=== PATIENT | male | born 1940 | race Caucasian/White ===

== ENCOUNTER 2018-12-26 12:59 | Inpatient (IN) ==
[2018-12-26 13:32] LABS: Basophils # (auto) 0.05 K/uL (0-0.2); Basophils % (auto) 0.6 %; Eosinophils # (auto) 0.22 K/uL (0-0.5); Eosinophils % (auto) 2.5 %; Hematocrit (blood only) 38.2 % (42-52); Immature Granulocytes # (auto) 0.03 K/uL (0.00-0.02); Immature Granulocytes % (auto) 0.3 %; Lymphocytes # (auto) 1.99 K/uL (1.2-3.4); Lymphocytes % (auto) 22.5 %; Mean Platelet Volume 11.3 fL (7.4-10.4); Monocytes # (auto) 1.02 K/uL (0.11-0.59); Monocytes % (auto) 11.5 %; Neutrophils # (auto) 5.55 K/uL (1.4-6.5); Neutrophils % (auto) 62.6 %; Platelet Count 170 K/uL (130-400); RDW Coefficient of Variation 13.2 % (11.5-14.5); RDW Standard Deviation 41.6 fL (36.4-46.3); Red Blood Count 4.44 M/uL (4.7-6.1); White Blood Count 8.86 K/uL (4.8-10.8)
[2018-12-26 13:41] LABS: Alanine Aminotransferase 20 U/L (12-78); Albumin Level 3.9 gm/dl (3.4-5.0); Aspartate Aminotransferase 18 U/L (15-37); BUN Creatinine Ratio 11.3 (10-20); Blood Urea Nitrogen 15 mg/dl (7-18); Calcium 9.8 mg/dl (8.5-10.1); Carbon Dioxide 26 mmol/L (21-32); Chloride 107 mmol/L (98-107); Creatinine Clr Calc Pharmacy 56.5 ml/min; Est GFR (African American) 59.2; Est GFR (Non-African American) 51.1; Glucose 157 mg/dl (70-99); Magnesium 2.1 mg/dl (1.8-2.4); Potassium 4.7 mmol/L (3.5-5.1); Sodium 140 mmol/L (136-145)
[2018-12-26 13:46] LABS: Alkaline Phosphatase 120 U/L (45-117); Bilirubin,Total 0.7 mg/dl (0.2-1); Globulin 3.8 gm/dl (2.5-4.0); NT Pro B Type Natriuretic Pept 244 pg/ml (0-1800); Total Protein 7.7 gm/dl (6.4-8.2); Troponin I < 0.015 ng/ml (0-0.045)
[2018-12-26 13:49] LABS: D Dimer 260 ug/L FEU (0-500)
--- NOTE | 2018-12-26 14:42 | XRay Report ---
XR chest 1V portable CLINICAL HISTORY: Chest pain. Chest tightness. COMPARISON STUDY: Chest radiograph May 26, 2018. FINDINGS: Note is made of median sternotomy wires. The cardiomediastinal silhouette is normal. There is no evidence for pulmonary edema or pneumonia. Several old right rib fractures are present. Bluntin g of the right costophrenic angle is likely chronic. The appearance of the chest is unchanged. IMPRESSION: No acute cardiopulmonary findings. Electronically signed by: Shan Perez M.D. 12/26/2018 2:41 PM
[2018-12-26 15:01] LABS: Estimated Average Glucose 214 mg/dl; Hemoglobin A1C 9.1 % (4.5-5.6)
--- NOTE | 2018-12-26 18:01 | Emergency Department Note ---
Entered by Wero Judd acting as a scribe for History of Present Illness General Chief complaint: Chest Pain Stated complaint: CHEST PAINS Time Seen by Provider: 12/26/18 13:26 Source: patient History of Present Illness Provider complaint: Chest pain Onset (ago): day(s) 2 Location: chest Radiation: extremity (Left upper) Severity: similar to prior episodes Pain Consistency: + intermittent Maximum Pain Intensity: 0 Relieved By: + none Exacerbated By: + movement Associated symptoms: + shortness of breath and + other (Lightheaded, No leg swelling, No changes in bowel movements); no fever/chills and no nausea/vomiting The patient is a 78 year old male who presents to the Emergency Room with complaints of intermittent chest pain that started 2 nights ago. He describes the pain as a "stress" that radiates down his left arm. When he first noticed the pain it lasted the entire night, around 7-8 hours but today when he felt the pain while on his way to the ED it only lasted for about a half hour. The patient notes he has been more short of breath lately especially with exertion. He also has noticed that he is getting lightheaded when he stands up. 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 He states that the "stress" he has been experiencing feels similar to when he had these past heart issues. He states this pain is different than the pain he feels in the bilateral upper extremity secondary to a "pinched nerve in his neck". He saw his doctor today and after talking with Dr. Mello they decided to send the patient here for further evaluation. The patient sees Dr. Mello every 6 months, with his last appointment being around 5 months ago. He has had an echo done within the past year. The patient did note he recently had a cough and rhinorrhea but denies any fevers, nausea, vomiting, leg swelling or changed in bowel movements. Patient denies any recent trauma or injury, no change in activity, no change in medications. Home Medications Home Medications Medication Instructions Recorded Confirmed Type aspirin [Enteric Coated Aspirin] 81 mg PO QAM #0 07/12/09 12/26/18 History isosorbide mononitrate 60 mg PO QAM 05/02/18 12/26/18 History metoprolol tartrate 50 mg PO BID 05/02/18 12/26/18 History amlodipine 5 mg PO QAM 05/26/18 12/26/18 History metformin 1,000 mg PO QAM 05/26/18 12/26/18 History atorvastatin 40 mg PO QAM 12/26/18 12/26/18 History insulin glargine [Lantus U-100 25 unit SUBCUT BIDM 12/26/18 12/26/18 History Insulin] ranitidine HCl 150 mg PO BID 12/26/18 12/26/18 History telmisartan 80 mg PO QAM 12/26/18 12/26/18 History Allergies Allergy/AdvReac Type Severity Reaction Status Date / Time tramadol AdvReac Severe memory loss Unverified 12/26/18 13:47 lisinopril AdvReac Intermediate Cough Unverified 12/26/18 13:47 sertraline AdvReac Mild DIDN'T Verified 12/26/18 13:47 FEEL WELL ON [id number] Past Med/Surg History Medical History HLD (hyperlipidemia) (Chronic) Sleep apnea (Chronic) HTN (hypertension) (Chronic) CAD (coronary artery disease) (Chronic) Diabetes mellitus with neuropathy (Chronic) Rib fractures Ribs, multiple fractures (Acute) Surgical History 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 and A total of 10 systems reviewed and were otherwise negative Physical Exam Vital Signs Vital Signs - 24 hr 12/26/18 13:02 12/26/18 13:20 12/26/18 14:06 Temperature 36.4 C L Temperature Source Oral Sepsis Recent Fever Within 48 Hours No Sepsis New/Unexplained Change in Mental Status No Sepsis Action Taken by Nursing No Action Required Pulse Rate 58 L Pulse Rate [Apical] 58 L 58 L Respiratory Rate 16 18 18 Respiratory Effort / Characteristics Non-Labored Respiratory Depth Normal Blood Pressure 143/73 H Blood Pressure [Left Arm] 160/96 H 149/74 H Blood Pressure Mean 96 Blood Pressure Mean [Left Arm] 117 99 Pulse Oximetry 99 98 98 Oxygen Delivery Method Room Air Room Air Room Air 12/26/18 16:00 Temperature Temperature Source Sepsis Recent Fever Within 48 Hours Sepsis New/Unexplained Change in Mental Status Sepsis Action Taken by Nursing Pulse Rate Pulse Rate [Apical] 60 Respiratory Rate 16 Respiratory Effort / Characteristics Respiratory Depth Blood Pressure Blood Pressure [Left Arm] 149/78 H Blood Pressure Mean Blood Pressure Mean [Left Arm] 101 Pulse Oximetry 98 Oxygen Delivery Method Room Air GENERAL: alert, well appearing, well nourished, no distress, non-toxic EYE EXAM: normal conjunctiva, PERRL and EOM's grossly intact OROPHARYNX: no exudate, no erythema, lips, buccal mucosa, and tongue normal and mucous membranes are moist NECK: supple, no nuchal rigidity, no adenopathy, non-tender LUNGS: Clear to auscultation. Normal chest wall mechanics, no w/r/r HEART: no murmurs, S1 normal and S2 normal CHEST: Mild discomfort to the left sternal border with palpation. ABDOMEN: abdomen soft, non-tender, normo-active bowel sounds, no masses, no rebound or guarding. BACK: Back is symmetrical on inspection and there is no deformity, no midline tenderness, no CVA tenderness. SKIN: no rashes and no bruising UPPER EXTREMITIES: upper extremities are grossly normal. FROM, nml pulses b/l. LOWER EXTREMITIES: No pitting edema. FROM, nml pulses b/l. NEURO EXAM: Normal sensorium, cranial nerves II-XII grossly intact, normal speech, no gross weakness of arms, no gross weakness of legs. Course 1359: The patient was evaluated in room A09B, and a complete history and physical examination were performed. 1600: I spoke to Dr. Sandhu - Cardiology about the patient's case and he said to talk with Dr. Mello about the patient and plan. 1610: I spoke to Dr. Mello - Media Supervisor about the patient's case and he said to admit the patient for further observation. 1615: I reevaluated the patient and updated him and his on the treatment plan. They agreed. 1623: I spoke to Dr. Bustos - [facility] Hospitalist about the patient's case and he is going to accept him for further evaluation. Consultations Consultation #1: I spoke to Dr. Sandhu - Cardiology about the patient's case and he said to talk with Dr. Mello about the patient and plan. Time: 16:00 Consultation #2: I spoke to Dr. Mello - Media Supervisor about the patient's case and he said to admit the patient for further observation. Time: 16:10 Consultation #3: I spoke to Dr. Bustos - [facility] Hospitalist about the patient's case and he is going to accept him for further evaluation. Time: 16:23 Medical Decision Making Differential Diagnosis Differential diagnoses includes but is not limited to acute coronary syndrome, myocardial infarction, pericarditis, pulmonary embolus, aortic dissection, pneumonia, pneumothorax, musculoskeletal, shingles, esophageal. Medical Records Attestation: I reviewed the patient's medical records. Home Medications Current Medication List: was personally reviewed by me Laboratory Data Attestation: I reviewed the patient's lab results. Result diagrams: 12/26/18 13:15 12/26/18 13:15 Lab Results 12/26/18 12/26/18 12/26/18 Range/Units 13:15 13:15 13:15 WBC 8.86 (4.8-10.8) K/uL RBC 4.44 L (4.7-6.1) M/uL Hgb 13.0 L (14.0-18.0) g/dL Hct 38.2 L (42-52) % MCV 86.0 (80-100) fL MCH 29.3 (25-34) pg MCHC 34.0 (32-36) g/dL RDW Std Deviation 41.6 (36.4-46.3) fL RDW Coeff of German 13.2 (11.5-14.5) % Plt Count 170 (130-400) K/uL MPV 11.3 H (7.4-10.4) fL Immature Gran % (Auto) 0.3 % Neut % (Auto) 62.6 % Lymph % (Auto) 22.5 % Weston % (Auto) 11.5 % Eos % (Auto) 2.5 % Baso % (Auto) 0.6 % Immature Gran # (Auto) 0.03 H (0.00-0.02) K/uL Neut # (Auto) 5.55 (1.4-6.5) K/uL Lymph # (Auto) 1.99 (1.2-3.4) K/uL Weston # (Auto) 1.02 H (0.11-0.59) K/uL Eos # (Auto) 0.22 (0-0.5) K/uL Baso # (Auto) 0.05 (0-0.2) K/uL D-Dimer 260 (0-500) ug/L FEU Sodium 140 (136-145) mmol/L Potassium 4.7 (3.5-5.1) mmol/L Chloride 107 (98-107) mmol/L Carbon Dioxide 26 (21-32) mmol/L Anion Gap 8.0 (3-11) BUN 15 (7-18) mg/dl Creatinine 1.34 (0.6-1.4) mg/dl Est Cr Clr Drug Dosing 56.5 ml/min Est GFR ( Amer) 59.2 Est GFR (Non-Af Amer) 51.1 BUN/Creatinine Ratio 11.3 (10-20) Glucose 157 H (70-99) mg/dl Estimat Average Glucose mg/dl Hemoglobin A1c (4.5-5.6) % Calcium 9.8 (8.5-10.1) mg/dl Magnesium 2.1 (1.8-2.4) mg/dl Total Bilirubin 0.7 (0.2-1) mg/dl AST 18 (15-37) U/L ALT 20 (12-78) U/L Alkaline Phosphatase 120 H (45-117) U/L Troponin I < 0.015 (0-0.045) ng/ml NT-Pro-B Natriuret Pep 244 (0-1800) pg/ml Total Protein 7.7 (6.4-8.2) gm/dl Albumin 3.9 (3.4-5.0) gm/dl Globulin 3.8 (2.5-4.0) gm/dl Albumin/Globulin Ratio 1.0 (0.9-2) Lipase 42 L (73-393) U/L 12/26/18 Range/Units 13:15 WBC (4.8-10.8) K/uL RBC (4.7-6.1) M/uL Hgb (14.0-18.0) g/dL Hct (42-52) % MCV (80-100) fL MCH (25-34) pg MCHC (32-36) g/dL RDW Std Deviation (36.4-46.3) fL RDW Coeff of German (11.5-14.5) % Plt Count (130-400) K/uL MPV (7.4-10.4) fL Immature Gran % (Auto) % Neut % (Auto) % Lymph % (Auto) % Weston % (Auto) % Eos % (Auto) % Baso % (Auto) % Immature Gran # (Auto) (0.00-0.02) K/uL Neut # (Auto) (1.4-6.5) K/uL Lymph # (Auto) (1.2-3.4) K/uL Weston # (Auto) (0.11-0.59) K/uL Eos # (Auto) (0-0.5) K/uL Baso # (Auto) (0-0.2) K/uL D-Dimer (0-500) ug/L FEU Sodium (136-145) mmol/L Potassium (3.5-5.1) mmol/L Chloride (98-107) mmol/L Carbon Dioxide (21-32) mmol/L Anion Gap (3-11) BUN (7-18) mg/dl Creatinine (0.6-1.4) mg/dl Est Cr Clr Drug Dosing ml/min Est GFR ( Amer) Est GFR (Non-Af Amer) BUN/Creatinine Ratio (10-20) Glucose (70-99) mg/dl Estimat Average Glucose 214 mg/dl Hemoglobin A1c 9.1 H (4.5-5.6) % Calcium (8.5-10.1) mg/dl Magnesium (1.8-2.4) mg/dl Total Bilirubin (0.2-1) mg/dl AST (15-37) U/L ALT (12-78) U/L Alkaline Phosphatase (45-117) U/L Troponin I (0-0.045) ng/ml NT-Pro-B Natriuret Pep (0-1800) pg/ml Total Protein (6.4-8.2) gm/dl Albumin (3.4-5.0) gm/dl Globulin (2.5-4.0) gm/dl Albumin/Globulin Ratio (0.9-2) Lipase (73-393) U/L Imaging Data Radiologist's Impression: Radiology results as stated below per my review and the radiologist's interpretation: XR chest 1V portable CLINICAL HISTORY: Chest pain. Chest tightness. COMPARISON STUDY: Chest radiograph May 26, 2018. FINDINGS: Note is made of median sternotomy wires. The cardiomediastinal si lhouette is normal. There is no evidence for pulmonary edema or pneumonia. Several old right rib fractures are present. Blunting of the right costophrenic angle is likely chronic. The appearance of the chest is unchanged. IMPRESSION: No acute cardiopulmonary findings. Electronically signed by: Shan Perez M.D. 12/26/2018 2:41 PM ECG Data Attestation: I personally reviewed and interpreted this ECG as follows: Indication: chest pain Rate (beats per minute): 56 Rhythm: sinus bradycardia Findings: + other (Normal intervals and axis); no PAC, no PVC and no acute ischemic change Blood Pressure Blood Pressure Findings: Elevated blood pressure Blood Pressure Disposition: further management by hospitalist MDM Narrative Patient was a worsening story for increasing anginal symptoms as well as recent chest pain. Patient referred here by his PCP after they discussed the patient's symptoms with his primary pewter finisher Dr. Mello. Case discussed with Dr. Sandhu who is on-call and then additionally with Dr. Mello to discuss plan of care. Patient's labs and imaging here are reassuring, patient hemodynamically stable throughout. Patient with no symptoms while at rest here in the emergency room. Given patient's significant past cardiac history, Dr. Mello agrees with plan for additional evaluation as an inpatient is warranted. Impression & Plan Chest pain, Dyspnea on exertion, Stable angina Discharge Plan Visit Data Chief Complaint: Chest Pain Stated Complaint: CHEST PAINS ED Provider: Merna Ordoñez Discharge Problem: Chest pain, Dyspnea on exertion, Stable angina Patient Disposition: Being Evaluated by Hospitalist Condition: Good Forms Stand Alone Forms: Call Back Authorization, [facility] Prescriptions Prescriptions: No Action aspirin [Enteric Coated Aspirin] 81 mg Tablet,Delayed Release (Dr/Ec) 81 mg PO QAM Qty: 0 RF: 0 isosorbide mononitrate 60 mg Tablet Extended Release 24 Hr 60 mg PO QAM RF: 0 metoprolol tartrate 50 mg Tablet 50 mg PO BID RF: 0 amlodipine 5 mg tablet 5 mg PO QAM RF: 0 metformin 1,000 mg tablet 1,000 mg PO QAM RF: 0 Lantus U-100 Insulin 100 unit/mL Solution 25 unit SUBCUT BIDM RF: 0 ranitidine HCl 150 mg tablet 150 mg PO BID RF: 0 telmisartan 80 mg Tablet 80 mg PO QAM RF: 0 atorvastatin 40 mg tablet 40 mg PO QAM RF: 0 Referrals Referrals: Shantell Queen, [Primary Care Provider] - The scribe's documentation has been prepared under my direction and personally reviewed by me in its entirety. I confirm that the note above accurately reflects all work, treatment, procedures, and medical decision making performed by me.
--- NOTE | 2018-12-26 18:32 | History & Physical Report ---
Date of Service December 26, 2018 Assessment & Plan (1) Chest pain: 78-year-old male was admitted on 26 December 2017 for intermittent chest pain and shortness of breath over the past two days. Periodic chest pain: Primarily two days prior to admission, more sporadic since. He has a notable history of CAD and four-vessel CABG around 2008. Difficult to tell but this may be his anginal equivalent. At present, he is chest pain-free. Sinus bradycardia here with no tachypnea and normal room SpO2. EKG was sinus bradycardia, rate 56, without ST or T wave elevations/depressions. pCXR noted no acute cardiopulmonary findings. Initial troponin at 1315 was negative. BNP normal. HEART score was moderate risk. - No medications administered in ED. - Will trend troponin and EKG overnight. - Consult cardiology for their input and thoughts on need for stress vs cath. Dyspnea on exertion: Patient notes progressive worsening SOB with exertion over the past month, now such that it occurs with any exertion. Denies any underlying pulmonary disease. Remote smoking history. Chest x-ray is clear. - Ordered spirometry for AM. Anemia: Admit Hb 13.0, MCV 86. This is similar to prior around Hb 13 as well. Ongoing medical history: - Hypertension, CAD: Continue home amlodipine, telmisartan, metoprolol, Imdur, and aspirin 81 mg. - Hyperlipidemia: Continue home atorvastatin - Diabetes type 2: Insulin-dependent. 29Apr HbA1c was 9.1. At home is on metformin and Lantus 25 units twice daily. --- Held his home metformin. Placed on insulin sliding scale here as well. - Diabetic neuropathy: Not on any home meds for this. - GERD: Continue home ranitidine. - Left rib fracture: Sustained around early April 2018. - Obstructive sleep apnea: History of noncompliance with CPAP at home. Code status: DNR (per patient stated long-term wishes). Diet: Heart healthy, diabetes type 2. NPO at midnight. DVT prophy: Lovenox. PT/OT: Deferred. Disbo: Admit for observation to [facility] telemetry. (2) Dyspnea on exertion: (3) HTN (hypertension): (4) CAD (coronary artery disease): (5) H/O four vessel coronary artery bypass graft: (6) HLD (hyperlipidemia): (7) Diabetes mellitus with neuropathy: (8) GERD (gastroesophageal reflux disease): (9) History of rib fracture: (10) Sleep apnea: History of Present Illness Primary Care Provider: Shantell Queen DO 78-year-old male presents to the emergency department with complaints of chest pain and progressively worsening shortness of breath with exertion. - Regarding his chest pain, patient says that two days ago (27Apr) he felt a constant left upper chest pain that he calls "stress" that radiated into his left arm. He says this lasted for about 7-8 hours, constant, which continued until he fell asleep that evening. He says on awakening he had no chest pain. Over yesterday and today he says he has had some recurrence of the same discomfort but it lasted for far less time (he is unable to quantify). He denies any chest pain at present. He says he was at his primary care provider's office earlier this morning (Dr. Queen) where he mentioned the above. After discussion with his merit system director, Dr. Mello, he was referred to the ED for further evaluation. -Regarding his shortness of breath, patient says over the past month or so he has noticed progressively worsening difficulty with catching his breath on any exertion. He says that it is become so severe such that he will get shortness of breath with just getting up to walk to the bathroom or even simply sitting up at times. Sometimes he gets lightheaded as well during these times. At present at rest, patient denies any shortness of breath. - In general, he denies any known recent fevers or feeling of illness, nausea or vomiting, abdominal concerns, leg swelling, or any other acute concerns. He does note an occasional cough on ROS. - Patient says that he follows with Dr. Mello of cardiology about every 6 months, last appointment being about 5 months ago. He says he had an echocardiogram done within the past year. --- Past medical history includes hypertension, hyperlipidemia, coronary artery disease status post CABG, insulin-dependent diabetes type 2, diabetic neuropathy, GERD, obstructive sleep apnea, left rib fractures. --- Past surgical history includes four-vessel CABG around 2008. --- Social history includes smoking 1 ppd for about 16-18 years but stopped at age 34. Denies EtOH use. Is and lives at home with his dog. Allergies Allergy/AdvReac Type Severity Reaction Status Date / Time tramadol AdvReac Severe memory loss Unverified 12/26/18 13:47 lisinopril AdvReac Intermediate Cough Unverified 12/26/18 13:47 sertraline AdvReac Mild DIDN'T Verified 12/26/18 13:47 FEEL WELL ON [id number] Home Medications Home Medications Medication Instructions Recorded Confirmed Type aspirin [Enteric Coated Aspirin] 81 mg PO QAM #0 07/12/09 12/26/18 History isosorbide mononitrate 60 mg PO QAM 05/02/18 12/26/18 History metoprolol tartrate 50 mg PO BID 05/02/18 12/26/18 History amlodipine 5 mg PO QAM 05/26/18 12/26/18 History metformin 1,000 mg PO QAM 05/26/18 12/26/18 History atorvastatin 40 mg PO QAM 12/26/18 12/26/18 History insulin glargine [Lantus U-100 25 unit SUBCUT BIDM 12/26/18 12/26/18 History Insulin] ranitidine HCl 150 mg PO BID 12/26/18 12/26/18 History telmisartan 80 mg PO QAM 12/26/18 12/26/18 History Past Med/Surg History Medical History HLD (hyperlipidemia) (Chronic) Sleep apnea (Chronic) HTN (hypertension) (Chronic) CAD (coronary artery disease) (Chronic) Diabetes mellitus with neuropathy (Chronic) Rib fractures Ribs, multiple fractures (Acute) Surgical History 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) Family History Other Family history non-contributory Social History Communication Ability: Effective Beliefs That Will Affect Care: None marital status: / Current Living Situation: Alone Feels Safe at Home: Yes Smoking Status: Former smoker Hx Alcohol Use: No Hx Substance Use: No Review of Systems Review of Systems: Constitutional: Denies fevers, chills, focal weakness Eyes: Denies any visual loss or diplopia ENT: Denies any ear/nose/throat pain or difficulty speaking or swallowing Respiratory: Positive dyspnea with exertion, rare cough. Denies hemoptysis. Cardiovascular: Positive chest pain. Denies feeling of edema. Gastrointestinal: Denies any abdominal pain, nausea/vomiting/diarrhea Musculoskeletal: Denies any acute extremity pains, myalgias, or focal weakness Skin: Denies any known acute rashes or lesions Neuro: Denies any headache, acute focal weakness or numbness, or difficulties with speech or swallow. Physical Exam Physical Exam: GENERAL: Awake, alert, well-appearing, in no acute distress HENT: Normocephalic, atraumatic. Oropharynx unremarkable. EYES: Normal conjunctiva. Sclera non-icteric. NECK: Inspection normal. Supple and full ROM. No nuchal rigidity. CARDIAC: +S1S2 regular bradycardia, no murmurs. RESPIRATORY: Faint end expiratory wheezing, otherwise clear to auscultation. Normal respiratory effort. GI: +BS, soft, appears distended (but patient says is his baseline). No tenderness to palpation. No rebound or guarding. EXTREMITIES: No pedal edema or calf tenderness. Moving all extremities naturally and easily. NEURO: Bilateral decreased sensation at the level of the mid-shins and worsening (but still intact) distally. Strength grossly normal (B) in both legs. Results & Data Vital Signs (Past 12 Hours) Vital Signs Temp Pulse Pulse Resp BP BP Pulse Ox 12/26/18 18:00 58 L 16 152/73 H 97 12/26/18 16:00 60 16 149/78 H 98 12/26/18 14:06 58 L 18 149/74 H 98 12/26/18 13:20 58 L 18 160/96 H 98 12/26/18 13:02 36.4 C L 58 L 16 143/73 H 99 Laboratory Results 12/26/18 12/26/18 12/26/18 Range/Units 13:15 13:15 13:15 WBC (4.8-10.8) K/uL RBC (4.7-6.1) M/uL Hgb (14.0-18.0) g/dL Hct (42-52) % MCV (80-100) fL MCH (25-34) pg MCHC (32-36) g/dL RDW Std Deviation (36.4-46.3) fL RDW Coeff of German (11.5-14.5) % Plt Count (130-400) K/uL MPV (7.4-10.4) fL Immature Gran % (Auto) % Neut % (Auto) % Lymph % (Auto) % Orange % (Auto) % Eos % (Auto) % Baso % (Auto) % Immature Gran # (Auto) (0.00-0.02) K/uL Neut # (Auto) (1.4-6.5) K/uL Lymph # (Auto) (1.2-3.4) K/uL Orange # (Auto) (0.11-0.59) K/uL Eos # (Auto) (0-0.5) K/uL Baso # (Auto) (0-0.2) K/uL D-Dimer 260 (0-500) ug/L FEU Sodium 140 (136-145) mmol/L Potassium 4.7 (3.5-5.1) mmol/L Chloride 107 (98-107) mmol/L Carbon Dioxide 26 (21-32) mmol/L Anion Gap 8.0 (3-11) BUN 15 (7-18) mg/dl Creatinine 1.34 (0.6-1.4) mg/dl Est Cr Clr Drug Dosing 56.5 ml/min Est GFR ( Amer) 59.2 Est GFR (Non-Af Amer) 51.1 BUN/Creatinine Ratio 11.3 (10-20) Glucose 157 H (70-99) mg/dl Estimat Average Glucose 214 mg/dl Hemoglobin A1c 9.1 H (4.5-5.6) % Calcium 9.8 (8.5-10.1) mg/dl Magnesium 2.1 (1.8-2.4) mg/dl Total Bilirubin 0.7 (0.2-1) mg/dl AST 18 (15-37) U/L ALT 20 (12-78) U/L Alkaline Phosphatase 120 H (45-117) U/L Troponin I < 0.015 (0-0.045) ng/ml NT-Pro-B Natriuret Pep 244 (0-1800) pg/ml Total Protein 7.7 (6.4-8.2) gm/dl Albumin 3.9 (3.4-5.0) gm/dl Globulin 3.8 (2.5-4.0) gm/dl Albumin/Globulin Ratio 1.0 (0.9-2) Lipase 42 L (73-393) U/L 12/26/18 Range/Units 13:15 WBC 8.86 (4.8-10.8) K/uL RBC 4.44 L (4.7-6.1) M/uL Hgb 13.0 L (14.0-18.0) g/dL Hct 38.2 L (42-52) % MCV 86.0 (80-100) fL MCH 29.3 (25-34) pg MCHC 34.0 (32-36) g/dL RDW Std Deviation 41.6 (36.4-46.3) fL RDW Coeff of German 13.2 (11.5-14.5) % Plt Count 170 (130-400) K/uL MPV 11.3 H (7.4-10.4) fL Immature Gran % (Auto) 0.3 % Neut % (Auto) 62.6 % Lymph % (Auto) 22.5 % Orange % (Auto) 11.5 % Eos % (Auto) 2.5 % Baso % (Auto) 0.6 % Immature Gran # (Auto) 0.03 H (0.00-0.02) K/uL Neut # (Auto) 5.55 (1.4-6.5) K/uL Lymph # (Auto) 1.99 (1.2-3.4) K/uL Orange # (Auto) 1.02 H (0.11-0.59) K/uL Eos # (Auto) 0.22 (0-0.5) K/uL Baso # (Auto) 0.05 (0-0.2) K/uL D-Dimer (0-500) ug/L FEU Sodium (136-145) mmol/L Potassium (3.5-5.1) mmol/L Chloride (98-107) mmol/L Carbon Dioxide (21-32) mmol/L Anion Gap (3-11) BUN (7-18) mg/dl Creatinine (0.6-1.4) mg/dl Est Cr Clr Drug Dosing ml/min Est GFR ( Amer) Est GFR (Non-Af Amer) BUN/Creatinine Ratio (10-20) Glucose (70-99) mg/dl Estimat Average Glucose mg/dl Hemoglobin A1c (4.5-5.6) % Calcium (8.5-10.1) mg/dl Magnesium (1.8-2.4) mg/dl Total Bilirubin (0.2-1) mg/dl AST (15-37) U/L ALT (12-78) U/L Alkaline Phosphatase (45-117) U/L Troponin I (0-0.045) ng/ml NT-Pro-B Natriuret Pep (0-1800) pg/ml Total Protein (6.4-8.2) gm/dl Albumin (3.4-5.0) gm/dl Globulin (2.5-4.0) gm/dl Albumin/Globulin Ratio (0.9-2) Lipase (73-393) U/L Code Status & VTE Plan Code Status Do not resuscitate VTE Prophylaxis Plan VTE Prophylaxis will be ordered: Yes Supervising Physician Co-Signing Physician Notes I personally examined the patient and verified all ledbetter points of history and exam, discussed case, and agree with decision making with Dr Kenney. chest pain for hours on wednesday, less yste and today but still there for short times. TAYLOR worsening lately - now dyspnea with even minimal exertion. vitals noted nad breathing unlabored no accessory muscles, skin shows no pallor or icterus. cn 2-12 grossly intact gross motor/sensory intact. CXR nonacute. EKG nonacute. labs noted, trop normal. A1c 9.1 CP - almost certainly noncardiac, given duration on wednesday, with multiple repeat episodes, and still negative troponin. TAYLOR - more concerning for true pathology. cardiology consult (considered stress, but with prior bypass would like need to be nuclear and would have high chance of old/false positive findings, and with prior disease + new TAYLOR/worsneing TAYLOR, reasonable to consider cath as well) (will keep NPO after midnight to allow cardiology flexibility to create plan as they see most appropriate). will also check spirometry. Resident Activity Tracking Resident Involvement: Resident Care Provided Care Provided: Adult Hospital Medicine (1) Chest pain Chest pain type: unspecified Qualified Code(s): R07.9 - Chest pain, unspecified
[2018-12-26] MEDS ORDERED: GLUCOSE 40% GEL 15 GM TUBE PO PRN (19:03)
[2018-12-26] MEDS ORDERED: GLUCOSE 10 TABS/TUBE PO PRN (19:03)
[2018-12-26] MEDS ORDERED: GLUCAGON FOR INJ 1 MG VIAL SQ PRN (19:03)
[2018-12-26] MEDS ORDERED: NITROGLYCERIN SL 0.4 MG/TAB TAB SL PRN (19:03)
[2018-12-26] MEDS ORDERED: CARBOHYDRATES FOR HYPOGLYCEMIA PO PRN (19:03)
[2018-12-26] MEDS ORDERED: ONDANSETRON INJ 2 MG/ML 2 ML VIAL IV PRN (19:03)
[2018-12-26] MEDS ORDERED: ACETAMINOPHEN 325 MG TAB PO PRN (19:03)
[2018-12-26] MEDS ORDERED: DEXTROSE 50% 50 ML SYRINGE IV PRN (19:03)
[2018-12-26 19:42] LABS: INR 1.1 (0.9-1.1); Prothrombin Time 10.9 Seconds (9.0-12.0)
[2018-12-26] MEDS: METOPROLOL TARTRATE 50 MG TAB PO SCH (20:02)
[2018-12-26] MEDS ORDERED: INSULIN GLARGINE SOLOSTAR 100 UNITS/ML 3 ML PEN SQ SCH ×2 (21:00)
[2018-12-26] MEDS: ENOXAPARIN INJ 40 MG/0.4 ML SYR SQ SCH (21:09)
[2018-12-26] MEDS: INSULIN ASPART 100 UNITS/ML 3 ML PEN SC SCH (21:09)
--- OUTSIDE RECORDS SUMMARY | 2018-12-26 23:19 | External Medical Summary | Continuity of Care Document ---
:1940 Author Name Fred Knox, Provider Address Unavailable Unavailable , Care Team Providers Name Role Phone Unavailable Unavailable Unavailable Ismael Bustos [email or web address] GALINDO [email or web address] Unavailable Unavailable Unavailable Unavailable Unavailable Problems Hearing loss (389.9) (H91.90) Tinnitus (388.30) (H93.19) BPH (benign prostatic hyperplasia) (600.00) (N40.0) Nocturia (788.43) (R35.1) Encounter for screening for malignant neoplasm of prostate ( V76.44) (Z12.5) Functional Status Hearing loss Allergies and Adverse Reactions No Known Drug Allergies (Allergy) Medications Atorvastatin Calcium 10 MG Oral Tablet , M.D. Refills: 0 Metoprolol Tartrate TABS , M.D. Refills: 0 metFORMIN HCl TABS , M.D. Refills: 0 Finasteride 5 MG Oral Tablet; TAKE ONE TABLET BY MOUTH DAILY Lisette Bustos Start: 07-Feb-2015 Quantity: 90 Refills: 3 Lisinopril TABS , M.D. Refills: 0 Aspirin 81 MG TABS , M.D. Refills: 0 Procedures History of Heart Surgery Status: Complet ed History of Cholecystectomy Status: Compl eted Immunizations Immunizations not documented Family History Mother Family history of Diabetes Mellitus (V18.0) Status: Active Father Family history of cardiac disorder (V17.49) (Z82.49) Status: Active Family history of hypertension (V17.49) (Z82.49) Status: Act iglesia Social History - Smoking Status Unknown if ever smoked Never smoker Plan of Treatment Planned Observations Planned Goals not documented Results No Known Results Results not documented Encounters Appointment; Alberto Ayala M.D. 10-Feb-2017 11:20 Encounter Diagnosis: Problem not documented
[2018-12-27 03:37] LABS: Basophils # (auto) 0.04 K/uL (0-0.2); Basophils % (auto) 0.5 %; Eosinophils # (auto) 0.24 K/uL (0-0.5); Hematocrit (blood only) 36.6 % (42-52); Hemoglobin 12.9 g/dL (14.0-18.0); Immature Granulocytes # (auto) 0.02 K/uL (0.00-0.02); Immature Granulocytes % (auto) 0.2 %; Lymphocytes # (auto) 2.61 K/uL (1.2-3.4); Lymphocytes % (auto) 32.6 %; Mean Corpuscular Hgb Conc 35.2 g/dL (32-36); Mean Corpuscular Volume 85.5 fL (80-100); Monocytes # (auto) 1.03 K/uL (0.11-0.59); Monocytes % (auto) 12.9 %; Neutrophils # (auto) 4.07 K/uL (1.4-6.5); Neutrophils % (auto) 50.8 %; Platelet Count 162 K/uL (130-400); RDW Coefficient of Variation 13.3 % (11.5-14.5); RDW Standard Deviation 41.6 fL (36.4-46.3); Red Blood Count 4.28 M/uL (4.7-6.1); White Blood Count 8.01 K/uL (4.8-10.8)
[2018-12-27 03:58] LABS: BUN Creatinine Ratio 13.7 (10-20); Blood Urea Nitrogen 17 mg/dl (7-18); Calcium 8.7 mg/dl (8.5-10.1); Carbon Dioxide 27 mmol/L (21-32); Chloride 110 mmol/L (98-107); Creatinine Clr Calc Pharmacy 61.2 ml/min; Est GFR (African American) 65.7; Est GFR (Non-African American) 56.7; Glucose 56 mg/dl (70-99); Potassium 3.9 mmol/L (3.5-5.1); Sodium 141 mmol/L (136-145)
[2018-12-27 04:03] LABS: Troponin I < 0.015 ng/ml (0-0.045)
[2018-12-27] MEDS: INSULIN ASPART 100 UNITS/ML 3 ML PEN SC SCH ×4 (05:18→20:31)
[2018-12-27] MEDS ORDERED: INSULIN GLARGINE SOLOSTAR 100 UNITS/ML 3 ML PEN SC ONE (08:20)
[2018-12-27] MEDS ORDERED: PERFLUTREN LIPID MICROSPHERE (DEFINITY) IV ONE (11:13)
--- NOTE | 2018-12-27 11:39 | Family Medicine Progress Note ---
Date of Service December 27, 2018 Assessment & Plan (1) Chest pain: 78-year-old male was admitted on 26 December 2018 for intermittent chest pain and shortness of breath over the past two days. Periodic chest pain: Primarily two days prior to admission, more sporadic since. Multiple cardiac risk factors to include prior stent and CABG x 4 vessels. He has remained chest pain-free during this admission. Serial troponins and EKGs were unremarkable. - Ordered echocardiogram. - Cardiology recommendations pending, though early report is that he will go for cath tomorrow. Dyspnea on exertion: Patient notes progressive worsening SOB with exertion over the past month, now such that it occurs with any exertion. Denies any underlying pulmonary disease. Remote smoking history. Chest x-ray is clear. Spirometry is suggestive of a mixed obstructive and restrictive pattern (with pulmonology interpretation pending). - We will start on both Advair and Spiriva with the thought of trying to fully control any pulmonary component to his dyspnea. If successful, this would likely need to be de-escalated as an outpatient to minimal required medication. Anemia: Admit Hb 13.0, MCV 86. This is similar to prior around Hb 13 as well. Ongoing medical history: - Hypertension, CAD: Continue home amlodipine, telmisartan, metoprolol, Imdur, and aspirin 81 mg. - Hyperlipidemia: Continue home atorvastatin - Diabetes type 2: Insulin-dependent. 29Apr HbA1c was 9.1. At home is on metformin and Lantus 25 units twice daily. --- Held his home metformin. Placed on insulin sliding scale here as well. --- Noted episode of hypoglycemia overnight (29-30Apr). Says this happens occasionally at home as well. Discussed he should work with his PCP on insulin regimen management to prevent future hypoglycemic episodes. - Diabetic neuropathy: Not on any home meds for this. - GERD: Continue home ranitidine. - Left rib fracture: Sustained around early April 2018. - Obstructive sleep apnea: History of noncompliance with CPAP at home. Code status: DNR. Diet: Heart healthy, diabetes type 2. NPO at midnight for anticipated cath tomorrow (01May). DVT prophy: Lovenox. PT/OT: Deferred. Disbo: [facility] (2) Dyspnea on exertion: (3) HTN (hypertension): (4) CAD (coronary artery disease): (5) H/O four vessel coronary artery bypass graft: (6) HLD (hyperlipidemia): (7) Diabetes mellitus with neuropathy: (8) GERD (gastroesophageal reflux disease): (9) History of rib fracture: (10) Sleep apnea: Supervising Physician Co-Signing Physician Notes I personally examined the patient and verified all ledbetter points of history and exam, discussed case, and agree with decision making with Dr Kenney. feeling ok no new sx. d/w cardiology -for cath tomorrow. vitals noted nad breathing unlabored no accessory muscles, skin shows no pallor or icterus. cn 2-12 grossly intact gross motor/sensory intact. CP - almost certainly noncardiac, given duration on wednesday, with multiple repeat episodes, and still negative troponins. concern is TAYLOR TAYLOR - -likely multifactorial - concern on anginal equivalent --> cath tomorrow -concern on valvular disease - as above/as per cardiology -PFTs appear probably mixed picture - maybe a mild degree of obstructive --- give trial of inhalers at high intensity so as to be able to look for improvement, if some, then can decrease to baseline anticholinergic and prn albuterol; if none, then likely no benefit to inhalers then; also appears restrictive - has large abdominal girth - likely some from weight related restriction. discussed lifestyle change DM2 - uncontrolled - discussed lifestyle change extensively otherwise as above Subjective Found patient resting comfortably in bed this morning. He says that he has no symptoms because "I am not doing anything". He denies any chest pain or shortness of breath at baseline or with walking to the bathroom. He has no particular acute concerns. Physical Exam Physical Exam: GENERAL: Awake, alert, well-appearing, in no acute distress CARDIAC: +S1S2 regular bradycardia, no murmurs. RESPIRATORY: Faint end expiratory wheezing, otherwise clear to auscultation. Normal respiratory effort. GI: +BS, soft, appears distended (but patient says is his baseline). No tenderness to palpation. No rebound or guarding. EXTREMITIES: No pedal edema or calf tenderness. Moving all extremities naturally and easily. NEURO: Bilateral decreased sensation at the level of the mid-shins and worsening (but still intact) distally. Strength grossly normal (B) in both legs. Results & Data Vital Signs (Past 12 Hours) Vital Signs Temp Pulse Resp BP Pulse Ox 12/27/18 10:46 36.4 C L 71 18 147/75 H 98 12/27/18 07:11 36.6 C 62 18 147/71 H 98 12/27/18 03:35 36.4 C L 59 L 16 155/89 H 97 12/26/18 23:59 36.5 C 58 L 18 147/76 H 98 Laboratory Results 12/27/18 12/27/18 12/27/18 Range/Units 11:22 10:07 07:23 WBC (4.8-10.8) K/uL RBC (4.7-6.1) M/uL Hgb (14.0-18.0) g/dL Hct (42-52) % MCV (80-100) fL MCH (25-34) pg MCHC (32-36) g/dL RDW Std Deviation (36.4-46.3) fL RDW Coeff of German (11.5-14.5) % Plt Count (130-400) K/uL MPV (7.4-10.4) fL Immature Gran % (Auto) % Neut % (Auto) % Lymph % (Auto) % [place] % (Auto) % Eos % (Auto) % Baso % (Auto) % Immature Gran # (Auto) (0.00-0.02) K/uL Neut # (Auto) (1.4-6.5) K/uL Lymph # (Auto) (1.2-3.4) K/uL [place] # (Auto) (0.11-0.59) K/uL Eos # (Auto) (0-0.5) K/uL Baso # (Auto) (0-0.2) K/uL PT (9.0-12.0) Seconds INR (0.9-1.1) D-Dimer (0-500) ug/L FEU Sodium (136-145) mmol/L Potassium (3.5-5.1) mmol/L Chloride (98-107) mmol/L Carbon Dioxide (21-32) mmol/L Anion Gap (3-11) BUN (7-18) mg/dl Creatinine (0.6-1.4) mg/dl Est Cr Clr Drug Dosing ml/min Est GFR ( Amer) Est GFR (Non-Af Amer) BUN/Creatinine Ratio (10-20) Glucose (70-99) mg/dl POC Glucose 132 H 108 H 102 H (70-99) Estimat Average Glucose mg/dl Hemoglobin A1c (4.5-5.6) % Calcium (8.5-10.1) mg/dl Magnesium (1.8-2.4) mg/dl Total Bilirubin (0.2-1) mg/dl AST (15-37) U/L ALT (12-78) U/L Alkaline Phosphatase (45-117) U/L Troponin I (0-0.045) ng/ml NT-Pro-B Natriuret Pep (0-1800) pg/ml Total Protein (6.4-8.2) gm/dl Albumin (3.4-5.0) gm/dl Globulin (2.5-4.0) gm/dl Albumin/Globulin Ratio (0.9-2) Lipase (73-393) U/L 12/27/18 12/27/18 12/27/18 Range/Units 06:52 05:37 05:07 WBC (4.8-10.8) K/uL RBC (4.7-6.1) M/uL Hgb (14.0-18.0) g/dL Hct (42-52) % MCV (80-100) fL MCH (25-34) pg MCHC (32-36) g/dL RDW Std Deviation (36.4-46.3) fL RDW Coeff of German (11.5-14.5) % Plt Count (130-400) K/uL MPV (7.4-10.4) fL Immature Gran % (Auto) % Neut % (Auto) % Lymph % (Auto) % [place] % (Auto) % Eos % (Auto) % Baso % (Auto) % Immature Gran # (Auto) (0.00-0.02) K/uL Neut # (Auto) (1.4-6.5) K/uL Lymph # (Auto) (1.2-3.4) K/uL [place] # (Auto) (0.11-0.59) K/uL Eos # (Auto) (0-0.5) K/uL Baso # (Auto) (0-0.2) K/uL PT (9.0-12.0) Seconds INR (0.9-1.1) D-Dimer (0-500) ug/L FEU Sodium (136-145) mmol/L Potassium (3.5-5.1) mmol/L Chloride (98-107) mmol/L Carbon Dioxide (21-32) mmol/L Anion Gap (3-11) BUN (7-18) mg/dl Creatinine (0.6-1.4) mg/dl Est Cr Clr Drug Dosing ml/min Est GFR ( Amer) Est GFR (Non-Af Amer) BUN/Creatinine Ratio (10-20) Glucose (70-99) mg/dl POC Glucose 119 H 86 48 L* (70-99) Estimat Average Glucose mg/dl Hemoglobin A1c (4.5-5.6) % Calcium (8.5-10.1) mg/dl Magnesium (1.8-2.4) mg/dl Total Bilirubin (0.2-1) mg/dl AST (15-37) U/L ALT (12-78) U/L Alkaline Phosphatase (45-117) U/L Troponin I (0-0.045) ng/ml NT-Pro-B Natriuret Pep (0-1800) pg/ml Total Protein (6.4-8.2) gm/dl Albumin (3.4-5.0) gm/dl Globulin (2.5-4.0) gm/dl Albumin/Globulin Ratio (0.9-2) Lipase (73-393) U/L 12/27/18 12/27/18 12/26/18 Range/Units 03:27 03:27 21:06 WBC 8.01 (4.8-10.8) K/uL RBC 4.28 L (4.7-6.1) M/uL Hgb 12.9 L (14.0-18.0) g/dL Hct 36.6 L (42-52) % MCV 85.5 (80-100) fL MCH 30.1 (25-34) pg MCHC 35.2 (32-36) g/dL RDW Std Deviation 41.6 (36.4-46.3) fL RDW Coeff of German 13.3 (11.5-14.5) % Plt Count 162 (130-400) K/uL MPV 11.0 H (7.4-10.4) fL Immature Gran % (Auto) 0.2 % Neut % (Auto) 50.8 % Lymph % (Auto) 32.6 % [place] % (Auto) 12.9 % Eos % (Auto) 3.0 % Baso % (Auto) 0.5 % Immature Gran # (Auto) 0.02 (0.00-0.02) K/uL Neut # (Auto) 4.07 (1.4-6.5) K/uL Lymph # (Auto) 2.61 (1.2-3.4) K/uL [place] # (Auto) 1.03 H (0.11-0.59) K/uL Eos # (Auto) 0.24 (0-0.5) K/uL Baso # (Auto) 0.04 (0-0.2) K/uL PT (9.0-12.0) Seconds INR (0.9-1.1) D-Dimer (0-500) ug/L FEU Sodium 141 (136-145) mmol/L Potassium 3.9 D (3.5-5.1) mmol/L Chloride 110 H (98-107) mmol/L Carbon Dioxide 27 (21-32) mmol/L Anion Gap 4.0 (3-11) BUN 17 (7-18) mg/dl Creatinine 1.23 (0.6-1.4) mg/dl Est Cr Clr Drug Dosing 61.2 ml/min Est GFR ( Amer) 65.7 Est GFR (Non-Af Amer) 56.7 BUN/Creatinine Ratio 13.7 (10-20) Glucose 56 L (70-99) mg/dl POC Glucose 214 H (70-99) Estimat Average Glucose mg/dl Hemoglobin A1c (4.5-5.6) % Calcium 8.7 (8.5-10.1) mg/dl Magnesium (1.8-2.4) mg/dl Total Bilirubin (0.2-1) mg/dl AST (15-37) U/L ALT (12-78) U/L Alkaline Phosphatase (45-117) U/L Troponin I < 0.015 (0-0.045) ng/ml NT-Pro-B Natriuret Pep (0-1800) pg/ml Total Protein (6.4-8.2) gm/dl Albumin (3.4-5.0) gm/dl Globulin (2.5-4.0) gm/dl Albumin/Globulin Ratio (0.9-2) Lipase (73-393) U/L 12/26/18 12/26/18 12/26/18 Range/Units 19:02 13:15 13:15 WBC (4.8-10.8) K/uL RBC (4.7-6.1) M/uL Hgb (14.0-18.0) g/dL Hct (42-52) % MCV (80-100) fL MCH (25-34) pg MCHC (32-36) g/dL RDW Std Deviation (36.4-46.3) fL RDW Coeff of German (11.5-14.5) % Plt Count (130-400) K/uL MPV (7.4-10.4) fL Immature Gran % (Auto) % Neut % (Auto) % Lymph % (Auto) % [place] % (Auto) % Eos % (Auto) % Baso % (Auto) % Immature Gran # (Auto) (0.00-0.02) K/uL Neut # (Auto) (1.4-6.5) K/uL Lymph # (Auto) (1.2-3.4) K/uL [place] # (Auto) (0.11-0.59) K/uL Eos # (Auto) (0-0.5) K/uL Baso # (Auto) (0-0.2) K/uL PT 10.9 (9.0-12.0) Seconds INR 1.1 (0.9-1.1) D-Dimer (0-500) ug/L FEU Sodium (136-145) mmol/L Potassium (3.5-5.1) mmol/L Chloride (98-107) mmol/L Carbon Dioxide (21-32) mmol/L Anion Gap (3-11) BUN (7-18) mg/dl Creatinine (0.6-1.4) mg/dl Est Cr Clr Drug Dosing ml/min Est GFR ( Amer) Est GFR (Non-Af Amer) BUN/Creatinine Ratio (10-20) Glucose (70-99) mg/dl POC Glucose (70-99) Estimat Average Glucose 214 mg/dl Hemoglobin A1c 9.1 H (4.5-5.6) % Calcium (8.5-10.1) mg/dl Magnesium (1.8-2.4) mg/dl Total Bilirubin (0.2-1) mg/dl AST (15-37) U/L ALT (12-78) U/L Alkaline Phosphatase (45-117) U/L Troponin I < 0.015 (0-0.045) ng/ml NT-Pro-B Natriuret Pep (0-1800) pg/ml Total Protein (6.4-8.2) gm/dl Albumin (3.4-5.0) gm/dl Globulin (2.5-4.0) gm/dl Albumin/Globulin Ratio (0.9-2) Lipase (73-393) U/L 12/26/18 12/26/18 12/26/18 Range/Units 13:15 13:15 13:15 WBC 8.86 (4.8-10.8) K/uL RBC 4.44 L (4.7-6.1) M/uL Hgb 13.0 L (14.0-18.0) g/dL Hct 38.2 L (42-52) % MCV 86.0 (80-100) fL MCH 29.3 (25-34) pg MCHC 34.0 (32-36) g/dL RDW Std Deviation 41.6 (36.4-46.3) fL RDW Coeff of German 13.2 (11.5-14.5) % Plt Count 170 (130-400) K/uL MPV 11.3 H (7.4-10.4) fL Immature Gran % (Auto) 0.3 % Neut % (Auto) 62.6 % Lymph % (Auto) 22.5 % [place] % (Auto) 11.5 % Eos % (Auto) 2.5 % Baso % (Auto) 0.6 % Immature Gran # (Auto) 0.03 H (0.00-0.02) K/uL Neut # (Auto) 5.55 (1.4-6.5) K/uL Lymph # (Auto) 1.99 (1.2-3.4) K/uL [place] # (Auto) 1.02 H (0.11-0.59) K/uL Eos # (Auto) 0.22 (0-0.5) K/uL Baso # (Auto) 0.05 (0-0.2) K/uL PT (9.0-12.0) Seconds INR (0.9-1.1) D-Dimer 260 (0-500) ug/L FEU Sodium 140 (136-145) mmol/L Potassium 4.7 (3.5-5.1) mmol/L Chloride 107 (98-107) mmol/L Carbon Dioxide 26 (21-32) mmol/L Anion Gap 8.0 (3-11) BUN 15 (7-18) mg/dl Creatinine 1.34 (0.6-1.4) mg/dl Est Cr Clr Drug Dosing 56.5 ml/min Est GFR ( Amer) 59.2 Est GFR (Non-Af Amer) 51.1 BUN/Creatinine Ratio 11.3 (10-20) Glucose 157 H (70-99) mg/dl POC Glucose (70-99) Estimat Average Glucose mg/dl Hemoglobin A1c (4.5-5.6) % Calcium 9.8 (8.5-10.1) mg/dl Magnesium 2.1 (1.8-2.4) mg/dl Total Bilirubin 0.7 (0.2-1) mg/dl AST 18 (15-37) U/L ALT 20 (12-78) U/L Alkaline Phosphatase 120 H (45-117) U/L Troponin I < 0.015 (0-0.045) ng/ml NT-Pro-B Natriuret Pep 244 (0-1800) pg/ml Total Protein 7.7 (6.4-8.2) gm/dl Albumin 3.9 (3.4-5.0) gm/dl Globulin 3.8 (2.5-4.0) gm/dl Albumin/Globulin Ratio 1.0 (0.9-2) Lipase 42 L (73-393) U/L Medications Administered Current Inpatient Medications Acetaminophen (Tylenol) 650 mg PO Q4H PRN PRN Reason: Pain or Fever Stop: 01/25/19 19:02 Amlodipine Besylate (Norvasc) [facility] [place] [place] Stop: 01/26/19 08:59 Aspirin (Ecotrin Ectab) 81 mg PO QAM [facility] Stop: 01/26/19 08:59 Atorvastatin Calcium (Lipitor) 40 mg PO QAM [facility] Stop: 01/26/19 08:59 Dextrose (Dextrose 50%) 25 - 50 ml IV UD PRN; Protocol PRN Reason: Hypoglycemia Protocol Stop: 01/25/19 19:02 Enoxaparin Sodium (Lovenox) 40 mg SQ Q24H [facility] Stop: 01/25/19 20:59 Last Admin: 12/26/18 21:09 Dose: 40 mg Documented by: Glucagon (Glucagen) 1 mg SQ UD PRN; Protocol PRN Reason: Hypoglycemia Protocol Stop: 01/25/19 19:02 Glucose (Dex4 Glucose) 4 - 8 tabs PO UD PRN; Protocol PRN Reason: Hypoglycemia Protocol Stop: 01/25/19 19:02 Last Admin: 12/27/18 05:21 Dose: 8 tabs Documented by: Glucose (Glucose 40%) 15 - 30 gm PO UD PRN; Protocol PRN Reason: Hypoglycemia Protocol Stop: 01/25/19 19:02 Sodium Chloride (Nss 1000ml) 1,000 mls @ 80 mls/hr IV .[id number] JAS Stop: 01/26/19 00:04 Last Admin: 12/27/18 00:00 Dose: 80 mls/hr Documented by: Insulin Aspart (Novolog Flexpen) 0 units SC ACHS [facility] Stop: 01/25/19 20:59 Last Admin: 12/27/18 05:18 Dose: Not Given Documented by: Insulin Glargine (Lantus Solostar Pen) 25 units SQ BID [facility] Stop: 01/25/19 20:59 Last Admin: 12/26/18 21:10 Dose: 25 units Documented by: Isosorbide Mononitrate (Imdur Extended Rel) 60 mg PO QAM [facility] Stop: 01/26/19 08:59 Metoprolol Tartrate (Lopressor) 50 mg PO BID [facility] Stop: 01/25/19 20:59 Last Admin: 12/26/18 20:02 Dose: 50 mg Documented by: Miscellaneous (Carbohydrates For Hypoglycemia) 15 - 30 gm PO UD PRN PRN Reason: Hypoglycemia Treatment Stop: 01/25/19 19:02 Nitroglycerin (Nitrostat) 0.4 mg SL UD PRN PRN Reason: Chest Pain Stop: 01/25/19 19:02 Ondansetron HCl (Zofran) 4 mg IV Q6H PRN PRN Reason: Nausea Stop: 01/25/19 19:02 Ranitidine HCl (Zantac) 150 mg PO BID [facility] Stop: 01/25/19 20:59 Last Admin: 12/26/18 20:02 Dose: 150 mg Documented by: Fluticasone/Salmeterol (Advair Diskus 100/50) 1 puffs INH BID [facility] Stop: 01/26/19 20:59 Telmisartan (Micardis) 80 mg PO QAM [facility] Stop: 01/26/19 08:59 Tiotropium Foss (Spiriva) 1 puffs INH QAM [facility] Stop: 01/27/19 08:59 Resident Activity Tracking Resident Involvement: Resident Care Provided Care Provided: Adult Hospital Medicine (1) Chest pain Chest pain type: unspecified Qualified Code(s): R07.9 - Chest pain, unspecified
--- NOTE | 2018-12-27 13:08 | Cardiology Consultation ---
Date of Consultation December 27, 2018 Assessment & Plan (1) Angina of effort: I believe the patient's symptoms could either be from his aortic stenosis or progression in his coronary artery disease. It could also be a combination of both. I think the best way to evaluate him however, is with a heart catheterization. I explained the risk, benefit and intent of the procedure to him and he is willing to proceed. Since the patient is stable, we will plan for tomorrow morning. (2) Aortic stenosis: Review of his echocardiogram indicates moderate to severe aortic stenosis. LV systolic function is preserved. (3) H/O four vessel coronary artery bypass graft: (4) Diabetes: History of Present Illness Attending Physician: Javid Gordon, History of Present Illness This is a 78-year-old male patient who usually follows with Dr. Mello through our clinic. He has the past cardiac history. Over the past several months he has developed progressive shortness of breath with activity. His daughter is in the room with him. She states if he tries to walk up a grade or mow his lawn he become short of breath and has to stop. The patient confirms the above symptoms. In addition, he has noted chest discomfort with his shortness of breath which resolves with rest. At first he thought it was his cervical radiculopathy but it is pretty consistent with activity and resolves with rest. He has a history of aortic stenosis and previous coronary artery bypass. I believe the best way to evaluate him is by performing a right and left heart catheterization to evaluate his coronary anatomy and his aortic stenosis. Past medical history: 1.Atherosclerotic coronary disease status post coronary artery bypass grafti , October 2007, receiving MATT graft to LAD, saphenous vein graft to the right coronary artery, a saphenous vein graft sequentially to OM1, OM2. With chronic class 1 2 angina pectoris 2.Obstructive sleep apnea on CPAP supplementation. 3.Hyperlipidemia. 4.Diabetes mellitus with neuropathy. 5.History of cervical disk disease with cervical radiculopathy. 6. Calcific aortic valve disease with [id number] aortic stenosis 7. Hypertension Allergies Allergy/AdvReac Type Severity Reaction Status Date / Time tramadol AdvReac Severe memory loss Unverified 12/26/18 13:47 lisinopril AdvReac Intermediate Cough Unverified 12/26/18 13:47 sertraline AdvReac Mild DIDN'T Verified 12/26/18 13:47 FEEL WELL ON [id number] Home Medications Home Medications Medication Instructions Recorded Confirmed Type aspirin [Enteric Coated Aspirin] 81 mg PO QAM #0 07/12/09 12/26/18 History isosorbide mononitrate 60 mg PO QAM 05/02/18 12/26/18 History metoprolol tartrate 50 mg PO BID 05/02/18 12/26/18 History amlodipine 5 mg PO QAM 05/26/18 12/26/18 History metformin 1,000 mg PO QAM 05/26/18 12/26/18 History atorvastatin 40 mg PO QAM 12/26/18 12/26/18 History insulin glargine [Lantus U-100 25 unit SUBCUT BIDM 12/26/18 12/26/18 History Insulin] ranitidine HCl 150 mg PO BID 12/26/18 12/26/18 History telmisartan 80 mg PO QAM 12/26/18 12/26/18 History Patient History Medical History HLD (hyperlipidemia) (Chronic) Sleep apnea (Chronic) HTN (hypertension) (Chronic) CAD (coronary artery disease) (Chronic) Diabetes mellitus with neuropathy (Chronic) Rib fractures Ribs, multiple fractures (Acute) Surgical History 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) Family History Other Family history non-contributory Social History Preferred Language: Chilean Communication Ability: Effective 3D Specialist Required: No Beliefs That Will Affect Care: None marital status: / Current Living Situation: Alone Other Information That Helps Us Care for You: No Feels Safe at Home: Yes Safety Concerns: Feels Safe At This Time Smoking Status: Never smoker Do You Dip or Chew Tobacco: No Second Hand Exposure: No Tobacco Cessation Education Requested by Patient: No Hx Alcohol Use: No Hx Substance Use: No Review of Systems Review of Systems: Review of Systems: See HPI for pertinent positives. All other 10 point review of systems are negative. Physical Exam Physical Exam: General: no acute distress and stated age Head: normocephalic, no masses, lesions, tenderness or abnormalities Eyes: conjunctiva are pink and non-injected, sclera clear Neck: supple, no adenopathy, no bruits, normal jugular venous pulse, no hepatojugular reflux Chest: normal shape and normal respiratory effort Lungs: clear to auscultation and percussion Cardiac Exam: - regular rate & rhythm, systolic murmur left sternal border- normal S1, normal S2 Pulses: 2(+) throughout Abdomen: abdomen soft, non-tender, no abnormal masses and no hepatosplenomegaly Musculoskeletal: no gait disturbance, no joint inflammation, no deforming arthritis Extremities: no edema and no cyanosis Neuro: grossly normal exam Results & Data Vital Signs (Past 12 Hours) Vital Signs Temp Pulse Resp BP Pulse Ox 12/27/18 10:46 36.4 C L 71 18 147/75 H 98 12/27/18 07:11 36.6 C 62 18 147/71 H 98 12/27/18 03:35 36.4 C L 59 L 16 155/89 H 97 Laboratory Results Laboratory Results - last 24 hr 12/26/18 12/26/18 12/26/18 13:15 13:15 13:15 WBC 8.86 RBC 4.44 L Hgb 13.0 L Hct 38.2 L MCV 86.0 MCH 29.3 MCHC 34.0 RDW Std Deviation 41.6 RDW Coeff of German 13.2 Plt Count 170 MPV 11.3 H Immature Gran % (Auto) 0.3 Neut % (Auto) 62.6 Lymph % (Auto) 22.5 [place] % (Auto) 11.5 Eos % (Auto) 2.5 Baso % (Auto) 0.6 Immature Gran # (Auto) 0.03 H Neut # (Auto) 5.55 Lymph # (Auto) 1.99 [place] # (Auto) 1.02 H Eos # (Auto) 0.22 Baso # (Auto) 0.05 PT INR D-Dimer 260 Sodium 140 Potassium 4.7 Chloride 107 Carbon Dioxide 26 Anion Gap 8.0 BUN 15 Creatinine 1.34 Est Cr Clr Drug Dosing 56.5 Est GFR ( Amer) 59.2 Est GFR (Non-Af Amer) 51.1 BUN/Creatinine Ratio 11.3 Glucose 157 H POC Glucose Estimat Average Glucose Hemoglobin A1c Calcium 9.8 Magnesium 2.1 Total Bilirubin 0.7 AST 18 ALT 20 Alkaline Phosphatase 120 H Troponin I < 0.015 NT-Pro-B Natriuret Pep 244 Total Protein 7.7 Albumin 3.9 Globulin 3.8 Albumin/Globulin Ratio 1.0 Lipase 42 L 12/26/18 12/26/18 12/26/18 13:15 13:15 19:02 WBC RBC Hgb Hct MCV MCH MCHC RDW Std Deviation RDW Coeff of German Plt Count MPV Immature Gran % (Auto) Neut % (Auto) Lymph % (Auto) [place] % (Auto) Eos % (Auto) Baso % (Auto) Immature Gran # (Auto) Neut # (Auto) Lymph # (Auto) [place] # (Auto) Eos # (Auto) Baso # (Auto) PT 10.9 INR 1.1 D-Dimer Sodium Potassium Chloride Carbon Dioxide Anion Gap BUN Creatinine Est Cr Clr Drug Dosing Est GFR ( Amer) Est GFR (Non-Af Amer) BUN/Creatinine Ratio Glucose POC Glucose Estimat Average Glucose 214 Hemoglobin A1c 9.1 H Calcium Magnesium Total Bilirubin AST ALT Alkaline Phosphatase Troponin I < 0.015 NT-Pro-B Natriuret Pep Total Protein Albumin Globulin Albumin/Globulin Ratio Lipase 12/26/18 12/27/18 12/27/18 21:06 03:27 03:27 WBC 8.01 RBC 4.28 L Hgb 12.9 L Hct 36.6 L MCV 85.5 MCH 30.1 MCHC 35.2 RDW Std Deviation 41.6 RDW Coeff of German 13.3 Plt Count 162 MPV 11.0 H Immature Gran % (Auto) 0.2 Neut % (Auto) 50.8 Lymph % (Auto) 32.6 [place] % (Auto) 12.9 Eos % (Auto) 3.0 Baso % (Auto) 0.5 Immature Gran # (Auto) 0.02 Neut # (Auto) 4.07 Lymph # (Auto) 2.61 [place] # (Auto) 1.03 H Eos # (Auto) 0.24 Baso # (Auto) 0.04 PT INR D-Dimer Sodium 141 Potassium 3.9 D Chloride 110 H Carbon Dioxide 27 Anion Gap 4.0 BUN 17 Creatinine 1.23 Est Cr Clr Drug Dosing 61.2 Est GFR ( Amer) 65.7 Est GFR (Non-Af Amer) 56.7 BUN/Creatinine Ratio 13.7 Glucose 56 L POC Glucose 214 H Estimat Average Glucose Hemoglobin A1c Calcium 8.7 Magnesium Total Bilirubin AST ALT Alkaline Phosphatase Troponin I < 0.015 NT-Pro-B Natriuret Pep Total Protein Albumin Globulin Albumin/Globulin Ratio Lipase 12/27/18 12/27/18 12/27/18 05:07 05:37 06:52 WBC RBC Hgb Hct MCV MCH MCHC RDW Std Deviation RDW Coeff of German Plt Count MPV Immature Gran % (Auto) Neut % (Auto) Lymph % (Auto) [place] % (Auto) Eos % (Auto) Baso % (Auto) Immature Gran # (Auto) Neut # (Auto) Lymph # (Auto) [place] # (Auto) Eos # (Auto) Baso # (Auto) PT INR D-Dimer Sodium Potassium Chloride Carbon Dioxide Anion Gap BUN Creatinine Est Cr Clr Drug Dosing Est GFR ( Amer) Est GFR (Non-Af Amer) BUN/Creatinine Ratio Glucose POC Glucose 48 L* 86 119 H Estimat Average Glucose Hemoglobin A1c Calcium Magnesium Total Bilirubin AST ALT Alkaline Phosphatase Troponin I NT-Pro-B Natriuret Pep Total Protein Albumin Globulin Albumin/Globulin Ratio Lipase 12/27/18 12/27/18 12/27/18 07:23 10:07 11:22 WBC RBC Hgb Hct MCV MCH MCHC RDW Std Deviation RDW Coeff of German Plt Count MPV Immature Gran % (Auto) Neut % (Auto) Lymph % (Auto) [place] % (Auto) Eos % (Auto) Baso % (Auto) Immature Gran # (Auto) Neut # (Auto) Lymph # (Auto) [place] # (Auto) Eos # (Auto) Baso # (Auto) PT INR D-Dimer Sodium Potassium Chloride Carbon Dioxide Anion Gap BUN Creatinine Est Cr Clr Drug Dosing Est GFR ( Amer) Est GFR (Non-Af Amer) BUN/Creatinine Ratio Glucose POC Glucose 102 H 108 H 132 H Estimat Average Glucose Hemoglobin A1c Calcium Magnesium Total Bilirubin AST ALT Alkaline Phosphatase Troponin I NT-Pro-B Natriuret Pep Total Protein Albumin Globulin Albumin/Globulin Ratio Lipase Medications Administered Current Inpatient Medications Acetaminophen (Tylenol) 650 mg PO Q4H PRN PRN Reason: Pain or Fever Stop: 01/25/19 19:02 Amlodipine Besylate (Norvasc) 5 mg PO QAM JAS Stop: 01/26/19 08:59 Aspirin (Ecotrin Ectab) 81 mg PO QAM JAS Stop: 01/26/19 08:59 Atorvastatin Calcium (Lipitor) 40 mg PO QAM JAS Stop: 01/26/19 08:59 Dextrose (Dextrose 50%) 25 - 50 ml IV UD PRN; Protocol PRN Reason: Hypoglycemia Protocol Stop: 01/25/19 19:02 Enoxaparin Sodium (Lovenox) 40 mg SQ Q24H JAS Stop: 01/25/19 20:59 Last Admin: 12/26/18 21:09 Dose: 40 mg Documented by: Glucagon (Glucagen) 1 mg SQ UD PRN; Protocol PRN Reason: Hypoglycemia Protocol Stop: 01/25/19 19:02 Glucose (Dex4 Glucose) 4 - 8 tabs PO UD PRN; Protocol PRN Reason: Hypoglycemia Protocol Stop: 01/25/19 19:02 Last Admin: 12/27/18 05:21 Dose: 8 tabs Documented by: Glucose (Glucose 40%) 15 - 30 gm PO UD PRN; Protocol PRN Reason: Hypoglycemia Protocol Stop: 01/25/19 19:02 Sodium Chloride (Nss 1000ml) 1,000 mls @ 80 mls/hr IV .[id number] JAS Stop: 01/26/19 00:04 Last Admin: 12/27/18 00:00 Dose: 80 mls/hr Documented by: Insulin Aspart (Novolog Flexpen) 0 units SC ACHS JAS Stop: 01/25/19 20:59 Last Admin: 12/27/18 11:41 Dose: Not Given Documented by: Insulin Glargine (Lantus Solostar Pen) 25 units SQ BID JAS Stop: 01/25/19 20:59 Last Admin: 12/26/18 21:10 Dose: 25 units Documented by: Isosorbide Mononitrate (Imdur Extended Rel) 60 mg PO QAM [facility] Stop: 01/26/19 08:59 Metoprolol Tartrate (Lopressor) 50 mg PO BID [facility] Stop: 01/25/19 20:59 Last Admin: 12/26/18 20:02 Dose: 50 mg Documented by: Miscellaneous (Carbohydrates For Hypoglycemia) 15 - 30 gm PO UD PRN PRN Reason: Hypoglycemia Treatment Stop: 01/25/19 19:02 Nitroglycerin (Nitrostat) 0.4 mg SL UD PRN PRN Reason: Chest Pain Stop: 01/25/19 19:02 Ondansetron HCl (Zofran) 4 mg IV Q6H PRN PRN Reason: Nausea Stop: 01/25/19 19:02 Ranitidine HCl (Zantac) 150 mg PO BID [facility] Stop: 01/25/19 20:59 Last Admin: 12/26/18 20:02 Dose: 150 mg Documented by: Fluticasone/Salmeterol (Advair Diskus 100/50) 1 puffs INH BID [facility] Stop: 01/26/19 20:59 Telmisartan (Micardis) 80 mg PO QAM [facility] Stop: 01/26/19 08:59 Tiotropium Crystal (Spiriva) 1 puffs INH QAM [facility] Stop: 01/27/19 08:59
[2018-12-27] MEDS: SODIUM CHLORIDE 0.9% 1000ML 1,000 ML IV SCH ×2 (13:13)
[2018-12-27] MEDS: ISOSORBIDE MONO EXTENDED REL 60 MG TABCR PO SCH (13:44)
[2018-12-27] MEDS: METOPROLOL TARTRATE 50 MG TAB PO SCH ×2 (13:44→20:25)
[2018-12-27] MEDS: ASPIRIN 81 MG ECTAB PO SCH (13:44)
[2018-12-27] MEDS: ATORVASTATIN 40 MG TAB PO SCH (13:44)
[2018-12-27] MEDS: TELMISARTAN 40 MG TAB PO SCH (13:45)
[2018-12-27] MEDS: AMLODIPINE BESYLATE 5 MG TAB PO SCH (13:45)
[2018-12-27] MEDS: FLUTICASONE/SALMETEROL 100/50 (ADVAIR) 14 PUFF/1 INHALER INH SCH (20:24)
[2018-12-27] MEDS: ENOXAPARIN INJ 40 MG/0.4 ML SYR SQ SCH (20:31)
[2018-12-28] MEDS: SODIUM CHLORIDE 0.9% 1000ML 1,000 ML IV SCH ×3 (00:20→09:35)
[2018-12-28] MEDS: INSULIN ASPART 100 UNITS/ML 3 ML PEN SC SCH ×3 (06:03→17:47)
[2018-12-28] MEDS: FLUTICASONE/SALMETEROL 100/50 (ADVAIR) 14 PUFF/1 INHALER INH SCH (09:00)
[2018-12-28] MEDS ORDERED: TIOTROPIUM BROMIDE 5 PUFF/90 MCG INH INH SCH (09:00)
[2018-12-28] MEDS ORDERED: fentaNYL citrate 100 MCG/2 ML VIAL ONE (11:21)
[2018-12-28] MEDS ORDERED: MIDAZOLAM HCL 1 MG/ML 2ML VIAL ONE (11:21)
--- NOTE | 2018-12-28 11:37 | Family Medicine Progress Note ---
Date of Service December 28, 2018 Assessment & Plan (1) Chest pain: 78-year-old male was admitted on 26 December 2018 for intermittent chest pain and shortness of breath over the past two days. Periodic chest pain: Primarily two days prior to admission, more sporadic since. Multiple cardiac risk factors to include prior stent and CABG x 4 vessels. He has remained chest pain-free during this admission. Serial troponins and EKGs were unremarkable. - ECHO 12/27/18: EF >70%, moderate concentric LVH, LA moderate dilation, mod- severe aortic valve stenosis - Cardiology: -angina and sob likely 2/2 AV stenosis vs. progression of CAD -plan for cath today Dyspnea on exertion: Patient notes progressive worsening SOB with exertion over the past month, now such that it occurs with any exertion. Denies any underlying pulmonary disease. Remote smoking history. Chest x-ray is clear. Spirometry is suggestive of a mixed obstructive and restrictive pattern (with pulmonology interpretation pending). - On Advair and Spiriva with the thought of trying to fully control any pulmonary component to his dyspnea. If successful, this would likely need to be de-escalated as an outpatient to minimal required medication. Anemia: Admit Hb 13.0, MCV 86. This is similar to prior around Hb 13 as well. Stable. Ongoing medical history: - Hypertension, CAD: Continue home amlodipine, telmisartan, metoprolol, Imdur, and aspirin 81 mg. - Hyperlipidemia: Continue home atorvastatin - Diabetes type 2: Insulin-dependent. 29Apr HbA1c was 9.1. At home is on metformin and Lantus 25 units twice daily. --- Held his home metformin. Placed on insulin sliding scale here as well. --- Noted episode of hypoglycemia overnight (29-30Apr). Says this happens occasionally at home as well. Discussed he should work with his PCP on insulin regimen management to prevent future hypoglycemic episodes. - Diabetic neuropathy: Not on any home meds for this. - GERD: Continue home ranitidine. - Left rib fracture: Sustained around early April 2018. - Obstructive sleep apnea: History of noncompliance with CPAP at home. Code status: DNR. Diet: Heart healthy, diabetes type 2 DVT prophy: Lovenox. PT/OT: Deferred. Disbo: Admit for observation to [facility] telemetry. (2) Dyspnea on exertion: (3) HTN (hypertension): (4) CAD (coronary artery disease): (5) H/O four vessel coronary artery bypass graft: (6) HLD (hyperlipidemia): (7) Diabetes mellitus with neuropathy: (8) GERD (gastroesophageal reflux disease): (9) History of rib fracture: (10) Sleep apnea: Subjective Found patient resting comfortably in bed this morning. Denies any sob or cp this AM. reports occasional few sharp pains on the L side of his chest. No other acute concerns. Review of Systems Review of Systems: As per HPI o/w negative Physical Exam Physical Exam: General: In NAD CV: RRR, no m/r/g PULM: CTAB, equal breath sounds bilaterally ABDOMEN: +BS, non-distended, non-tender to palpation in all quadrants LE: no calf TTP, no LE edema Results & Data Vital Signs (Past 12 Hours) Vital Signs Temp Pulse Pulse Resp BP Pulse Ox 12/28/18 08:00 58 L 12/28/18 07:09 36.7 C 61 16 149/69 H 97 12/28/18 03:55 36.4 C L 56 L 18 152/73 H 95 12/27/18 23:46 36.4 C L 56 L 18 146/67 H 98 Laboratory Results Abnormal lab results 12/27/18 12/27/18 12/28/18 Range/Units 16:08 20:29 06:03 POC Glucose 146 H 161 H 114 H (70-99) Medications Administered Current Inpatient Medications Acetaminophen (Tylenol) 650 mg PO Q4H PRN PRN Reason: Pain or Fever Stop: 01/25/19 19:02 Amlodipine Besylate (Norvasc) 5 mg PO [facility] Stop: 01/26/19 08:59 Last Admin: 12/27/18 13:45 Dose: 5 mg Documented by: Aspirin (Ecotrin Ectab) [facility] [place]: 01/26/19 08:59 Last Admin: 12/27/18 13:44 Dose: 81 mg Documented by: Atorvastatin Calcium (Lipitor) 40 mg PO QAM [facility] Stop: 01/26/19 08:59 Last Admin: 12/27/18 13:44 Dose: 40 mg Documented by: Dextrose (Dextrose 50%) 25 - 50 ml IV UD PRN; Protocol PRN Reason: Hypoglycemia Protocol Stop: 01/25/19 19:02 Enoxaparin Sodium (Lovenox) 40 mg SQ Q24H JAS Stop: 01/25/19 20:59 Last Admin: 12/27/18 20:31 Dose: 40 mg Documented by: Glucagon (Glucagen) 1 mg SQ UD PRN; Protocol PRN Reason: Hypoglycemia Protocol Stop: 01/25/19 19:02 Glucose (Dex4 Glucose) 4 - 8 tabs PO UD PRN; Protocol PRN Reason: Hypoglycemia Protocol Stop: 01/25/19 19:02 Last Admin: 12/27/18 05:21 Dose: 8 tabs Documented by: Glucose (Glucose 40%) 15 - 30 gm PO UD PRN; Protocol PRN Reason: Hypoglycemia Protocol Stop: 01/25/19 19:02 Sodium Chloride (Nss 1000ml) 1,000 mls @ 80 mls/hr IV .[id number] [facility] Stop: 01/26/19 00:04 Last Infusion: 12/28/18 00:20 Dose: Infused Documented by: Sodium Chloride (Nss 1000ml) 1,000 mls @ 105 mls/hr IV .[id number] [facility] Stop: 01/27/19 00:00 Last Admin: 12/28/18 00:00 Dose: 105 mls/hr Documented by: Insulin Aspart (Novolog Flexpen) 0 units SC ACHS [facility] Stop: 01/25/19 20:59 Last Admin: 12/28/18 06:03 Dose: Not Given Documented by: Insulin Glargine (Lantus Solostar Pen) 25 units SQ BID [facility] Stop: 01/25/19 20:59 Last Admin: 12/26/18 21:10 Dose: 25 units Documented by: Isosorbide Mononitrate (Imdur Extended Rel) 60 mg PO QAM [facility] Stop: 01/26/19 08:59 Last Admin: 12/27/18 13:44 Dose: 60 mg Documented by: Metoprolol Tartrate (Lopressor) 50 mg PO BID [facility] Stop: 01/25/19 20:59 Last Admin: 12/27/18 20:25 Dose: 50 mg Documented by: Miscellaneous (Carbohydrates For Hypoglycemia) 15 - 30 gm PO UD PRN PRN Reason: Hypoglycemia Treatment Stop: 01/25/19 19:02 Nitroglycerin (Nitrostat) 0.4 mg SL UD PRN PRN Reason: Chest Pain Stop: 01/25/19 19:02 Ondansetron HCl (Zofran) 4 mg IV Q6H PRN PRN Reason: Nausea Stop: 01/25/19 19:02 Ranitidine HCl (Zantac) 150 mg PO BID [facility] Stop: 01/25/19 20:59 Last Admin: 12/27/18 20:25 Dose: 150 mg Documented by: Fluticasone/Salmeterol (Advair Diskus 100/50) 1 puffs INH BID [facility] Stop: 01/26/19 20:59 Last Admin: 12/28/18 09:00 Dose: 1 puffs Documented by: Telmisartan (Micardis) 80 mg PO QAM [facility] Stop: 01/26/19 08:59 Last Admin: 12/27/18 13:45 Dose: 80 mg Documented by: Tiotropium [place] (Spiriva) 1 puffs INH QAM [facility] Stop: 01/27/19 08:59 Last Admin: 12/28/18 09:01 Dose: 1 puffs Documented by: Resident Activity Tracking Resident Involvement: Resident Care Provided Care Provided: Adult Hospital Medicine (1) Chest pain Chest pain type: unspecified Qualified Code(s): R07.9 - Chest pain, unspecified
[2018-12-28 12:33] LABS: iSTAT Arterial Blood Gas HCO3 22 meg/L (19-24); iSTAT Arterial Blood Gas pCO2 41 mmHg (35-46); iSTAT Arterial Blood Gas pH 7.34 (7.35-7.45); iSTAT Carbon Dioxide 23 mEq/l (24-31)
[2018-12-28 12:33] LABS: iSTAT Arterial Blood Gas HCO3 22 meg/L (19-24); iSTAT Arterial Blood Gas pCO2 40 mmHg (35-46); iSTAT Arterial Blood Gas pH 7.34 (7.35-7.45); iSTAT Carbon Dioxide 23 mEq/l (24-31)
--- NOTE | 2018-12-28 12:55 | Cardiac Catheterization ---
Date of Service December 28, 2018 Cardiac Cath Report Cardiac Cath Report Procedure: 1. Right heart catheterization 2. Left heart catheterization 3. Coronary angiography 4. Left ventriculography History: This is a 78-year-old male patient who is had previous coronary artery bypass surgery and by echocardiography aortic stenosis. The patient presented with chest pain and shortness of breath. Procedure summary: After informed consent was obtained the patient was taken to the cardiac catheterization lab where he was prepped and draped in the usual manner for a right transfemoral approach. Preformed 5 [place] diagnostic catheters were utilized for the coronary angiograms. [place]-Sarah Beth catheter was utilized for the right heart pressures and cardiac outputs. A pigtail catheter was utilized to cross the aortic valve and measure valvular gradients. Following the procedure the patient had the arterial site closed with a minx device and then was returned to his room in stable condition. ACC data: AUC score 9 Start time 11:57 AM End time 12:34 AM Opening aortic pressure 153/58 Closing aortic pressure 141/53 Left ventricular pressure 160/10 Sedation 1 mg intravenous Versed IV fluid 100 cc normal saline Contrast 162 cc Optiray Fluoroscopy time 9.1 minutes Radiation 2512 mGy DAP 18,652 cGy Right dominant system Hemodynamic data: Right atrial pressure mean of 10 mmHg Right ventricular pressure 37 over 8 mmHg Pulmonary artery pressure 35 over 17 mmHg Pulmonary capillary wedge pressure mean of 18 mmHg Central aortic pressure 157/35 mmHg Left ventricular pressure 161 over 18 mmHg No gradient across aortic valve Cardiac output by thermal dilution 6.34 L/min Cardiac output by Jelena equation 6.34 L/min Left ventriculogram: The left ventricle is of normal size with normal systolic function. The mitral valve is competent. The aortic root and ascending aorta have normal morphology. Coronary angiography: Selective injections of the left coronary artery revealed distal left main trunk disease with a functionally occluded ramus and left circumflex arteries. The proximal and midportion of the LAD are heavily calcified. There is evidence of competitive flow from the MATT to the LAD distally. There is a large diagonal branch from the LAD which has nonobstructive disease. Selective injections of the morongo right coronary artery revealed it to be occluded proximally. Saphenous vein graft to the first and second marginal branches sequentially is widely patent. Saphenous vein graft to the right coronary artery distally is widely patent. The ALEK graft to the LAD is widely patent. Summary: There is no significant gradient across aortic valve and no indication of aortic stenosis. LV function is normal. The patient's 3 bypass grafts are widely patent. There is severe morongo vessel disease which is diffuse. Recommendations: Continued medical management of the patient's ischemic heart disease.
[2018-12-28] MEDS: ISOSORBIDE MONO EXTENDED REL 60 MG TABCR PO SCH (13:35)
[2018-12-28] MEDS: AMLODIPINE BESYLATE 5 MG TAB PO SCH (13:36)
[2018-12-28] MEDS: ASPIRIN 81 MG ECTAB PO SCH (13:36)
[2018-12-28] MEDS: ATORVASTATIN 40 MG TAB PO SCH (13:36)
[2018-12-28] MEDS: METOPROLOL TARTRATE 50 MG TAB PO SCH (13:36)
[2018-12-28] MEDS: TELMISARTAN 40 MG TAB PO SCH (13:36)
--- NOTE | 2018-12-28 17:04 | Discharge Summary ---
Date of Service December 28, 2018 Admission HPI Per Admitting Provider 78-year-old male presents to the emergency department with complaints of chest pain and progressively worsening shortness of breath with exertion. - Regarding his chest pain, patient says that two days ago (27Apr) he felt a constant left upper chest pain that he calls "stress" that radiated into his left arm. He says this lasted for about 7-8 hours, constant, which continued until he fell asleep that evening. He says on awakening he had no chest pain. Over yesterday and today he says he has had some recurrence of the same discomfort but it lasted for far less time (he is unable to quantify). He denies any chest pain at present. He says he was at his primary care provider's office earlier this morning (Dr. Queen) where he mentioned the above. After discussion with his puppy sitter, Dr. Mello, he was referred to the ED for further evaluation. -Regarding his shortness of breath, patient says over the past month or so he has noticed progressively worsening difficulty with catching his breath on any exertion. He says that it is become so severe such that he will get shortness of breath with just getting up to walk to the bathroom or even simply sitting up at times. Sometimes he gets lightheaded as well during these times. At present at rest, patient denies any shortness of breath. - In general, he denies any known recent fevers or feeling of illness, nausea or vomiting, abdominal concerns, leg swelling, or any other acute concerns. He does note an occasional cough on ROS. - Patient says that he follows with Dr. Mello of cardiology about every 6 months, last appointment being about 5 months ago. He says he had an echocardiogram done within the past year. --- Past medical history includes hypertension, hyperlipidemia, coronary artery disease status post CABG, insulin-dependent diabetes type 2, diabetic neuropathy, GERD, obstructive sleep apnea, left rib fractures. --- Past surgical history includes four-vessel CABG around 2008. --- Social history includes smoking 1 ppd for about 16-18 years but stopped at age 34. Denies EtOH use. Is and lives at home with his dog. Admission Exam Per Admitting Provider GENERAL: Awake, alert, well-appearing, in no acute distress HENT: Normocephalic, atraumatic. Oropharynx unremarkable. EYES: Normal conjunctiva. Sclera non-icteric. NECK: Inspection normal. Supple and full ROM. No nuchal rigidity. CARDIAC: +S1S2 regular bradycardia, no murmurs. RESPIRATORY: Faint end expiratory wheezing, otherwise clear to auscultation. Normal respiratory effort. GI: +BS, soft, appears distended (but patient says is his baseline). No tenderness to palpation. No rebound or guarding. EXTREMITIES: No pedal edema or calf tenderness. Moving all extremities naturally and easily. NEURO: Bilateral decreased sensation at the level of the mid-shins and worsening (but still intact) distally. Strength grossly normal (B) in both legs. Principal Diagnosis Angina Mixed obstructive and restrictive lung disease Discharge Exam General: In NAD CV: RRR, no m/r/g PULM: CTAB, equal breath sounds bilaterally ABDOMEN: +BS, non-distended, non-tender to palpation in all quadrants LE: no calf TTP, no LE edema Discharge Data Allergies Allergy/AdvReac Type Severity Reaction Status Date / Time tramadol AdvReac Severe memory loss Unverified 12/26/18 13:47 lisinopril AdvReac Intermediate Cough Unverified 12/26/18 13:47 sertraline AdvReac Mild DIDN'T Verified 12/26/18 13:47 FEEL WELL ON [id number]-PUY-[id number] Consultations 12/26/18 16:40 ED Decision to Admit Stat 12/26/18 19:03 Consult Cardiology Routine Procedures Performed Operation Date: 12/28/18 11:00 Actual Procedures s Cineradiography w/Routine Exam - Ian Sandhu DO p Cath, Right and Left with Grafts - Ian Sandhu DO Ordered Studies 12/28/18 06:45 CL Cath Imgs for PACS use only Routine Hospital Course (1) Chest pain: 78-year-old male admitted on 26 December 2018 for intermittent chest pain and shortness of breath over the past two days. Periodic chest pain: Likely secondary to progressive coronary artery disease. Serial troponins and EKGs unremarkable. Patient remained chest pain-free throughout admission - ECHO 12/27/18: EF >70%, moderate concentric LVH, LA moderate dilation, mod- severe aortic valve stenosis -Cardiac cath no indication of aortic stenosis normal gradient across aortic valve. Severe platinum valve disease diffusely. Medical management only -Continue home metoprolol telmisartan Imdur amlodipine aspirin and atorvastatin dose increased from 40 mg to 80 mg daily -Follow-up with cardiology Dr. Mello on 01-04 3:45 PM Dyspnea on exertion: Patient notes progressive worsening SOB with exertion. Remote smoking history. Spirometry is suggestive of a mixed obstructive and restrictive pattern (with pulmonology interpretation pending). -Started on albuterol, Advair and Spiriva with the thought of trying to fully control any pulmonary component to his dyspnea. If successful, this would likely need to be de-escalated as an outpatient to minimal required medication. -Discussed changing lifestyle to better control metabolic syndrome which hopefully will also help reduce weight distribution to abdomen as PFTs suggest a bit of a restrictive component which most likely would be weight related -Follow-up with Dr. Queen on January 06 at 8:30 AM Anemia: Admit Hb 13.0, MCV 86. Stable. -Recommend outpatient evaluation and management Ongoing medical history: - Hypertension, CAD: Continue home amlodipine, telmisartan, metoprolol, Imdur, and aspirin 81 mg. - Hyperlipidemia: Continue home atorvastatin, dose increased to 80 mg/day - Diabetes type 2: Insulin-dependent. 29Apr HbA1c was 9.1. metformin and Lantus 25 units twice daily. Improved diabetic management per PCP consider short acting insulin - GERD: Continue home ranitidine. - Obstructive sleep apnea: History of noncompliance with CPAP at home. Code status: DNR. DVT prophy: Lovenox. (2) Dyspnea on exertion: (3) HTN (hypertension): (4) CAD (coronary artery disease): (5) H/O four vessel coronary artery bypass graft: (6) HLD (hyperlipidemia): (7) Diabetes mellitus with neuropathy: (8) GERD (gastroesophageal reflux disease): (9) History of rib fracture: (10) Sleep apnea: Total Time Total Time Spent Total Time Spent (In Minutes): >30 Discharge Plan Discharge Items Patient Disposition: Home - Self-Care Reason For Visit: CHEST PAIN,EXERTIONAL SOB Discharge Diagnosis: Angina Mixed obstructive/restrictive lung disease Condition: Good Discharge Goals: Decrease discomfort, Diagnostic testing and Therapeutic intervention Activity: Resume your previous activity Non-emergency contact: Primary Care Provider Call non-emergency contact if: you have any medication questions and your symptoms worsen Follow-up/Referrals: GrShantell murray DO [Primary Care Provider] - 01/06/19 8:30 am (Please, follow up with Dr. Shantell Queen's associate, Dr. Nathan Kenney, on WednesdayJanuary 06 at 8:30 am. *HIS OFFICE IS LOCATED IN [address] OF THE [facility] The [employer] website [facility]. THIS IS THE BIG BUILD[facility] NEXT TO THIS HOSP[facility]. If you need to change this appointment, call the office at [phone].) Adolfo Mello MD [Family Provider] - 01/04/19 3:45 pm (Please, follow up at [facility] Office with Dr. Adolfo Mello on WednesdayJanuary 04 at 3:45 pm. *If you need to change this appointment, call the office at [phone].) Diet: Carb Consistent or DM2 Addtl Provider Instructions: Mr. Carroll, you were admitted for concern of chest pain and shortness of breath You had a cardiac cath done: your previous artery grafts were still open but you had other heart blockages which could explain your chest pain especially with activity The cardiologists (heart doctors) recommended treating you with medications only at this time and you did not need surgery or stents We have prescribed you nitroglycerin as needed for any episodes of chest pain, if your chest pain does not improve please call 911/go to the nearest emergency room Your atorvastatin dose was increased from 40mg daily to 80mg daily to help stabilize those heart blockages Based on lung function test completed during your hospitalization for shortness of breath, you were started on three inhalers which you should continue using and discuss further with your primary care doctor: Spriva and advair to be used daily and albuterol as needed please follow up with your primary care provider Dr. Queen as scheduled on 01/06 at 8:30am and Dr. Mello on 01/04 at 3:45pm Prescriptions: New Spiriva with HandiHaler 18 mcg Capsule, W/Inhalation Device 1 puff inhalation QAM 30 Days Qty: 30 RF: 0 atorvastatin 80 mg tablet 80 mg PO DAILY Qty: 30 RF: 0 nitroglycerin [Nitrostat] 0.4 mg Tablet, Sublingual 0.4 mg sublingual UD PRN (Reason: chest pain) 30 Days Qty: 30 RF: 0 fluticasone propion-salmeterol [Advair Diskus] 100-50 mcg/dose Blister With Device 1 puff inhalation BID Qty: 1 RF: 0 albuterol sulfate 90 mcg/actuation HFA aerosol inhaler 2 inha INH Q6H PRN (Reason: shortness of breath or wheezing) Qty: 6.7 RF: 0 Continued aspirin [Enteric Coated Aspirin] 81 mg Tablet,Delayed Release (Dr/Ec) 81 mg PO QAM Qty: 0 RF: 0 isosorbide mononitrate 60 mg Tablet Extended Release 24 Hr 60 mg PO QAM RF: 0 metoprolol tartrate 50 mg Tablet 50 mg PO BID RF: 0 amlodipine 5 mg tablet 5 mg PO QAM RF: 0 metformin 1,000 mg tablet 1,000 mg PO QAM RF: 0 Lantus U-100 Insulin 100 unit/mL Solution 25 unit SUBCUT BIDM RF: 0 ranitidine HCl 150 mg tablet 150 mg PO BID RF: 0 telmisartan 80 mg Tablet 80 mg PO QAM RF: 0 Discontinued atorvastatin 40 mg tablet 40 mg PO QAM RF: 0 Stand-Alone Forms: Call Back Authorization, [facility]/Other Patient Handouts: Nitroglycerin Sublingual tablet, ED Cardiac Cath Post Bleed Hematom Discharge Orders: Discharge Order (Routine); Ordered 12/28/18 Ordered By: Deonte Singletary Admission Data Admit Date/Time: 12/27/18 18:41 Attending Provider: Javid Gordon Admit Provider: Nathan Kenney Primary Care Provider: Shantell Queen Other Providers: Trever Bustos ; Kody Abreu Service: Telemetry Other Interventions: Discharge Summary Assessment (RN) Last Done: 12/28/18 16:51 DC Date/Time DO NOT enter until pt leaves facility: 12/28/18 18:37 Supervising Physician Co-Signing Physician Notes I personally examined the patient and verified all ledbetter points of history and exam, discussed case, and agree with decision making with Dr Singletary. Feeling okay. Wants to go home. Cardiology input appreciated. Vitals noted, in general he is awake and alert pleasant no distress. HEENT normocephalic atraumatic mucous members are moist. Breathing is unlabored no accessory muscle use good effort. Skin shows no rashes no pallor or icterus. Dyspnea on exertion -appears to be multifactorial between cardiac (coronary disease and valvular disease) and pulmonary (PFT showing a mixed picture see below) -Med management for coronary disease -Med management for valvular heart disease, ongoing follow-up -Full treatment for COPD component, not because he will likely need this for the duration, but to look for how much symptom improvement he gets from this given that the coronary disease and valvular disease components of his dyspnea will likely change slowly, and given that the restrictive lung disease component of his dyspnea will change more or less linearly with weight loss. Therefore we will utilize a multimodal inhaler regimen mostly to look for how much improvement he gets with inhalers, once it is clear, then inhalers could be de- escalated to something as simple as an anticholinergic and as needed albuterol if appropriate. -For his restrictive component, he does have a fairly protuberant belly, more than likely this is causing a degree of restriction on inhalation. We had extensive discussions on lifestyle changes it relates to his diabetes, given the metabolic syndrome tends to show more fat deposition centrally, hopefully diet and exercise changes as it relates to his metabolic syndrome will also help redistribute fat away from his belly, allowing him to breathe easier. Uncontrolled type 2 diabetes -Discussed that "high sugars clogged arteries" and discussed critical need for lifestyle change -If he were to remain on insulin management, would give strong consideration to adding back a bolus insulin on top of his basal, but he seems motivated for lifestyle change -Had extensive and repeated discussions with patient on the critical role of lifestyle change in type 2 diabetes, the emphasis heavily being on reducing simple/starchy/sugary carbs. He seems to have a little bit of a hard time with diet recall as well as understanding quality of foods, but seem to have a very good understanding of cause and effect: He will go home checking sugars 1 to 2 hours postprandial, with a goal range of [id number]. He will use this to learn from his eating choices and start to avoid foods that cause more hyperglycemia. Ultimately he will hopefully also start to work towards 20 to 30 minutes of light cardiovascular exercise daily, which will help his metabolic syndrome, as well as act as a degree of cardiac/pulmonary rehab for his dyspnea on exertion etiologies. Greater than 30 minutes, PCP contacted with plan as well. Resident Activity Tracking Resident Involvement: Resident Care Provided Care Provided: Adult [facility]
--- NOTE | 2019-01-02 06:45 | Pulmonary Function Test ---
Spirometry is compatible with a mild obstructive pattern. Repeat study done following bronchodilators showed mild but not significant improvement in function.
== END 2018-12-28 18:37 | disposition home or self-care (01) | DRG 287 ==
LOC: ED 12:59 → 2S 12:59

== ENCOUNTER 2023-08-20 18:05 | Observation (INO) ==
--- NOTE | 2023-08-20 18:22 | ED Triage Note ---
Date of Service August 20, 2023 Provider in Triage Author: Sherrill Urrutia History of Present Illness This patient was briefly evaluated while in triage. An abbreviated physical exam was performed. This patient is a 82-year-old Male who presents to the ED for evaluation of short of breath and viral symptoms. The patient reports cough, slight sore throat. He denies chest pain at this time. Physical Exam CONSTITUTIONAL: in no acute pain or distress, resting comfortably SKIN: pink, warm, dry CARDIAC: regular rate and rhythm RESPIRATORY: in no respiratory distress, lungs clear to auscultation ABDOMEN: no TTP MSK: 5/5 strength throughout NEURO: no neuro deficits, alert and oriented x 3 Initial orders for labs and / or imaging were placed and patient was placed in the waiting area until a bed is available. Please see further documentation for the full ED course.
--- NOTE | 2023-08-20 18:48 | XRay Report ---
XR chest 1V portable CLINICAL HISTORY: Dyspnea TECHNIQUE: Single frontal radiograph of the chest was obtained. Comparison: Comparison is made to chest radiograph 12/26/2018 FINDINGS: Median sternotomy wires are unchanged. Cardiomegaly is noted. The aortic arch is calcified. Right low er lung airspace opacity is seen. No evidence of pleural effusion or pneumothorax. IMPRESSION: Right lower lung airspace opacity likely reflects atelectasis, although aspiration/pneumonia cannot b e entirely excluded. ACT 112: Negative or not required by law. Electronically signed by: Lc Gilmore M.D. 08/20/2023 6:46 PM
[2023-08-20 19:29] LABS: Basophils # (auto) 0.01 K/uL (0.00-0.20); Basophils % (auto) 0.2 %; Eosinophils # (auto) 0.01 K/uL (0.00-0.50); Eosinophils % (auto) 0.2 %; Hematocrit (blood only) 40.1 % (42.0-52.0); Hemoglobin 13.1 g/dl (14.0-18.0); Immature Granulocytes # (auto) 0.02 K/uL (0.01-0.20); Immature Granulocytes % (auto) 0.4 %; Lymphocytes # (auto) 0.55 K/uL (1.20-3.40); Lymphocytes % (auto) 10.2 %; Mean Corpuscular Hemoglobin 29.2 pg (25.0-34.0); Mean Corpuscular Hgb Conc 32.7 g/dL (32.0-36.0); Mean Corpuscular Volume 89.5 fL (80.0-100.0); Mean Platelet Volume 11.7 fL (9.4-12.4); Monocytes # (auto) 1.01 K/uL (0.11-0.59); Monocytes % (auto) 18.7 %; Neutrophils # (auto) 3.81 K/uL (1.40-6.50); Neutrophils % (auto) 70.3 %; Platelet Count 147 K/uL (130-400); RDW Coefficient of Variation 14.1 % (11.5-14.5); RDW Standard Deviation 46.5 fL (36.4-46.3); Red Blood Count 4.48 M/uL (4.70-6.10); White Blood Count 5.41 K/ul (4.8-10.8)
[2023-08-20 19:47] LABS: Albumin Globulin Ratio 1.4 (0.9-2); Albumin Level 4.2 gm/dl (3.4-5.0); BUN Creatinine Ratio 13.8 (10-20); Bilirubin,Total 0.9 mg/dl (0.2-1.0); Calcium 8.6 mg/dl (8.6-10.3); Creatinine Clr Calc Pharmacy 44.2 ml/min; Est GFR (African American) 52.3 ml/min; Est GFR (Non-African American) 45.2 ml/min; Globulin 2.9 gm/dl (2.5-4.0); Total Protein 7.1 gm/dl (6.0-8.3)
--- NOTE | 2023-08-20 20:10 | Emergency Department Note ---
Impression & Plan Elevated troponin, History of coronary artery bypass graft, COVID-19 ED Provider Note NAME: KIRA LITTLEJOHN AGE: 82 SEX: M : 1940 ARRIVES VIA: Walk-In INFORMANT: Patient, ED PROVIDER(S): Charly Mcelroy MD CHIEF COMPLAINT: Shortness of breath, cough MEDICAL DECISION MAKING: Patient presents due to concern for shortness of breath cough. IV was established blood was obtained along with a chest x-ray. Chest x-ray with possible patchy airspace to the right lower lobe. Patient does have clear breath sounds over that area. Blood work shows a normal white count hemoglobin of 13.1 which is chronic and stable anemia with normal platelet count. Kidney function with a creatinine 1.45 which is slightly higher than previous. Patient's sugar 295. Initial troponin of 53.9. BNP of 503 with the patient's weight is down does not have significant edema on exam and no significant crackles. COVID-positive. Patient is not hypoxic. Given the patient's positive troponin and history of CABG in the setting of COVID to believe the patient would benefit from inpatient treatment at this time. Patient is comfortable and agreeable to plan of care. I did speak with the on-call hospitalist service Dr. Garcia and the patient was admitted to the medicine service Discussion w/ other healthcare providers: Dr. Garcia inpatient medicine Prior /Outside records reviewed: I reviewed a cardiology visit from Dr. Renee from December 08, 2022. 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 Patient does also follow-up with Dr. Mello. Patient's weight is down 4 kg from November. Differential diagnosis: Viral syndrome, otitis, pharyngitis, pneumonia, influenza, meningitis, urinary tract infection, sepsis, bacteremia, as well as other pathologies. Diagnostics, as interpreted by me: ECG: Normal sinus rhythm, rate of 79, normal intervals, left axis deviation, T wave version in the high lateral leads. No significant change from comparison December 27, 2018. Cardiac monitoring: An order was placed for continuous cardiac monitoring. The monitor shows a rate of 75 with sinus rhythm. Patient was placed on pulse oximetry Medical decision rules: None Imaging studies: I informally interpreted the patient's chest x-ray which does show possible right-sided basilar opacity with formal report to follow. HPI: Patient presents due to concern for reported hoarse voice and cough. The patient denies productive cough. No known sick contacts or recent travel. Patient does have prior history of CABG. Denies chest pain no significant leg swelling no falls or trauma. Patient denies any smoking history and states that he is compliant with his medications. Patient states overall he feels fairly well. The patient has had some occasional shortness of breath. Patient's initial symptoms began about 3 days ago. Patient states that his symptoms do not feel similar to when he required his CABG. PAST MEDICAL HISTORY: See Below PAST SURGICAL HISTORY: See Below SOCIAL HISTORY: See Below HOME MEDICATIONS: See Below ALLERGIES: See Below VITALS: See Below PHYSICAL EXAMINATION: GENERAL: NAD, non-toxic. EYE EXAM: Normal conjunctiva. PERRL, no anisocoria and EOM's grossly intact w/o pain. OROPHARYNX: Moist mucus membranes, grossly normal dentition. NECK: Supple, no nuchal rigidity, no adenopathy, non-tender. No signs of meningismus. FROM of the neck with good chin to chest and neck extension. No stridor. LUNGS: Clear to auscultation. Normal chest wall mechanics. HEART: NSR, no MRG. ABDOMEN: Abdomen soft, non-tender, no masses, no rebound or guarding. BACK: No CVA TTP. SKIN: No rashes and no bruising. UPPER EXTREMITIES: Upper extremities are grossly normal. LOWER EXTREMITIES: Grossly normal, trace pretibial edema without any calf pain or erythema NEURO EXAM: A&O x3, cranial nerves II-XII grossly intact, normal speech, moves all 4 extremities. Past Med/Surg History Medical History (Updated 08/21/23 @ 00:48 by Charly Mcelroy MD) HLD (hyperlipidemia) Sleep apnea HTN (hypertension) CAD (coronary artery disease) Diabetes mellitus with neuropathy Rib fractures Ribs, multiple fractures Surgical History (Updated 08/21/23 @ 00:48 by Charly Mcelroy MD) H/O four vessel coronary artery bypass graft Family History Other Family history non-contributory Social History Smoking Status: Never smoker Second Hand Exposure: No; Do You Dip or Chew Tobacco: No; Hx Alcohol Use: No Hx Substance Use: No Preferred Language: Italian Communication Ability: Effective Visual Impairment: Limited Hearing Ability: Hard of Hearing [employer]ing [employer] Required: No Beliefs That Will Affect Care: None marital status: / Current Living Situation: Alone Feels Safe at Home: Yes Diet: diabetic caffeine: Yes Assistive Devices: Glasses Allergies Allergies Allergy/AdvReac Type Severity Reaction Status Date / Time tramadol AdvReac Severe memory loss Unverified 02/19/23 13:00 lisinopril AdvReac Intermediate Cough Unverified 02/19/23 13:00 sertraline AdvReac Mild DIDN'T Verified 02/19/23 13:00 FEEL WELL ON [id number] Home Meds Home Medications Medication Instructions Recorded Confirmed aspirin 81 mg tablet,delayed 81 mg PO QAM ##0 07/12/09 08/20/23 release (Enteric Coated Aspirin) isosorbide mononitrate 60 mg 60 mg PO QAM 05/02/18 08/20/23 tablet,extended release 24 hr metformin 1,000 mg tablet 500 mg PO BIDM 05/26/18 08/20/23 insulin glargine 100 unit/mL 25 unit subcut BIDM 12/26/18 08/20/23 subcutaneous solution (Lantus U-100 Insulin) telmisartan 80 mg tablet 80 mg PO QAM 12/26/18 08/20/23 empagliflozin 10 mg tablet 10 mg PO DAILY 10/30/22 08/20/23 (Jardiance) famotidine 20 mg tablet 20 mg PO BID 10/30/22 08/20/23 furosemide 20 mg tablet 20 mg PO 2XWK 08/20/23 08/20/23 metoprolol tartrate 25 mg tablet 25 mg PO BID 08/20/23 08/20/23 Previous Rx's Medication Instructions Recorded atorvastatin 80 mg tablet 80 mg PO DAILY #30 tabs 12/28/18 Results & Data (ED) Vital Signs Vital Signs - 24 hr 08/20/23 18:19 08/20/23 20:08 08/20/23 20:21 Temperature 36.6 C Temperature Source Temporal Artery Scan Pulse Rate 81 75 Pulse Rate [Apical] 74 Respiratory Rate 20 18 Respiratory Effort / Characteristics Non-Labored Respiratory Depth Normal Normal Blood Pressure 168/66 H Blood Pressure [Left Arm] 177/85 H Blood Pressure Mean 100 Blood Pressure Mean [Left Arm] 115 Blood Pressure Position [Left Arm] Semi-fowlers Pulse Oximetry 95 98 Oxygen Delivery Method Room Air Room Air Sepsis Recent Fever Within 48 Hours No Sepsis New/Unexplained Change in Mental Status No Sepsis Action Taken by Nursing No Action Required 08/20/23 21:10 08/20/23 22:00 08/21/23 00:00 Temperature Temperature Source Pulse Rate Pulse Rate [Apical] 74 78 Respiratory Rate 19 16 Respiratory Effort / Characteristics Respiratory Depth Normal Normal Blood Pressure Blood Pressure [Left Arm] 167/69 H 140/55 L Blood Pressure Mean Blood Pressure Mean [Left Arm] 101 83 Blood Pressure Position [Left Arm] Semi-fowlers Semi-fowlers Pulse Oximetry 98 99 96 Oxygen Delivery Method Room Air Room Air Room Air Sepsis Recent Fever Within 48 Hours Sepsis New/Unexplained Change in Mental Status Sepsis Action Taken by [facility] Medications Current Medication List: was personally reviewed by me Laboratory Data Attestation: I reviewed the patient's lab results. 08/20/23 19:10 08/20/23 19:10 Lab Results 08/20/23 08/20/23 08/20/23 Range/Units 18:24 19:10 21:04 WBC 5.41 (4.8-10.8) K/ul RBC 4.48 L (4.70-6.10) M/uL Hgb 13.1 L (14.0-18.0) g/dl Hct 40.1 L (42.0-52.0) % MCV 89.5 (80.0-100.0) fL MCH 29.2 (25.0-34.0) pg MCHC 32.7 (32.0-36.0) g/dL RDW Std Deviation 46.5 H (36.4-46.3) fL RDW Coeff of German 14.1 (11.5-14.5) % Plt Count 147 (130-400) K/uL MPV 11.7 (9.4-12.4) fL Immature Gran % (Auto) 0.4 % Neut % (Auto) 70.3 % Lymph % (Auto) 10.2 % Wilkes % (Auto) 18.7 % Eos % (Auto) 0.2 % Baso % (Auto) 0.2 % Neut # (Auto) 3.81 (1.40-6.50) K/uL Lymph # (Auto) 0.55 L (1.20-3.40) K/uL Wilkes # (Auto) 1.01 H (0.11-0.59) K/uL Eos # (Auto) 0.01 (0.00-0.50) K/uL Baso # (Auto) 0.01 (0.00-0.20) K/uL Immature Gran # (Auto) 0.02 (0.01-0.20) K/uL Sodium 137 (136-145) mmol/L Potassium 4.0 (3.5-5.1) mmol/L Chloride 102 (98-107) mmol/L Carbon Dioxide 26 (21-32) mmol/L Anion Gap 9 (3-11) BUN 20 (6-23) mg/dl Creatinine 1.45 H (0.6-1.4) mg/dl Est Cr Clr Drug Dosing 44.2 ml/min Est GFR ( Amer) 52.3 ml/min Est GFR (Non-Af Amer) 45.2 ml/min BUN/Creatinine Ratio 13.8 (10-20) Glucose 295 H (70-99(Fasting)) mg/dl POC Glucose (70-99) mg/dl Calcium 8.6 (8.6-10.3) mg/dl Magnesium 1.7 (1.7-2.4) mg/dl Total Bilirubin 0.9 (0.2-1.0) mg/dl AST 28 (13-39) U/L ALT 19 (7-52) U/L Alkaline Phosphatase 109 H (34-104) U/L Troponin I High Sens 53.9 H* 52.3 H* (0-20) pg/ml C-Reactive Protein 1.30 H (0-0.5) mg/dl B-Natriuretic Peptide 503 H (0-100) pg/ml Total Protein 7.1 (6.0-8.3) gm/dl Albumin 4.2 (3.4-5.0) gm/dl Globulin 2.9 (2.5-4.0) gm/dl Albumin/Globulin Ratio 1.4 (0.9-2) Urine Color Urine Appearance (Clear) Urine pH (4.5-7.5) Ur Specific [place] (1.000-1.030) Urine Protein (Negative) Urine Glucose (UA) (Negative) Urine Ketones (Negative) Urine Blood (Negative) Urine Nitrite (Negative) Urine Bilirubin (Negative) Urine Urobilinogen (Negative) Ur Leukocyte Esterase (Negative) SARS-CoV-2 (PCR) POSITIVE A* (Negative) 08/20/23 08/20/23 Range/Units 21:10 22:48 WBC (4.8-10.8) K/ul RBC (4.70-6.10) M/uL Hgb (14.0-18.0) g/dl Hct (42.0-52.0) % MCV (80.0-100.0) fL MCH (25.0-34.0) pg MCHC (32.0-36.0) g/dL RDW Std Deviation (36.4-46.3) fL RDW Coeff of German (11.5-14.5) % Plt Count (130-400) K/uL MPV (9.4-12.4) fL Immature Gran % (Auto) % Neut % (Auto) % Lymph % (Auto) % Wilkes % (Auto) % Eos % (Auto) % Baso % (Auto) % Neut # (Auto) (1.40-6.50) K/uL Lymph # (Auto) (1.20-3.40) K/uL Wilkes # (Auto) (0.11-0.59) K/uL Eos # (Auto) (0.00-0.50) K/uL Baso # (Auto) (0.00-0.20) K/uL Immature Gran # (Auto) (0.01-0.20) K/uL Sodium (136-145) mmol/L Potassium (3.5-5.1) mmol/L Chloride (98-107) mmol/L Carbon Dioxide (21-32) mmol/L Anion Gap (3-11) BUN (6-23) mg/dl Creatinine (0.6-1.4) mg/dl Est Cr Clr Drug Dosing ml/min Est GFR ( Amer) ml/min Est GFR (Non-Af Amer) ml/min BUN/Creatinine Ratio (10-20) Glucose (70-99(Fasting)) mg/dl POC Glucose 232 H (70-99) mg/dl Calcium (8.6-10.3) mg/dl Magnesium (1.7-2.4) mg/dl Total Bilirubin (0.2-1.0) mg/dl AST (13-39) U/L ALT (7-52) U/L Alkaline Phosphatase (34-104) U/L Troponin I High Sens (0-20) pg/ml C-Reactive Protein (0-0.5) mg/dl B-Natriuretic Peptide (0-100) pg/ml Total Protein (6.0-8.3) gm/dl Albumin (3.4-5.0) gm/dl Globulin (2.5-4.0) gm/dl Albumin/Globulin Ratio (0.9-2) Urine Color Yellow Urine Appearance Clear (Clear) Urine pH 5.0 (4.5-7.5) Ur Specific [place] 1.025 (1.000-1.030) Urine Protein Negative (Negative) Urine Glucose (UA) 3+ H (Negative) Urine Ketones Negative (Negative) Urine Blood Negative (Negative) Urine Nitrite Negative (Negative) Urine Bilirubin Negative (Negative) Urine Urobilinogen Negative (Negative) Ur Leukocyte Esterase Negative (Negative) SARS-CoV-2 (PCR) (Negative) Administered Medications Guaifenesin (Guaifenesin 600 Mg Tabcr) 600 mg PO Q12 JAS Stop: 09/19/23 22:24 Last Admin: 08/20/23 22:48 Dose: 600 mg Documented By: ZACK Discontinued Medications Insulin Glargine (Lantus Per Unit Charge) 15 units SQ NOW STA Stop: 08/20/23 22:40 Last Admin: 08/20/23 22:48 Dose: 15 units Documented By: ZACK Co-signed By: KAYLA Imaging Data Radiologist's Impression: Chest X-Ray 08/20/23 18:23 XR chest 1V portable CLINICAL HISTORY: Dyspnea TECHNIQUE: Single frontal radiograph of the chest was obtained. Comparison: Comparison is made to chest radiograph 12/26/2018 FINDINGS: Median sternotomy wires are unchanged. Cardiomegaly is noted. The aortic arch is calcified. Right lower lung airspace opacity is seen. No evidence of pleural effusion or pneumothorax. IMPRESSION: Right lower lung airspace opacity likely reflects atelectasis, although aspiration/pneumonia cannot be entirely excluded. ACT 112: Negative or not required by law. Electronically signed by: Lc Gilmore M.D. 08/20/2023 6:[address] 08/20/23 21:18 Exam(s): CT CHEST Without Contrast EXAM: CT Chest Without Intravenous Contrast CLINICAL HISTORY: Reason for exam: covid, ?airspace opacity RLL on CXR. TECHNIQUE: Axial computed tomography images of the chest without intravenous contrast. CTDI is 19.95 mGy and DLP is 644.45 mGy-cm. Automated exposure control was utilized for the study. A dose lowering technique was utilized adhering to the principles of ALARA. COMPARISON: No relevant prior studies available. FINDINGS: Lungs: Unremarkable. No mass. No consolidation. Pleural space: Unremarkable. No pneumothorax. No significant effusion. Heart: Unremarkable. No cardiomegaly. No significant pericardial effusion. No significant coronary artery calcifications. Bones/joints: Sternotomy wires. Degenerative changes of the spine. No acute fracture. No dislocation. Soft tissues: Unremarkable. Vasculature: Atherosclerotic changes of the aorta. No thoracic aortic aneurysm. Lymph nodes: Unremarkable. No enlarged lymph nodes. Gallbladder and bile ducts: Cholecystectomy. IMPRESSION: No acute findings in the chest. Electronically signed by: Eric Issa MD 08/21/23 00:10 AM Discharge Plan Visit Data Chief Complaint: Illness Stated Complaint: RUNNY NOSE, RASPY VOICE, TROUBLE BALANCING ED Provider: Charly Mcelroy Discharge Problem: Elevated troponin, History of coronary artery bypass graft, COVID-19 Patient Disposition: Admitted As Inpatient Discharge Instructions Interventions: ED Discharge Assessment Last Done: 08/21/23 00:37 Forms Stand Alone Forms: [facility] [place] Prescriptions Prescriptions: No Action Jardiance 10 mg tablet 10 mg PO DAILY famotidine 20 mg tablet 20 mg PO BID aspirin [Enteric Coated Aspirin] 81 mg Tablet,Delayed Release (Dr/Ec) 81 mg PO QAM Qty: 0 isosorbide mononitrate 60 mg Tablet Extended Release 24 Hr 60 mg PO QAM metformin 1,000 mg tablet 500 mg PO BIDM insulin glargine [Lantus U-100 Insulin] 100 unit/mL Solution 25 unit SUBCUT BIDM telmisartan 80 mg Tablet 80 mg PO QAM atorvastatin 80 mg tablet 80 mg PO DAILY Qty: 30 0RF metoprolol tartrate 25 mg tablet 25 mg PO BID furosemide 20 mg tablet 20 mg PO 2XWK Referrals Referrals: Shantell Queen DO [Primary Care Provider] -
[2023-08-20 20:13] LABS: Troponin I High Sensitivity 53.9 pg/ml (0-20)
[2023-08-20 21:27] LABS: Appearance Urine Clear (Clear); Bilirubin Urine Negative (Negative); Blood Urine Negative (Negative); Color Urine Yellow; Glucose Urine UA 3+ (Negative); Ketones Urine Negative (Negative); Leukocyte Esterase Urine Negative (Negative); Nitrite Urine Negative (Negative); Protein Urine Negative (Negative); Specific Gravity Urine 1.025 (1.000-1.030); Urobilinogen Urine Negative (Negative)
[2023-08-20 21:43] LABS: Troponin I High Sensitivity 52.3 pg/ml (0-20)
--- NOTE | 2023-08-20 21:44 | History & Physical Report ---
Date of Service August 20, 2023 Assessment & Plan (1) COVID: Plan: Worsening cough, TAYLOR, sore throat x 3 +COVID on arrival Isolation precautions in place Guaifenesin 600 mg p.o. q12h for cough Continuous telemetry monitoring Supplemental oxygen therapy as needed to maintain SpO2>94% Acetaminophen as needed for pain/fever A.m. CBC, BMP (2) Elevated troponin: Plan: Troponin 53.9--> 52.3 on arrival Patient denies chest pain at present, however he does endorse an instance of sharp stabbing chest pain 3 days ago Echocardiogram ordered, pending; BNP elevated at 503 Continuous telemetry monitoring Repeat AM troponin (3) Diabetes: Plan: Glucose 232 on arrival Last A1c 9.1% on 12/26/2018 Hold Jardiance, metformin Patient reports that he has been taking Lantus 30u AM and 15u PM; not of the 25u BID as listed We will lower the dose and switch to Lantus 15u BID while inpatient; reevaluate if patient needs steroids SSI: With target BSG range 110-140mg/dL, CF 45, carb ratio 15 BSG ACHS T2DM diet Adjust regimen as needed AM A1c (4) GERD (gastroesophageal reflux disease): Plan: Continue famotidine (5) HTN (hypertension): Plan: Continue metoprolol, isosorbide mononitrate (6) HLD (hyperlipidemia): Plan: Continue telmisartan (7) Diabetic ulcer of left heel: Plan Disposition: Obs - Admit to [facility] telemetry Full code T2DM diet VTE PPx: SCDs, Lovenox 40u SQ q24h History of Present Illness Chief Complaint: Illness Primary Care Provider: Shantell Queen DO Carlton is an 82-year-old male with PMH of T2DM, CAD, HTN, HLD, sleep apnea, GERD, and . He presented for difficulty walking, SOB, cough, and sore throat x 3 days. COVID-positive on arrival. He denies at home oxygen use. He reports that his productive cough (clear sputum production) has been going on for 2 days. He denies SOB at rest, but notes some TAYLOR. Of note, he also endorses a sharp stabbing chest pain 3 days ago around his heart that lasted for 5 minutes. He is unsure frequency, but says this happens around 4 times per year. Patient reports that he has had COVID shots x 2, no boosters. No flu shots. He reports that he took his normal morning medications. He reports that he has been taking Lantus 30u in the mornings, and 15u in the evenings; not insulin 25u BID as listed. Patient manages his own medications. He has not been taking DayQuil, Tylenol, or ibuprofen. Patient lives alone with his dog. No sick contacts. He denies smoking, alcohol, tobacco use, vaping, recreational drug use. He does not use any ambulatory assist devices, although he reports he does have a cane. Patient is mildly hypertensive at 167/69 at time of admission; 99% on room air vitals otherwise stable. 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 Allergies Allergy/AdvReac Type Severity Reaction Status Date / Time tramadol AdvReac Severe memory loss Unverified 02/19/23 13:00 lisinopril AdvReac Intermediate Cough Unverified 02/19/23 13:00 sertraline AdvReac Mild DIDN'T Verified 02/19/23 13:00 FEEL WELL ON [id number] Home Medications Medication Instructions Recorded Confirmed Type aspirin 81 mg tablet,delayed 81 mg PO QA ##0 07/12/09 08/20/23 History release (Enteric Coated Aspirin) isosorbide mononitrate 60 mg 60 mg PO QAM 05/02/18 08/20/23 History tablet,extended release 24 hr metformin 1,000 mg tablet 500 mg PO BIDM 05/26/18 08/20/23 History telmisartan 80 mg tablet 80 mg PO QAM 12/26/18 08/20/23 History atorvastatin 80 mg tablet 80 mg PO DAILY #30 tabs 12/28/18 08/20/23 Rx empagliflozin 10 mg tablet 10 mg PO DAILY 10/30/22 08/20/23 History (Jardiance) famotidine 20 mg tablet 20 mg PO BID 10/30/22 08/20/23 History furosemide 20 mg tablet 20 mg PO 2XWK 08/20/23 08/20/23 History metoprolol tartrate 25 mg tablet 25 mg PO BID 08/20/23 08/20/23 History insulin glargine 100 unit/mL 35 unit (0.35 mL) subcut QAM #10 mL 08/21/23 08/20/23 Rx subcutaneous solution (Lantus U-100 Insulin) nirmatrelvir 300 mg (150 mg See Rx Instructions PO .COMPLEX 08/21/23 Rx x2)-ritonavir 100 mg tablet,dose #30 ea pack (Paxlovid) Past Med/Surg History Medical History (Updated 08/21/23 @ 00:48 by Charly Mcelroy MD) HLD (hyperlipidemia) Sleep apnea HTN (hypertension) CAD (coronary artery disease) Diabetes mellitus with neuropathy Rib fractures Ribs, multiple fractures Surgical History (Updated 08/21/23 @ 00:48 by Charly Mcelroy MD) H/O four vessel coronary artery bypass graft Family History Other Family history non-contributory Social History Smoking Status: Never smoker Second Hand Exposure: No; Do You Dip or Chew Tobacco: No; Hx Alcohol Use: No Hx Substance Use: No Preferred Language: Polish Communication Ability: Unable Visual Impairment: Limited Hearing Ability: Hard of Hearing Criminal Records Technician Required: No Beliefs That Will Affect Care: None marital status: / Current Living Situation: Alone Feels Safe at Home: Yes Diet: diabetic caffeine: Yes Assistive Devices: None Review of Systems Review of Systems: See HPI above Physical Exam Physical Exam: General: no acute distress; non-toxic appearing; well-nourished; cooperative HEENT: normocephalic, atraumatic; no scleral icterus; PERRLA w/ EOMs intact; moist mucus membrane; vision and hearing grossly intact Neck: supple; no JVD; no lymphadenopathy; trachea midline Skin: warm, dry without signs of tenting; no cyanosis; no rashes, bruising, lesions, or erythema noted CV: chest wall NTP; RRR; 4/6 systolic ejection murmur auscultated at the second [facility]; no murmurs/rubs/gallops; pulses intact and symmetric at radial, DP, and PT Lungs: no acute respiratory distress; symmetrical chest wall expansion; decreased breath sounds across all lung layne; no wheezing; no adventitious lung sounds ABD: Soft, NTP; BS present; no rebound/guarding; no ascites; no distention; negative CVA tenderness MSK: no tics or fasciculations; no edema noted in the LEs b/l, firm texture Neuro: A&Ox3; normal mood and affect; fluent speech; CN2-12 intact; no focal deficits; patient reports no sensation in the LEs B/L Results & Data Results & Data Vital Signs (Past 12 Hours) Vital Signs Temp Pulse Pulse Resp BP BP Pulse Ox 08/20/23 21:10 98 08/20/23 20:21 75 08/20/23 20:08 74 18 177/85 H 98 08/20/23 18:19 36.6 C 81 20 168/66 H 95 O2 Del Method 08/20/23 21:10 Room Air 08/20/23 20:21 08/20/23 20:08 Room Air 08/20/23 18:19 Room Air Laboratory Results Abnormal lab results 08/20/23 08/20/23 08/20/23 Range/Units 18:24 19:10 21:04 RBC 4.48 L (4.70-6.10) M/uL Hgb 13.1 L (14.0-18.0) g/dl Hct 40.1 L (42.0-52.0) % RDW Std Deviation 46.5 H (36.4-46.3) fL Lymph # (Auto) 0.55 L (1.20-3.40) K/uL [place] # (Auto) 1.01 H (0.11-0.59) K/uL Creatinine 1.45 H (0.6-1.4) mg/dl Glucose 295 H (70-99(Fasting)) mg/dl Alkaline Phosphatase 109 H (34-104) U/L Troponin I High Sens 53.9 H* 52.3 H* (0-20) pg/ml B-Natriuretic Peptide 503 H (0-100) pg/ml Urine Glucose (UA) (Negative) SARS-CoV-2 (PCR) POSITIVE A* (Negative) 08/20/23 Range/Units 21:10 RBC (4.70-6.10) M/uL Hgb (14.0-18.0) g/dl Hct (42.0-52.0) % RDW Std Deviation (36.4-46.3) fL Lymph # (Auto) (1.20-3.40) K/uL [place] # (Auto) (0.11-0.59) K/uL Creatinine (0.6-1.4) mg/dl Glucose (70-99(Fasting)) mg/dl Alkaline Phosphatase (34-104) U/L Troponin I High Sens (0-20) pg/ml B-Natriuretic Peptide (0-100) pg/ml Urine Glucose (UA) 3+ H (Negative) SARS-CoV-2 (PCR) (Negative) Diagnostic Findings Chest X-Ray 08/20/23 18:23 XR chest 1V portable CLINICAL HISTORY: Dyspnea TECHNIQUE: Single frontal radiograph of the chest was obtained. Comparison: Comparison is made to chest radiograph 12/26/2018 FINDINGS: Median sternotomy wires are unchanged. Cardiomegaly is noted. The aortic arch is calcified. Right lower lung airspace opacity is seen. No evidence of pleural effusion or pneumothorax. IMPRESSION: Right lower lung airspace opacity likely reflects atelectasis, although aspiration/pneumonia cannot be entirely excluded. ACT 112: Negative or not required by law. Electronically signed by: Lc Gilmore M.D. 08/20/2023 6:46 PM Code Status & VTE Plan Code Status Full code VTE Prophylaxis Plan VTE Prophylaxis will be ordered: Yes Supervising Physician Co-Signing Physician Notes Attending addendum: I have physically seen this patient, have supervised the REX's activities, and agree with the H&P unless as otherwise noted. Assessment and Plan: COVID-19 infection- Admit to monitored bed Dexamethasone 6 mg IV daily Guaifenesin extended release 600 mg p.o. every 12 hours Rx for Paxlovid to be filled by patient family at the outpatient pharmacy, and bring in for administration while in the hospital, with plans to complete full 5-day course Nasal cannula oxygen, titrate to keep pulse ox 92-94% Acetaminophen 650 mg by mouth every 6 hours as needed for mild pain or fever Follow serial laboratories CBC with differential and renal function panel Elevated troponin/CAD/PAD/status post CABG x 4 in 2007- Troponin initially 53.9, with follow-up 52.3 The patient will be admitted to telemetry for serial cardiac enzymes, serial EKG's, cardiac rhythm monitoring and a 2-D echocardiogram with Dopplers. Continue aspirin, isosorbide mononitrate, metoprolol tartrate Diabetes mellitus- Glucose 232 on admission Glargine adjustment as noted Placed on Accu-Cheks with NovoLog SSI Expect bump in glucose while on steroids Remaining orders and notations as noted PG Care Time/CCT Total # of Minutes Spent Total Time Spent with Patient: Total time spent is greater than 50% in coordination of care (as documented) at patient's floor/unit and/or counseling patient: Coding [place] [address] INT INP/OBS CARE 3/75MIN Patient Type Established Medical Decision Making Moderate Complexity Diagnoses COVID U07.1 Elevated troponin R79.89 Diabetes E11.9 GERD (gastroesophageal reflux disease) K21.9 HTN (hypertension) I10 HLD (hyperlipidemia) E78.5 Diabetic ulcer of left heel E11.621; L97.429
--- OUTSIDE RECORDS SUMMARY | 2023-08-20 22:29 | External Medical Summary | Continuity of Care Document ---
Author Name Unknown Organization [address] Address [address] [place] [address] [phone] Care Team Providers Care Bariatric Program Coordinator Name Role Phone Shantell Queen Primary Care Physician [phone] [id number] Date(s): 05/06/23 - 05/06/[address] [place] [address], [address] [phone] Encounter Diagnosis Diabetes mellitus, type II(Discharge Diagnosis) - 05/06/23 DIABETES MELLITUS(Discharge Diagnosis) - 05/06/23 HYPERTENSION(Discharge Diagnosis) - 05/06/23 PAD (peripheral artery disease)(Discharge Diagnosis) - 05/06/23 Body mass index [BMI] 32.0-32.9, adult(Discharge Diagnosis) - 05/06/23 Diabetic foot ulcer(Discharge Diagnosis) - 05/06/23 Type 2 diabetes mellitus without complications(Final) - Discharge Disposition: Home or Self Care Attending Physician: DO Queen Kristen M Referring Physician: DO Queen Kristen M Allergies, Adverse Reactions, Alerts Substance Reaction Severity Status lisinopril Cough aggravates symptom Act iglesia GERMAINE Inhibitors cough Active traMADol delerium Active Assessment and Plan Extracted from: Title:Office Visit Note Author:DO Queen Kriste n M Date:05/06/23 1.DIABETES MELLITUS Chronic condition, stable Goal:Resolution Data:unique tests ordered: _ Plan: _cont to follow 3 month lab orders include cmp lipid A1c and microalbumin 2.HYPERTENSION Chronic condition, stable Goal:Resolution Data:unique tests ordered: _ Plan: _well controlled 3.PAD (peripheral artery disease) Chronic condition, stable Goal:Resolution Data:unique tests ordered: _ Plan: _follow with cardio just explanations discussed today 4.Diabetic foot ulcer Chronic condition, stable Goal:Resolution Data:unique tests ordered: _ Plan: _pt discharged from wound care Immunizations Given and Recorded Vaccine Date Status Refusal Reason influenza virus vaccine, inactivated 07/29/22 Give n SARS-CoV-2 (COVID-19) mRNA BNT-162b2 vax 1 08/19/21 Recorded SARS-CoV-2 (COVID-19) mRNA BNT-162b2 vax 2 12/12/20 Recorded SARS-CoV-2 (COVID-19) mRNA BNT-162b2 vax 3 11/21/20 Recorded zoster vaccine, inactivated 4 06/30/21 Recorded pneumococcal 13-valent vaccine 5 05/22/14 Given pneumococcal 23-valent vaccine 07/21/10 Recorded pneumococcal 23-valent vaccine 6 04/18/08 Recorded tetanus toxoids-diphtheria, Td (Adult) 7 04/18/08 Recorded 1Result Comment: 2021-09-30: Historical information-source unspecified 2Result Comment: 2021-06-23: Historical information-source unspecified 3Result Comment: 2021-06-23: Historical information-source unspecified 4Result Comment: 2021-09-30: Historical information-source unspecified 5Early/Late Reason: Other : got busy with other patients. 6Result Comment: 2019-01-06: Historical information-source unspecified 7Result Comment: 2019-01-06: Historical information-source unspecified Medications amLODIPine 5 mg oral tablet Start: 06/23/21 13:32:00 EDT, 1 tab, PO, Daily, Disp# 90 tab, Refills: 3, Pharmacy: [facility] Start Date: 06/23/21 Status: Ordered aspirin 81 mg oral capsule Start: 07/29/22 10:14:00 EST, 1 cap, PO, Daily Start Date: 07/29/22 Status: Ordered atorvastatin 80 mg oral tablet Start: 04/24/23 14:15:00 EDT, See Instructions, Disp# 90 tab, Refills: 3, TAKE 1 TABLET BY MOUTH DAILY, Pharmacy: [facility] ([facility]) Start Date: 04/24/23 Status: Ordered Famotidine 20 MG Oral Tablet Start: 03/29/23 16:10:00 EDT, Famotidine 20 MG Oral Tablet, See Instructions, Disp# 180 tab, Refills: 3, TAKE 1 TABLET BY MOUTH TWICE DAILY, Pharmacy [facility] ([facility]) Start Date: 03/29/23 Status: Ordered famotidine 20 mg oral tablet Start: 04/27/22 8:57:00 EDT, See Instructions, Disp# 180 tab, Refills: 3, TAKE 1 TABLET BY MOUTH TWICE DAILY, Pharmacy: [facility] ([facility]) Start Date: 04/27/22 Status: Ordered isosorbide mononitrate 60 mg oral tablet, extended release Start: 01/11/23 11:25:00 EDT, See Instructions, Disp# 90 tab, Refills: 3, TAKE 1 TABLET BY MOUTH INTHE MORNING, Pharmacy: [facility] ([facility]) Start Date: 01/11/23 Status: Ordered Jardiance 10 mg oral tablet Start: 01/05/22 13:09:00 EDT, 1 tab, PO, Daily, Disp# 30 tab Start Date: 01/05/22 Status: Ordered Lantus Solostar Pen 100 units/mL subcutaneous solution Start: 10/26/22 14:14:00 EST, See Instructions, Disp# 45 mL, Refills: 3, INJECT SUBCUTANEOUSLY 25 UNITS TWICE DAILY, Pharmacy: [facility] ([facility]) Start Date: 10/26/22 Status: Ordered metFORMIN 1000 mg oral tablet Start: 01/11/23 11:25:00 EDT, See Instructions, Disp# 90 tab, Refills: 3, TAKE 1 TABLET BY MOUTH DAILY, Pharmacy: [facility] ([facility]) Start Date: 01/11/23 Status: Ordered Metoprolol Tartrate 25 mg oral tablet Start: 03/29/23 16:10:00 EDT, See Instructions, Disp# 180 tab, Refills: 3, TAKE 1 TABLET BY MOUTH TWICE DAILY, Pharmacy: [facility] ([facility]) Start Date: 03/29/23 Status: Ordered One Touch Ultra Blue Test Strips Start: 02/11/23 16:31:00 EDT, See Instructions, Disp# 100 each, Refills: 3, for bid testing, Pharmacy: [facility]/pharmacy #[id number] Start Date: 02/11/23 Status: Ordered One Touch Ultrasoft (28G) Lancets Start: 11/19/17 15:17:00, See Instructions, Disp# 100 unit, Refills: 3, Pt to use one lancet to test twice a day E11.0, Pharmacy: [facility]/pharmacy #[id number] Start Date: 11/19/17 Status: Ordered telmisartan 80 mg oral tablet Start: 03/29/23 16:10:00 EDT, See Instructions, Disp# 90 tab, Refills: 3, TAKE 1 TABLET BY MOUTH DAILY, Pharmacy: [facility] ([facility]) Start Date: 03/29/23 Status: Ordered unlisted medication Start: 04/02/15 10:43:57, unlisted medication, eRx Product Type: Supply, See Instructions, Disp# 100 each, Refills: 11, ulticare syr 0.5 ml 31GX5 dipense 100 each, use as directed twice daily, Note to Pharmacy: dx. 250.00; uses insulin BID, Pharmacy... Start Date: 04/02/15 Status: Ordered Mental Status 05/06/23 Barriers to Learning one year None evide nt Mandatory Health Literacy Documentation Yes Health Literacy Communication Barriers N ever Primary Language Bulgarian Problem List Condition Confirmation Course Effective Dates Status Health St atus Informant CAD (coronary artery disease) Confirmed Active Diabetic foot ulcer Confirmed Active Diabetic neuropathy Confirmed Active HYPERTENSION Confirmed Active PAD (peripheral artery disease) Confirmed Active Wound of skin Confirmed Active Diagnosis Diagnosis Type Effective Dates Health Status Clinical Service Informant Diabetes mellitus, type II Discharge Diagnosis 05/06/23 Non-Specified Diabetic foot ulcer Discharge Diagnosis 05/06/23 DIABETES MELLITUS Discharge Diagnosis 05/06/23 HYPERTENSION Discharge Diagnosis 05/06/23 PAD (peripheral artery disease) Discharge Diagnosis 05/06/23 Body mass index [BMI] 32.0-32.9, adult Discharge Diagnosis 05/06/23 Non-Specified Procedures Procedure Date Related Diagnosis Body Site Status CT scan brain - normal 1 06/08/18 Completed CABG - Coronary artery bypass graft Completed Cholecystectomy Completed 1no acute intracranial abnormality. No change from the prior study Results Laboratory List Name Date Microalbumin, Urine, Random (MICROALBUMI N, RD UR) 05/06/23 Most recent to oldest [Reference Range]: 1 Micro Alb (u) [<2.00 mg/dL] <1.20 mg/dL (05/06/23 4:12 PM) Micro Alb Ratio [<20 ug/mg cret] NOT CHERRY CULATED ug/mg cret (05/06/23 4:12 PM) Creat (u) 47.10 mg/dL 1 (05/06/23 4:12 PM) 1Result Comment: Reference Range for Random Urine Not Established. Vital Signs Most recent to oldest [Reference Range]: 1 Height 175 cm (05/06/23 12:48 PM) Patient Weight 98.8 kg (05/06/23 12:48 PM) Body Mass Index 32.26 kg/m2 (05/06/23 12:48 PM) Temperature [36.5-37.9 DegC] 36.7 DegC (05/06/23 12:48 PM) Blood Pressure 126/72mmHg (05/06/23 12:48 PM) Cuff Pulse Pressure 54 mmHg (05/06/23 12:48 PM) Social History Social History Type Response Tobacco Former smoker 1 Smoking Status Never smoked cigaret tessie Sex Male 1Quit at age 34 years FCM Outpt Note * DO Queen Kristen M: PERFORM Event Display: FCM Outpt Note Authored Date: [id number] Chief Complaint Pt here for dm check. Stopped cymbalta on 02/19/23 causing nausea/dizzi History of Present Illness Pt presents for diabetic check. He stopped cymbalta due to ADRs as above. Review of Systems ROS: Denies ECHEVARRIA, visual changes, SOB, CP, N/V, no edema, fever, chills, dysuria, bowel changes Physical Exam Vitals & Measurements T:36.7C BP:126/72 SpO2:98% HT:175cm WT:98.800kg(Dosing) WT:98.8kg BMI:32.26 Diagnostic Results A1c 8.2 Assessment/Plan 1.DIABETES MELLITUS Chronic condition, stable Goal:Resolution Data:unique tests ordered: _ Plan: _cont to follow 3 month lab orders include cmp lipid A1c and microalbumin 2.HYPERTENSION Chronic condition, stable Goal:Resolution Data:unique tests ordered: _ Plan: _well controlled 3.PAD (peripheral artery disease) Chronic condition, stable Goal:Resolution Data:unique tests ordered: _ Plan: _follow with cardio just explanations discussed today 4.Diabetic foot ulcer Chronic condition, stable Goal:Resolution Data:unique tests ordered: _ Plan: _pt discharged from wound care Attestation I spent4 mintime in previsit planning including prepping note and chart review . I spent33 time in face to face interaction with patient concerning the issues that brought them in today. I spent4 min time in post visit planning including finishing note and depart process Total time spent today on patient visit41 min Problem List/Past Medical History Ongoing CAD (coronary artery disease) DIABETES MELLITUS Diabetic neuropathy HYPERTENSION PAD (peripheral artery disease) Wound of skin Historical Bronchitis CARPAL TUNNEL SYNDROME Depression TAYLOR (dyspnea on exertion) Fall Fatigue Fracture of rib Gastropathy H/O: osteoarthritis Lightheadedness Medicare annual wellness visit, subsequent Proteinuria Rash Retinopathy Right shoulder pain Routine adult health maintenance Urinary problem Weight disorder Procedure/Surgical History CT scan brain - normal (06/08/2018)CholecystectomyCABG - Coronary artery bypass graft Medications amLODIPine(amLODIPine 5 mg oral tablet), 5 mg= 1 tab, PO, Daily, 3 refills aspirin(aspirin 81 mg oral capsule), 81 mg= 1 cap, PO, Daily atorvastatin(atorvastatin 80 mg oral tablet), See Instructions diabetes supplies(One Touch Ultra Blue Test Strips), See Instructions, 3 refills diabetic supplies(One Touch Ultrasoft (28G) Lancets), See Instructions, 3 refills DULoxetine(Cymbalta 30 mg oral delayed release capsule), 30 mg= 1 cap, PO, Daily, 3 refills empagliflozin(Jardiance 10 mg oral tablet), 10 mg= 1 tab, PO, Daily famotidine(famotidine 20 mg oral tablet), See Instructions insulin glargine(Lantus Solostar Pen 100 units/mL subcutaneous solution), See Instructions isosorbide mononitrate(isosorbide mononitrate 60 mg oral tablet, extended release), See Instructions metFORMIN(metFORMIN 1000 mg oral tablet), See Instructions metoprolol(Metoprolol Tartrate 25 mg oral tablet), See Instructions telmisartan(telmisartan 80 mg oral tablet), See Instructions unlisted medication, See Instructions, 11 refills unlisted medication(Famotidine 20 MG Oral Tablet), See Instructions Allergies GERMAINE Inhibitorscough lisinoprilCough aggravates symptom traMADoldelerium Social History Smoking Status Former Smoker, quit > 1 yr Tobacco - Denies Tobacco Use Use:Former smoker - Comments: Quit at age 34 years Family History Diabetes: Mother. Heart attack: Father. High Blood Pressure: Mother and Father. Health Status Family Member(s) Immunizations Vaccine Date Status influenza virus vaccine, inactivated 07/29/2022 Given SARS-CoV-2 (COVID-19) mRNA BNT-162b2 vax 08/19/2021 Recorded Comments : 2021-09-30: Historical information-source unspecified zoster vaccine, inactivated 06/30/2021 Recorded Comments : 2021-09-30: Historical information-source unspecified SARS-CoV-2 (COVID-19) mRNA BNT-162b2 vax 12/12/2020 Recorded Comments : 2021-06-23: Historical information-source unspecified SARS-CoV-2 (COVID-19) mRNA BNT-162b2 vax 11/21/2020 Recorded Comments : 2021-06-23: Historical information-source unspecified pneumococcal 13-valent vaccine 05/22/2014 Given Comments : Other : got busy with other patients. pneumococcal 23-valent vaccine 07/21/2010 Recorded tetanus toxoids-diphtheria, Td (Adult) 04/18/2008 Recorded Comments : 2019-01-06: Historical information-source unspecified pneumococcal 23-valent vaccine 04/18/2008 Recorded Comments : 2019-01-06: Historical information-source unspecified Recommendations Health Maintenance Pending(in the next year) OverDue Diabetes Management A1c due12/30/22and every 1year Adult Influenza Vaccine due02/27/23and every 1year Due Adult COVID-19 Vaccination due05/06/23Unknown Frequency Adult Tdap/Td Vaccine due05/06/23Unknown Frequency Medicare Annual Wellness Visit due05/06/23and every 1year Shingles Vaccine due05/06/23One-time only Due In Future Diabetic Eye Exam not due until12/03/23and every 1year Body Mass Index not due until01/28/24and every 1year Satisfied(in the past 1 year) Satisfied Adult Influenza Vaccine on07/29/22.Satisfied by NYA Adair Cassidy Body Mass Index on01/28/23.Satisfied by NYA Barry Donna Diabetes Nephropathy Management on07/29/22.Satisfied by Contributor_system, [email or web address] Diabetic Eye Exam on12/03/22.Satisfied by NYA Barry Donna Electronic Signature on File Electronically Reviewed/Signed by: Shantell Queen DO Author Signature Dt/Tm:05/06/2023 01:37 PM Department of Family Medicine [facility] Patient Care team information Care Team Personnel Name: DO Queen Kristen M Position: Physician - Family Med Member Role: Primary Care Provider Address: Address: [address] [place] [address], [place] [address] [place] Care Team Related Persons Name: JANYNICOLE JIN Address: home No Address Provided Name: JANYDEANNA JIN Address: home [address] [place] [address] [address] [place] [phone]
--- OUTSIDE RECORDS SUMMARY | 2023-08-20 22:29 | External Medical Summary | Continuity of Care Document ---
Author Name Unknown Organization [address] Address [address] [place] [phone] Care Team Providers Care Customer Success Representative Name Role Phone Shantell Queen Primary Care Physician [phone] Encounter [facility] [id number] Date(s): 08/12/23 - 08/12/[address], [facility] [address] [phone] Encounter Diagnosis Body mass index [BMI] 33.0-33.9, adult(Discharge Diagnosis) - 08/12/23 DIABETES MELLITUS(Discharge Diagnosis) - 08/12/23 CAD (coronary artery disease)(Discharge Diagnosis) - 08/12/23 HYPERTENSION(Discharge Diagnosis) - 08/12/23 Discharge Disposition: Home or Self Care Attending Physician: DO Queen Kristen M Referring Physician: DO Queen Kristen M Allergies, Adverse Reactions, Alerts Substance Reaction Severity Status lisinopril Cough aggravates symptom Act iglesia GERMAINE Inhibitors cough Active traMADol delerium Active Assessment and Plan Extracted from: Title:Office Visit Note Author:DO Queen Kriste n M Date:08/12/23 1.DIABETES MELLITUS Chronic condition, stable Goal:Resolution Data:unique tests ordered: _ Plan: _pt questions about rybellsus 2.CAD (coronary artery disease) Chronic condition, stable Goal:Resolution Data:unique tests ordered: _ Plan: _stable 3.HYPERTENSION Chronic condition, stable Goal:Resolution Data:unique tests ordered: _ Plan: _borderline control Immunizations Given and Recorded Vaccine Date Status [...] each, Refills: 3, for bid testing, Pharmacy: [facility]/pharmacy #[id number] Start Date: 02/11/23 Status: Ordered One Touch Ultrasoft (28G) Lancets Start: 11/19/17 15:17:00, See Instructions, Disp# 100 unit, Refills: 3, Pt to use one lancet to test twice a day E11.0, Pharmacy: [facility]/pharmacy #[id number] Start Date: 11/19/17 Status: Ordered telmisartan 80 mg oral tablet Start: 03/29/23 16:10:00 EDT, See Instructions, Disp# 90 tab, Refills: 3, TAKE 1 TABLET BY MOUTH DAILY, Pharmacy: [facility] Start Date: 03/29/23 Status: Ordered unlisted medication Start: 04/02/15 10:43:57, unlisted medication, eRx Product Type: Supply, See Instructions, Disp# 100 each, Refills: 11, ulticare syr 0.5 ml 31GX5 dipense 100 each, use as directed twice daily, Note to Pharmacy: dx. 250.00; uses insulin BID, Pharmacy... Start Date: 04/02/15 Status: Ordered Mental Status 08/12/23 Barriers to Learning one year None evide nt Mandatory Health Literacy Documentation Yes Health Literacy Communication Barriers N ever Primary Language Yoruba Problem List Condition Confirmation Course Effective Dates Status Health St atus Informant CAD (coronary artery disease) Confirmed Active Diabetic foot ulcer Confirmed Active Diabetic neuropathy Confirmed Active HYPERTENSION Confirmed Active PAD (peripheral artery disease) Confirmed Active Wound of skin Confirmed Active Diagnosis Diagnosis Type Effective Dates Health Status Clinical Service Informant Body mass index [BMI] 33.0-33.9, adult Discharge Diagnosis 08/12/23 Non-Specified CAD (coronary artery disease) Discharge Diagnosis 08/12/23 HYPERTENSION Discharge Diagnosis 08/12/23 DIABETES MELLITUS Discharge Diagnosis 08/12/23 Procedures Procedure Date Related Diagnosis Body Site Status CT scan brain - normal 1 06/08/18 Completed CABG - Coronary artery bypass graft Completed Cholecystectomy Completed 1no acute intracranial abnormality. No change from the prior study Results Most recent to oldest [Reference Range]: 1 HgbA1C Outside Ref Range 4.0-5.6 (04/30/23 10:29 AM) HGb A1C Outside 8.2 % (04/30/23 10:29 AM) Vital Signs Most recent to oldest [Reference Range]: 1 Height 174.5 cm (08/12/23 12:44 PM) Patient Weight 101.7 kg (08/12/23 12:44 PM) Body Mass Index 33.4 kg/m2 (08/12/23 12:44 PM) Temperature [36.5-37.9 DegC] 36.0 DegC *LOW* (08/12/23 12:44 PM) Heart Rate 66 bpm (08/12/23 12:44 PM) Blood Pressure 140/72mmHg (08/12/23 12:44 PM) Cuff Pulse Pressure 68 mmHg (08/12/23 12:44 PM) Social History Social History Type Response Tobacco Former smoker 1 Smoking Status Never smoked cigaret tessie Sex Male 1Quit at age 34 years FCM Outpt Note * DO Queen Kristen M: PERFORM Event Display: FCM Outpt Note Authored Date: [id number] Chief Complaint 3 month f/u History of Present Illness Pt presents with his daughter. Physical Exam Vitals & Measurements T:36.0C HR:66(Monitored) BP:140/72 SpO2:98% HT:174.5cm WT:101.700kg(Dosing) WT:101.7kg BMI:33.4 PHQ2 Data(Data Documented on:08/12/2023 12:41) Emotional health assessment NEGATIVE G: AAAOx3, NAD H: RR normal S1/S2 no M/R/G L: CTA b/l no r/r/w HEENT: external ear canal and TM wnl, oral mucosa moist, no lymphadenopathy A: soft +bs nt nd E: no c/C/E b/l, pos distal pulses P: normal affect and insight, no homicidal/suicidal ideation Assessment/Plan 1.DIABETES MELLITUS Chronic condition, stable Goal:Resolution Data:unique tests ordered: _ Plan: _pt questions about rybellsus 2.CAD (coronary artery disease) Chronic condition, stable Goal:Resolution Data:unique tests ordered: _ Plan: _stable 3.HYPERTENSION Chronic condition, stable Goal:Resolution Data:unique tests ordered: _ Plan: _borderline control Attestation I spent4 mintime in previsit planning including prepping note and chart review . I spent23 time in face to face interaction with patient concerning the issues that brought them in today. I spent4 min time in post visit planning including finishing note and depart process Total time spent today on patient visit31 min Problem List/Past Medical History Ongoing CAD (coronary artery disease) DIABETES MELLITUS Diabetic foot ulcer Diabetic neuropathy HYPERTENSION PAD (peripheral artery disease) [...] Ultrasoft (28G) Lancets), See Instructions, 3 refills empagliflozin(Jardiance 10 mg oral tablet), [...] aggravates symptom traMADoldelerium Social History Smoking Status Never smoked cigarettes Tobacco - Denies Tobacco Use Use:Former smoker [...] Health Maintenance Pending(in the next year) OverDue Adult Influenza Vaccine due02/27/23and every 1year Due Adult COVID-19 Vaccination due08/12/23Unknown Frequency Adult Tdap/Td Vaccine due08/12/23Unknown Frequency Falls Plan of Care due08/12/23Unknown Frequency Medicare Annual Wellness Visit due08/12/23and every 1year Shingles Vaccine due08/12/23One-time only Due In Future Diabetes Management A1c not due until04/30/24and every 366day Satisfied(in the past 1 year) Satisfied Body Mass Index on08/12/23.Satisfied by DARNELL Carpenter Angela Diabetes Management A1c on04/30/23.Satisfied by NYA Romero Lynnae Diabetes Nephropathy Management on05/06/23.Satisfied by [employer], [employer] Diabetic Eye Exam on03/04/23.Satisfied by NYA Barry Donna Electronic Signature on File Electronically Reviewed/Signed by: Shantell Queen DO Author Signature Dt/Tm:08/12/2023 01:29 PM Department of Family Medicine [facility] [place] Care team information Care Team Personnel Name: DO Queen Kristen M Position: Physician - Family Med Member Role: Primary Care Provider Address: Address: [address] [place] [address], [place] [address] Care Team Related Persons Name: NICOLE LITTLEJOHN Address: home No Address Provided Name: DEANNA LITTLEJOHN Address: home [address] [place] [address] [address] [place] [phone]
--- OUTSIDE RECORDS SUMMARY | 2023-08-20 22:29 | External Medical Summary | Summary of Care ---
Author Name Unknown Organization [facility] Address [address] [facility] [address] Phone [phone] Care Team Providers Care Laborer Electroplating Name Role Phone Shantell Queen DO Primary Care Provider Reason for Visit * Reason Comments Outpatient Testing Encounter Details Date Type Department Care Team (Late st Contact Info) Description 08/12/2023 12:10 PM EST Laboratory Laboratory, [facility] [phone] [facility] [address] [place] [address] DM type 2, not at goal (HCC) Allergies Active Allergy Reactions Criticality Noted Date Comments Lisinopril Medium 12/26/2018 Other reaction(s): Cough Sertraline Low 12/26/2018 Other reaction(s): DIDN'T FEEL WELL ON [id number] Tramadol High 12/26/2018 Other reaction(s): memory loss documented as of this encounter (statuses as of 08/12/2023) Medications Medication Sig Dispensed Refills Start Date End Date Status ASPIRIN EC LOW STRENGTH 81 MG PO TBECIndications:Other nonspecific abnormal cardiovascular system function study take one tablet daily 100 3 06/14/2006 Active ONETOUCH ULTRA TEST STRPIndications:DM type 2, not at goal (HCC) Use up to four times a day as directed 100 11 04/18/2008 Active isosorbide mononitrate SA (IMDUR) 60 MG [id number]:Chroni c ischemic heart disease,Old myocardial infarct,Aortocoronary bypass status,S/P angioplasty TAKE 1 TABLET BY MOUTH ONCE A DAY 30 Tab 5 02/07/2018 Active MetFORMIN (GLUCOPHAGE) 1000 MG Tablet Take 0.5 Tablets by mouth 2 times a day with morning and evening meals. 0 Active telmisartan (MICARDIS) 80 MG Tablet Take 1 Tablet by mouth in the morning. 0 Active insulin glargine (LANTUS) 100 UNIT/ML SOPNIndications:25U in AM & 25U in PM Inject under the skin. 0 Active amLODIPine (NORVASC) 5 MG Tablet Take 1 Tab by mouth daily. 34 Tab 11 09/30/2018 Active atorvaSTATin (LIPITOR) 80 MG Tablet 1 Tablet. 0 12/28/2018 Active nitroglycerin (NITROSTAT) 0.4 MG SUBL 1 Tablet. 0 12/28/2018 Active Furosemide 20 MG Oral Tablet (Lasix)Indications:HTN , goal below 140/90 TAKE 1 TABLET BY MOUTH 2 DAYS WEEKLY AND DIRECTED 30 Tablet 3 12/14/2022 Active Metoprolol Tartrate 25 MG Oral Tablet (Lopressor) Take 1 Tablet by mouth in the morning and 1 Tablet before bedtime. 0 02/01/2023 Active Famotidine 20 MG Oral Tablet (Pepcid) Take 1 Tablet by mouth in the morning and 1 Tablet in the evening. 0 02/01/2023 Active Jardiance 10 MG Oral Tablet (Empagliflozin)Indicat ions:Type 2 diabetes mellitus with hemoglobin A1c goal of less than 7.0% (HCC) TAKE 1 TABLET BY MOUTH DAILY 90 Tablet 3 04/23/2023 Active documented as of this encounter (statuses as of 08/12/2023) Active Problems Problem Noted Date Diagnosed Date PDR (proliferative diabetic retinopathy) 016 HTN, goal below 140/90 05/02/2015 Retinal edema 02/12/2010 DYSLIPIDEMIA, GOAL LDL BELOW 70 08/15/2009 Overview: Per Lipid Taxonomy. Acute cholecystitis 07/29/2009 Type 2 diabetes mellitus wit h hemoglobin A1c goal of less than 7.0% 06/27/2009 Overview: Per Diabetes Taxonomy. ICD-10 update of inactive term DM TYPE 2 CAUSING RENAL DZ 06/27/2009 Overview: Per Diabetes Taxonomy. OLD MYOCARDIAL INFARCT 03/21/2009 Overview: Modified by [facility] [place] Protocol #5. Diabetes mellitus with background retinopathy Fracture of rib, closed 09/03/2008 Anemia 02/22/2008 Degeneration of cervical intervertebral disc Reflux esophagitis 02/14/2008 Restless leg syndrome 02/14/2008 Obstructive sleep apnea syndrome 02/14/2008 Diabetic polyneuropathy 02/14/2008 Overview: ICD-10 update of inactive term Chronic ischemic heart disease 02/14/2008 Family history of colon cancer 02/14/2008 Aortocoronary bypass status 12/14/2007 S/P angioplasty 06/14/2006 documented as of this encounter (statuses as of 08/12/2023) Resolved Problems Problem Noted Date Diagnosed Date Resolved Date HTN, goal below 140/80 04/18/201205/02 Overview: Per HTN Protocol #27. HTN, GOAL BELOW 130/80 09/26/200904/21 Overview: Per HTN Taxonomy. HTN, goal below 140/90 01/17/200909/26 Overview: Per HTN Taxonomy. Mixed dyslipidemia 02/14/2008 9 Overview: Per Lipid Taxonomy. DM type 2 causing renal disease 02/14/2008 06/27/2009 Overview: Per Diabetes Taxonomy. DM type 2 causing renal disease 02/14/2008 04/18/2008 Chronic ischemic heart disease 02/14/2008 04/18/2008 F/u of acute myocardial infa rction of other specified sites 06/14/2006 03/21/2009 Overview: Modified by [facility] [place] Protocol #5. Type 2 diabetes mellitus wit h hemoglobin A1c goal of less than 7.0% 06/14/2006 06/27/2009 Overview: Per Diabetes Taxonomy. ICD-10 update of inactive term documented as of this encounter (statuses as of 08/12/2023) Immunizations Name Administration Dates Next Due COVID-19 mRNA, LNP-s, No Pre serve, 2-Dose Series (Pfizer) 08/19/2021 Pneumococcal Polysaccharide PPV23 (Pneumovax) Seasonal Influenza, Split, IIV3, With Preserve, Inj 07/19/2008 TD, Preservative Free 04/18/2008 Zoster Vaccine Recombinant (Shingrix) 11/19/2021 ,06/30/2021 documented as of this encounter Social History Tobacco Use Types Packs/Day Years Used Date Smoking Tobacco: Former Cigarettes 25 Smokeless Tobacco: Never Alcohol Use Standard Drinks/Week Comments Not Currently 0 (1 standard drink = 0.6 oz pur e alcohol) Sex and Gender Information Value Date Recorded Sex Assigned at Not on file Gender Identity Not on file Sexual Orientation Not on file Job Start Date Occupation Industry Not on file Not on file Not on file documented as of this encounter Plan of Treatment Upcoming Encounters Date Type Department Care Team (Late st Contact Info) Description 10/08/2023 2:30 PM EST Office Visit Cardiology, [facility] [address] [address] Adolfo Melol MD [address] [place] [address] 10/11/2023 2:00 PM EST Office Visit Ophthalmology, [facility] [address] [address] Alberto Brooks DO [address] [place] [address] Pending Results Name Type Priority Associated Diagnoses Date /Time COMPREHENSIVE METABOLIC PANEL Lab Routine DM type 2, not at goal (HCC) 08/12/2023 11:52 AM EST HEMOGLOBIN A1C Lab Routine DM type 2, not at goal (HCC) 08/12/2023 11:52 AM EST LIPID PANEL WITH DIRECT LDL IF TG IS HIGH Lab Routine DM type 2, not at goal (HCC) 08/12/2023 11:52 AM EST Health Maintenance Due Date Last Done Comments Depression Screening 1952 Hepatitis B (1 of 3 - Risk 3-dose series) 2002 DTaP,Tdap,and Td Vaccines (1 - Tdap) 04/19/2008 04/18/2008 Diabetic Foot Exam 01/17/2010 01/17/2009, 0 10/18/2008 (Done elsewhere), 02/14/2008, Additional history exists Albumin/Creatinine Ratio 02/07/2019 018, 02/14/2008, 02/27/2004, Additional history exists COVID-19 Vaccine ( season) 2023 08/19/2021, 12/12/2020, 11/21/2020 Influenza Vaccine (FLU shot) (#1) 2023 07/19/2008 GFR 07/28/2023 07/28/2022, 09/01, 11/27/2020, Additional history exists HbA1c 10/29/2023 04/30/2023, 0501/2023, 10/23/2022, Additional history exists Diabetic Eye Exam 12/04/2023 12/03/2022, , 11/19/2021, Additional history exists Pneumococcal Vaccine: 65+ Years Completed 05/22/2014, 07/21/2010, 04/18/2008 Zoster Vaccines Completed 11/19/2021, 06/30/2021 GARDASIL-HPV IMMUNIZATION SERIES Aged Out No longer eligible based on patient's age to complete this topic MENINGOCOCCAL (MENACTRA/MENVEO) Aged Out No longer eligible based on patient's age to complete this topic documented as of this encounter Medical Devices Not on filedocumented as of this encounter Visit Diagnoses Diagnosis DM type 2, not at goal (HCC) Type II or unspecified type diabetes mellitus without mention of complication, not stated as uncontrolled documented in this encounter Advance Directives Latest Code Status on File Code Status Date Activated Date Inactivated Comments Full Code 11/15/2007 5:08 PM 2007 4:46 PM Care Teams Laborer Electroplating Relationship Specialty Start Date End Date Shantell Queen DO [address] [place] [address], [place] [address] PCP - General Family Medicine 08/13/14 documented as of this encounter
--- OUTSIDE RECORDS SUMMARY | 2023-08-20 22:29 | External Medical Summary | Summary of Care ---
Author Name Unknown Organization [facility] Address [address] [facility] [place] [address] Phone [phone] Care Team Providers Care Constitutional Law Professor Name Role Phone Shantell Queen Primary Care Provider Reason for Visit * Reason Comments Follow Up 3 month Dilation wit h OCT. Pt states "I think my vision has weaken a little. I have put drops in my eyes today and yesterday for drops" Encounter Details Date Type Department Care Team (Late st Contact Info) Description 07/08/2023 2:30 PM EST Office Visit Ophthalmology, [facility] [address] [place] [address] Alberto Brooks DO [address] [place] [address] 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 associated with type 2 diabetes mellitus (HCC)* Allergies Active Allergy Reactions Criticality Noted Date Comments Lisinopril Medium 12/26/2018 Other reaction(s): Cough Sertraline Low 12/26/2018 Other reaction(s): DIDN'T FEEL WELL ON [id number] Tramadol High 12/26/2018 Other reaction(s): memory loss documented as of this encounter (statuses as of 07/08/2023) Medications Medication Sig Dispensed Refills Start Date End Date Status ASPIRIN EC LOW STRENGTH 81 MG PO TBECIndications:Other nonspecific abnormal cardiovascular system function study take one tablet daily 100 3 06/14/2006 Active ONETOUCH ULTRA TEST STRPIndications:DM type 2, not at goal (HCC) Use up to four times a day as directed 100 11 04/18/2008 Active isosorbide mononitrate SA (IMDUR) 60 MG [id number]:Chroni c ischemic heart disease,Old myocardial infarct,Aortocoronary bypass [...] as of this encounter (statuses as of 07/08/2023) Active Problems Problem Noted Date Diagnosed Date [...] MYOCARDIAL INFARCT 03/21/2009 Overview: Modified by [facility] [place] Protocol #5. Diabetes mellitus with background retinopathy [...] as of this encounter (statuses as of 07/08/2023) Resolved Problems Problem Noted Date Diagnosed Date [...] sites 06/14/2006 03/21/2009 Overview: Modified by [facility] [place] Protocol #5. Type 2 diabetes mellitus wit h hemoglobin A1c goal of less than 7.0% 06/14/2006 06/27/2009 Overview: Per Diabetes Taxonomy. ICD-10 update of inactive term documented as of this encounter (statuses as of 07/08/2023) Immunizations Name Administration Dates Next Due COVID-19 [...] on file documented as of this encounter Progress Notes * Alberto Brooks DO - 07/08/2023 2:30 PM EST [facility] [place] Nursing notes reviewed. "Carlton" HPI: Carlton Lang is a 82 year old male who presents for PDR No other eye complaints. Denies significant pain. Base Eye Exam Visual Acuity (Snellen - Linear) Right Left Dist cc 20/100 -1 20/30 -1 Dist ph cc 20/60 Correction: Glasses Tonometry (Tonopen, 2:23 PM) Right Left Pressure 15 15 Pupils Light Shape React APD Right 2 Round Brisk None Left 2 Round Brisk None Visual George (Counting fingers) Right Left Full Restrictions Partial outer superior temporal, inferior temporal, superior nasal, inferior nasal deficiencies Extraocular Movement Right Left Full Full Neuro/Psych Oriented x3: Yes Mood/Affect: Normal Dilation Both eyes: 0.5% Proparacaine, 1.0% Mydriacyl, 2.5% Phenylephrine @ 2:23 PM EXTERNAL: The ocular adnexae are unremarkable. SLE: Lids/Lashes: wnl OU Conjunctiva/Sclera: quiet OU Cornea: clear OU Anterior Chamber: deep and quiet OU Iris: normal OU; no NVI OU Lens: PCIOL OU Dilated fundus exam OD: vitreous: clear optic nerve: 0.1, no edema/pallor/NVD macula: +food mixer repairer, ERM vessels: wnl midperiphery: +PRP periphery: no RT/RD, +PRP Dilated fundus exam OS: vitreous: clear optic nerve: 0.1, regressed NVD, no edema/pallor macula: +food mixer repairer vessels: wnl midperiphery: +PRP; +mild traction superiorly just above ON--stable periphery: no RT/RD, +PRP OCT Interpretation: OD: +ERM, resolved chronic central DME - STABLE, prior STABLE, prior STABLE, prior STABLE, prior STABLE, prior STABLE, prior STABLE, prior mild worse, prior stable OS: no CIDME -STABLE, prior STABLE, prior STABLE, prior STABLE, prior improved 33um prior improved 52-80um, prior worse 70um, prior STABLE, prior mild worse, prior stable A/P: 1. Quiescent Proliferative Diabetic Retinopathy OU -STABLE OU OD: -s/p fill-in PRP OD 11/29/08 -S/P 23G PPV/MP/EL/IVK for PDR/NCVH/TRD/ERM OD. -surgery date: 04/15/2009 -s/p FML 12/02/10--DME IMPROVED -s/p Avastin (03/14/12)-DME improved 36um, STABLE -s/p Lucentis (09/14/12-mildly improved at 7 weeks) - >8 years since last injection -h/o chronic central DME OS: -small VH OS 12/13/08 -s/p fill-in PRP 12/13/08 -s/p FML 11/13/10--DME IMPROVED and STABLE -S/P 23G PPV for NCVH secondary to PDR OS. -surgery date: 08/08/2012 -s/p focal laser 03-10-17 -recommend HgbA1C <7, BP and lipid control. 2. Dermatochalasis OU - s/p bleph w/ Dr. De La Cruz 3. Pseudophakia OU -stable -by Dr. Bird does not drive F/u 3 months - dilate and OCT OU Alberto Brooks DO [id number] CC: Wilner Bird MD PCP: Shantell Queen DO documented in this encounter Nursing Notes * Дмитрий Sky COA - 07/08/2023 2:14 PM EST Carlton Lang is a 82 year old year old male who presents for 3 month Dilation with OCT. Last Office Visit: 03/04/2023 (in office), Visit date not found (telemedicine) Patient currently states "I think my vision has weaken alittle. I have put drops in my eyes today and yesterday for drops" Are you diabetic? Yes. Do you check your blood sugars daily? YES. Fasting BS this morninish mg/dl. Last Hemoglobin A1C: Lab Results Component Value Date/Time HGBA1C 8.2 (H) 04/30/2023 12:25 PM HGBA1C 7.9 (H) 01/22/2023 11:06 AM HGBA1C 8.0 (H) 10/23/2022 09:19 AM HGBA1C 8.7 (H) 08/28/2020 12:29 PM HGBA1C 8.4 (H) 06/04/2020 01:08 PM HGBA1C 7.6 (H) 03/04/2020 08:[address]? no OCT image(s) of both eyes acquired and filed/scanned into chart. documented in this encounter Plan of Treatment Upcoming Encounters Date Type Department Care Team (Late st Contact Info) Description 10/08/2023 2:30 PM EST Office Visit Cardiology, [facility] [address] [place] [address] Adolfo Mello MD [address] [place] [address] Scheduled Orders Name Type Priority Associated Diagnoses Orde r Schedule RETINA SCAN DIAGNOSTIC IMAGE, POSTERIOR Procedures Routine 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 associated with type 2 diabetes mellitus (HCC) Ordered: 07/08/2023 Health Maintenance Due Date Last Done Comments Depression Screening 1952 Hepatitis B (1 of 3 - Risk 3-dose series) 2002 DTaP,Tdap,and Td Vaccines (1 - Tdap) 04/19/2008 04/18/2008 Pneumococcal Vaccine: 65+ Years (2 - PCV) 04/18/2009 04/18/2008 Diabetic Foot Exam 01/17/2010 01/17/2009, 0 10/18/2008 (Done elsewhere), 02/14/2008, Additional history exists Albumin/Creatinine Ratio 02/07/2019 018, 02/14/2008, 02/27/2004, Additional history exists COVID-19 Vaccine ( - season) 2023 08/19/2021, 12/12/2020, 11/21/2020 Influenza Vaccine (FLU shot) (#1) 2023 07/19/2008 GFR 07/28/2023 07/28/2022, 09/01, 11/27/2020, Additional history exists HbA1c 10/29/2023 04/30/2023, 05/2 01/2023, 10/23/2022, Additional history exists Diabetic Eye Exam 12/04/2023 12/03/2022, , 11/19/2021, Additional history exists Zoster Vaccines Completed 11/19/2021, 06/30/2021 GARDASIL-HPV IMMUNIZATION SERIES Aged Out No longer eligible based on patient's age to complete this topic MENINGOCOCCAL (MENACTRA/MENVEO) Aged Out No longer eligible based on patient's age to complete this topic documented as of this encounter Medical Devices Not on filedocumented as of this encounter Visit Diagnoses Diagnosis 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 associated with type 2 diabetes mellitus (HCC)- Primary documented in this encounter Advance Directives Latest Code Status on File Code Status Date Activated Date Inactivated Comments Full Code 11/15/2007 5:08 PM 2007 4:46 PM Care Teams Constitutional Law Professor Relationship Specialty Start Date End Date Shantell Queen DO [address] [facility] [address] Ru[address] [place] [address], [place] [address] PCP - General Family Medicine 08/13/14 documented as of this encounter
--- OUTSIDE RECORDS SUMMARY | 2023-08-20 22:29 | External Medical Summary ---
Author Name Unknown Address Unknown Organization [id number]:LAB[facility]ATORY [facility] [place] [address] [place] [address] Laboratory Report Ordering Provider Test Date Status DAHLIA MEDLEY 08/12/2023 11:52:03 Final Observation Date Value Abnormality Reference (Units ) Status BUN 08/12/2023 11:52:03 16 6-20 (mg/dL) Final Creatinine 08/12/2023 11:52:03 1.2 0.6-1.2 (mg/dL) Final Glomerular filtration rate/1.73 sq M.predicted [Volume Rate/Area] in Serum, Plasma or Blood by Creatinine-based formula (CKD-EPI) 08/12/2023 11:52:03 62 >=60 (mL/min) Final eGFR is calculated based on the CKD-EPI 2020 equation SODIUM 08/12/2023 11:52:03 140 135-146 (m mol/L) Final Potassium 08/12/2023 11:52:03 4.5 3.5-5.1 (m mol/L) Final Cl 08/12/2023 11:52:03 105 98-107 (mm ol/L) Final CO2 08/12/2023 11:52:03 26 22-32 (mmo l/L) Final Anion gap 08/12/2023 11:52:03 9 7-15 (mmol /L) Final Glucose 08/12/2023 11:52:03 230 Above high normal 70 -120 (mg/dL) Final Albumin 08/12/2023 11:52:03 4.2 3.8-5.0 (g /dL) Final AST (Aspartate aminotransferase) 08/12/2023 11:52:03 20 10-50 (U/L) Fin al Alk Phos 08/12/2023 11:52:03 112 35-130 (U/ L) Final Bilirubin, Total 08/12/2023 11:52:03 0.8 <=1 .2 (mg/dL) Final Calcium 08/12/2023 11:52:03 9.0 8.4-10.2 ( mg/dL) Final Protein 08/12/2023 11:52:03 6.2 6.0-8.3 (g /dL) Final ALT (Alanine aminotransferase) 08/12/2023 11:52:03 20 10-50 (U/L) Solo chavez Performing Location [facility] [address] [place] [address]
--- OUTSIDE RECORDS SUMMARY | 2023-08-20 22:29 | External Medical Summary | Summary of Care ---
Author Name Unknown Organization [facility] Address [address] [place] [address] Phone [phone] Care Team Providers Care Nurse Practitioner Name Role Phone Shantell Queen DO Primary Care Provider Encounter Details Date Type Department Care Team (Late st Contact Info) Description 08/12/2023 Orders Only Laboratory, [facility] [address] [facility] [place] [phone] Shantell Queen DO [address] [facility] [address] [address] DM type 2, not at goal (HCC)* Allergies Active Allergy Reactions Criticality Noted Date Comments Lisinopril Medium 12/26/2018 Other reaction(s): Cough Sertraline Low 12/26/2018 Other reaction(s): DIDN'T FEEL WELL ON [id number] Tramadol High 12/26/2018 Other reaction(s): memory loss [...] Active isosorbide mononitrate SA (IMDUR) 60 MG [id number]:Chroni c ischemic heart disease,Old myocardial infarct,Aortocoronary bypass [...] MYOCARDIAL INFARCT 03/21/2009 Overview: Modified by Acute [place] Protocol #5. Diabetes mellitus with background retinopathy [...] sites 06/14/2006 03/21/2009 Overview: Modified by [facility] [place] Protocol #5. Type 2 diabetes mellitus wit [...] Description 08/12/2023 12:10 PM EST Laboratory Laboratory, [facility] [address] [phone] Keenan Kirkland [facility] [address] [address] DM type 2, not at goal ([facility]) 10/08/2023 2:30 PM EST Office Visit Cardiology, [facility] [address] [address] Adolfo Mello MD [address] [place] [address] 10/11/2023 2:00 PM EST Office Visit Ophthalmology, [facility] [address] [address] Alberto Brooks DO [address] [place] [address] Pending Results Name Type Priority Associated Diagnoses Date /Time COMPREHENSIVE METABOLIC PANEL Lab Routine DM type 2, not at goal (HCC) 08/12/2023 11:52 AM EST HEMOGLOBIN A1C Lab Routine DM type 2, not at goal (HCC) 08/12/2023 11:52 AM EST LIPID PANEL WITH DIRECT LDL IF TG IS HIGH Lab Routine DM type 2, not at goal (HCC) 08/12/2023 11:52 AM EST Scheduled Orders Name Type Priority Associated Diagnoses Orde r Schedule COMPREHENSIVE METABOLIC PANEL Lab Routine DM type 2, not at goal (HCC) Expected: 08/12/2023, Expires: 08/12/2024 HEMOGLOBIN A1C Lab Routine DM type 2, not at goal (HCC) Expected: 08/12/2023, Expires: 08/12/2024 LIPID PANEL WITH DIRECT LDL IF TG IS HIGH Lab Routine DM type 2, not at goal (HCC) Expected: 08/12/2023, Expires: 08/12/2024 ALBUMIN / CREATININE RATIO, URINE Lab Routine DM type 2, not at goal (HCC) Expected: 08/12/2023, Expires: 08/12/2024 Health Maintenance Due Date Last Done Comments [...] mention of complication, not stated as uncontrolled DM type 2, not at goal (HCC)- Primary Type II or unspecified type diabetes mellitus without mention of complication, not stated as uncontrolled documented in this encounter Advance Directives Latest Code Status on File Code Status Date Activated Date Inactivated Comments Full Code 11/15/2007 5:08 PM 2007 4:46 PM Care Teams Nurse Practitioner Relationship Specialty Start Date End Date Shantell Queen DO [facility] [address] Ruiz [address] [place] [address], [place] [address] PCP - General Family Medicine 08/13/14 documented as of this encounter
--- OUTSIDE RECORDS SUMMARY | 2023-08-20 22:29 | External Medical Summary ---
Author Name Unknown Address Unknown Organization [id number]:[facility] [place] [address] [facility] [address] Laboratory Report Ordering Provider Test Date Status PEBBLES MEDLEYRAF 08/12/2023 11:52:03 Final Observation Date Value Abnormality Reference (Units ) Status HbA1C 08/12/2023 11:52:03 8.6 Above high normal 4. 0-5.6 (%) Final The use of HbA1c to monitor glycemic status is based on normal hemoglobin and HbA composition. This test should not be used in patients with abnormal hemoglobin that affects the half life of the red blood cell or the in vivo glycation rates. Glucose, estimated average 08/12/2023 11:52:03 200 Above high normal <126 (mg/dL) Solo chavez Performing Location [facility] [place] [address] [facility] [address]
--- OUTSIDE RECORDS SUMMARY | 2023-08-20 22:30 | External Medical Summary | Summary of Care ---
Author Name Unknown Organization [facility] Address [address] [place] [address] Phone [phone] Care Team Providers Care Casting Wheel Operator Helper Name Role Phone Shantell Queenna Primary Care Provider Reason for Visit * Reason Comments Outpatient Testing Encounter Details Date Type Department Care Team Description 04/30/2023 Laboratory Laboratory, [place] [address] [place] [address] [place], [facility] [address] [place] [address] Type 2 diabetes mellitus without complications ([facility])*; Injury of blood vessel; Diabetes mellitus, stable (HCC); Essential (primary) hypertension; Atherosclerotic heart disease of [place] coronary artery without angina pectoris Allergies Active Allergy Reactions Severity Noted Date Comments Lisinopril Medium 12/26/2018 Other reaction(s): Cough Sertraline Low 12/26/2018 Other reaction(s): DIDN'T FEEL WELL ON [id number] Tramadol High 12/26/2018 Other reaction(s): memory loss documented as of this encounter (statuses as of 04/30/2023) Medications Medication Sig Dispensed Refills Start Date End Date Status ASPIRIN EC LOW STRENGTH 81 MG PO TBECIndications:Other nonspecific abnormal cardiovascular system function study take one tablet daily 100 3 06/14/2006 Active BrandfittersTOUCH ULTRA TEST STRPIndications:DM type 2, not at goal (HCC) Use up to four times a day as directed 100 11 04/18/2008 Active isosorbide mononitrate SA (IMDUR) 60 MG [id number]:Chroni c ischemic heart disease,Old myocardial infarct,Aortocoronary bypass [...] as of this encounter (statuses as of 04/30/2023) Active Problems Problem Noted Date PDR (proliferative diabetic retinopathy) 09/18/2015 HTN, goal below 140/90 05/02/2015 Retinal edema 02/12/2010 DYSLIPIDEMIA, GOAL LDL BELOW 70 08/15/20 09 Overview: Per Lipid Taxonomy. Acute cholecystitis 07/29/2009 Type 2 diabetes mellitus with hemoglobin A1c goal of less than 7.0% 06/27/2009 Overview: Per Diabetes Taxonomy. ICD-10 update of inactive term DM TYPE 2 CAUSING RENAL DZ 06/27/2009 Overview: Per Diabetes Taxonomy. OLD MYOCARDIAL INFARCT 03/21/2009 Overview: Modified by Acute [place] Protocol #5. 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 HTN, GOAL BELOW 130/80 09/26/2009 2 Overview: Per HTN Taxonomy. HTN, goal below 140/90 01/17/2009 0 Overview: Per HTN Taxonomy. Mixed dyslipidemia 02/14/2008 08/15/2009 Overview: Per Lipid Taxonomy. DM type 2 causing renal disease 02/14/2008 06/27/2009 Overview: Per Diabetes Taxonomy. DM type 2 causing renal disease 02/14/2008 04/18/2008 Chronic ischemic heart disease 02/14/2008 0 04/18/2008 F/u of acute myocardial infarction of other spec ified sites 06/14/2006 03/21/2009 Overview: Modified by Acute [place] Protocol #5. Type 2 diabetes mellitus wit h hemoglobin A1c goal of less than 7.0% 06/14/2006 06/27/2009 Overview: Per Diabetes Taxonomy. ICD-10 update of inactive term documented as of this encounter (statuses as of 04/30/2023) Immunizations Name Administration Dates Next Due COVID-19 [...] = 0.6 oz pur e alcohol) Sex Assigned at Date Recorded Not on file Job Start Date Occupation Industry Not on file Not on file Not on file documented as of this encounter Plan of Treatment Upcoming Encounters Date Type Specialty Care Team Description 06/07/2023 Office Visit Ophthalmology Alberto Brooks DO [address] [place] [address] 10/08/2023 Office Visit Cardiology Adolfo Mello MD [address] [place] [address] Pending Results Name Type Priority Associated Diagnoses Date /Time HEMOGLOBIN A1C Lab Routine Injury of blood vessel Diabetes mellitus, stable (HCC) Type 2 diabetes mellitus without complications (HCC) Essential (primary) hypertension Atherosclerotic heart disease of [place] coronary artery without angina pectoris 04/30/2023 12:25 PM EDT Scheduled Orders Name Type Priority Associated Diagnoses Orde r Schedule HEMOGLOBIN A1C Lab Routine Injury of blood vessel Diabetes mellitus, stable (HCC) Type 2 diabetes mellitus without complications (HCC) Essential (primary) hypertension Atherosclerotic heart disease of [place] coronary artery without angina pectoris Expected: 04/30/2023, Expires: 04/30/2024 Health Maintenance Due Date Last Done Comments Depression Screening, Annual for Pts 12 and Over 1952 DTaP,Tdap,and Td Vaccines (1 - Tdap) 04/19/2008 04/18/2008 Pneumococcal Vaccine: 65+ Years (2 - PCV) 04/18/2009 04/18/2008 DIABETES-FOOT EXAM 01/17/2010 01/17/2009, 0 10/18/2008 (Done elsewhere), 02/14/2008, Additional history exists Albumin/Creatinine Ratio 02/07/2019 018, 02/14/2008, 02/27/2004, Additional history exists COVID-19 Vaccine (4 - Pfizer risk series) 10/14/2021 08/19/2021, 12/12/2020, 11/21/2020 Influenza Vaccine (FLU shot) (#1) 2023 07/19/2008 HbA1c 07/25/2023 01/22/2023, 10/01, 07/28/2022, Additional history exists GFR 07/28/2023 07/28/2022, 09/01, 11/27/2020, Additional history exists DIABETES-EYE EXAM 12/04/2023 12/03/2022, , 10/08/2021, Additional history exists Zoster Vaccines Completed 11/19/2021, 06/30/2021 GARDASIL-HPV IMMUNIZATION SERIES Aged Out No longer eligible based on patient's age to complete this topic Hepatitis B Aged Out No longer eligi ble based on patient's age to complete this topic MENINGOCOCCAL (MENACTRA/MENVEO) Aged Out No longer eligible based on patient's age to complete this topic documented as of this encounter Medical Devices Not on filedocumented as of this encounter Visit Diagnoses Diagnosis Type 2 diabetes mellitus without complications (HCC)- Primary Type II or unspecified type diabetes mellitus without mention of complication, not stated as uncontrolled Injury of blood vessel Injury to blood vessels, unspecified site Diabetes mellitus, stable (HCC) Type II or unspecified type diabetes mellitus without mention of complication, not stated as uncontrolled Essential (primary) hypertension Unspecified essential hypertension Atherosclerotic heart disease of [place] coronary artery without angina pectoris Coronary atherosclerosis of [place] coronary artery documented in this encounter Advance Directives Latest Code Status on File Code Status Date Activated Date Inactivated Comments Full Code 11/15/2007 5:08 PM 2007 4:46 PM Care Teams Casting Wheel Operator Helper Relationship Specialty Start Date End Date Shantell Queen, 6 [facility] [address], [place] [address] PCP - General Family Medicine 08/13/14 documented as of this encounter
--- OUTSIDE RECORDS SUMMARY | 2023-08-20 22:30 | External Medical Summary | Summary of Care ---
Author Name Unknown Organization [facility] Address [address] [place] [address] Phone [phone] Care Team Providers Care Landing Scaler Name Role Phone Bret Shantell Vianey Primary Care Provider Encounter Details Date Type Department Care Team Description 03/10/2023 Orders Only Outcomes Research Department [address] [place] [address] Vannesa White CHRA [facility] Other*[id number] Allergies Active Allergy Reactions Severity Noted Date Comments Lisinopril Medium 12/26/2018 Other reaction(s): Cough Sertraline Low 12/26/2018 Other reaction(s): DIDN'T FEEL WELL ON [id number] Tramadol High 12/26/2018 Other reaction(s): memory loss documented as of this encounter (statuses as of 03/10/2023) Medications Medication Sig Dispensed Refills Start Date End Date Status ASPIRIN EC LOW STRENGTH 81 MG PO TBECIndications:Other nonspecific abnormal cardiovascular system function study take one tablet daily 100 3 06/14/2006 Active TEEspyUCH ULTRA TEST STRPIndications:DM type 2, not at goal (HCC) Use up to four times a day as directed 100 11 04/18/2008 Active isosorbide mononitrate SA (IMDUR) 60 MG [id number]:Chroni c ischemic heart disease,Old myocardial infarct,Aortocoronary bypass [...] MG SUBL 1 Tablet. 0 12/28/2018 Active Jardiance 10 MG Oral Tablet (Empagliflozin) TAKE 1 TABLET BY MOUTH DAILY 90 Tablet 3 05/25/2022 Active Furosemide 20 MG Oral Tablet (Lasix)Indications:HTN [...] Tablet in the evening. 0 02/01/2023 Active documented as of this encounter (statuses as of 03/10/2023) Active Problems Problem Noted Date PDR (proliferative [...] [place] Protocol #5. Diabetes mellitus with background retino [...] as of this encounter (statuses as of 03/10/2023) Resolved Problems Problem Noted Date Resolved Date [...] as of this encounter (statuses as of 03/10/2023) Immunizations Name Administration Dates Next Due COVID-19 mRNA, LNP-s, No Pre serve, 2-Dose Series ([employer] Protective) 08/19/2021 Pneumococcal Polysaccharide PPV23 (Pneumovax) Seasonal Influenza, [...] Brooks DO [address] [place] [address] 10/08/2023 Office Visit Cardiology Adolfo Mello MD [address] [place] [address] Scheduled Orders Name Type Priority Associated Diagnoses Orde r Schedule MYCODE SUBSEQUENT ADULT Lab Routine [facility] Research Other*[id number] Every 6 Months for 2 Occurrences starting 03/10/2023 until 03/29/2024 Health Maintenance Due Date Last Done Comments Depression Screening, Annual for Pts 12 and Over 1952 DTaP,Tdap,and Td Vaccines (1 - Tdap) 04/19/2008 04/18/2008 Pneumococcal Vaccine: 65+ Years (2 - PCV) 04/18/2009 04/18/2008 DIABETES-FOOT EXAM 01/17/2010 01/17/2009, 0 10/18/2008 (Done elsewhere), 02/14/2008, Additional history exists Albumin/Creatinine Ratio 02/07/2019 018, 02/14/2008, 02/27/2004, Additional history exists COVID-19 Vaccine (4 - Booster for Pfizer series) 10/14/2021 08/19/2021, 12/12/2020, 11/21/2020 Influenza Vaccine [...] as of this encounter Visit Diagnoses Diagnosis [facility] Other*[id number] documented in this encounter Advance Directives Latest Code Status on File Code Status Date Activated Date Inactivated Comments Full Code 11/15/2007 5:08 PM 2007 4:46 PM Care Teams Landing Scaler Relationship Specialty Start Date End Date Shantell Queen DO [address] [place] [address] [place] [address], [place] [address] PCP - General Family Medicine 08/13/14 documented as of this encounter
--- OUTSIDE RECORDS SUMMARY | 2023-08-20 22:30 | External Medical Summary ---
Author Name UNSPECIFIED Address Unknown Organization [facility] History of Encounters Reason for Assessment: Discharge from [facility] Inpatient Facility where the patient been admitted: No inpatient facility admission Discharge Disposition: Patient remained in the community (without formal assistive services) Functional Assessment Bowel Incontinence Frequency: Very rarel y or never has bowel incontinence Cognitive and Behavioral and Psychiatric Symptoms: None Current: Management Of Oral Medications: Able to independently take the correct oral medication(s) and proper dosage(s) at the correct time
--- OUTSIDE RECORDS SUMMARY | 2023-08-20 22:30 | External Medical Summary | Summary of Care ---
Author Name Unknown Organization [facility] Address [address] [place] [address] Phone [phone] Care Team Providers Care Portable Sawmill Operator Name Role Phone Shantell Queenna Primary Care Provider Reason for Visit * Reason Comments Outpatient Testing Encounter Details Date Type Department Care Team Description 04/30/2023 Laboratory Laboratory, [place] [address] [place] [address] [place], [facility] [address] [place] [address] Type 2 diabetes mellitus without complications ([facility])*; Injury of blood vessel; Diabetes mellitus, stable (HCC); Essential (primary) hypertension; Atherosclerotic heart disease of [place] coronary artery without angina pectoris Allergies Active Allergy Reactions Severity Noted Date Comments Lisinopril Medium 12/26/2018 Other reaction(s): Cough Sertraline Low 12/26/2018 Other reaction(s): DIDN'T FEEL WELL ON [id number] Tramadol High 12/26/2018 Other reaction(s): memory loss documented as of this encounter (statuses as of 04/30/2023) Medications Medication Sig Dispensed Refills Start Date End Date Status ASPIRIN EC LOW STRENGTH 81 MG PO TBECIndications:Other nonspecific abnormal cardiovascular system function study take one tablet daily 100 3 06/14/2006 Active enVistaTOUCH ULTRA TEST STRPIndications:DM type 2, not at goal (HCC) Use up to four times a day as directed 100 11 04/18/2008 Active isosorbide mononitrate SA (IMDUR) 60 MG [id number]:Chroni c ischemic heart disease,Old myocardial infarct,Aortocoronary bypass [...] MYOCARDIAL INFARCT 03/21/2009 Overview: Modified by Acute [place] Protocol #5. Diabetes mellitus with background retino [...] sites 06/14/2006 03/21/2009 Overview: Modified by Acute MD Protocol #5. Type 2 diabetes mellitus wit [...] Brooks DO [address] [place] [address] 10/08/2023 Office Visit Cardiology Adolfo Mello MD [address] [place] [address] Pending Results Name Type Priority Associated Diagnoses Date /Time HEMOGLOBIN A1C Lab Routine Injury of blood vessel Diabetes mellitus, stable (HCC) Type 2 diabetes mellitus without complications (HCC) Essential (primary) hypertension Atherosclerotic heart disease of [place] coronary artery without angina pectoris 04/30/2023 12:25 PM EDT Scheduled Orders Name Type Priority Associated Diagnoses Orde r Schedule HEMOGLOBIN A1C Lab Routine Injury of blood vessel Diabetes mellitus, stable (HCC) Type 2 diabetes mellitus without complications (HCC) Essential (primary) hypertension Atherosclerotic heart disease of [place] coronary artery without angina pectoris Expected: 04/30/2023, [...] Unspecified essential hypertension Atherosclerotic heart disease of [place] coronary artery without angina pectoris Coronary atherosclerosis of [place] coronary artery documented in this encounter Advance Directives Latest Code Status on File Code Status Date Activated Date Inactivated Comments Full Code 11/15/2007 5:08 PM 2007 4:46 PM Care Teams Portable Sawmill Operator Relationship Specialty Start Date End Date Shantell Queen, 6 [facility] [address], [place] [address] PCP - General Family Medicine 08/13/14 documented as of this encounter
--- OUTSIDE RECORDS SUMMARY | 2023-08-20 22:30 | External Medical Summary ---
Author Name Unknown Address Unknown Organization K01:[facility] [address] [facility] [address] Laboratory Report Ordering Provider Test Date Status DAHLIA MEDLEY 04/30/2023 12:25:38 Final Observation Date Value Abnormality Reference (Units ) Status HbA1C 04/30/2023 12:25:38 8.2 Above high normal 4. 0-5.6 (%) Final The use of HbA1c to monitor glycemic status is based on normal hemoglobin and HbA composition. This test should not be used in patients with abnormal hemoglobin that affects the half life of the red blood cell or the in vivo glycation rates. Glucose, estimated average 04/30/2023 12:25:38 189 Above high normal <126 (mg/dL) Solo chavez Performing Location [facility] [address] [facility] [address]
--- OUTSIDE RECORDS SUMMARY | 2023-08-20 22:30 | External Medical Summary | Summary of Care ---
Author Name Unknown Organization [facility] Address [address] [facility] [place] [address] Phone [phone] Care Team Providers Care Machine Slat Basket Maker Name Role Phone Shantell Queenna Primary Care Provider Reason for Visit * Reason Comments eRx-Medication Refill Encounter Details Date Type Department Care Team Description 04/22/2023 Refill Cardiology, [facility] [address] [place] [address] Nga Mello MD [address] [place] [address] Type 2 diabetes mellitus with hemoglobin A1c goal of less than 7.0% ([facility])* Allergies Active Allergy Reactions Severity Noted Date Comments Lisinopril Medium 12/26/2018 Other reaction(s): Cough Sertraline Low 12/26/2018 Other reaction(s): DIDN'T FEEL WELL ON [id number] Tramadol High 12/26/2018 Other reaction(s): memory loss documented as of this encounter (statuses as of 04/23/2023) Medications Medication Sig Dispensed Refills Start Date End Date Status ASPIRIN EC LOW STRENGTH 81 MG PO TBECIndications:Othe r nonspecific abnormal cardiovascular system function study take one tablet daily 100 3 06/14/2006 Active ONETOUCH ULTRA TEST STRPIndications:DM type 2, not at goal ([facility]) Use up to four times a day as directed 100 11 04/18/2008 Active isosorbide mononitrate SA (IMDUR) 60 MG [id number]:Scientific Specialist david ischemic heart disease,Old myocardial infarct,Aortocoronar y bypass status,S/P angioplasty TAKE 1 TABLET BY [...] 12/28/2018 Active Furosemide 20 MG Oral Tablet (Lasix)Indications:H TN, goal below 140/90 TAKE 1 TABLET BY [...] 02/01/2023 Active Jardiance 10 MG Oral Tablet (Empagliflozin)Indic ations:Type 2 diabetes mellitus with hemoglobin A1c goal of less than 7.0% (HCC) TAKE 1 TABLET BY MOUTH DAILY 90 Tablet 3 04/23/2023 Active Jardiance 10 MG Oral Tablet (Empagliflozin) TAKE 1 TABLET BY MOUTH DAILY 90 Tablet 3 05/25/2022 3 Discontinued documented as of this encounter (statuses as of 04/23/2023) Active Problems Problem Noted Date PDR (proliferative diabetic retinopathy) 09/18/2015 HTN, goal below 140/90 05/02/2015 Retinal edema 02/12/2010 DYSLIPIDEMIA, GOAL LDL BELOW 70 08/15/20 Overview: Per Lipid Taxonomy. Acute cholecystitis 07/29/2009 Type 2 diabetes mellitus with hemoglobin A1c goal of less than 7.0% 06/27/2009 Overview: Per Diabetes Taxonomy. ICD-10 update of inactive term DM TYPE 2 CAUSING RENAL DZ 06/27/2009 Overview: Per Diabetes Taxonomy. OLD MYOCARDIAL INFARCT 03/21/2009 Overview: Modified by Acute [place] Protocol #5. Diabetes mellitus with background retino [...] as of this encounter (statuses as of 04/23/2023) Resolved Problems Problem Noted Date Resolved Date [...] as of this encounter (statuses as of 04/23/2023) Immunizations Name Administration Dates Next Due COVID-19 mRNA, LNP-s, No Pre serve, 2-Dose Series ([employer] 08/19/2021 Pneumococcal Polysaccharide PPV23 (Pneumovax) Seasonal Influenza, [...] on file documented as of this encounter Miscellaneous Notes * Telephone Encounter - Nga Mello MD - 04/23/2023 12:16 PM EDTSigned Prescriptions: Disp Refills Jardiance 10 MG Oral Tablet (Empagliflozin)90 Tab*3 Sig: TAKE 1 TABLET BY MOUTH DAILY Authorizing Provider: NGA MELLO * Telephone Encounter - YOSEF Chaudhari - 04/23/2023 10:50 AM EDTPending Prescriptions: Disp Refills Jardiance 10 MG Oral Tablet (Empagliflozin)90 Tab*3 Sig: TAKE 1 TABLET BY MOUTH DAILY * Telephone Encounter - YOSEF Chaudhari - 04/23/2023 10:48 AM EDT Did you pend patient's preferred pharmacy and medication before forwarding?yes Pharmacy: [facility] Pending Prescriptions: Disp Refills Jardiance 10 MG Oral Tablet (Empagliflozi*90 Tab*3 Sig: TAKE 1 TABLET BY MOUTH DAILY Last Visit: 12/14/2022 (in office), Visit date not found (telemedicine) Next Visit: 10/08/2023 If no future appointments scheduled, and last appointment is greater than a year ago, please schedule patient for a follow-up appointment Last date the medication was ordered: 05-25-2022 Is this request for a controlled substance?No Urine Drug Screen:No results found for this or any previous visit. Patient Phone Numbers Labs: Lab Results Component Value Date/Time CREAT 1.2 07/28/2022 04:17 PM CREAT 1.3 (H) 03/04/2020 08:28 AM POTASSIUM 4.3 07/28/2022 04:17 PM POTASSIUM 4.8 03/04/2020 08:28 AM TSH 0.74 11/27/2020 08:40 AM TSH 0.61 08/11/2017 08:42 AM LDLCALC 34 07/28/2022 04:17 PM LDLCALC 26 03/04/2020 08:28 AM LDLDIRECT NOT APPLICABLE 11/02/2018 10:34 AM LDLDIRECT 64 07/10/2009 11:11 AM ALT 22 07/28/2022 04:17 PM ALT 17 03/04/2020 08:28 AM HGBA1C 7.9 (H) 01/22/2023 11:06 AM HGBA1C 8.7 (H) 08/28/2020 12:29 PM documented in this encounter Plan of Treatment Upcoming Encounters Date Type Specialty Care Team Description 06/07/2023 Office Visit Ophthalmology Alberto Brooks DO [address] [place] [address] 10/08/2023 Office Visit Cardiology Nga Mello MD [address] [place] [address] Health Maintenance Due Date Last Done Comments [...] Visit Diagnoses Diagnosis Type 2 diabetes mellitus with hemoglobin A1c goal of less than 7.0% (HCC)- Primary documented in this encounter Advance Directives Latest Code Status on File Code Status Date Activated Date Inactivated Comments Full Code 11/15/2007 5:08 PM 2007 4:46 PM Care Teams Machine Slat Basket Maker Relationship Specialty Start Date End Date Shantell Queen DO [address] [place] [address] [place] [address] PCP - General Family Medicine 08/13/14 documented as of this encounter
--- OUTSIDE RECORDS SUMMARY | 2023-08-20 22:30 | External Medical Summary | Summary of Care ---
Author Name Unknown Organization [facility] Address [address] [place] [address] Phone [phone] Care Team Providers Care Reconciliation Accountant Name Role Phone Shantell Queenna Primary Care Provider Reason for Visit * Reason Comments Outpatient Testing Encounter Details Date Type Department Care Team Description 04/30/2023 Laboratory Laboratory, [place] [address] [place] [address] [place], [facility] [address] [place] [address] Type 2 diabetes mellitus without complications ([facility])*; Injury of blood vessel; Diabetes mellitus, stable (HCC); Essential (primary) hypertension; Atherosclerotic heart disease of [place] coronary artery without angina pectoris Allergies Active Allergy Reactions Severity Noted Date Comments Lisinopril Medium 12/26/2018 Other reaction(s): Cough Sertraline Low 12/26/2018 Other reaction(s): DIDN'T FEEL WELL ON [id number] Tramadol High 12/26/2018 Other reaction(s): memory loss documented as of this encounter (statuses as of 04/30/2023) Medications Medication Sig Dispensed Refills Start Date End Date Status ASPIRIN EC LOW STRENGTH 81 MG PO TBECIndications:Other nonspecific abnormal cardiovascular system function study take one tablet daily 100 3 06/14/2006 Active TeachTownTOUCH ULTRA TEST STRPIndications:DM type 2, not at goal (HCC) Use up to four times a day as directed 100 11 04/18/2008 Active isosorbide mononitrate SA (IMDUR) 60 MG [id number]:Chroni c ischemic heart disease,Old myocardial infarct,Aortocoronary bypass [...] Brooks DO [address] [place] [address] 10/08/2023 Office Visit Cardiology Adolfo Mello MD [address] [place] [address] Pending Results Name Type Priority Associated Diagnoses Date /Time HEMOGLOBIN A1C Lab Routine Injury of blood vessel Diabetes mellitus, stable (HCC) Type 2 diabetes mellitus without complications (HCC) Essential (primary) hypertension Atherosclerotic heart disease of [place] coronary artery without angina pectoris 04/30/2023 12:25 PM EDT Scheduled Orders Name Type Priority Associated Diagnoses Orde r Schedule HEMOGLOBIN A1C Lab Routine Injury of blood vessel Diabetes mellitus, stable (HCC) Type 2 diabetes mellitus without complications (HCC) Essential (primary) hypertension Atherosclerotic heart disease of [place] coronary artery without angina pectoris Expected: 04/30/2023, [...] Unspecified essential hypertension Atherosclerotic heart disease of [place] coronary artery without angina pectoris Coronary atherosclerosis of [place] coronary artery documented in this encounter Advance Directives Latest Code Status on File Code Status Date Activated Date Inactivated Comments Full Code 11/15/2007 5:08 PM 2007 4:46 PM Care Teams Reconciliation Accountant Relationship Specialty Start Date End Date Shantell Queen, 6 [facility] [address], [place] [address] PCP - General Family Medicine 08/13/14 documented as of this encounter
--- OUTSIDE RECORDS SUMMARY | 2023-08-20 22:30 | External Medical Summary | Summary of Care ---
Author Name Unknown Organization [facility] Address [address] [address] Phone [phone] Care Team Providers Care Sand Blaster Name Role Phone Shantell Queenna Primary Care Provider Reason for Visit * Reason Comments Follow Up 3 month f/u; pt repo rts irritated/itchy feeling OU, as well and feels vision not doing as well since RAMÍREZ, states OU seem more blurry then normal Encounter Details Date Type Department Care Team Description 03/04/2023 Office Visit Ophthalmology, [facility] [address] [place] [address] Alberto Brooks DO [address] [place] [address] 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 associated with type 2 diabetes mellitus (HCC)* Allergies Active Allergy Reactions Severity Noted Date Comments Lisinopril Medium 12/26/2018 Other reaction(s): Cough Sertraline Low 12/26/2018 Other reaction(s): DIDN'T FEEL WELL ON [id number] Tramadol High 12/26/2018 Other reaction(s): memory loss documented as of this encounter (statuses as of 03/04/2023) Medications Medication Sig Dispensed Refills Start Date End Date Status ASPIRIN EC LOW STRENGTH 81 MG PO TBECIndications:Othe r nonspecific abnormal cardiovascular system function study take one tablet daily 100 3 06/14/2006 Active ONETOUCH ULTRA TEST STRPIndications:DM type 2, not at goal (HCC) Use up to four times a day as directed 100 11 04/18/2008 Active isosorbide mononitrate SA (IMDUR) 60 MG [id number]:Element Setter david ischemic heart disease,Old myocardial infarct,Aortocoronar y [...] 05/25/2022 Active Furosemide 20 MG Oral Tablet (Lasix)Indications:H [...] Tablet in the evening. 0 02/01/2023 Active Metoprolol Tartrate 50 MG Oral Tablet (Lopressor) Take 0.5 Tabs by mouth 2 times a day. 90 Tab 3 11/21/2020 3 Discontinue d(Medicatio n List Clean Up) documented as of this encounter (statuses as of 03/04/2023) Active Problems Problem Noted Date PDR (proliferative [...] as of this encounter (statuses as of 03/04/2023) Resolved Problems Problem Noted Date Resolved Date [...] as of this encounter (statuses as of 03/04/2023) Immunizations Name Administration Dates Next Due COVID-19 [...] Progress Notes * Alberto Brooks DO - 03/04/2023 1:30 PM EDT [facility] [place] Nursing notes reviewed. "Carlton" HPI: Carlton Lang is a 82 year old male who presents for PDR No other eye complaints. Denies significant pain. Base Eye Exam Visual Acuity (Snellen - Linear) Right Left Dist cc 20/80 -1 20/25 -1 Dist ph cc NI Tonometry (Tonopen, 1:41 PM) Right Left Pressure 14 15 Pupils Pupils Right PERRL Left PERRL Visual George (Counting fingers) Right Left Restrictions Partial outer inferior nasal deficiency Extraocular Movement Right Left Full, Ortho Full, Ortho Neuro/Psych Oriented x3: Yes Mood/Affect: Normal Dilation Both eyes: 0.5% Proparacaine @ 1:37 PM Dilation #2 Both eyes: 1.0% Mydriacyl, 2.5% Phenylephrine @ 1:41 PM Dilation Comments Patient cautioned that effects of dilation may last 2-7 hours dependant upon individual reaction. It was discussed that driving while dilated is not recommended. EXTERNAL: The ocular adnexae are unremarkable. SLE: Lids/Lashes: wnl OU Conjunctiva/Sclera: quiet OU Cornea: clear OU Anterior Chamber: deep and quiet OU Iris: normal OU; no NVI OU Lens: PCIOL OU Dilated fundus exam OD: vitreous: clear optic nerve: 0.1, no edema/pallor/NVD macula: +manufacturing mechanic, ERM vessels: wnl midperiphery: +PRP periphery: no RT/RD, +PRP Dilated fundus exam OS: vitreous: clear optic nerve: 0.1, regressed NVD, no edema/pallor macula: +manufacturing mechanic vessels: wnl midperiphery: +PRP; +mild traction superiorly just above ON--stable periphery: no RT/RD, +PRP OCT Interpretation: OD: +ERM, resolved chronic central DME - STABLE, prior STABLE, prior STABLE, prior STABLE, prior STABLE, prior STABLE, prior mild worse, prior stable OS: no CIDME -STABLE, prior STABLE, prior STABLE, prior improved 33um prior improved 52-80um, priorworse 70um, prior STABLE, prior mild worse, prior [...] dilate and OCT OU Alberto Brooks DO 0123 CC: Wilner Bird MD PCP: Shantell Queen DO documented in this encounter Nursing Notes * Lo Aldridge, MED ASSIST - 03/04/2023 1:30 PM EDT Carlton Lang is a 82 year old year old male who presents for quiscent PDR OU. Last Office Visit: 12/03/2022 (in office), Visit date not found (telemedicine) Patient currently states 3 month f/u; pt reports irritated/itchy feeling OU, as well and feels vision not doing as well since RAMÍREZ, states OU seem more blurry then normal Are you diabetic? Yes. Do you check your blood sugars daily? YES. Fasting BS this morning: was under 100 this AM thinks close to 85 mg/dl. Last Hemoglobin A1C: Lab Results Component Value Date/Time HGBA1C 7.9 (H) 01/22/2023 11:06 AM HGBA1C 8.0 (H) 10/23/2022 09:19 AM HGBA1C 8.8 (H) 07/28/2022 04:17 PM HGBA1C 8.7 (H) 08/28/2020 12:29 PM HGBA1C 8.4 (H) 06/04/2020 01:08 PM HGBA1C 7.6 (H) 03/04/2020 08:[address]? no OCT image(s) of both eyes acquired and filed/scanned into chart. documented in this encounter Plan of Treatment Upcoming Encounters Date Type Specialty Care Team Description 06/07/2023 Office Visit Ophthalmology Alberto Brooks DO [address] [place] [address] 10/08/2023 Office Visit Cardiology Adolfo Mello MD [address] [place] [address] Health Maintenance Due Date Last Done Comments [...] 5:08 PM 2007 4:46 PM Care Teams Sand Blaster Relationship Specialty Start Date End Date Shantell Queen DO [address] [place] [address] [place] [address], [place] [address] PCP - General Family Medicine 08/13/14 documented as of this encounter
--- OUTSIDE RECORDS SUMMARY | 2023-08-20 22:30 | External Medical Summary | Summary of Care ---
Author Name Unknown Organization [facility] Address [address] [place] [address] Phone [phone] Care Team Providers Care Anime Designer Name Role Phone Shantell Queenna Primary Care Provider Reason for Visit * Reason Comments Outpatient Testing Encounter Details Date Type Department Care Team Description 04/30/2023 Laboratory Laboratory, [place] [address] [place] [address] [place] [address] [place] [address] Type 2 diabetes mellitus without complications ([facility])*; Injury of blood vessel; Diabetes mellitus, stable (HCC); Essential (primary) hypertension; Atherosclerotic heart disease of [place] coronary artery without angina pectoris Allergies Active Allergy Reactions Severity Noted Date Comments Lisinopril Medium 12/26/2018 Other reaction(s): Cough Sertraline Low 12/26/2018 Other reaction(s): DIDN'T FEEL WELL ON [id number] Tramadol High 12/26/2018 Other reaction(s): memory loss documented as of this encounter (statuses as of 04/30/2023) Medications Medication Sig Dispensed Refills Start Date End Date Status ASPIRIN EC LOW STRENGTH 81 MG PO TBECIndications:Other nonspecific abnormal cardiovascular system function study take one tablet daily 100 3 06/14/2006 Active Sara CampbellTOUCH ULTRA TEST STRPIndications:DM type 2, not at goal (HCC) Use up to four times a day as directed 100 11 04/18/2008 Active isosorbide mononitrate SA (IMDUR) 60 MG [id number]:Chroni c ischemic heart disease,Old myocardial infarct,Aortocoronary bypass [...] MYOCARDIAL INFARCT 03/21/2009 Overview: Modified by [facility] [place] Protocol #5. Diabetes mellitus with background retino [...] sites 06/14/2006 03/21/2009 Overview: Modified by [facility] [place] Protocol #5. Type 2 diabetes mellitus wit [...] Brooks DO [address] [place] [address] 10/08/2023 Office Visit Cardiology Adolfo Mello MD [address] [place] [address] Pending Results Name Type Priority Associated Diagnoses Date /Time HEMOGLOBIN A1C Lab Routine Injury of blood vessel Diabetes mellitus, stable (HCC) Type 2 diabetes mellitus without complications (HCC) Essential (primary) hypertension Atherosclerotic heart disease of [place] coronary artery without angina pectoris 04/30/2023 12:25 PM EDT Scheduled Orders Name Type Priority Associated Diagnoses Orde r Schedule HEMOGLOBIN A1C Lab Routine Injury of blood vessel Diabetes mellitus, stable (HCC) Type 2 diabetes mellitus without complications (HCC) Essential (primary) hypertension Atherosclerotic heart disease of [place] coronary artery without angina pectoris Expected: 04/30/2023, [...] Unspecified essential hypertension Atherosclerotic heart disease of [place] coronary artery without angina pectoris Coronary atherosclerosis of [place] coronary artery documented in this encounter Advance Directives Latest Code Status on File Code Status Date Activated Date Inactivated Comments Full Code 11/15/2007 5:08 PM 2007 4:46 PM Care Teams Anime Designer Relationship Specialty Start Date End Date Shantell Queen, 6 [facility] [address], [place] [address] PCP - General Family Medicine 08/13/14 documented as of this encounter
[2023-08-20] MEDS ORDERED: LANTUS PER UNIT CHARGE SQ STA (22:39)
[2023-08-20] MEDS: guaiFENesin 600 MG TABCR PO SCH (22:48)
[2023-08-20 23:03] LABS: C Reactive Protein 1.3 mg/dl (0-0.5); Magnesium 1.7 mg/dl (1.7-2.4)
--- NOTE | 2023-08-21 00:11 | CT Scan Report ---
Exam(s): CT CHEST Without Contrast EXAM: CT Chest Without Intravenous Contrast CLINICAL HISTORY: Reason for exam: covid, ?airspace opacity RLL on CXR. TECHNIQUE: Axial computed tomography images of the chest without intravenous contrast. CTDI is 19.95 mGy and DLP is 644.45 mGy-cm. Automated exposure control was utilized for the study. A dose lowering technique was utilized adhering to the principles of ALARA. COMPARISON: No relevant prior studies available. FINDINGS: Lungs: Unremarkable. No mass. No consolidation. Pleural space: Unremarkable. No pneumothorax. No significant effusion. Heart: Unremarkable. No cardiomegaly. No significant pericardial effusion. No significant coronary artery calcifications. Bones/joints: Sternotomy wires. Degenerative changes of the spine. No acute fracture. No dislocation. Soft tissues: Unremarkable. Vasculature: Atherosclerotic changes of the aorta. No thoracic aortic aneurysm. Lymph nodes: Unremarkable. No enlarged lymph nodes. Gallbladder and bile ducts: Cholecystectomy. IMPRESSION: No acute findings in the chest. Electronically signed by: Eric Issa MD 08/21/23 00:10 AM
[2023-08-21] MEDS ORDERED: ACETAMINOPHEN 325 MG TAB PO PRN (01:44)
[2023-08-21] MEDS ORDERED: DEXTROSE 50% 50 ML SYRINGE IV PRN (01:44)
[2023-08-21] MEDS ORDERED: GLUCAGON FOR INJ 1 MG VIAL SQ PRN (01:44)
[2023-08-21] MEDS ORDERED: CARBOHYDRATES FOR HYPOGLYCEMIA PO PRN (01:44)
[2023-08-21] MEDS ORDERED: GLUCOSE 40% GEL 15 GM TUBE PO PRN (01:44)
[2023-08-21] MEDS ORDERED: GLUCOSE 10 TAB/TUBE PO PRN (01:44)
[2023-08-21] MEDS: METOPROLOL TARTRATE 25 MG TAB PO SCH ×2 (01:59→09:55)
[2023-08-21 06:25] LABS: Basophils # (auto) 0.01 K/uL (0.00-0.20); Basophils % (auto) 0.2 %; Hemoglobin 12.8 g/dl (14.0-18.0); Immature Granulocytes # (auto) 0.01 K/uL (0.01-0.20); Immature Granulocytes % (auto) 0.2 %; Lymphocytes # (auto) 0.86 K/uL (1.20-3.40); Lymphocytes % (auto) 15.3 %; Mean Corpuscular Hemoglobin 29.3 pg (25.0-34.0); Mean Corpuscular Hgb Conc 33.7 g/dL (32.0-36.0); Mean Platelet Volume 11.4 fL (9.4-12.4); Monocytes # (auto) 1.24 K/uL (0.11-0.59); Neutrophils # (auto) 3.51 K/uL (1.40-6.50); Neutrophils % (auto) 62.3 %; Platelet Count 136 K/uL (130-400); RDW Standard Deviation 44.8 fL (36.4-46.3); Red Blood Count 4.37 M/uL (4.70-6.10); White Blood Count 5.63 K/ul (4.8-10.8)
[2023-08-21 07:05] LABS: BUN Creatinine Ratio 17.4 (10-20); Calcium 8.7 mg/dl (8.6-10.3); Creatinine Clr Calc Pharmacy 56.2 ml/min; Est GFR (African American) 65.1 ml/min; Est GFR (Non-African American) 56.2 ml/min; Potassium 3.8 mmol/L (3.5-5.1)
[2023-08-21 07:10] LABS: Estimated Average Glucose 200 mg/dl; Hemoglobin A1C 8.6 % (4.5-5.6)
[2023-08-21 07:16] LABS: Troponin I High Sensitivity 56.6 pg/ml (0-20)
[2023-08-21] MEDS ORDERED: ASPIRIN 81 MG ECTAB PO SCH (09:00)
[2023-08-21] MEDS ORDERED: ATORVASTATIN 40 MG TAB PO SCH (09:00)
[2023-08-21] MEDS ORDERED: ISOSORBIDE MONO EXTENDED REL 60 MG TABCR PO SCH (09:00)
[2023-08-21] MEDS ORDERED: LOSARTAN POTASSIUM 50 MG TAB PO SCH (09:00)
[2023-08-21] MEDS ORDERED: ENOXAPARIN INJ 40 MG/0.4 ML SYR SQ SCH (09:00)
[2023-08-21] MEDS ORDERED: FAMOTIDINE 20 MG TAB PO SCH (09:00)
[2023-08-21] MEDS ORDERED: LANTUS PER UNIT CHARGE SQ SCH (09:00)
[2023-08-21] MEDS: INSULIN ASPART PER UNIT CHARGE SC SCH ×2 (09:46→12:47)
[2023-08-21] MEDS: guaiFENesin 600 MG TABCR PO SCH (09:56)
[2023-08-21] MEDS ORDERED: REMDESIVIR 200 MG in SODIUM CHLORIDE 0.9% 210 ML IV STA (11:46)
--- NOTE | 2023-08-21 12:34 | Discharge Summary ---
Discharge Summary Date of Service August 21, 2023 Notes For Next Care Provider Medication Changes From Visit Paxlovid 1 dose bid x 5 days Cut atorvastatin in half to 40mg daily while on Paxlovid Admission HPI Per Admitting Provider Carlton is an 82-year-old male with PMH of T2DM, CAD, HTN, HLD, sleep apnea, GERD, and . He presented for difficulty walking, SOB, cough, and sore throat x 3 days. COVID-positive on arrival. He denies at home oxygen use. He reports that his productive cough (clear sputum production) has been going on for 2 days. He denies SOB at rest, but notes some TAYLOR. Of note, he also endorses a sharp stabbing chest pain 3 days ago around his heart that lasted for 5 minutes. He is unsure frequency, but says this happens around 4 times per year. Patient reports that he has had COVID shots x 2, no boosters. No flu shots. He reports that he took his normal morning medications. He reports that he has been taking Lantus 30u in the mornings, and 15u in the evenings; not insulin 25u BID as listed. Patient manages his own medications. He has not been taking DayQuil, Tylenol, or ibuprofen. Patient lives alone with his dog. No sick contacts. He denies smoking, alcohol, tobacco use, vaping, recreational drug use. He does not use any ambulatory assist devices, although he reports he does have a cane. Patient is mildly hypertensive at 167/69 at time of admission; 99% on room air vitals otherwise stable. 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 Principal Dx & Hospital Course #1 = Principal Diagnosis (1) COVID: Worsening cough, TAYLOR, sore throat x 3 +COVID on arrival. Not hypoxic, no PNA on CT Chest, feeling well at this point received one dose Remdesevir and can take Paxlovid at home after discharge starting 08/22-cut atorvastatin in half while on Paxlovid supportive care at home (2) Elevated troponin: Troponin 53.9--> 52.3 and 56 on serial trend Had 5 min of atypical sharp CP 3 days prior to admission suspect this is just myocardial demand ischemia in setting of COVID-19 infection ECG no ischemic changes acutely ECHO showed preserved EF, no WMAs, and progressing mod-severe --> recommend outpt f/u with Cardiology (3) Diabetes: A1C uncontrolled at 8.6% f/u with PCP continue home Jardiance, metformin, Lantus Patient reports that he has been taking Lantus 30u AM and 15u PM; not the 25u BID as listed (4) GERD (gastroesophageal reflux disease): Continue famotidine (5) HTN (hypertension): BPs not well controlled but could be from acute illness Continue metoprolol, isosorbide mononitrate, temisartan, furosemide, januvia f/u PCP (6) HLD (hyperlipidemia): Continue atorvastatin at half dose while on Paxlovid due to interaction Plan Disposition: dc to home, improved, ACS ruled out. Discussed his care with his daughter on phone VTE PPx: SCDs, Lovenox 40u SQ q24h Discharge Exam Constitutional WD/WN, vitals as above Respiratory normal respiratory effort, lungs clear to auscultation Cardiovascular Rate/Rhythm: regular rate and regular rhythm Heart Sounds: + murmur (3/6 DUANE) Gastrointestinal (Abdomen) normal bowel sounds, soft, nontender, no hepatosplenomegaly Psychiatric A+Ox3, euthymic affect Updated Medication List Medication Instructions Recorded Confirmed Type aspirin 81 mg tablet,delayed 81 mg PO QAM ##0 07/12/09 08/20/23 History release (Enteric Coated Aspirin) isosorbide mononitrate 60 mg 60 mg PO QAM 05/02/18 08/20/23 History tablet,extended release 24 hr metformin 1,000 mg tablet 500 mg PO BIDM 05/26/18 08/20/23 History insulin glargine 100 unit/mL 25 unit subcut BIDM 12/26/18 08/20/23 History subcutaneous solution (Lantus U-100 Insulin) telmisartan 80 mg tablet 80 mg PO QAM 12/26/18 08/20/23 History atorvastatin 80 mg tablet 80 mg PO DAILY #30 tabs 12/28/18 08/20/23 Rx empagliflozin 10 mg tablet 10 mg PO DAILY 10/30/22 08/20/23 History (Jardiance) famotidine 20 mg tablet 20 mg PO BID 10/30/22 08/20/23 History furosemide 20 mg tablet 20 mg PO 2XWK 08/20/23 08/20/23 History metoprolol tartrate 25 mg tablet 25 mg PO BID 08/20/23 08/20/23 History nirmatrelvir 300 mg (150 mg See Rx Instructions PO .COMPLEX 08/21/23 Rx x2)-ritonavir 100 mg tablet,dose #30 ea pack (Paxlovid) Hospital Stay Data Consultations 08/20/23 21:18 ED Decision to Admit Stat Diagnostic Imagining Performed 08/20/23 21:18 CT chest diagnostic wo con Stat ECHO Pending Results Patient Have Any Pending Studies at Discharge: No Discharge Instructions Given to Patient (Per Discharging Provider) You were admitted with COVID-19 but do not have pneumonia or low oxygen levels. You had some slight strain on your heart from COVID but did NOT have a heart attack. You will be prescribed Paxlovid which is a medication to help shorten the course of illness and hopefully help prevent you from getting severe disease. While on this medicine, you should cut your atorvastatin dose in HALF to 40mg due to an interaction. Please follow up with your [facility] after discharge for your aortic valve stenosis. Total Time Total Time Spent Total Time Spent (In Minutes): 35 min Coding Level of Care Code 24132 INP/OBS DISCH >30 MIN Diagnoses COVID U07.1 Elevated troponin R79.89 Diabetes E11.9 GERD (gastroesophageal reflux disease) K21.9 HTN (hypertension) I10 HLD (hyperlipidemia) E78.5
--- NOTE | 2023-08-22 09:27 | Electrocardiogram Report ---
Test Reason : Blood Pressure : / mmHG Vent. Rate : 079 BPM Atrial Rate : 079 BPM P-R Int : 148 ms QRS Dur : 082 ms QT Int : 384 ms P-R-T Axes : 000 -41 097 degrees QTc Int : 440 ms Normal sinus rhythm Left axis deviation Left ventricular hypertrophy with repolarization abnormality ( R in aVL ) Abnormal ECG When compared with ECG of 27-DEC-2018 02:59, No significant change was found Confirmed by Maciej Colorado ([id number]) on 08/22/2023 9:26:36 AM Referred By: REFERRED SELF Confirmed By:Maciej Colorado
[2023-08-22] MEDS ORDERED: REMDESIVIR 100 MG in SODIUM CHLORIDE 0.9% 230 ML IV SCH (12:00)
== END 2023-08-21 15:42 | disposition home or self-care (01) ==
LOC: EDINP 18:05 → ED 18:05 → SUATTDRO 22:36 → 2S 08-21 00:37

== ENCOUNTER 2024-09-04 22:53 | Observation (INO) ==
--- NOTE | 2024-09-04 23:11 | Emergency Department Note ---
Impression & Plan Non-ST elevation TN (NSTEMI) Admission ED Provider Note HPI: History obtained from patient. The patient is a 83-year-old gentleman with history of coronary artery disease, status post CABG, who presents to the emergency department via private vehicle with his son and his grandson at the bedside. Patient was just at [facility] and was to be admitted for an NSTEMI however he did not want to be transferred to [place] and signed out AGAINST MEDICAL ADVICE and came to this emergency room for further assessment. On arrival here to the ED the patient states that he has dyspnea, he states he has had dyspnea for about the past 3 days. Patient denies any chest pain. Patient has been hypertensive. On my initial assessment here in the ED the patient's blood pressure is 204/101, he is saturating well on room air with minimal increased work of breathing. ROS: - Per HPI Differential Diagnosis: Acute coronary syndrome, ST elevation myocardial infarction, NSTEMI, acute heart failure exacerbation with dyspnea, pneumonia, viral upper respiratory infection, pulmonary edema, pleural effusion, amongst other potential pathologies. *Outpatient medications and allergy history reviewed. PE: General: Alert HEENT: Normocephalic, trachea midline Eyes: Extraocular eye movement is intact, no scleral erythema Pulmonary: Clear to auscultation bilaterally, no wheezing Cardio: Regular rate and rhythm GI: Abdomen is soft to palpation : No suprapubic tenderness MSK: No evidence of trauma or malformation of the extremities, no edema Skin: No evidence of rash Neuro: Alert, no focal deficits Psychiatric: Cooperative INDEPENDENT INTERPRETATIONS: monitor tech: (As interpreted by myself): - An order was placed for continuous cardiac monitoring - Patient was noted to be in sinus rhythm with a rate of 70 EKG: (As interpreted by myself): Rate: 70 Rhythm: Normal sinus rhythm Intervals: Within normal limits ST changes: No ST elevation Time: 2303 Chest x-ray: (As interpreted by myself): Moderate pulmonary vascular congestion with no focal infiltrate Interventions provided in ED: -IV Lasix, aspirin Medical Decision Making: Shortly after the patient arrived IV was established and lab work obtained, patient was placed on desk monitor. EKG reviewed by myself does not show any evidence of ST elevation TN. Lab work shows no leukocytosis, hemoglobin is stable, platelet count is normal, CMP does not show any evidence of any critical findings. Troponin is elevated at 180, BNP is elevated at 612. Chest x-ray per my interpretation shows some pulmonary vascular congestion and therefore the patient was ordered IV Lasix and he was ordered aspirin given his elevated troponin. He denies any chest pain. At this time I suspect his dyspnea secondary to CHF exacerbation, I did discuss the patient's presentation with the on-call hospitalist, Dr. Mann, and the patient was placed for admission in stable condition. Consultants/Discussions held with other healthcare providers: -Hospitalist, Dr. Mann Disposition discussion held by myself with: -Patient and patient's son at the bedside Diagnosis: 1. Elevated high-sensitivity troponin level, acute 2. Dyspnea, acute 3. Elevated BNP, acute Disposition: Admission Anthony Azar DO Emergency Medicine Past Med/Surg History Problem List (Updated 09/05/24 @ 00:47 by Anthony Azar DO) Non-ST elevation TN (NSTEMI) (Acute) COVID-19 (Acute) History of coronary artery bypass graft (Acute) Abnormal ankle brachial index (GEOFF) (Acute) Aortic stenosis Angina of effort History of rib fracture GERD (gastroesophageal reflux disease) Chest pain (Acute) Dyspnea on exertion (Acute) Stable angina (Acute) HLD (hyperlipidemia) (Chronic) Sleep apnea (Chronic) DVT prophylaxis HTN (hypertension) (Chronic) CAD (coronary artery disease) (Chronic) 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) Diabetes mellitus with neuropathy (Chronic) Acute confusion (Acute) Acute hyperglycemia (Acute) Falls frequently (Acute) Rib fractures Diabetes H/O heart surgery Fall (Acute) Hemothorax on right (Acute) Multiple fractures of ribs of right side (Acute) Ribs, multiple fractures (Acute) Medical History (Updated 09/05/24 @ 00:47 by Anthony Azar DO) Diabetic ulcer of left heel Family History Other Family history non-contributory Social History Smoking Status: Former smoker Second Hand Exposure: No; Do You Dip or Chew Tobacco: No; Hx Alcohol Use: No Hx Substance Use: No Preferred Language: Uzbek Communication Ability: Unable Visual Impairment: Limited Hearing Ability: Hard of Hearing Dining Car Conductor Required: No Beliefs That Will Affect Care: None marital status: / Current Living Situation: Alone Feels Safe at Home: Yes Diet: diabetic caffeine: Yes Assistive Devices: None Allergies Allergies Allergy/AdvReac Type Severity Reaction Status Date / Time tramadol AdvReac Severe memory loss Unverified 02/19/23 13:00 lisinopril AdvReac Intermediate Cough Unverified 02/19/23 13:00 sertraline AdvReac Mild DIDN'T Verified 02/19/23 13:00 FEEL WELL ON [id number] Home Meds Home Medications Medication Instructions Recorded Confirmed aspirin 81 mg tablet,delayed 81 mg PO QAM ##0 07/12/09 08/20/23 release (Enteric Coated Aspirin) isosorbide mononitrate 60 mg 60 mg PO QAM 05/02/18 08/20/23 tablet,extended release 24 hr metformin 1,000 mg tablet 500 mg PO BIDM 05/26/18 08/20/23 telmisartan 80 mg tablet 80 mg PO QAM 12/26/18 08/20/23 empagliflozin 10 mg tablet 10 mg PO DAILY 10/30/22 08/20/23 (Jardiance) famotidine 20 mg tablet 20 mg PO BID 10/30/22 08/20/23 furosemide 20 mg tablet 20 mg PO 2XWK 08/20/23 08/20/23 metoprolol tartrate 25 mg tablet 25 mg PO BID 08/20/23 08/20/23 Previous Rx's Medication Instructions Recorded atorvastatin 80 mg tablet 80 mg PO DAILY #30 tabs 12/28/18 insulin glargine 100 unit/mL 35 unit (0.35 mL) subcut QAM #10 mL 08/21/23 subcutaneous solution (Lantus U-100 Insulin) nirmatrelvir 300 mg (150 mg See Rx Instructions PO .COMPLEX 08/21/23 x2)-ritonavir 100 mg tablet,dose #30 ea pack (Paxlovid) Results & Data (ED) Vital Signs Vital Signs - 24 hr 09/04/24 23:02 09/04/24 23:04 09/04/24 23:35 Temperature 36.6 C Temperature Source Oral Pulse Rate 70 75 Pulse Rate [Apical] Pulse Rhythm Pulse Rhythm [Apical] Pulse Strength [Apical] Respiratory Rate 26 H Respiratory Effort / Characteristics Labored Respiratory Depth Respiratory Pattern Blood Pressure 204/101 H Blood Pressure [Right Arm] Blood Pressure Mean 135 Blood Pressure Mean [Right Arm] Blood Pressure Position [Right Arm] Pulse Oximetry 99 96 Oxygen Delivery Method Room Air Room Air Sepsis Recent Fever Within 48 Hours No Sepsis New/Unexplained Change in Mental Status No Sepsis Action Taken by Nursing No Action Required 09/04/24 23:35 09/04/24 23:35 09/04/24 23:45 Temperature Temperature Source Pulse Rate 64 67 Pulse Rate [Apical] 64 Pulse Rhythm Regular Pulse Rhythm [Apical] Regular Pulse Strength [Apical] Normal Respiratory Rate 18 18 Respiratory Effort / Characteristics Non-Labored Spontaneous Respiratory Depth Normal Respiratory Pattern Regular Blood Pressure 178/112 H Blood Pressure [Right Arm] 196/77 H Blood Pressure Mean Blood Pressure Mean [Right Arm] 116 Blood Pressure Position [Right Arm] Semi-fowlers Pulse Oximetry 96 96 Oxygen Delivery Method Room Air Room Air Sepsis Recent Fever Within 48 Hours Sepsis New/Unexplained Change in Mental Status Sepsis Action Taken by Nursing 09/05/24 00:12 Temperature Temperature Source Pulse Rate 67 Pulse Rate [Apical] Pulse Rhythm Pulse Rhythm [Apical] Pulse Strength [Apical] Respiratory Rate Respiratory Effort / Characteristics Respiratory Depth Respiratory Pattern Blood Pressure 163/128 H Blood Pressure [Right Arm] Blood Pressure Mean Blood Pressure Mean [Right Arm] Blood Pressure Position [Right Arm] Pulse Oximetry Oxygen Delivery Method Sepsis Recent Fever Within 48 Hours Sepsis New/Unexplained Change in Mental Status Sepsis Action Taken by Nursing Laboratory Data 09/04/24 23:05 09/04/24 23:05 Lab Results 09/04/24 Range/Units 23:05 WBC 10.78 (4.8-10.8) K/ul RBC 4.64 L (4.70-6.10) M/uL Hgb 13.7 L (14.0-18.0) g/dl Hct 40.7 L (42.0-52.0) % MCV 87.7 (80.0-100.0) fL MCH 29.5 (25.0-34.0) pg MCHC 33.7 (32.0-36.0) g/dL RDW Std Deviation 46.2 (36.4-46.3) fL RDW Coeff of German 14.4 (11.5-14.5) % Plt Count 187 (130-400) K/uL MPV 11.6 (9.4-12.4) fL Immature Gran % (Auto) 0.5 % Neut % (Auto) 72.7 % Lymph % (Auto) 12.0 % [place] % (Auto) 13.5 % Eos % (Auto) 0.8 % Baso % (Auto) 0.5 % Neut # (Auto) 7.84 H (1.40-6.50) K/uL Lymph # (Auto) 1.29 (1.20-3.40) K/uL [place] # (Auto) 1.46 H (0.11-0.59) K/uL Eos # (Auto) 0.09 (0.00-0.50) K/uL Baso # (Auto) 0.05 (0.00-0.20) K/uL Immature Gran # (Auto) 0.05 (0.01-0.20) K/uL Sodium 140 (136-145) mmol/L Potassium 3.7 (3.5-5.1) mmol/L Chloride 104 (98-107) mmol/L Carbon Dioxide 28 (21-32) mmol/L Anion Gap 8 (3-11) BUN 18 (6-23) mg/dl Creatinine 1.05 (0.6-1.4) mg/dl Est Cr Clr Drug Dosing 64.4 ml/min eGFR 71.31 BUN/Creatinine Ratio 17.1 (10-20) Glucose 195 H (70-99(Fasting)) mg/dl Calcium 9.3 (8.6-10.3) mg/dl Total Bilirubin 1.9 H (0.2-1.0) mg/dl AST 17 (13-39) U/L ALT 13 (7-52) U/L Alkaline Phosphatase 110 H (34-104) U/L Troponin I High Sens 180.4 H* (0-20) pg/ml B-Natriuretic Peptide 612 H (0-100) pg/ml Total Protein 7.5 (6.0-8.3) gm/dl Albumin 4.4 (3.4-5.0) gm/dl Globulin 3.1 (2.5-4.0) gm/dl Albumin/Globulin Ratio 1.4 (0.9-2) Lipase 5 L (11-82) U/L Administered Medications Discontinued Medications Aspirin (Aspirin Chew 324 Mg) 324 mg PO NOW STA Stop: 09/05/24 00:03 Last Admin: 09/05/24 00:18 Dose: 324 mg Documented By: KERID Furosemide (Furosemide Inj 20 Mg/2 Ml Vial) 20 mg IV ONE ONE Stop: 09/05/24 00:03 Last Admin: 09/05/24 00:18 Dose: 20 mg Documented By: KERID Heparin Sodium/Dextrose (Heparin Iv Adult Wt-Based Low-Dose W/ Initial Bolus Protocol) 1 each IV NOW STA; Protocol Stop: 09/04/24 23:47 Last Admin: 09/05/24 00:19 Dose: Not Given Documented By: IDD Labetalol HCl (Labetalol Hcl Iv 5 Mg/Ml 20ml) 10 mg IV NOW STA Stop: 09/04/24 23:10 Last Admin: 09/04/24 23:45 Dose: 10 mg Documented By: EDMAR Discharge Plan Visit Data Chief Complaint: Cardiac Assessment Stated Complaint: CARDIAC ASSESSMENT ED Provider: Anthony Azar Discharge Problem: Non-ST elevation TN (NSTEMI) Forms Stand Alone Forms: [facility] Prescriptions Prescriptions: No Action Jardiance 10 mg tablet 10 mg PO DAILY famotidine 20 mg tablet 20 mg PO BID aspirin [Enteric Coated Aspirin] 81 mg Tablet,Delayed Release (Dr/Ec) 81 mg PO QAM Qty: 0 isosorbide mononitrate 60 mg Tablet Extended Release 24 Hr 60 mg PO QAM metformin 1,000 mg tablet 500 mg PO BIDM telmisartan 80 mg Tablet 80 mg PO QAM atorvastatin 80 mg tablet 80 mg PO DAILY Qty: 30 0RF metoprolol tartrate 25 mg tablet 25 mg PO BID furosemide 20 mg tablet 20 mg PO 2XWK Paxlovid 300 mg (150 mg x 2)-100 mg tablets,dose pack See Rx Instructions .ROUTE .COMPLEX Qty: 30 0RF Rx Instructions: take TWO 150 mg tablets of nirmatrelvir with ONE 100 mg tablet of ritonavir twice daily for 5 days insulin glargine [Lantus U-100 Insulin] 100 unit/mL Solution 35 unit SUBCUT QAM Qty: 10 0RF Rx Instructions: and 15 units qPM Referrals Referrals: Shantell Queen DO [Primary Care Provider] -
[2024-09-04 23:15] LABS: Basophils # (auto) 0.05 K/uL (0.00-0.20); Basophils % (auto) 0.5 %; Eosinophils # (auto) 0.09 K/uL (0.00-0.50); Eosinophils % (auto) 0.8 %; Hematocrit (blood only) 40.7 % (42.0-52.0); Hemoglobin 13.7 g/dl (14.0-18.0); Immature Granulocytes # (auto) 0.05 K/uL (0.01-0.20); Immature Granulocytes % (auto) 0.5 %; Lymphocytes # (auto) 1.29 K/uL (1.20-3.40); Mean Corpuscular Hemoglobin 29.5 pg (25.0-34.0); Mean Corpuscular Hgb Conc 33.7 g/dL (32.0-36.0); Mean Corpuscular Volume 87.7 fL (80.0-100.0); Mean Platelet Volume 11.6 fL (9.4-12.4); Monocytes # (auto) 1.46 K/uL (0.11-0.59); Monocytes % (auto) 13.5 %; Neutrophils # (auto) 7.84 K/uL (1.40-6.50); Neutrophils % (auto) 72.7 %; Platelet Count 187 K/uL (130-400); RDW Coefficient of Variation 14.4 % (11.5-14.5); RDW Standard Deviation 46.2 fL (36.4-46.3); Red Blood Count 4.64 M/uL (4.70-6.10); White Blood Count 10.78 K/ul (4.8-10.8)
[2024-09-04 23:33] LABS: Albumin Globulin Ratio 1.4 (0.9-2); Albumin Level 4.4 gm/dl (3.4-5.0); BUN Creatinine Ratio 17.1 (10-20); Bilirubin,Total 1.9 mg/dl (0.2-1.0); Calcium 9.3 mg/dl (8.6-10.3); Creatinine Clr Calc Pharmacy 64.4 ml/min; Globulin 3.1 gm/dl (2.5-4.0); Potassium 3.7 mmol/L (3.5-5.1); Total Protein 7.5 gm/dl (6.0-8.3)
[2024-09-04] MEDS: LABETALOL HCL IV 5 MG/ML 20ML IV STA (23:45)
[2024-09-04 23:51] LABS: Troponin I High Sensitivity 180.4 pg/ml (0-20)
[2024-09-05] MEDS ORDERED: HEPARIN SOD (PORCINE) 1000 UNIT/ML IV ONE (00:01)
[2024-09-05] MEDS ORDERED: HEPARIN SODIUM/DEXTROSE 25,000 UNITS/500 ML BAG IV SCH (00:15)
[2024-09-05] MEDS: FUROSEMIDE INJ 20 MG/2 ML VIAL IV ONE (00:18)
[2024-09-05] MEDS: ASPIRIN CHEW 324 MG PO STA (00:18)
[2024-09-05] MEDS: Heparin IV Adult Wt-Based Low-Dose w/ INITIAL Bolus Protocol IV STA (00:19)
--- NOTE | 2024-09-05 00:35 | History & Physical Report ---
Date of Service September 05, 2024 History of Present Illness Primary Care Provider: Shantell Queen DO Allergies Allergy/AdvReac Type Severity Reaction Status Date / Time tramadol AdvReac Severe memory loss Unverified 02/19/23 13:00 lisinopril AdvReac Intermediate Cough Unverified 02/19/23 13:00 sertraline AdvReac Mild DIDN'T Verified 02/19/23 13:00 FEEL WELL ON [id number] Home Medications Medication Instructions Recorded Confirmed Type aspirin 81 mg tablet,delayed 81 mg PO QAM ##0 07/12/09 08/20/23 History release (Enteric Coated Aspirin) isosorbide mononitrate 60 mg 60 mg PO QAM 05/02/18 08/20/23 History tablet,extended release 24 hr metformin 1,000 mg tablet 500 mg PO BIDM 05/26/18 08/20/23 History telmisartan 80 mg tablet 80 mg PO QAM 12/26/18 08/20/23 History atorvastatin 80 mg tablet 80 mg PO DAILY #30 tabs 12/28/18 08/20/23 Rx empagliflozin 10 mg tablet 10 mg PO DAILY 10/30/22 08/20/23 History (Jardiance) famotidine 20 mg tablet 20 mg PO BID 10/30/22 08/20/23 History furosemide 20 mg tablet 20 mg PO 2XWK 08/20/23 08/20/23 History metoprolol tartrate 25 mg tablet 25 mg PO BID 08/20/23 08/20/23 History insulin glargine 100 unit/mL 35 unit (0.35 mL) subcut QAM #10 mL 08/21/23 08/20/23 Rx subcutaneous solution (Lantus U-100 Insulin) nirmatrelvir 300 mg (150 mg See Rx Instructions PO .COMPLEX 08/21/23 Rx x2)-ritonavir 100 mg tablet,dose #30 ea pack (Paxlovid) Past Med/Surg History Problem List (Updated 09/21/23 @ 00:09 by Stanford Flowers) COVID-19 (Acute) History of coronary artery bypass graft (Acute) Abnormal ankle brachial index (GEOFF) (Acute) Aortic stenosis Angina of effort History of rib fracture GERD (gastroesophageal reflux disease) Chest pain (Acute) Dyspnea on exertion (Acute) Stable angina (Acute) HLD (hyperlipidemia) (Chronic) Sleep apnea (Chronic) DVT prophylaxis HTN (hypertension) (Chronic) CAD (coronary artery disease) (Chronic) 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) Diabetes mellitus with neuropathy (Chronic) Acute confusion (Acute) Acute hyperglycemia (Acute) Falls frequently (Acute) Rib fractures Diabetes H/O heart surgery Fall (Acute) Hemothorax on right (Acute) Multiple fractures of ribs of right side (Acute) Ribs, multiple fractures (Acute) Medical History (Updated 09/21/23 @ 00:09 by Stanford Flowers) Diabetic ulcer of left heel Family History Other Family history non-contributory Social History Smoking Status: Former smoker Second Hand Exposure: No; Do You Dip or Chew Tobacco: No; Hx Alcohol Use: No Hx Substance Use: No Preferred Language: Georgian Communication Ability: Unable Visual Impairment: Limited Hearing Ability: Hard of Hearing Household Assistant Required: No Beliefs That Will Affect Care: None marital status: / Current Living Situation: Alone Feels Safe at Home: Yes Diet: diabetic caffeine: Yes Assistive Devices: None Results & Data Results & Data Vital Signs (Past 12 Hours) Vital Signs Temp Pulse Pulse Resp BP BP Pulse Ox 09/05/24 00:12 67 163/128 H 09/04/24 23:45 67 178/112 H 09/04/24 23:35 64 18 96 09/04/24 23:35 64 18 196/77 H 96 09/04/24 23:35 96 09/04/24 23:04 75 09/04/24 23:02 36.6 C 70 26 H 204/101 H 99 O2 Del Method 09/05/24 00:12 09/04/24 23:45 09/04/24 23:35 Room Air 09/04/24 23:35 Room Air 09/04/24 23:35 Room Air 09/04/24 23:04 09/04/24 23:02 Room Air PG Care Time/CCT Total # of Minutes Spent Total Time Spent with Patient: Total time spent is greater than 50% in coordination of care (as documented) at patient's floor/unit and/or counseling patient: Coding
--- OUTSIDE RECORDS SUMMARY | 2024-09-05 00:36 | External Medical Summary | Summary of Care ---
Author Name Unknown Organization [facility] Address [address] [address] Phone [phone] Care Team Providers Care Head Usher Name Role Phone Shantell Queen DO Primary Care Provider Reason for Visit * Reason Onset Date Comments Test Results 07/18/2024 Encounter Details Date Type Department Care Team (Late st Contact Info) Description 07/18/2024 Telephone Cardiology, [facility] [address] [place] [address] Anthony Wong PA-C [address] [place] [phone] Test Results Allergies Active Allergy Reactions Criticality Noted Date Comments Lisinopril Medium 12/26/2018 Other reaction(s): Cough Sertraline Low 12/26/2018 Other reaction(s): DIDN'T FEEL WELL ON [id number] Tramadol High 12/26/2018 Other reaction(s): memory loss documented as of this encounter (statuses as of 07/18/2024) Medications ASPIRIN EC LOW STRENGTH 81 MG PO TBECIndications:Oth er nonspecific abnormal cardiovascular system function study take one tablet daily 100 3 10/200 6 Active ONETOUCH ULTRA TEST STRPIndications:DM type 2, not at goal (HCC) Use up to four times a day as directed 100 11 8 Active isosorbide mononitrate SA (IMDUR) 60 MG [id number]:Chr onic ischemic heart disease,Old myocardial infarct,Aortocorona ry bypass status,S/P angioplasty TAKE 1 TABLET BY MOUTH ONCE A DAY 30 Tab 5 8 Active MetFORMIN (GLUCOPHAGE) 1000 MG Tablet Take 1 Tablet by mouth daily with breakfast. Active telmisartan (MICARDIS) 80 MG Tablet Take 1 Tablet by mouth in the morning. Active insulin glargine (LANTUS) 100 UNIT/ML SOPNIndications:25U in AM & 25U in PM Inject under the skin. Active atorvaSTATin (LIPITOR) 80 MG Tablet Take 1 Tablet by mouth in the morning. 9 Active nitroglycerin (NITROSTAT) 0.[address] 1 Tablet under the tongue every 5 minutes as needed for Pain, Chest. 9 Active Metoprolol Tartrate 25 MG Oral Tablet (Lopressor) Take 1 Tablet by mouth in the morning and 1 Tablet before bedtime. 3 Active Famotidine 20 MG Oral Tablet (Pepcid) Take 1 Tablet by mouth in the morning and 1 Tablet in the evening. 3 Active Vitamin D (Ergocalciferol) 1.25 MG (93324 UT) Oral Capsule (Drisdol) Take 1 Capsule by mouth once a week. 4 Active Farxiga 10 MG Oral Tablet Take 1 Tablet by mouth every evening. 4 Active Furosemide 20 MG Oral Tablet (Lasix)Indications: HTN, goal below 140/90 TAKE 1 TABLET BY MOUTH 3 DAYS WEEKLY AND DIRECTED 36 Tablet 5 4 Active Spironolactone 25 MG Oral Tablet (Aldactone) Take 0.5 Tablets by mouth in the morning. 45 Tablet 3 4 Active documented as of this encounter (statuses as of 07/18/2024) Active Problems Problem Noted Date Diagnosed Date PDR (proliferative diabetic retinopathy) 016 HTN, goal below 140/90 05/02/2015 Retinal edema 02/12/2010 DYSLIPIDEMIA, GOAL LDL BELOW 70 08/15/2009 Overview (08/15/2009): Per Lipid Taxonomy. Acute cholecystitis 07/29/2009 Type 2 diabetes mellitus wit h hemoglobin A1c goal of less than 7.0% 06/27/2009 Overview (12/24/2015): Per Diabetes Taxonomy. ICD-10 update of inactive term DM TYPE 2 CAUSING RENAL DZ 06/27/2009 Overview (06/27/2009): Per Diabetes Taxonomy. OLD MYOCARDIAL INFARCT 03/21/2009 Overview (03/21/2009): Modified by Acute IA Protocol #5. Diabetes mellitus with background retinopathy Fracture of rib, closed 09/03/2008 Anemia 02/22/2008 Degeneration of cervical intervertebral disc Reflux esophagitis 02/14/2008 Restless leg syndrome 02/14/2008 Obstructive sleep apnea syndrome 02/14/2008 Diabetic polyneuropathy 02/14/2008 Overview (11/15/2015): ICD-10 update of inactive term Chronic ischemic heart disease 02/14/2008 Family history of colon cancer 02/14/2008 Aortocoronary bypass status 12/14/2007 S/P angioplasty 06/14/2006 documented as of this encounter (statuses as of 07/18/2024) Resolved Problems Problem Noted Date Diagnosed Date Resolved Date HTN, goal below 140/80 04/18/201205/02 Overview: Per HTN Protocol #27. HTN, GOAL BELOW 130/80 09/26/200904/21 Overview (09/26/2009): Per HTN Taxonomy. HTN, goal below 140/90 01/17/200909/26 Overview (09/26/2009): Per HTN Taxonomy. Mixed dyslipidemia 02/14/2008 Overview (08/15/2009): Per Lipid Taxonomy. DM type 2 causing renal disease 02/14/2008 06/27/2009 Overview (06/27/2009): Per Diabetes Taxonomy. DM type 2 causing renal disease 02/14/2008 04/18/2008 Chronic ischemic heart disease 02/14/2008 04/18/2008 F/u of acute myocardial infa rction of other specified sites 06/14/2006 03/21/2009 Overview (03/21/2009): Modified by Acute IA Protocol #5. Type 2 diabetes mellitus wit h hemoglobin A1c goal of less than 7.0% 06/14/2006 06/27/2009 Overview (12/24/2015): Per Diabetes Taxonomy. ICD-10 update of inactive term documented as of this encounter (statuses as of 07/18/2024) Immunizations Name Administration Dates Next Due COVID-19 mRNA, LNP-s, No Pre serve, 2-Dose Series ([employer] (MXD3D)) 08/19/2021 Pneumococcal Polysaccharide PPV23 (Pneumovax) Seasonal Influenza Vac., MDV, IM, 0.5 mL (Fluzon e) 07/19/2008 TD, Preservative Free 04/18/2008 Zoster Vaccine Recombinant (Shingrix) 11/19/2021 ,06/30/2021 documented as of this encounter Social History Tobacco Use Types Packs/Day Years Used Date Smoking Tobacco: Former Cigarettes Smokeless Tobacco: Never Alcohol Use Standard Drinks/Week Comments Not Currently 0 (1 standard drink = 0.6 oz pur e alcohol) Sex and Gender Information Value Date Recorded Sex Assigned at Not on file Legal Sex Male 7:21 AM EST Gender Identity Not on file Sexual Orientation Not on file Occupation Industry Job Start Date Job End Date at [employer] Not on file Not on file Not on file documented as of this encounter Miscellaneous Notes * Telephone Encounter - Fernanda Olvera CMA - 07/18/2024 3:40 PM EST MyG sent. Set to follow up in 48 hours if not read by patient. * Telephone Encounter - Fernanda Olvera CMA - 07/18/2024 3:37 PM EST ----- Message from Anthony Wong sent at 07/18/2024 3:36 PM EST ----- Potassium level looks good (normal at 4.4 mmol/L). Kidney function is OK. Continue furosemide and spironolactone as prescribed. Random glucose 263 -> follow-up with PCP. documented in this encounter Plan of Treatment Upcoming Encounters Date Type Department Care Team (Late st Contact Info) Description 11/15/2024 11:30 AM EDT Office Visit Ophthalmology, [facility] [address] [place] [address] Alberto Brooks DO [address] [place] [phone] 12/01/2024 11:00 AM EDT Office Visit Cardiology, [facility] [address] [place] [address] Adolfo Mello MD [address] [place] [phone] Health Maintenance Due Date Last Done Comments Depression Screening 1952 DTap/Tdap Vaccines (1 - Tdap) 04/19/2008 04/18/2008 Diabetic Foot Exam 01/17/2010 01/17/2009, 0 10/18/2008 (Done elsewhere), 02/14/2008, Additional history exists Diabetic Eye Exam 12/04/2023 12/03/2022, , 11/19/2021, Additional history exists COVID-19 Vaccine ( season) 2024 08/19/2021, 12/12/2020, 11/21/2020 Influenza Vaccine (FLU shot) (#1) 2024 07/19/2008 Albumin/Creatinine Ratio 11/08/2024 024, 02/07/2018, 02/14/2008, Additional history exists HbA1c 12/27/2024 06/29/2024, 10/28, 08/12/2023, Additional history exists GFR 07/18/2025 07/18/2024, 06/01, 11/09/2023, Additional history exists Pneumococcal Vaccine: 65+ Years Completed 05/22/2014, 07/21/2010, 04/18/2008 Zoster Vaccines Completed 11/19/2021, 06/30/2021 HPV (Gardasil) Vaccine Aged Out No lo nger eligible based on patient's age to complete this topic Hepatitis B Vaccine Aged Out No longe r eligible based on patient's age to complete this topic MENINGOCOCCAL (MENACTRA/MENVEO) Aged Out No longer eligible based on patient's age to complete this topic documented as of this encounter Medical Devices Not on filedocumented as of this encounter Advance Directives * Full Code (Latest Code Status on File) Date Activated Date Inactivated Comments 11/15/2007 5:08 PM 2007 4:46 PM Care Teams Head Usher Relationship Specialty Start Date End Date Shantell Queen DO [facility] [address] [place] [address], [place] [address] PCP - General Family Medicine 08/13/14 documented as of this encounter
--- OUTSIDE RECORDS SUMMARY | 2024-09-05 00:36 | External Medical Summary | Summary of Care ---
Author Name Unknown Organization [facility] Address [address] [place] [facility] [address] Phone [phone] Care Team Providers Care Rackman Name Role Phone Shantell Queen DO Primary Care Provider Reason for Visit * Reason Comments Outpatient Testing Encounter Details Date Type Department Care Team (Late st Contact Info) Description 07/18/2024 11:00 AM EST [facility] [address] [facility] [phone] [facility] [address] [place] [address] DYSLIPIDEMIA, GOAL LDL BELOW 70; HTN, goal below 140/90; Chronic ischemic heart disease Allergies Active Allergy Reactions Criticality Noted Date Comments Lisinopril Medium 12/26/2018 Other reaction(s): Cough Sertraline Low 12/26/2018 Other reaction(s): DIDN'T FEEL WELL ON [id number] Tramadol High 12/26/2018 Other reaction(s): memory loss documented as of this encounter (statuses as of 07/18/2024) Medications ASPIRIN EC LOW STRENGTH 81 MG PO TBECIndications:Oth er nonspecific abnormal cardiovascular system function study take one tablet daily 100 3 06/14/200 6 Active ONETOUCH ULTRA TEST STRPIndications:DM type 2, not at goal (HCC) Use up to four times a day as directed 100 11 8 Active isosorbide mononitrate SA (IMDUR) 60 MG [id number]:Chr onic ischemic heart disease,Old myocardial infarct,Aortocorona ry [...] 3 Active Vitamin D (Ergocalciferol) 1.25 MG (43521 UT) Oral Capsule (Drisdol) Take 1 Capsule [...] (Pfizer) 08/19/2021 Pneumococcal Polysaccharide PPV23 (Pneumovax) Seasonal Influenza [...] Job Start Date Job End Date at [employer] Not on file Not on file Not on file documented as of this encounter Plan of Treatment Upcoming Encounters Date Type Department Care Team (Late st Contact Info) Description 07/18/2024 1:15 PM EST Office Visit Ophthalmology, [facility] [address] [place] [address] Alberto Brooks, DO [address] [place] [phone] Arrived 12/01/2024 11:00 AM EDT Office Visit Cardiology, [facility] [address] [place] [address] Adolfo Mello MD [address] [place] [address] Pending Results Name Type Priority Associated Diagnoses Date /Time BASIC METABOLIC PANEL Lab Routine DYSLIPIDEMIA, GOAL LDL BELOW 70 HTN, goal below 140/90 Chronic ischemic heart disease 07/18/2024 10:59 AM EST Health Maintenance Due Date Last [...] 06/29/2024, 10/28, 08/12/2023, Additional history exists GFR 06/29/2025 06/29/2024, 10/28, 08/12/2023, Additional history exists Pneumococcal Vaccine: 65+ Years [...] as of this encounter Visit Diagnoses Diagnosis DYSLIPIDEMIA, GOAL LDL BELOW 70 Other and unspecified hyperlipidemia HTN, goal below 140/90 Unspecified essential hypertension 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
--- OUTSIDE RECORDS SUMMARY | 2024-09-05 00:36 | External Medical Summary | Summary of Care ---
Author Name Unknown Organization [facility] Address [address] [facility] [place] [address] Phone [phone] Care Team Providers Care Histology Technician Name Role Phone Shantell Queen Primary Care Provider Reason for Visit * Reason Comments Follow Up Encounter Details Date Type Department Care Team (Late st Contact Info) Description 07/18/2024 1:15 PM EST Office Visit Ophthalmology, 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 Diabetes [...] 06/14/2006 03/21/2009 Overview (03/21/2009): Modified by Acute [facility] Protocol #5. Type [...] Job Start Date Job End Date at [employer] Not on file Not on file Not on file documented as of this encounter Progress Notes * Alberto Brooks DO - 07/18/2024 1:15 PM EST [facility] [place] Nursing Notes: Vannesa Schneider TECH 07/18/24 1140 Signed Carlton Lang is a 83 year old year old male who presents for Quiescent PDR OU. Last Office Visit: 04/17/2024 (in office), Visit date not found (telemedicine) Patient currently states feels vision is worse since last appt OD>>OS Are you diabetic? Yes. Do you check your blood sugars daily? YES. Fasting BS this morning: forgets what it was this morning mg/dl. Last Hemoglobin A1C: Lab Results Component Value Date/Time HGBA1C 8.7 (H) 06/29/2024 09:13 AM HGBA1C 9.0 (H) 11/09/2023 03:05 PM HGBA1C 8.6 (H) 08/12/2023 11:52 AM HGBA1C 8.7 (H) 08/28/2020 12:29 PM HGBA1C 8.4 (H) 06/04/2020 01:08 PM HGBA1C 7.6 (H) 03/04/2020 08:[address]? no OCT image(s) of both eyes acquired and filed/scanned into chart. Base Eye Exam Visual Acuity (Snellen - Linear) Right Left Dist cc 20/100 -2 20/25 -1 Dist ph cc NI Correction: Glasses Tonometry (Tonopen, 11:37 AM) Right Left Pressure 16 17 Pupils Pupils Shape React APD Right PERRL Round Minimal None Left PERRL Round Minimal None Visual George (Counting fingers) Right Left Restrictions Total superior temporal, superior nasal, inferior nasal deficiencies; Partial outer inferior temporal deficiency Partial outer superior temporal, inferior temporal, superior nasal, inferior nasal deficiencies Extraocular Movement Right Left Full, Ortho Full, Ortho Neuro/Psych Oriented x3: Yes Mood/Affect: Normal Dilation Both eyes: 0.5% Proparacaine @ 11:35 AM Dilation #2 Both eyes: 1.0% Mydriacyl, 2.5% Phenylephrine @ 11:37 AM Dilation #3 Both eyes: 1.0% Mydriacyl, 2.5% Phenylephrine @ 11:40 AM Dilation Comments Patient cautioned that effects of [...] clear optic nerve: 0.1, no edema/pallor/NVD macula: +chocolate coater, ERM vessels: wnl midperiphery: +PRP periphery: no RT/RD, +PRP Dilated fundus exam OS: vitreous: clear optic nerve: 0.1, regressed NVD, no edema/pallor macula: +chocolate coater vessels: wnl midperiphery: +PRP; +mild traction superiorly just above ON--stable periphery: no RT/RD, +PRP OCT Interpretation: OD: +ERM, resolved chronic central DME - STABLE, prior worse 30um prior , prior STABLE, prior STABLE, prior STABLE, prior STABLE, prior STABLE, prior STABLE, prior STABLE, prior mild worse, prior stable OS: no CIDME - STABLE, prior STABLE, prior STABLE, prior [...] -by Dr. Bird does not drive F/u 3-4 months - dilate and OCT OU Alberto Brooks DO CC: Wilner Bird MD PCP: Shantell Queen DO documented in this encounter Nursing Notes * Vannesa Schneider TECH - 07/18/2024 11:30 AM EST Carlton Lang is a 83 year old year old male who presents for Quiescent PDR OU. Last Office Visit: 04/17/2024 (in office), Visit date not found (telemedicine) Patient currently states feels vision is worse since last appt OD>>OS Are you diabetic? Yes. Do you check your blood sugars daily? YES. Fasting BS this morning: forgets what it was this morning mg/dl. Last Hemoglobin A1C: Lab Results Component Value Date/Time HGBA1C 8.7 (H) 06/29/2024 09:13 AM HGBA1C 9.0 (H) 11/09/2023 03:05 PM HGBA1C 8.6 (H) 08/12/2023 11:52 AM HGBA1C 8.7 (H) 08/28/2020 12:29 PM HGBA1C 8.4 (H) 06/04/2020 01:08 PM HGBA1C 7.6 (H) 03/04/2020 08:[address]? no OCT image(s) of both eyes acquired and filed/scanned into chart. documented in this encounter Plan of Treatment Upcoming Encounters Date Type Department Care Team (Late st Contact Info) Description 11/15/2024 11:30 AM EDT Office Visit Ophthalmology, [facility] [address] [place] [address] Alberto Brooks DO [address] [place] [address] 12/01/2024 11:00 AM EDT Office Visit Cardiology, 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
--- OUTSIDE RECORDS SUMMARY | 2024-09-05 00:36 | External Medical Summary ---
Author Name Unknown Address Unknown Organization [id number][place] [place] [address] [place] [address] Laboratory Report Ordering Provider Test Date Status TREY AUSTIN 07/26/2024 08:58:38 Final Observation Date Value Abnormality Reference (Units ) Status MYCODE SPECIMEN-SST 07/26/2024 08:58:38 Freezing of extracted DNA, whole blood and/or serum. Final Performing Location [facility] [place] [address] [place] [address]
--- OUTSIDE RECORDS SUMMARY | 2024-09-05 00:36 | External Medical Summary ---
Author Name Unknown Address Unknown Organization [id number][place] [place] [address] [address] [facility] [address] [facility] [address] Laboratory Report Ordering Provider Test Date Status DAHLIA MEDLEY 07/18/2024 10:59:54 Final Observation Date Value Abnormality Reference (Units ) Status HbA1C 07/18/2024 10:59:54 8.5 Above high normal 4. 0-5.6 (%) Final The use of HbA1c to monitor glycemic status is based on normal hemoglobin and HbA composition. This test should not be used in patients with abnormal hemoglobin that affects the half life of the red blood cell or the in vivo glycation rates. Glucose, estimated average 07/18/2024 10:59:54 197 Above high normal <126 (mg/dL) Solo chavez Performing Location [facility] [place] [address] [facility] [address] [facility] [address]
--- OUTSIDE RECORDS SUMMARY | 2024-09-05 00:36 | External Medical Summary | Continuity of Care Document ---
Author Name Unknown Organization [address] Address [address] [place] [id number] Care Team Providers Care Drapery Installer Name Role Phone Shantell Queen Primary Care Physician [phone] [id number] Date(s): 07/06/24 - 07/06/[address] [place] [address], [address] [phone] Discharge Disposition: Home or Self Care Attending Physician: DO Queen Kristen M Referring Physician: DO Queen Kristen M Allergies, Adverse Reactions, Alerts Substance Criticality Severity Reaction Reaction Severity Status lisinopril Cough aggravates symptom Active GERMAINE Inhibitors cough Activ e traMADol delerium Active Immunizations Given and Recorded Vaccine Date Status [...] amLODIPine 5 mg oral tablet Start: 06/23/21 1:32:00 PM EDT, 1 tab, PO, Daily, Disp# 90 tab, Refills: 3, Pharmacy: [facility] Start Date: 06/23/21 Status: Ordered aspirin 81 mg oral capsule Start: 07/29/22 10:14:00 AM EST, 1 cap, PO, Daily Start Date: 07/29/22 Status: Ordered atorvastatin 80 mg oral tablet Start: 03/27/24 2:30:00 PM EDT, 1 tab, PO, Daily, Disp# 90 tab, Refills: 3, Pharmacy: [facility] Start Date: 03/27/24 Status: Ordered famotidine 20 mg oral tablet Start: 05/24/24 9:53:00 AM EDT, 1 tab, PO, bid, Disp# 180 tab, Refills: 3, Pharmacy: [facility] Start Date: 05/24/24 Status: Ordered Farxiga 10 mg oral tablet Start: 07/03/24 11:05:00 AM EST, 1 tab, PO, Daily, Disp# 30 tab Start Date: 07/03/24 Status: Ordered furosemide 20 mg oral tablet Start: 07/03/24 11:07:00 AM EST, 1 tab, Mon, wed, wed Start Date: 07/03/24 Status: Ordered isosorbide mononitrate 60 mg oral tablet, extended release Start: 12/06/23 5:06:00 PM EDT, 1 tab, PO, qAM, Disp# 90 tab, Refills: 3, Pharmacy: [facility] Start Date: 12/06/23 Status: Ordered Lantus Solostar Pen 100 units/mL subcutaneous solution Start: 09/22/23 3:35:00 PM EST, 25 unit =, subQ, bid, Disp# 45 mL, Refills: 3, Pharmacy: [facility] Start Date: 09/22/23 Status: Ordered metFORMIN 1000 mg oral tablet Start: 12/06/23 5:06:00 PM EDT, 1 tab, PO, Daily, Disp# 90 tab, Refills: 3, Pharmacy: [facility] Start Date: 12/06/23 Status: Ordered Metoprolol Tartrate 25 mg oral tablet Start: 02/28/24 4:59:00 PM EDT, 1 tab, PO, bid, Disp# 180 tab, Refills: 3, Pharmacy: [facility] Start Date: 02/28/24 Status: Ordered One Touch Ultra Blue Test Strips Start: 02/17/24 9:16:00 AM EDT, See Instructions, Disp# 100 each, Refills: 3, Pt to test blood glucose sugars once daily. E11.9, Pharmacy: [facility]/pharmacy #[id number] Start Date: 02/17/24 Status: Ordered One Touch Ultra Blue Test Strips Start: 02/11/23 4:31:00 PM EDT, See Instructions, Disp# 100 each, Refills: 3, for bid testing, Pharmacy: [facility]/pharmacy #[id number] Start Date: 02/11/23 Status: Ordered One Touch Ultrasoft (28G) Lancets Start: 11/19/17 3:17:00 PM EDT, See Instructions, Disp# 100 unit, Refills: 3, Pt to use one lancet to test twice a day E11.0, Pharmacy: [facility]/pharmacy #[id number] Start Date: 11/19/17 Status: Ordered telmisartan 40 mg oral tablet Start: 07/06/24 11:42:00 AM EST, 1 tab, PO, Daily, Disp# 90 tab, Refills: 3, Pharmacy: [facility] Start Date: 07/06/24 Stop Date: 07/01/25 Status: Ordered Problem List Condition Confirmation Course Effective Dates Status Health St atus Informant CAD (coronary artery disease) Confirmed Active Diabetic foot ulcer Confirmed Active Diabetic neuropathy Confirmed Active HYPERTENSION Confirmed Active Poor memory Confirmed Active PAD (peripheral artery disease) Confirmed Active Abdominal distension Confirmed Active Vitamin D deficiency Confirmed Active Wound of skin Confirmed Active Procedures Procedure Date Related Diagnosis Body Site Status CT scan brain - normal 1 06/08/18 Completed CABG - Coronary artery bypass graft Completed Cholecystectomy Completed 1no acute intracranial abnormality. No change from the prior study Vital Signs Most recent to oldest [Reference Range]: 1 Heart Rate 78 bpm (07/06/24 10:57 AM) Blood Pressure 125/75mmHg (07/06/24 10:57 AM) Social History Social History Type Response Tobacco Former smoker 1 Smoking Status Never smoked cigaret tessie Sex Male Sex Representation Male (finding) 1Quit at age 34 years Patient Care team information Care Team Personnel Name: DO Queen Kristen M Position: Physician - Family Med Member Role: Primary Care Provider Address: [address] [place] [address] Care Team Related Persons Name: NICOLE LITTLEJOHN Name: DEANNA LITTLEJOHN
--- OUTSIDE RECORDS SUMMARY | 2024-09-05 00:36 | External Medical Summary ---
Author Name Unknown Address Unknown Organization K01:[facility] - [address] [place] [address] Laboratory Report Ordering Provider Test Date Status PEBBLES MEDLEYRAF 07/26/2024 08:58:38 Final Observation Date Value Abnormality Reference (Units ) Status Magnesium 07/26/2024 08:58:38 2.0 1.5-2.6 (m g/dL) Final Performing Location [facility]ATORY [facility] - [address] [place] [address]
--- OUTSIDE RECORDS SUMMARY | 2024-09-05 00:36 | External Medical Summary | Continuity of Care Document ---
Author Name Unknown Organization [address] Address [address] [place] [address] [phone] Care Team Providers Care Radiology Technician Name Role Phone Shantell Queen Primary Care Physician [phone] [id number] Date(s): 07/03/24 - 07/03/[address] [place] [address], [facility] [address] [phone] Encounter Diagnosis Hypokalemia(Discharge Diagnosis) - 07/03/24 HYPERTENSION(Discharge Diagnosis) - 07/03/24 Lightheadedness(Discharge Diagnosis) - 07/03/24 Diabetes mellitus with neuropathy(Discharge Diagnosis) - 07/03/24 Discharge Disposition: Home or Self Care Attending Physician: DO Queen Kristen M Referring Physician: DO Queen Kristen M Allergies, Adverse Reactions, Alerts Substance Criticality Severity Reaction Reaction Severity Status lisinopril Cough aggravates symptom Active GERMAINE Inhibitors cough Activ e traMADol delerium Active Assessment and Plan Extracted from: Title:Office Visit Note Author:DO Queen Kriste n M Date:07/03/24 1.Diabetes mellitus with n europathy Chronic condition, stable Goal:Resolution Data:unique tests ordered: _ Plan: _8.7 cont current regimen 2.HYPERTENSION Chronic condition, stable Goal:Resolution Data:unique tests ordered: _ Plan: _borderline control 3.Lightheadedness Chronic condition exacerbated/progressive/side effects of treatment Goal:Resolution Data:unique tests ordered: _ Plan: _Pt convinced it is from Dr. Mello medication. He declines PT for help with ambulatory dysfunction. Dr. Mello note says to cut telmisartan in half. We will do that and recheck BP on Thursday--if symptoms better and BP ok we will cont with 40mg if BP elevated will need to go back up to 80. Red flag signs discussed ECHEVARRIA etc 4.Hypokalemia Acute w/ systemic symptoms or complicated injury Goal:Resolution Data:unique tests ordered: _ Plan: _cont follow--will need rechecked in a few weeks. Immunizations Given and Recorded Vaccine Date Status [...] qAM, Disp# 90 tab, Refills: 3, Pharmacy: [facility] Start Date: 12/06/23 Status: Ordered Lantus Solostar Pen 100 units/mL subcutaneous solution Start: 09/22/23 3:35:00 PM EST, 25 unit =, subQ, bid, Disp# 45 mL, Refills: 3, Pharmacy: [facility] Start Date: 09/22/23 Status: Ordered metFORMIN 1000 mg oral tablet Start: 12/06/23 5:06:00 PM EDT, 1 tab, PO, Daily, Disp# 90 tab, Refills: 3, Pharmacy: [facility] Start Date: 12/06/23 Status: Ordered Metoprolol Tartrate 25 mg oral tablet Start: 02/28/24 4:59:00 PM EDT, 1 tab, PO, bid, Disp# 180 tab, Refills: 3, Pharmacy: [facility] Start Date: 02/28/24 Status: Ordered One Touch Ultra Blue Test Strips Start: 02/17/24 9:16:00 AM EDT, See Instructions, Disp# 100 each, Refills: 3, Pt to test blood glucose sugars once daily. E11.9, Pharmacy: [facility]/pharmacy #[id number] Start Date: 02/17/24 Status: Ordered One Touch Ultra Blue Test Strips Start: 02/11/23 4:31:00 PM EDT, See Instructions, Disp# 100 each, Refills: 3, for bid testing, Pharmacy: [facility]/pharmacy #[id number] Start Date: 02/11/23 Status: Ordered One Touch Ultrasoft (28G) Lancets Start: 11/19/17 3:17:00 PM EDT, See Instructions, Disp# 100 unit, Refills: 3, Pt to use one lancet to test twice a day E11.0, Pharmacy: [facility]/pharmacy #[id number] Start Date: 11/19/17 Status: Ordered telmisartan 80 mg oral tablet Start: 02/28/24 4:59:00 PM EDT, 1 tab, PO, Daily, Disp# 90 tab, Refills: 3, Pharmacy: [facility] Start Date: 02/28/24 Status: Ordered Mental Status 07/03/24 Barriers to Learning one year None evide nt Mandatory Health Literacy Documentation Yes Health Literacy Communication Barriers N ever Primary Language Namibian Problem List Condition Confirmation Course Effective Dates [...] Effective Dates Health Status Clinical Service Informant HYPERTENSION Discharge Diagnosis 07/03/24 Non-Specified Hypokalemia Discharge Diagnosis 07/03/24 Non-Specified Lightheadedness Discharge Diagnosis 07/03/24 Non-Specified Diabetes mellitus with neuropathy Discharge Diagnosis 07/03/24 Non-Specified Procedures Procedure Date Related Diagnosis Body Site Status CT scan brain - normal 1 06/08/18 Completed CABG - Coronary artery bypass graft Completed Cholecystectomy Completed 1no acute intracranial abnormality. No change from the prior study Vital Signs Most recent to oldest [Reference Range]: 1 Patient Weight 99.4 kg (07/03/24 11:11 AM) Temperature [36.5-37.9 DegC] 36.2 DegC *LOW* (07/03/24 11:11 AM) Blood Pressure 154/80mmHg (07/03/24 11:12 AM) Social History Social History Type Response Tobacco Former smoker 1 Smoking Status Never smoked cigaret tessie Sex Male Sex Representation Male (finding) 1Quit at age 34 years FCM Outpt Note * DO Queen Kristen M: PERFORM Event Display: FCM Outpt Note Authored Date: [id number] Chief Complaint pt here for 4 month f/u for DM check. states feeling periods of lighteheaded for a few months History of Present Illness Pt presents for dm visit. He states he has felt lightheaded for a few months. Dr. Mello addressed it. 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 Daughter says he sleeps a lot more. Review of Systems ROS: Denies ECHEVARRIA, visual changes, SOB, CP, N/V, no edema, fever, chills, dysuria, bowel changes Physical Exam Vitals & Measurements T:36.2C BP:154/80 SpO2:98% WT:99.4kg WT:99.400kg(Dosing) PHQ2 Data(Data Documented on:07/03/2024 11:08) Emotional health assessment NEGATIVE G: AAAOx3, NAD H: RR normal S1/S2 no M/R/G L: CTA b/l no r/r/w HEENT: external ear canal and TM wnl, oral mucosa moist, no lymphadenopathy A: soft +bs nt nd E: no c/C/E b/l, pos distal pulses P: normal affect and insight, no homicidal/suicidal ideation Assessment/Plan 1.Diabetes mellitus with neuropathy Chronic condition, stable Goal:Resolution Data:unique tests ordered: _ Plan: _8.7 cont current regimen 2.HYPERTENSION Chronic condition, stable Goal:Resolution Data:unique tests ordered: _ Plan: _borderline control 3.Lightheadedness Chronic condition exacerbated/progressive/side effects of treatment Goal:Resolution Data:unique tests ordered: _ Plan: _Pt convinced it is from Dr. Mello medication. He declines PT for help with ambulatory dysfunction. Dr. Mello note says to cut telmisartan in half. We will do that and recheck BP on --if symptoms better and BP ok we will cont with 40mg if BP elevated will need to go back up to80. Red flag signs discussed ECHEVARRIA etc 4.Hypokalemia Acute w/ systemic symptoms or complicated injury Goal:Resolution Data:unique tests ordered: _ Plan: _cont follow--will need rechecked in a few weeks. Attestation I spent4 mintime in previsit planning including prepping note and chart review . I spent32 time in face to face interaction with patient concerning the issues that brought them in today. I spent4 min time in post visit planning including finishing note and depart process Total time spent today on patient visit40 min Problem List/Past Medical History Ongoing Abdominal distension CAD (coronary artery disease) DIABETES MELLITUS Diabetic foot ulcer Diabetic neuropathy HYPERTENSION PAD (peripheral artery disease) Poor memory Vitamin D deficiency Wound of skin Resolved Bronchitis CARPAL TUNNEL SYNDROME Depression TAYLOR (dyspnea on exertion) Fall Fatigue Fracture of rib Gastropathy H/O: osteoarthritis Lightheadedness Medicare annual wellness visit, subsequent Proteinuria Rash Retinopathy Right shoulder pain Routine adult health maintenance Urinary problem Weight disorder Procedure/Surgical History CT scan brain - normal| Service Date: 06/08/2018CholecystectomyCABG - Coronary artery bypass graft Medications amLODIPine(amLODIPine 5 mg oral tablet), 5 mg= 1 tab, PO, Daily, 3 refills aspirin(aspirin 81 mg oral capsule), 81 mg= 1 cap, PO, Daily atorvastatin(atorvastatin 80 mg oral tablet), 1 tab, PO, Daily cephalexin(Keflex 500 mg oral capsule), 500 mg= 1 cap, PO, tid dapagliflozin(Farxiga 10 mg oral tablet), 10 mg= 1 tab, PO, Daily diabetes supplies(One Touch Ultra Blue Test Strips), See Instructions, 3 refills diabetes supplies(One Touch Ultra Blue Test Strips), See Instructions, 3 refills diabetic supplies(One Touch Ultrasoft (28G) Lancets), See Instructions, 3 refills ergocalciferol(ergocalciferol 1.25 mg (50,000 intl units) oral capsule), 1 cap, PO, q7days famotidine(famotidine 20 mg oral tablet), 1 tab, PO, bid furosemide(furosemide 20 mg oral tablet), 20 mg= 1 tab insulin glargine(Lantus Solostar Pen 100 units/mL subcutaneous solution), 25 unit, subQ, bid isosorbide mononitrate(isosorbide mononitrate 60 mg oral tablet, extended release), 1 tab, PO, qAM metFORMIN(metFORMIN 1000 mg oral tablet), 1 tab, PO, Daily metoprolol(Metoprolol Tartrate 25 mg oral tablet), 1 tab, PO, bid telmisartan(telmisartan 80 mg oral tablet), 1 tab, PO, Daily Allergies GERMAINE Inhibitorscough lisinoprilCough aggravates symptom traMADoldelerium [...] the next year) OverDue Adult Influenza Vaccine due02/27/24and every 1year Due Adult COVID-19 Vaccination due07/03/24Unknown Frequency Adult Social Determinants of Health Screening due07/03/24Unknown Frequency Adult Tdap/Td Vaccine due07/03/24Unknown Frequency Falls Plan of Care due07/03/24Unknown Frequency Medicare Annual Wellness Visit due07/03/24and every 1year Shingles Vaccine due07/03/24One-time only Due In Future Diabetes Management A1c not due until03/01/25and every 366day Diabetic Eye Exam not due until03/04/25and every 731day Satisfied(in the past 1 year) Satisfied Body Mass Index on11/15/23.Satisfied by [facility] Barry Donna Diabetes Management A1c on02/29/24.Satisfied by Contributor_system, [employer] Electronic Signature on File Electronically Reviewed/Signed by: Shantell Queen DO Author Signature Dt/Tm:07/03/2024 12:02 PM Department of Family Medicine [facility] [place] Care team information Care Team Personnel Name: DO Queen Kristen M Position: Physician - Family Med Member Role: Primary Care Provider Address: [address] [place] [address] Care Team Related Persons Name: NICOLE LITTLEJOHN Name: DEANNA LITTLEJOHN"
--- OUTSIDE RECORDS SUMMARY | 2024-09-05 00:36 | External Medical Summary ---
Author Name Unknown Address Unknown Organization K01:[facility] [place] [facility] [address] [place] [address] Laboratory Report Ordering Provider Test Date Status DAHLIA MEDLEY 07/26/2024 08:58:38 Final Observation Date Value Abnormality Reference (Units ) Status BUN 07/26/2024 08:58:38 16 6-20 (mg/dL) Final Creatinine 07/26/2024 08:58:38 1.1 0.6-1.2 (mg/dL) Final Glomerular filtration rate/1.73 sq M.predicted [Volume Rate/Area] in Serum, Plasma or Blood by Creatinine-based formula (CKD-EPI) 07/26/2024 08:58:38 67 >=60 (mL/min) Final eGFR is calculated based on the CKD-EPI 2020 equation. Sodium 07/26/2024 08:58:38 141 135-146 (m mol/L) Final Potassium 07/26/2024 08:58:38 3.9 3.5-5.1 (m mol/L) Final Cl 07/26/2024 08:58:38 104 98-107 (mm ol/L) Final CO2 07/26/2024 08:58:38 27 22-32 (mmo l/L) Final Anion gap 07/26/2024 08:58:38 10 7-15 (mmol /L) Final Glucose 07/26/2024 08:58:38 180 Above high normal 70 -120 (mg/dL) Final Calcium 07/26/2024 08:58:38 9.0 8.4-10.2 ( mg/dL) Final Performing Location [facility] [place] [address] [place] [address]
--- OUTSIDE RECORDS SUMMARY | 2024-09-05 00:36 | External Medical Summary ---
Author Name Unknown Address Unknown Organization K01:[facility] [place] - [address] [place] [address] Laboratory Report Ordering Provider Test Date Status TREY AUSTIN 07/26/2024 08:58:38 Final Observation Date Value Abnormality Reference (Units ) Status MYCODE SPECIMEN-SST 07/26/2024 08:58:38 Freezing of extracted DNA, whole blood and/or serum. Final Performing Location LABORATORY [facility] [place] - [address] [place] [address]
--- OUTSIDE RECORDS SUMMARY | 2024-09-05 00:36 | External Medical Summary ---
Author Name Unknown Address Unknown Organization K0G:LAB[facility]ATORY [place] [address] [place] [address] Laboratory Report Ordering Provider Test Date Status LAUREN DEL CASTILLO 07/18/2024 10:59:54 Final Observation Date Value Abnormality Reference (Units ) Status BUN 07/18/2024 10:59:54 12 6-20 (mg/dL) Final Creatinine 07/18/2024 10:59:54 1.1 0.6-1.2 (mg/dL) Final Glomerular filtration rate/1.73 sq M.predicted [Volume Rate/Area] in Serum, Plasma or Blood by Creatinine-based formula (CKD-EPI) 07/18/2024 10:59:54 67 >=60 (mL/min) Final eGFR is calculated based on the CKD-EPI 2020 equation. Sodium 07/18/2024 10:59:54 141 135-146 (m mol/L) Final Potassium 07/18/2024 10:59:54 4.4 3.5-5.1 (m mol/L) Final Cl 07/18/2024 10:59:54 103 98-107 (mm ol/L) Final CO2 07/18/2024 10:59:54 27 22-32 (mmo l/L) Final Anion gap 07/18/2024 10:59:54 11 7-15 (mmol /L) Final Glucose 07/18/2024 10:59:54 263 Above high normal 70 -120 (mg/dL) Final Calcium 07/18/2024 10:59:54 9.1 8.4-10.2 ( mg/dL) Final Performing Location [facility] [place] [address] [place] [address]
--- OUTSIDE RECORDS SUMMARY | 2024-09-05 00:36 | External Medical Summary | Summary of Care ---
Author Name Unknown Organization [facility] Address [address] [place] [address] Phone [phone] Care Team Providers Care Sewing Department Supervisor Name Role Phone Shantell Queen DO Primary Care Provider Reason for Visit * Reason Comments Outpatient Testing Encounter Details Date Type Department Care Team (Late st Contact Info) Description 07/26/2024 8:50 AM EST Laboratory Laboratory, [facility] [address] [place] [phone] [facility] [address] [place] [address] [employer] Other*[id number]; Diabetic neuropathy (HCC); HTN, goal below 140/90; Vertigo; Hypopotassemia Allergies Active Allergy Reactions Criticality Noted Date Comments Lisinopril Medium 12/26/2018 Other reaction(s): Cough Sertraline Low 12/26/2018 Other reaction(s): DIDN'T FEEL WELL ON [id number] Tramadol High 12/26/2018 Other reaction(s): memory loss documented as of this encounter (statuses as of 07/26/2024) Medications ASPIRIN EC LOW STRENGTH 81 MG PO TBECIndications:Oth er nonspecific abnormal cardiovascular system function study take one tablet daily 100 3 6 Active ONETOUCH ULTRA TEST STRPIndications:DM type 2, not at goal (HCC) Use up to four times a day as directed 100 11 8 Active isosorbide mononitrate SA (IMDUR) 60 MG [id number]:Chr onic ischemic heart disease,Old myocardial infarct,Aortocorona ry [...] 3 Active Vitamin D (Ergocalciferol) 1.25 MG (19829 UT) Oral Capsule (Drisdol) Take 1 Capsule [...] as of this encounter (statuses as of 07/26/2024) Active Problems Problem Noted Date Diagnosed Date [...] INFARCT 03/21/2009 Overview (03/21/2009): Modified by [facility] [place] Protocol #5. Diabetes mellitus with background retinopathy [...] as of this encounter (statuses as of 07/26/2024) Resolved Problems Problem Noted Date Diagnosed Date Resolved Date HTN, goal below 140/80 04/18/201205/02 Overview: Per HTN Protocol #27. HTN, GOAL BELOW 130/80 09/26/200904/21 Overview (09/26/2009): Per HTN Taxonomy. HTN, goal below 140/90 01/17/200909/26 Overview (09/26/2009): Per HTN Taxonomy. Mixed dyslipidemia 02/14/2008 9 Overview (08/15/2009): Per Lipid Taxonomy. DM type 2 causing renal disease 02/14/2008 06/27/2009 Overview (06/27/2009): Per Diabetes Taxonomy. DM type 2 causing renal disease 02/14/2008 04/18/2008 Chronic ischemic heart disease 02/14/2008 04/18/2008 F/u of acute myocardial infa rction of other specified sites 06/14/2006 03/21/2009 Overview (03/21/2009): Modified by [facility] [place] Protocol #5. Type 2 diabetes mellitus wit h hemoglobin A1c goal of less than 7.0% 06/14/2006 06/27/2009 Overview (12/24/2015): Per Diabetes Taxonomy. ICD-10 update of inactive term documented as of this encounter (statuses as of 07/26/2024) Immunizations Name Administration Dates Next Due COVID-19 [...] Job Start Date Job End Date at [employer] Not on file Not on file Not on file documented as of this encounter Plan of Treatment Upcoming Encounters Date Type Department Care Team (Late st Contact Info) Description 11/15/2024 11:30 AM EDT Office Visit Ophthalmology, [facility] [address] [place] [address] Alberto Brooks, DO [address] [place] [address] 12/01/2024 11:00 AM EDT Office Visit Cardiology, [facility] [address] [place] [address] Adolfo Mello MD [address] [place] [address] Pending Results Name Type Priority Associated Diagnoses Date /Time MYCODE SUBSEQUENT ADULT Lab Routine [employer] Other*[id number] 07/26/2024 8:58 AM EST BASIC METABOLIC PANEL Lab Routine Diabetic neuropathy (HCC) HTN, goal below 140/90 Vertigo Hypopotassemia 07/26/2024 8:58 AM EST MAGNESIUM Lab Routine Diabetic neuropathy (HCC) HTN, goal below 140/90 Vertigo Hypopotassemia 07/26/2024 8:58 AM EST MYCODE SST1 Lab Routine [employer] Other*[id number] 07/26/2024 8:58 AM EST MYCODE SST2 Lab Routine [employer] Other*[id number] 07/26/2024 8:58 AM EST Health Maintenance Due Date Last [...] 024, 02/07/2018, 02/14/2008, Additional history exists HbA1c 01/15/2025 07/18/2024, 06/01, 11/09/2023, Additional history exists GFR 07/18/2025 07/18/2024, 06/01, [...] this encounter Visit Diagnoses Diagnosis [employer] Other*[id number] Diabetic neuropathy (HCC) Type II or unspecified type diabetes mellitus with neurological manifestations, not stated as uncontrolled HTN, goal below 140/90 Unspecified essential hypertension Vertigo Dizziness and giddiness Hypopotassemia documented in this encounter Advance Directives * Full Code (Latest Code Status on File) Date Activated Date Inactivated Comments 11/15/2007 5:08 PM 2007 4:46 PM Care Teams Sewing Department Supervisor Relationship Specialty Start Date End Date Shantell Queen DO [address] [place] [address], [place] [address] PCP - General Family Medicine 08/13/14 documented as of this encounter
--- OUTSIDE RECORDS SUMMARY | 2024-09-05 00:37 | External Medical Summary | Summary of Care ---
Author Name Unknown Organization [facility] Address [address] [facility] [place] [address] Phone [phone] Care Team Providers Care Lining Cementer Name Role Phone MichaelShantell murray Primary Care Provider Encounter Details Date Type Department Care Team (Late st Contact Info) Description 07/01/2024 Orders Only PATIENT PORTAL DO NOT DELETE THIS DEPT USED BY [place] [id number] Allergies Active Allergy Reactions Criticality Noted Date Comments Lisinopril Medium 12/26/2018 Other reaction(s): Cough Sertraline Low 12/26/2018 Other reaction(s): DIDN'T FEEL WELL ON [id number] Tramadol High 12/26/2018 Other reaction(s): memory loss documented as of this encounter (statuses as of 07/01/2024) Medications Medication Sig Dispensed Refills Start Date End Date Status ASPIRIN EC LOW STRENGTH 81 MG PO TBECIndications:Other nonspecific abnormal cardiovascular system function study take one tablet daily 100 3 06/14/2006 Active EventToolTOUCH ULTRA TEST STRPIndications:DM type 2, not at goal (HCC) Use up to four times a day as directed 100 11 04/18/2008 Active isosorbide mononitrate SA (IMDUR) 60 MG [id number]:Chroni c ischemic heart disease,Old myocardial infarct,Aortocoronary bypass [...] 1 Tablet by mouth in the morning. 12/28/2018 Active nitroglycerin (NITROSTAT) 0.[address] 1 Tablet under the tongue every 5 minutes as needed for Pain, Chest. 12/28/2018 Active Metoprolol Tartrate 25 MG Oral Tablet (Lopressor) Take 1 Tablet by mouth in the morning and 1 Tablet before bedtime. 02/01/2023 Active Famotidine 20 MG Oral Tablet (Pepcid) Take 1 Tablet by mouth in the morning and 1 Tablet in the evening. 02/01/2023 Active Vitamin D (Ergocalciferol) 1.25 MG (40982 UT) Oral Capsule (Drisdol) Take 1 Capsule by mouth once a week. 11/15/2023 Active Farxiga 10 MG Oral Tablet Take 1 Tablet by mouth every evening. 03/23/2024 Active Furosemide 20 MG Oral Tablet (Lasix)Indications:HTN , goal below 140/90 TAKE 1 TABLET BY MOUTH 3 DAYS WEEKLY AND DIRECTED 36 Tablet 5 05/26/2024 Active Spironolactone 25 MG Oral Tablet (Aldactone) Take 0.5 Tablets by mouth in the morning. 45 Tablet 3 05/26/2024 Active documented as of this encounter (statuses as of 07/01/2024) Active Problems Problem Noted Date Diagnosed Date [...] MYOCARDIAL INFARCT 03/21/2009 Overview: Modified by [facility] [place] Protocol #5. Diabetes mellitus with background retinopathy [...] as of this encounter (statuses as of 07/01/2024) Resolved Problems Problem Noted Date Diagnosed Date [...] sites 06/14/2006 03/21/2009 Overview: Modified by [facility] [place] Protocol #5. Type 2 diabetes mellitus wit h hemoglobin A1c goal of less than 7.0% 06/14/2006 06/27/2009 Overview: Per Diabetes Taxonomy. ICD-10 update of inactive term documented as of this encounter (statuses as of 07/01/2024) Immunizations Name Administration Dates Next Due COVID-19 [...] PM EST Office Visit Ophthalmology, [facility] [address] [place] [address] Alberto Brooks, [address] [place] [address] 12/01/2024 11:00 AM EDT Office Visit Cardiology, [facility] [address] [place] [address] Adolfo Mello MD [address] [place] [address] Health Maintenance Due Date Last Done Comments [...] 5:08 PM 2007 4:46 PM Care Teams Lining Cementer Relationship Specialty Start Date End Date Shantell Queen DO [address] [place] [address] Dr Ruiz [address] [place] [address], [place] [address] PCP - General Family Medicine 08/13/14 documented as of this encounter
--- OUTSIDE RECORDS SUMMARY | 2024-09-05 00:37 | External Medical Summary | Summary of Care ---
Author Name Unknown Organization [facility] Address [address] [place] [address] Phone [phone] Care Team Providers Care Gate Guard Name Role Phone Shantell Queen DO Primary Care Provider Reason for Visit * Reason Comments Outpatient Testing Encounter Details Date Type Department Care Team (Late st Contact Info) Description 06/29/2024 8:50 AM EDT Laboratory Laboratory, [place] [address] [place] [phone] [place], [facility] [address], [place] [id number] DM type 2, not at goal (HCC); Diabetic polyneuropathy associated with type 2 diabetes mellitus (HCC); Amnesia; Vitamin D deficiency; Diabetic foot ulcer (HCC); Abdominal distension; HTN, goal below 140/90; Aortocoronary bypass status; Diabetes mellitus without complication (HCC); Diabetic neuropathy, type II diabetes mellitus (HCC); Peripheral vascular disease (HCC); Sebaceous cyst Allergies Active Allergy Reactions Criticality Noted Date Comments Lisinopril Medium 12/26/2018 Other reaction(s): Cough Sertraline Low 12/26/2018 Other reaction(s): DIDN'T FEEL WELL ON [id number] Tramadol High 12/26/2018 Other reaction(s): memory loss documented as of this encounter (statuses as of 06/29/2024) Medications Medication Sig Dispensed Refills Start Date End Date Status ASPIRIN EC LOW STRENGTH 81 MG PO TBECIndications:Other nonspecific abnormal cardiovascular system function study take one tablet daily 100 3 06/14/2006 Active ONETOUCH ULTRA TEST STRPIndications:DM type 2, not at goal (HCC) Use up to four times a day as directed 100 11 04/18/2008 Active isosorbide mononitrate SA (IMDUR) 60 MG [id number]:Chroni c ischemic heart disease,Old myocardial infarct,Aortocoronary bypass [...] 02/01/2023 Active Vitamin D (Ergocalciferol) 1.25 MG (54405 UT) Oral Capsule (Drisdol) Take 1 Capsule [...] as of this encounter (statuses as of 06/29/2024) Active Problems Problem Noted Date Diagnosed Date [...] MYOCARDIAL INFARCT 03/21/2009 Overview: Modified by Acute [place] Protocol #5. Diabetes mellitus with background retinopathy [...] as of this encounter (statuses as of 06/29/2024) Resolved Problems Problem Noted Date Diagnosed Date [...] sites 06/14/2006 03/21/2009 Overview: Modified by Acute [place] Protocol #5. Type 2 diabetes mellitus wit h hemoglobin A1c goal of less than 7.0% 06/14/2006 06/27/2009 Overview: Per Diabetes Taxonomy. ICD-10 update of inactive term documented as of this encounter (statuses as of 06/29/2024) Immunizations Name Administration Dates Next Due COVID-19 [...] 1:15 PM EST Office Visit Ophthalmology, [facility] [address] [address] Alberto Brooks DO [address] [place] [address] 12/01/2024 11:00 AM EDT Office Visit Cardiology, [facility] [address] [address] Adolfo Mello MD [address] [place] [address] Pending Results Name Type Priority Associated Diagnoses Date /Time HEMOGLOBIN A1C Lab Routine Diabetes mellitus without complication (HCC) Diabetic foot ulcer (HCC) Diabetic neuropathy, type II diabetes mellitus (HCC) Peripheral vascular disease (HCC) Sebaceous cyst Vitamin D deficiency 06/29/2024 9:13 AM EDT COMPREHENSIVE METABOLIC PANEL Lab Routine Diabetes mellitus without complication (HCC) Diabetic foot ulcer (HCC) Diabetic neuropathy, type II diabetes mellitus (HCC) Peripheral vascular disease (HCC) Sebaceous cyst Vitamin D deficiency 06/29/2024 9:13 AM EDT LIPID PANEL WITHOUT DIRECT LDL Lab Routine Diabetes mellitus without complication (HCC) Diabetic foot ulcer (HCC) Diabetic neuropathy, type II diabetes mellitus (HCC) Peripheral vascular disease (HCC) Sebaceous cyst Vitamin D deficiency 06/29/2024 9:13 AM EDT Health Maintenance Due Date Last Done Comments Depression Screening 1952 DTap/Tdap Vaccines (1 - Tdap) 04/19/2008 04/18/2008 Diabetic Foot Exam 01/17/2010 01/17/2009, 0 10/18/2008 (Done elsewhere), 02/14/2008, Additional history exists Diabetic Eye Exam 12/04/2023 12/03/2022, , 11/19/2021, Additional history exists COVID-19 Vaccine ( season) 2024 08/19/2021, 12/12/2020, 11/21/2020 Influenza Vaccine (FLU shot) (#1) 2024 07/19/2008 HbA1c 05/11/2024 11/09/2023, 07/30, 04/30/2023, Additional history exists Albumin/Creatinine Ratio 11/08/2024 024, 02/07/2018, 02/14/2008, Additional history exists GFR 11/08/2024 11/09/2023, 07/30, 07/28/2022, Additional history exists Pneumococcal Vaccine: 65+ Years [...] mention of complication, not stated as uncontrolled Diabetic polyneuropathy associated with type 2 diabetes mellitus (HCC) Amnesia Memory loss Vitamin D deficiency Unspecified vitamin D deficiency Diabetic foot ulcer (HCC) Type II or unspecified type diabetes mellitus with other specified manifestations, not stated as uncontrolled Abdominal distension Flatulence, eructation, and gas pain HTN, goal below 140/90 Unspecified essential hypertension 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 Diabetes mellitus without complication (HCC) Type II or unspecified type diabetes mellitus without mention of complication, not stated as uncontrolled Diabetic neuropathy, type II diabetes mellitus (HCC) Type II or unspecified type diabetes mellitus with neurological manifestations, not stated as uncontrolled Peripheral vascular disease (HCC) Peripheral vascular disease, unspecified Sebaceous cyst documented in this encounter Advance Directives * Full Code (Latest Code Status on File) Date Activated Date Inactivated Comments 11/15/2007 5:08 PM 2007 4:46 PM Care Teams Gate Guard Relationship Specialty Start Date End Date Shantell Queen DO [address] Ru[address] [place] [address] PCP - General Family Medicine 08/13/14 documented as of this encounter
--- OUTSIDE RECORDS SUMMARY | 2024-09-05 00:37 | External Medical Summary | Summary of Care ---
Author Name Unknown Organization [facility] Address [address] [facility] [place] [address] Phone [phone] Care Team Providers Care Poacher Wringer Operator Name Role Phone Shantell Queen DO Primary Care Provider Reason for Visit * Reason Onset Date Comments Test Results 07/04/2024 Encounter Details Date Type Department Care Team (Late st Contact Info) Description 07/04/2024 Telephone Cardiology, [facility] [address] [place] [address] Abundio Aguilar PA-C [address] [place] [id number] Test Results Allergies Active Allergy Reactions Criticality Noted Date Comments Lisinopril Medium 12/26/2018 Other reaction(s): Cough Sertraline Low 12/26/2018 Other reaction(s): DIDN'T FEEL WELL ON [id number] Tramadol High 12/26/2018 Other reaction(s): memory loss documented as of this encounter (statuses as of 07/04/2024) Medications Medication Sig Dispensed Refills Start Date End Date Status ASPIRIN EC LOW STRENGTH 81 MG PO TBECIndications:Other nonspecific abnormal cardiovascular system function study take one tablet daily 100 3 06/14/2006 Active ONETOUCH ULTRA TEST STRPIndications:DM type 2, not at goal (HCC) Use up to four times a day as directed 100 11 04/18/2008 Active isosorbide mononitrate SA (IMDUR) 60 MG [id number]:Chron ic ischemic heart disease,Old myocardial infarct,Aortocoronary bypass status,S/P [...] 02/01/2023 Active Vitamin D (Ergocalciferol) 1.25 MG (62819 UT) Oral Capsule (Drisdol) Take 1 Capsule by mouth once a week. 11/15/2023 Active Farxiga 10 MG Oral Tablet Take 1 Tablet by mouth every evening. 03/23/2024 Active Furosemide 20 MG Oral Tablet (Lasix)Indications:HT N, goal below 140/90 TAKE 1 TABLET BY MOUTH 3 DAYS WEEKLY AND DIRECTED 36 Tablet 5 05/26/2024 Active Spironolactone 25 MG Oral Tablet (Aldactone) Take 0.5 Tablets by mouth in the morning. 45 Tablet 3 05/26/2024 Active Potassium Chloride ER 10 MEQ Oral Tablet Extended ReleaseIndications:Dy slipidemia, goal LDL below 70,HTN, goal below 140/90,Chronic ischemic heart disease Take 3 Tablets by mouth 1 time for 1 dose. 3 Tablet 07/04/2024 07/05/2024 Active documented as of this encounter (statuses as of 07/04/2024) Active Problems Problem Noted Date Diagnosed Date PDR (proliferative diabetic retinopathy) 01/20/2 016 HTN, goal below 140/90 05/02/2015 Retinal [...] MYOCARDIAL INFARCT 03/21/2009 Overview: Modified by Acute [place] Protocol #5. Diabetes mellitus with background retinopathy [...] as of this encounter (statuses as of 07/04/2024) Resolved Problems Problem Noted Date Diagnosed Date [...] sites 06/14/2006 03/21/2009 Overview: Modified by Acute [place] Protocol #5. Type 2 diabetes mellitus wit h hemoglobin A1c goal of less than 7.0% 06/14/2006 06/27/2009 Overview: Per Diabetes Taxonomy. ICD-10 update of inactive term documented as of this encounter (statuses as of 07/04/2024) Immunizations Name Administration Dates Next Due COVID-19 [...] as of this encounter Miscellaneous Notes * Addendum Note - Abundio Aguilar PA-C - 07/04/2024 10:35 AM ESTAddended by: ABUNDIO AGUILAR on: 07/04/2024 10:35 AM Modules accepted: Orders * Addendum Note - Adrian Can LPN - 07/04/2024 10:34 AM ESTAddended by: ADRIAN CAN on: 07/04/2024 10:34 AM Modules accepted: Orders * Telephone Encounter - Adrian Can LPN - 07/04/2024 10:26 AM EST Pt daughter called asking for clarification. Clarified instructions, agreeable. Daughter will pick pulling machine operator potassium mike once signed and give to pt. Daughter also wanted cardiology to know, Pt saw Dr. Queen 07/03/24 she decreased telmisartan 80mg to40mg for 3 days d/t lightheadedness, per Dr. Mello note that was sent to Dr. Queen. However per daughter his BP was 154 systolic yesterday. Will request office visit note from Dr. Queen. * Telephone Encounter - Gloria Adams CMA - 07/04/2024 9:30 AM EST My g sent. Labs placed * Telephone Encounter - Gloria Adams CMA - 07/04/2024 9:28 AM EST ----- Message from Abundio Aguilar sent at 07/03/2024 5:59 PM EST ----- Potassium level is low. Recommend a one time dose of potassium chloride, 30 mEq, now Decrease furosemide back to 2 days per week (currently taking 3 days per week). Continue spironolactone at 1/2 tablet daily in the morning. Check a basic metabolic panel in 10 to 14 days. documented in this encounter Plan of Treatment Upcoming Encounters Date Type Department Care Team (Late st Contact Info) Description 07/18/2024 1:15 PM EST Office Visit Ophthalmology, [facility] [address] [place] [address] Alberto Brooks, [address] [address] 12/01/2024 11:00 AM EDT Office Visit Cardiology, [facility] [address] [place] [address] Adolfo Mello MD [address] [place] [address] Scheduled Orders Name Type Priority Associated Diagnoses Orde r Schedule BASIC METABOLIC PANEL Lab Routine DYSLIPIDEMIA, GOAL LDL BELOW 70 HTN, goal below 140/90 Chronic ischemic heart disease Expected: 07/11/2024 (Approximate), Expires: 07/04/2025 Health Maintenance Due Date Last Done Comments [...] Visit Diagnoses Diagnosis DYSLIPIDEMIA, GOAL LDL BELOW 70- Primary Other and unspecified hyperlipidemia HTN, goal below 140/90 Unspecified essential hypertension Chronic ischemic heart disease Chronic ischemic heart disease, unspecified documented in this encounter Advance Directives * Full Code (Latest Code Status on File) Date Activated Date Inactivated Comments 11/15/2007 5:08 PM 2007 4:46 PM Care Teams Poacher Wringer Operator Relationship Specialty Start Date End Date Shantell Queen DO 6 [facility] [address] [place] [address] PCP - General Family Medicine 08/13/14 documented as of this encounter
--- OUTSIDE RECORDS SUMMARY | 2024-09-05 00:37 | External Medical Summary | Summary of Care ---
Author Name Unknown Organization [facility] Address [address] [facility] [place] [address] Phone [phone] Care Team Providers Care Putty Remover Name Role Phone Shantell Queen DO Primary Care Provider Reason for Visit * Reason Onset Date Comments Test Results 07/04/2024 Encounter Details Date Type Department Care Team (Late st Contact Info) Description 07/04/2024 Telephone Cardiology, [facility] [address] [place] [address] Abundio Aguilar PA-C [address] [place] [phone] Test Results Allergies Active Allergy Reactions Criticality Noted Date Comments Lisinopril Medium 12/26/2018 Other reaction(s): Cough Sertraline Low 12/26/2018 Other reaction(s): DIDN'T FEEL WELL ON [id number] Tramadol High 12/26/2018 Other reaction(s): memory loss [...] Active isosorbide mononitrate SA (IMDUR) 60 MG [id number]:Chron ic ischemic heart disease,Old myocardial infarct,Aortocoronary bypass [...] 02/01/2023 Active Vitamin D (Ergocalciferol) 1.25 MG (94129 UT) Oral Capsule (Drisdol) Take 1 Capsule [...] 45 Tablet 3 05/26/2024 Active Potassium Chloride Sherin ER 10 MEQ Oral Tablet Extended ReleaseIndications:Dy slipidemia, goal LDL below 70,HTN, goal below 140/90,Chronic ischemic heart disease Take 3 Tablets by mouth 1 time for 1 dose. 3 Tablet 07/04/2024 07/04/2024 Active documented as of this encounter (statuses [...] Overview: Per HTN Taxonomy. Mixed dyslipidemia 02/14/2008 Overview: Per Lipid Taxonomy. DM type 2 [...] PA-C - 07/04/2024 10:35 AM ESTAddended by: ABNUDIO AGUILAR on: 07/04/2024 10:35 AM Modules accepted: Orders * Addendum Note - Adrian Can LPN - 07/04/2024 10:34 AM ESTAddended by: ADRIAN CAN on: 07/04/2024 10:34 AM Modules accepted: Orders * Telephone Encounter - Adrian Can LPN - 07/04/2024 10:26 AM EST Pt daughter called asking for clarification. Clarified instructions, agreeable. Daughter will continuous pickling line pickler potassium mike once signed and give to [...] 07/18/2024 1:15 PM EST Office Visit Ophthalmology, [facility] [address] [place] [address] Alberto Brooks, [address] [address] 12/01/2024 11:00 AM EDT Office Visit Cardiology, [facility] [address] [place] [address] Adolfo Mello MD [address] [place] [address] Scheduled Orders Name Type Priority Associated Diagnoses [...] 5:08 PM 2007 4:46 PM Care Teams Putty Remover Relationship Specialty Start Date End Date Shantell Queen DO 6 [facility] [address] [place] [address], [place] [address] PCP - General Family Medicine 08/13/14 documented as of this encounter
--- OUTSIDE RECORDS SUMMARY | 2024-09-05 00:37 | External Medical Summary | Summary of Care ---
Author Name Unknown Organization [facility] Address [address] [facility] [place] [address] Phone [phone] Care Team Providers Care Blankbook Forwarder Name Role Phone Shantell Queen DO Primary Care Provider Reason for Visit * Reason Onset Date Comments Test Results 07/04/2024 Encounter Details Date Type Department Care Team (Late st Contact Info) Description 07/04/2024 Telephone Cardiology, [facility] [address] [place] [address] Anthony Wong PA-C [address] [place] [phone] Test Results Allergies Active Allergy Reactions Criticality Noted Date Comments Lisinopril Medium 12/26/2018 Other reaction(s): Cough Sertraline Low 12/26/2018 Other reaction(s): DIDN'T FEEL WELL ON [id number] Tramadol High 12/26/2018 Other reaction(s): memory loss [...] Active isosorbide mononitrate SA (IMDUR) 60 MG [id number]:Chroni c ischemic heart disease,Old myocardial infarct,Aortocoronary bypass [...] 02/01/2023 Active Vitamin D (Ergocalciferol) 1.25 MG (28463 UT) Oral Capsule (Drisdol) Take 1 Capsule [...] MYOCARDIAL INFARCT 03/21/2009 Overview: Modified by Acute [place] Protocol #5. Diabetes mellitus with background retinopathy [...] sites 06/14/2006 03/21/2009 Overview: Modified by Acute [place] Protocol #5. Type 2 diabetes mellitus wit [...] encounter Miscellaneous Notes * Addendum Note - Adrian Can LPN - 07/04/2024 10:34 AM ESTAddended by: ADRIAN CAN on: 07/04/2024 10:34 AM Modules accepted: Orders * Telephone Encounter - Adrian Can LPN - 07/04/2024 10:26 AM EST Pt daughter called asking for clarification. Clarified instructions, agreeable. Daughter will pharmacy picking technician potassium mike once signed and give to pt. Daughter also wanted cardiology to know, Pt saw Dr. Queen 07/03/24 she decreased telmisartan 80mg to40mg for 3 days d/t lightheadedness, per Dr. Mello note that was sent to Dr. Queen. However per daughter his BP was 154 systolic yesterday. Will request office visit note from Dr. Grine. * Telephone Encounter - Gloria Adams CMA - 07/04/2024 9:30 AM EST My g sent. Labs placed * Telephone Encounter - Gloria Adams CMA - 07/04/2024 9:28 AM EST ----- Message from Anthony Wong sent at 07/03/2024 5:59 PM EST ----- [...] 07/18/2024 1:15 PM EST Office Visit Ophthalmology, [facility] [address] [address] Alberto Brooks DO [address] [address] 12/01/2024 11:00 AM EDT Office Visit Cardiology, [facility] [address] [address] Adolfo Mello MD [address] [place] [address] Scheduled Orders Name Type Priority Associated Diagnoses [...] 5:08 PM 2007 4:46 PM Care Teams Blankbook Forwarder Relationship Specialty Start Date End Date Shantell Queen DO [address] [place] [address] Dr Ruiz [address] [place] [address], [place] [address] PCP - General Family Medicine 08/13/14 documented as of this encounter
--- OUTSIDE RECORDS SUMMARY | 2024-09-05 00:37 | External Medical Summary | Summary of Care ---
Author Name Unknown Organization [facility] Address [address] [place] [address] Phone [phone] Care Team Providers Care Hub Cutter Name Role Phone Shantell Queen DO Primary Care Provider Reason for Visit * Reason Comments Outpatient Testing Encounter Details Date Type Department Care Team (Late st Contact Info) Description 06/29/2024 8:50 AM EDT Laboratory Laboratory, [place] [address] [place] [phone] [place], Laboratory [address] [place], [place] [phone] DM type 2, not at goal (HCC); [...] 12/26/2018 Other reaction(s): DIDN'T FEEL WELL ON [id number] Tramadol High 12/26/2018 Other reaction(s): memory loss [...] Active isosorbide mononitrate SA (IMDUR) 60 MG [id number]:Chroni c ischemic heart disease,Old myocardial infarct,Aortocoronary bypass [...] 02/01/2023 Active Vitamin D (Ergocalciferol) 1.25 MG (52592 UT) Oral Capsule (Drisdol) Take 1 Capsule [...] MYOCARDIAL INFARCT 03/21/2009 Overview: Modified by Acute [place] Protocol #5. Diabetes mellitus with background retinopathy [...] sites 06/14/2006 03/21/2009 Overview: Modified by Acute [place] Protocol #5. Type 2 diabetes mellitus wit [...] 07/18/2024 1:15 PM EST Office Visit Ophthalmology, [facility] [address] [address] Alberto Brooks DO [address] [address] 12/01/2024 11:00 AM EDT Office Visit Cardiology, [facility] [address] [address] Adolfo Mello MD [address] [place] [address] Pending Results Name Type Priority Associated Diagnoses [...] 5:08 PM 2007 4:46 PM Care Teams Hub Cutter Relationship Specialty Start Date End Date Shantell Queen DO [address] [place] [address] PCP - General Family Medicine 08/13/14 documented as of this encounter
--- OUTSIDE RECORDS SUMMARY | 2024-09-05 00:37 | External Medical Summary | Summary of Care ---
Author Name Unknown Organization [facility] Address [address] [facility] [place] [address] Phone [phone] Care Team Providers Care Roll Over Press Operator Name Role Phone Shantell Queen DO Primary Care Provider Reason for Visit * Reason Onset Date Comments Test Results 07/04/2024 Encounter Details Date Type Department Care Team (Late st Contact Info) Description 07/04/2024 Telephone Cardiology, [facility] [address] [place] [address] Abundio Aguilar PA-C [address] [place] [phone] Test Results Allergies Active Allergy Reactions Criticality Noted Date Comments Lisinopril Medium 12/26/2018 Other reaction(s): Cough Sertraline Low 12/26/2018 Other reaction(s): DIDN'T FEEL WELL ON [id number] Tramadol High 12/26/2018 Other reaction(s): memory loss [...] Active isosorbide mononitrate SA (IMDUR) 60 MG [id number]:Chron ic ischemic heart disease,Old myocardial infarct,Aortocoronary bypass [...] 02/01/2023 Active Vitamin D (Ergocalciferol) 1.25 MG (55880 UT) Oral Capsule (Drisdol) Take 1 Capsule [...] MYOCARDIAL INFARCT 03/21/2009 Overview: Modified by Acute [place] Protocol #5. Diabetes mellitus with background retinopathy [...] sites 06/14/2006 03/21/2009 Overview: Modified by Acute [place] Protocol #5. Type 2 diabetes mellitus wit [...] encounter Miscellaneous Notes * Telephone Encounter - Adrian Can LPN - 07/04/2024 3:[address] Queen 07/03/24 office visit note scanned to chart * Addendum Note - Aubndio Aguilar PA-C - 07/04/2024 10:35 AM ESTAddended by: ABUNDIO AGUILAR on: 07/04/2024 10:35 AM Modules accepted: Orders * Addendum Note - Adrian Can LPN - 07/04/2024 10:34 AM ESTAddended by: ADRIAN CAN on: 07/04/2024 10:34 AM Modules accepted: Orders * Telephone Encounter - Adrian Can LPN - 07/04/2024 10:26 AM EST Pt daughter called asking for clarification. Clarified instructions, agreeable. Daughter will potato picker potassium mike once signed and give to [...] 07/18/2024 1:15 PM EST Office Visit Ophthalmology, [facility] [address] [place] [address] Alberto Brooks DO [address] [place] [address] 12/01/2024 11:00 AM EDT Office Visit Cardiology, [facility] [address] [place] [address] Adolfo Mello MD [address] [place] [address] Scheduled Orders Name Type Priority Associated Diagnoses [...] 5:08 PM 2007 4:46 PM Care Teams Roll Over Press Operator Relationship Specialty Start Date End Date Shantell Queen DO 6 [facility] [address] [place] [address], [place] [address] PCP - General Family Medicine 08/13/14 documented as of this encounter
--- OUTSIDE RECORDS SUMMARY | 2024-09-05 00:37 | External Medical Summary | Summary of Care ---
Author Name Unknown Organization [facility] Address [address] [facility] [place] [address] Phone [phone] Care Team Providers Care Plate Former Name Role Phone Shantell Queen DO Primary Care Provider Reason for Visit * Reason Onset Date Comments Test Results 07/04/2024 Encounter Details Date Type Department Care Team (Late st Contact Info) Description 07/04/2024 Telephone Cardiology, [facility] [address] [place] [address] Anthony Wong PA-C [address] [place] [phone] Test Results Allergies Active Allergy Reactions Criticality Noted Date Comments Lisinopril Medium 12/26/2018 Other reaction(s): Cough Sertraline Low 12/26/2018 Other reaction(s): DIDN'T FEEL WELL ON [id number] Tramadol High 12/26/2018 Other reaction(s): memory loss [...] Active isosorbide mononitrate SA (IMDUR) 60 MG [id number]:Chroni c ischemic heart disease,Old myocardial infarct,Aortocoronary bypass [...] 02/01/2023 Active Vitamin D (Ergocalciferol) 1.25 MG (96789 UT) Oral Capsule (Drisdol) Take 1 Capsule [...] MYOCARDIAL INFARCT 03/21/2009 Overview: Modified by Acute [place] Protocol #5. Diabetes mellitus with background retinopathy [...] sites 06/14/2006 03/21/2009 Overview: Modified by Acute [place] Protocol #5. Type 2 diabetes mellitus wit [...] encounter Miscellaneous Notes * Telephone Encounter - Gloria Adams CMA [...] 07/18/2024 1:15 PM EST Office Visit Ophthalmology, [facility] [address] [place] [address] Alberto Brooks DO [address] [address] 12/01/2024 11:00 AM EDT Office Visit Cardiology, [facility] [address] [place] [address] Adolfo Mello MD [address] [place] [address] Scheduled Orders Name Type Priority Associated Diagnoses [...] 5:08 PM 2007 4:46 PM Care Teams Plate Former Relationship Specialty Start Date End Date Shantell Queen DO [address] [facility] [address] [place] [address], [place] [address] PCP - General Family Medicine 08/13/14 documented as of this encounter
--- OUTSIDE RECORDS SUMMARY | 2024-09-05 00:38 | External Medical Summary ---
Author Name Unknown Address Unknown Organization K01:[facility] [place] [address] [place] [address] Laboratory Report Ordering Provider Test Date Status DAHLIA MEDLEY 06/29/2024 09:13:00 Final Observation Date Value Abnormality Reference (Units ) Status Triglyceride 06/29/2024 09:13:00 67 <=174 ( mg/dL) Final Triglyceride Reference Range s (mg/dL):
<150 Acceptable
150-174 Borderline high
175-499 High
>=500 Very high Cholesterol 06/29/2024 09:13:00 86 <200 (mg /dL) Final Total Cholesterol Reference Ranges (mg/dL):
<200 Desirable
200-239 Borderline high
>=240 High HDL 06/29/2024 09:13:00 43 >39 (mg/dL ) Final HDL Cholesterol Reference Ra nges (mg/dL):
>=60 High (Desirable)
<50 Low (Undesirable) For Females
<40 Low (Undesirable) For Males NON-HDL CHOLESTEROL 06/29/2024 09:13:00 43 <=159 (mg/dL) Final Non-HDL Cholesterol Referenc e Range (mg/dL):
<100 Target level for high risk ASCVD patient
<130 Optimal for general population
130-159 Near optimal for general population
160-189 Borderline High
190-219 High
>=220 Very High LDL, (calculated) 06/29/2024 09:13:00 30 <= 129 (mg/dL) Final LDL Cholesterol Reference Ra nges (mg/dL):
<70 Target level for high risk ASCVD patient
<100 Optimal for general population
100-129 Near optimal for general population
130-159 Borderline high
160-189 High
>=190 Very high Performing Location [facility] [place] [address] [facility] [address]
--- OUTSIDE RECORDS SUMMARY | 2024-09-05 00:38 | External Medical Summary | Summary of Care ---
Author Name Unknown Organization [facility] Address [address] [place] [address] Phone [phone] Care Team Providers Care Loin Puller Name Role Phone Shantell Queen DO Primary Care Provider Encounter Details Date Type Department Care Team (Late st Contact Info) Description 04/03/2024 Orders Only Outcomes Research Department [address] [place] [address] Vannesa White [employer]RA [employer] Research Other*[id number] Allergies Active Allergy Reactions Criticality Noted Date Comments Lisinopril Medium 12/26/2018 Other reaction(s): Cough Sertraline Low 12/26/2018 Other reaction(s): DIDN'T FEEL WELL ON [id number] Tramadol High 12/26/2018 Other reaction(s): memory loss documented as of this encounter (statuses as of 04/03/2024) Medications Medication Sig Dispensed Refills Start Date End Date Status ASPIRIN EC LOW STRENGTH 81 MG PO TBECIndications:Other nonspecific abnormal cardiovascular system function study take one tablet daily 100 3 06/14/2006 Active OnCore Golf TechnologyTOUCH ULTRA TEST STRPIndications:DM type 2, not at goal (HCC) Use up to four times a day as directed 100 11 04/18/2008 Active isosorbide mononitrate SA (IMDUR) 60 MG [id number]:Chroni c ischemic heart disease,Old myocardial infarct,Aortocoronary bypass [...] 1 Tablet in the evening. 02/01/2023 Active Jardiance 10 MG Oral Tablet (Empagliflozin)Indicat ions:Type 2 diabetes mellitus with hemoglobin A1c goal of less than 7.0% (HCC) TAKE 1 TABLET BY MOUTH DAILY 90 Tablet 3 04/23/2023 Active Furosemide 20 MG Oral Tablet (Lasix)Indications:HTN , goal below 140/90 TAKE 1 TABLET BY MOUTH 2 DAYS WEEKLY AND DIRECTED 30 Tablet 5 10/29/2023 Active Vitamin D (Ergocalciferol) 1.25 MG (22061 UT) Oral Capsule (Drisdol) Take 1 Capsule by mouth once a week. 11/15/2023 Active documented as of this encounter (statuses as of 04/03/2024) Active Problems Problem Noted Date Diagnosed Date [...] as of this encounter (statuses as of 04/03/2024) Resolved Problems Problem Noted Date Diagnosed Date [...] as of this encounter (statuses as of 04/03/2024) Immunizations Name Administration Dates Next Due COVID-19 [...] Care Team (Late st Contact Info) Description 04/17/2024 2:15 PM EDT Office Visit Ophthalmology, [facility] [address] [place] [address] Alberto Brooks DO [address] [place] [address] 05/11/2024 2:30 PM EDT Cardiac Studies Cardiac Studies, [facility] [address] [place] [address] 05/26/2024 2:30 PM EDT Office Visit Cardiology, [facility] [address] [place] [address] Adolfo Mello MD [address] [place] [address] Scheduled Orders Name Type Priority Associated Diagnoses Orde r Schedule MYCODE SUBSEQUENT ADULT Lab Routine [employer] Research Other*[id number] Every 6 Months for 2 Occurrences starting 04/03/2024 until 04/23/2025 Health Maintenance Due Date Last Done Comments Depression Screening 1952 DTaP,Tdap,and Td Vaccines (1 - Tdap) 04/19/2008 04/18/2008 Diabetic Foot Exam 01/17/2010 01/17/2009, 0 10/18/2008 (Done elsewhere), 02/14/2008, Additional history exists COVID-19 Vaccine ( - season) 2023 08/19/2021, 12/12/2020, 11/21/2020 Diabetic Eye Exam 12/04/2023 12/03/2022, , 11/19/2021, Additional history exists Influenza Vaccine (FLU shot) (#1) 2024 07/19/2008 [...] this encounter Visit Diagnoses Diagnosis [employer] Research Other*[id number] documented in this encounter Advance Directives * Full Code (Latest Code Status on File) Date Activated Date Inactivated Comments 11/15/2007 5:08 PM 2007 4:46 PM Care Teams Loin Puller Relationship Specialty Start Date End Date Shantell Queen DO [address] [facility] [address] [place] [address], [place] [address] PCP - General Family Medicine 08/13/14 documented as of this encounter
--- OUTSIDE RECORDS SUMMARY | 2024-09-05 00:38 | External Medical Summary | Summary of Care ---
Author Name Unknown Organization [facility] Address [address] [place] [address] Phone [phone] Care Team Providers Care Fusion Juncture Grinder Name Role Phone Shantell Queen DO Primary Care Provider Encounter Details Date Type Department Care Team (Late st Contact Info) Description 06/29/2024 Orders Only Laboratory, [address] [address] Shantell Queen DO [address] [facility] [address] [address] Diabetes mellitus without complication (HCC)*; Diabetic foot ulcer (HCC); Diabetic neuropathy, type II diabetes mellitus (HCC); Peripheral vascular disease (HCC); Sebaceous cyst; Vitamin D deficiency Allergies Active Allergy Reactions Criticality Noted Date Comments Lisinopril Medium 12/26/2018 Other reaction(s): Cough Sertraline Low 12/26/2018 Other reaction(s): DIDN'T FEEL WELL ON [id number] Tramadol High 12/26/2018 Other reaction(s): memory loss documented as of this encounter (statuses as of 06/29/2024) Medications Medication Sig Dispensed Refills Start Date End Date Status ASPIRIN EC LOW STRENGTH 81 MG PO TBECIndications:Other nonspecific abnormal cardiovascular system function study take one tablet daily 100 3 06/14/2006 Active WatchGuardTOUCH ULTRA TEST STRPIndications:DM type 2, not at goal (HCC) Use up to four times a day as directed 100 11 04/18/2008 Active isosorbide mononitrate SA (IMDUR) 60 MG [id number]:Chroni c ischemic heart disease,Old myocardial infarct,Aortocoronary bypass [...] 02/01/2023 Active Vitamin D (Ergocalciferol) 1.25 MG (52677 UT) Oral Capsule (Drisdol) Take 1 Capsule [...] MYOCARDIAL INFARCT 03/21/2009 Overview: Modified by [facility] [place] Protocol #5. Diabetes mellitus with background retinopathy [...] sites 06/14/2006 03/21/2009 Overview: Modified by [facility] [place] Protocol #5. Type 2 diabetes mellitus wit [...] 07/18/2024 1:15 PM EST Office Visit Ophthalmology, [facility] [address] [place] [address] Alberto Brooks DO [address] [place] [address] 12/01/2024 11:00 AM EDT Office Visit Cardiology, [facility] [address] [place] [address] Adolfo Mello MD [address] [place] [address] Pending Results Name Type Priority Associated Diagnoses [...] Vitamin D deficiency 06/29/2024 9:13 AM EDT Scheduled Orders Name Type Priority Associated Diagnoses Orde r Schedule HEMOGLOBIN A1C Lab Routine Diabetes mellitus without complication (HCC) Diabetic foot ulcer (HCC) Diabetic neuropathy, type II diabetes mellitus (HCC) Peripheral vascular disease (HCC) Sebaceous cyst Vitamin D deficiency Expected: 06/29/2024, Expires: 06/29/2025 COMPREHENSIVE METABOLIC PANEL Lab Routine Diabetes mellitus without complication (HCC) Diabetic foot ulcer (HCC) Diabetic neuropathy, type II diabetes mellitus (HCC) Peripheral vascular disease (HCC) Sebaceous cyst Vitamin D deficiency Expected: 06/29/2024, Expires: 06/29/2025 ALBUMIN / CREATININE RATIO, URINE Lab Routine Diabetes mellitus without complication (HCC) Diabetic foot ulcer (HCC) Diabetic neuropathy, type II diabetes mellitus (HCC) Peripheral vascular disease (HCC) Sebaceous cyst Vitamin D deficiency Expected: 06/29/2024, Expires: 06/29/2025 LIPID PANEL WITHOUT DIRECT LDL Lab Routine Diabetes mellitus without complication (HCC) Diabetic foot ulcer (HCC) Diabetic neuropathy, type II diabetes mellitus (HCC) Peripheral vascular disease (HCC) Sebaceous cyst Vitamin D deficiency Expected: 06/29/2024, Expires: 06/29/2025 Health Maintenance Due Date Last Done Comments [...] as of this encounter Visit Diagnoses Diagnosis Diabetes mellitus without complication (HCC)- Primary Type II or unspecified type diabetes mellitus without mention of complication, not stated as uncontrolled Diabetic foot ulcer (HCC) Type II or unspecified type diabetes mellitus with other specified manifestations, not stated as uncontrolled Diabetic neuropathy, type II diabetes mellitus (HCC) Type II or unspecified type diabetes mellitus with neurological manifestations, not stated as uncontrolled Peripheral vascular disease (HCC) Peripheral vascular disease, unspecified Sebaceous cyst Vitamin D deficiency Unspecified vitamin D deficiency documented in this encounter Advance Directives * Full Code (Latest Code Status on File) Date Activated Date Inactivated Comments 11/15/2007 5:08 PM 2007 4:46 PM Care Teams Fusion Juncture Grinder Relationship Specialty Start Date End Date Shantell Queen DO [address] [facility] [address] [place] [address], [place] [address] PCP - General Family Medicine 08/13/14 documented as of this encounter
--- OUTSIDE RECORDS SUMMARY | 2024-09-05 00:38 | External Medical Summary | Summary of Care ---
Author Name Unknown Organization [facility] Address [address] [place] [address] Phone [phone] Care Team Providers Care Line Patroller Name Role Phone Shantell Queen DO Primary Care Provider Reason for Visit * Reason Comments Outpatient Testing Encounter Details Date Type Department Care Team (Late st Contact Info) Description 06/29/2024 8:50 AM EDT Laboratory Laboratory, [facility] [address] [place] [id number] [facility] [address], [place] [id number] DM type 2, not at goal (HCC); [...] 12/26/2018 Other reaction(s): DIDN'T FEEL WELL ON [id number] Tramadol High 12/26/2018 Other reaction(s): memory loss [...] Active isosorbide mononitrate SA (IMDUR) 60 MG [id number]:Chroni c ischemic heart disease,Old myocardial infarct,Aortocoronary bypass [...] 02/01/2023 Active Vitamin D (Ergocalciferol) 1.25 MG (99025 UT) Oral Capsule (Drisdol) Take 1 Capsule [...] MYOCARDIAL INFARCT 03/21/2009 Overview: Modified by [facility] [place] Protocol #5. Diabetes mellitus with background retinopathy [...] sites 06/14/2006 03/21/2009 Overview: Modified by [facility] [place] Protocol #5. Type 2 diabetes mellitus wit [...] 07/18/2024 1:15 PM EST Office Visit Ophthalmology, [facility] [address] [place] [address] Alberto Brooks DO [address] [place] [address] 12/01/2024 11:00 AM EDT Office Visit Cardiology, [facility] [address] [place] [place] [address] Adolfo Mello MD [address] [place] [address] Pending Results Name Type Priority Associated Diagnoses [...] 5:08 PM 2007 4:46 PM Care Teams Line Patroller Relationship Specialty Start Date End Date Shantell Queen DO [address] [place] [address] PCP - General Family Medicine 08/13/14 documented as of this encounter
--- OUTSIDE RECORDS SUMMARY | 2024-09-05 00:38 | External Medical Summary ---
Author Name Unknown Address Unknown Organization K01:[facility] [place] [address] [facility] [place] [address] Laboratory Report Ordering Provider Test Date Status DAHLIA MEDLEY 06/29/2024 09:13:00 Final Observation Date Value Abnormality Reference (Units ) Status BUN 06/29/2024 09:13:00 12 6-20 (mg/dL) Final Creatinine 06/29/2024 09:13:00 1.1 0.6-1.2 (mg/dL) Final Glomerular filtration rate/1.73 sq M.predicted [Volume Rate/Area] in Serum, Plasma or Blood by Creatinine-based formula (CKD-EPI) 06/29/2024 09:13:00 67 >=60 (mL/min) Final eGFR is calculated based on the CKD-EPI 2020 equation. Sodium 06/29/2024 09:13:00 144 135-146 (m mol/L) Final Potassium 06/29/2024 09:13:00 3.4 Below low normal 3.5 -5.1 (mmol/L) Final Cl 06/29/2024 09:13:00 106 98-107 (mm ol/L) Final CO2 06/29/2024 09:13:00 27 22-32 (mmo l/L) Final Anion gap 06/29/2024 09:13:00 11 7-15 (mmol /L) Final Glucose 06/29/2024 09:13:00 145 Above high normal 70 -120 (mg/dL) Final Albumin 06/29/2024 09:13:00 4.2 3.8-5.0 (g /dL) Final AST (Aspartate aminotransferase) 06/29/2024 09:13:00 23 10-50 (U/L) Fin al Alk Phos 06/29/2024 09:13:00 111 35-130 (U/ L) Final Bilirubin, Total 06/29/2024 09:13:00 0.8 <=1 .2 (mg/dL) Final Calcium 06/29/2024 09:13:00 9.1 8.4-10.2 ( mg/dL) Final Protein 06/29/2024 09:13:00 6.4 6.0-8.3 (g /dL) Final ALT (Alanine aminotransferase) 06/29/2024 09:13:00 21 10-50 (U/L) Solo chavez Performing Location [facility] [place] - [address] [facility] [address]
--- OUTSIDE RECORDS SUMMARY | 2024-09-05 00:38 | External Medical Summary | Summary of Care ---
Author Name Unknown Organization [facility] Address [address] [facility] [place] [address] Phone [phone] Care Team Providers Care Cuff Knitter Name Role Phone Galindo Villagomez DO Primary Care Provider Reason for Visit * Reason Comments Follow Up 6 month follow up Encounter Details Date Type Department Care Team (Late st Contact Info) Description 05/26/2024 2:30 PM EDT Office Visit Cardiology, [facility] [address] [place] [address] Adolfo Mello MD [address] [place] [id number] HTN, goal below 140/90*; Aortocoronary bypass status Allergies Active Allergy Reactions Criticality Noted Date Comments Lisinopril Medium 12/26/2018 Other reaction(s): Cough Sertraline Low 12/26/2018 Other reaction(s): DIDN'T FEEL WELL ON [id number] Tramadol High 12/26/2018 Other reaction(s): memory loss documented as of this encounter (statuses as of 05/26/2024) Medications Medication Sig Dispensed Refills Start Date End Date Status ASPIRIN EC LOW STRENGTH 81 MG PO TBECIndications:Oth er nonspecific abnormal cardiovascular system function study take one tablet daily 100 3 10/200 6 Active ONETOUCH ULTRA TEST STRPIndications:DM type 2, not at goal (HCC) Use up to four times a day as directed 100 11 8 Active isosorbide mononitrate SA (IMDUR) 60 MG [id number]:Chr onic ischemic heart disease,Old myocardial infarct,Aortocorona ry [...] 3 Active Vitamin D (Ergocalciferol) 1.25 MG (14933 UT) Oral Capsule (Drisdol) Take 1 Capsule [...] the morning. 45 Tablet 3 4 Active Jardiance 10 MG Oral Tablet (Empagliflozin)Katie cations:Type 2 diabetes mellitus with hemoglobin A1c goal of less than 7.0% (HCC) TAKE 1 TABLET BY MOUTH DAILY 90 Tablet 3 3 05/26/20 24 Discontinued(Med ication List Clean Up) Furosemide 20 MG Oral Tablet (Lasix)Indications: HTN, goal below 140/90 TAKE 1 TABLET BY MOUTH 2 DAYS WEEKLY AND DIRECTED 30 Tablet 5 4 05/26/20 24 Discontinued documented as of this encounter (statuses as of 05/26/2024) Active Problems Problem Noted Date Diagnosed Date [...] MYOCARDIAL INFARCT 03/21/2009 Overview: Modified by [facility] Protocol #5. Diabetes mellitus with background retinopathy [...] as of this encounter (statuses as of 05/26/2024) Resolved Problems Problem Noted Date Diagnosed Date [...] sites 06/14/2006 03/21/2009 Overview: Modified by [facility] Protocol #5. Type 2 diabetes mellitus wit h hemoglobin A1c goal of less than 7.0% 06/14/2006 06/27/2009 Overview: Per Diabetes Taxonomy. ICD-10 update of inactive term documented as of this encounter (statuses as of 05/26/2024) Immunizations Name Administration Dates Next Due COVID-19 mRNA, LNP-s, No Pre serve, 2-Dose Series ([facility]) 08/19/2021 Pneumococcal Polysaccharide PPV23 (Pneumovax) Seasonal Influenza, Trivalen t, (IIV3), with Preserv, (Fluzone) 07/19/2008 TD, Preservative Free 04/18/2008 Zoster Vaccine [...] on file documented as of this encounter Last Filed Vital Signs Vital Sign Reading Time Taken Comments Blood Pressure 128/64 05/26/2024 2:27 PM EDT Pulse 60 05/26/2024 2:27 PM EDT Temperature - - Respiratory Rate 16 05/26/2024 2:27 PM EDT Oxygen Saturation - - Inhaled Oxygen Concentration - - Weight 99.4 kg (219 lb 3.2 oz) 05/26/2024 2:27 P M EDT Height - - Body Mass Index - - documented in this encounter Progress Notes * Adolfo Mello MD - 05/26/2024 2:53 PM EDT December 14, 2022 Cardiology Follow Up Referring Provider: PCP: GALINDO VILLAGOMEZ [facility] Dr Ruiz [address] [place] [address] [phone] Chief Complaint: Chronic ischemic heart disease SUBJECTIVE: Carlton Lang is a 82 year old year old male with ongoing cardiac issues 1. 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 With chronic class 2 angina pectoris 2. Obstructive sleep apnea on CPAP supplementation. 3. Hyperlipidemia. 4. Diabetes mellitus with neuropathy. 5. History of cervical disk disease with cervical radiculopathy. 6. Calcific aortic valve disease with iors-ek-qpoocgzu aortic stenosis 7. Hypertension 8. Hospitalization [facility] December 27, 2018 with exertional dyspnea rest left-sided chest pain 9. Diagnostic cardiac catheterization December 28, 2018, diffuse chilkoot vessel coronary disease with patent grafts no high-grade aortic valve disease but elevated left heart pressures Patient presents in routine follow-up. He denies any cardiac complaints. Specifically denies angina, chest pains, shortness of breath, dizziness or lightheadedness. He notes diuretics for reduced slightly in a has had increasing lower extremity edema as well as abdominal girth. No acute orthopnea. Concerned regarding chronic hearing loss. No fevers chills unexplained infections. No falls or injuries. Not wearing CPAP A Complete Review of Systems is as stated above or negative. Patient Active Problem List Diagnosis S/P angioplasty Aortocoronary bypass status Degeneration of cervical intervertebral disc Reflux esophagitis Restless leg syndrome Obstructive sleep apnea syndrome Diabetic polyneuropathy (HCC) Chronic ischemic heart disease Family history of colon cancer Anemia Fracture of rib, closed Diabetes mellitus with background retinopathy ([facility]) OLD MYOCARDIAL INFARCT Type 2 diabetes mellitus with hemoglobin A1c goal of less than 7.0% ([facility]) DM TYPE 2 CAUSING RENAL DZ Acute cholecystitis DYSLIPIDEMIA, GOAL LDL BELOW 70 Retinal edema HTN, goal below 140/90 PDR (proliferative diabetic retinopathy) ([facility]) Review of patient's allergies indicates: Allergen Reactions Tramadol Other reaction(s): memory loss Lisinopril Other reaction(s): Cough Sertraline Other reaction(s): DIDN'T FEEL WELL ON [id number] Current Outpatient Medications Medication Sig Dispense Refill ASPIRIN EC LOW STRENGTH 81 MG PO TBEC take one tablet daily 100 3 isosorbide mononitrate SA (IMDUR) 60 MG TB24 TAKE 1 TABLET BY MOUTH ONCE A DAY 30 Tab 5 MetFORMIN (GLUCOPHAGE) 1000 MG Tablet Take 1 Tablet by mouth daily with breakfast. telmisartan (MICARDIS) 80 MG Tablet Take 1 Tablet by mouth in the morning. insulin glargine (LANTUS) 100 UNIT/ML SOPN Inject under the skin. atorvaSTATin (LIPITOR) 80 MG Tablet Take 1 Tablet by mouth in the morning. Metoprolol Tartrate 25 MG Oral Tablet (Lopressor) Take 1 Tablet by mouth in the morning and 1 Tablet before bedtime. Famotidine 20 MG Oral Tablet (Pepcid) Take 1 Tablet by mouth in the morning and 1 Tablet in the evening. Furosemide 20 MG Oral Tablet (Lasix) TAKE 1 TABLET BY MOUTH 2 DAYS WEEKLY AND DIRECTED 30 Tablet5 Farxiga 10 MG Oral Tablet Take 1 Tablet by mouth every evening. ONETOUCH ULTRA TEST STRP Use up to four times a day as directed 100 11 nitroglycerin (NITROSTAT) 0.[address] 1 Tablet under the tongue every 5 minutes as needed forPain, Chest. (Patient not taking: Reported on 05/26/2024) Vitamin D (Ergocalciferol) 1.25 MG (77001 UT) Oral Capsule (Drisdol) Take 1 Capsule by mouth once aweek. (Patient not taking: Reported on 05/26/2024) No current facility-administered medications for this visit. OBJECTIVE/PHYSICAL EXAMINATION: BP 128/64 | Pulse 60 | Resp 16 | Wt 99.4 kg (219 lb 3.2 oz) General: Age-appropriate male in no acute distress Head: normocephalic, no masses, lesions, tenderness or abnormalities Ears: aural canals without obstruction with direct visualization Eyes: conjunctiva are pink and non-injected, sclera clear Throat: clear Nares: without discharge Neck: supple, no adenopathy, no bruits, normal jugular venous pulse, no hepatojugular reflux, no carotid bruits Chest: normal shape and normal respiratory effort Lungs: clear to auscultation and percussion Cardiac Exam: - regular rate & rhythm, grade 2/6 systolic murmur no diastolic murmur no S3 gallop - normal S-1, normal S-2 Abdomen: abdomen soft, non-tender, no abnormal masses, no hepatosplenomegaly, no abdominal bruit, mild right femoral bruit Musculoskeletal: no gait disturbance, no joint inflammation, no deforming arthritis Extremities: 1 -2 + edema, no cyanosis, pulses intact 1/4 Neuro: grossly normal exam Data: EKG December 06, 2023 personally reviewed Normal sinus rhythm at 67 beats per minute with voltage criteria for left ventricular hypertrophy Echocardiogram May 11, 2024 The qualitative LV ejection fraction is 60-64% (normal). The LV wall thickness is mildly increased (concentric). The right ventricular systolic function is normal as assessed by tricuspid annular plane systolic excursion (TAPSE) (normal >1.7 cm). The left ventricular diastolic function is mildly abnormal (grade I). The aortic valve is moderately calcified. Moderate aortic valve stenosis is present. Peak aortic valve velocity of 3.2 m/sec There is no significant aortic regurgitation. The aortic root and proximal ascending aorta are normal sized. Carotid duplex January 05, 2018: Bilateral carotid plaque but no obstruction Lipid Panel Results: Results for orders placed or performed in visit on 03/04/20 LIPID PANEL Result Value Ref Range HOURS FASTING NOT FASTING hours Triglycerides 54 0 - 174 mg/dL Cholesterol 78 <200 mg/dL HDL Cholesterol 41 >39 mg/dL NON-HDL CHOLESTEROL 37 0 - 159 mg/dL LDL Cholesterol 26 0 - 129 mg/dL Results for orders placed or performed in visit on 08/12/23 LIPID PANEL WITH DIRECT LDL IF TG IS HIGH Result Value Ref Range Triglycerides 84 <=174 mg/dL Cholesterol 85 <200 mg/dL HDL Cholesterol 36 (L) >39 mg/dL Non-HDL Cholesterol 49 <=159 mg/dL LDL Cholesterol 32 <=129 mg/dL ASSESSMENT: 83 year old year old male with ongoing cardiac concerns 1. Chronic stable ischemic heart disease status post remote coronary bypass grafting with class 1 2functional capacity and no recent anginal symptoms. 2. Moderate nonrheumatic calcific aortic stenosis 3. Hypertension with mild orthostasis secondary to diabetic neuropathy 4. Hyperlipidemia on therapy 5. Chronic diastolic heart failure with edema and abdominal girth increase PLAN: Continue all current medical therapies as prescribed Prescription for furosemide 20 mg 3 days per week reordered with patient to take 3 days per week Spironolactone 12.5 mg added daily BMP 1 month If orthostasis worsened would reduce telmisartan DISPOSITION: Follow-up 6 months time MD Maxim Murcia [facility], [address] [place] [address] documented in this encounter Nursing Notes * Fernanda Olvera CMA - 05/26/2024 2:26 PM EDT Examination Room: 14 Name: Carlton Lang Date of : (1940). Reason for Visit: 6 month return Interim Hospitalization(s): denies Problems/Concerns: Pitting BLE edema today Chest Pain/SOB: denies [facility] Discussed: Yes [facility] is a way you can talk to your provider online through e-mail. Would you like to sign up? I can activate it for you? ALREADY ACTIVE Patient was instructed to not get up on the exam table until directed and assisted by their provider; patient is to remain seated in the chair/ wheelchair/ exam table for fall prevention and safety reasons. Patient is aware to have assistance to step down off exam table with personnel. Patient voiced full comprehension of instructions. documented in this encounter Plan of Treatment Upcoming Encounters Date Type Department Care Team (Late st Contact Info) Description 07/18/2024 1:15 PM EST Office Visit Ophthalmology, [facility] [address] [place] [address] Alberto Brooks DO [address] [facility] [place] [address] 12/01/2024 11:00 AM EDT Office Visit Cardiology, [address] [place] [address] Adolfo Mello MD [address] [place] [address] Scheduled Orders Name Type Priority Associated Diagnoses Orde r Schedule BASIC METABOLIC PANEL Lab Routine HTN, goal below 140/90 Aortocoronary bypass status Expected: 06/25/2024, Expires: 05/26/2025 Health Maintenance Due Date Last Done Comments [...] as of this encounter Visit Diagnoses Diagnosis HTN, goal below 140/90- Primary Unspecified essential hypertension 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 documented in this encounter Advance Directives * Full Code (Latest Code Status on File) Date Activated Date Inactivated Comments 11/15/2007 5:08 PM 2007 4:46 PM Care Teams Cuff Knitter Relationship Specialty Start Date End Date Galindo Villagomez DO [address] [place] [address] Dr Ruiz [address] [place] [address] PCP - General Family Medicine 08/13/14 documented as of this encounter"
--- OUTSIDE RECORDS SUMMARY | 2024-09-05 00:38 | External Medical Summary ---
Author Name Unknown Address Unknown Organization [id number]:[facility] [place] [address] [place] [address] Laboratory Report Ordering Provider Test Date Status DAHLIA MEDLEY 06/29/2024 09:13:00 Final Observation Date Value Abnormality Reference (Units ) Status HbA1C 06/29/2024 09:13:00 8.7 Above high normal 4. 0-5.6 (%) Final The use of HbA1c to monitor glycemic status is based on normal hemoglobin and HbA composition. This test should not be used in patients with abnormal hemoglobin that affects the half life of the red blood cell or the in vivo glycation rates. Glucose, estimated average 06/29/2024 09:13:00 203 Above high normal <126 (mg/dL) Solo chavez Performing Location [facility] [place] [address] [place] [address]
--- OUTSIDE RECORDS SUMMARY | 2024-09-05 00:38 | External Medical Summary | Summary of Care ---
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 associated with type 2 diabetes mellitus (HCC)* Allergies Active Allergy Reactions Criticality Noted Date Comments Lisinopril Medium 12/26/2018 Other reaction(s): Cough Sertraline Low 12/26/2018 Other reaction(s): DIDN'T FEEL WELL ON [id number] Tramadol High 12/26/2018 Other reaction(s): memory loss documented as of this encounter (statuses as of 04/17/2024) Medications Medication Sig Dispensed Refills Start Date End Date Status ASPIRIN EC LOW STRENGTH 81 MG PO TBECIndications:Other nonspecific abnormal cardiovascular system function study take one tablet daily 100 3 06/14/2006 Active [employer] ULTRA TEST STRPIndications:DM type 2, not at goal (HCC) Use up to four times a day as directed 100 11 04/18/2008 Active isosorbide mononitrate SA (IMDUR) 60 MG [id number]:Chroni c ischemic heart disease,Old myocardial infarct,Aortocoronary bypass [...] 10/29/2023 Active Vitamin D (Ergocalciferol) 1.25 MG (94959 UT) Oral Capsule (Drisdol) Take 1 Capsule by mouth once a week. 11/15/2023 Active documented as of this encounter (statuses as of 04/17/2024) Active Problems Problem Noted Date Diagnosed Date [...] MYOCARDIAL INFARCT 03/21/2009 Overview: Modified by [facility] Protocol #5. Diabetes mellitus with background retinopathy [...] as of this encounter (statuses as of 04/17/2024) Resolved Problems Problem Noted Date Diagnosed Date [...] sites 06/14/2006 03/21/2009 Overview: Modified by [facility] Protocol #5. Type 2 diabetes mellitus wit h hemoglobin A1c goal of less than 7.0% 06/14/2006 06/27/2009 Overview: Per Diabetes Taxonomy. ICD-10 update of inactive term documented as of this encounter (statuses as of 04/17/2024) Immunizations Name Administration Dates Next Due COVID-19 [...] Progress Notes * Alberto Brooks DO - 04/17/2024 2:15 PM EDT [facility] [place] Nursing Notes: Vannesa Schneider TECH 04/17/24 1423 Addendum Carlton Lang is a 83 year old year old male who presents for Quiescent PDR OU. Last Office Visit: 01/10/2024 (in office), Visit date not found (telemedicine) Patient currently states feels like there is something in both eyes, feels like I have dirt in my eyes. Does not use any form eye drops Are you diabetic? Yes. Do you check your blood sugars daily? YES. Fasting BS this mornin mg/dl. Last Hemoglobin A1C: Lab Results Component Value Date/Time HGBA1C 9.0 (H) 11/09/2023 03:05 PM HGBA1C 8.6 (H) 08/12/2023 11:52 AM HGBA1C 8.2 (H) 04/30/2023 12:25 PM HGBA1C 8.7 (H) 08/28/2020 12:29 PM HGBA1C 8.4 (H) 06/04/2020 01:08 PM HGBA1C 7.6 (H) 03/04/2020 08:28 AM OCT image(s) of both eyes acquired and filed/scanned into chart. Base Eye Exam Visual Acuity (Snellen - Linear) Right Left Dist cc 20/100 -2 20/30 -2 Dist ph cc NI Correction: Glasses Tonometry (Tonopen, 2:15 PM) Right Left Pressure 18 18 Pupils Dark Light Shape React APD Right 2 2 Round none None Left 2 2 Round Minimal None Visual George Right Left Restrictions Total superior temporal, superior nasal, inferior nasal deficiencies; Partial outer inferior temporal deficiency Partial outer superior temporal, inferior temporal, superior nasal, inferior nasal deficiencies Extraocular Movement Right Left Full, Ortho Full, Ortho Neuro/Psych Oriented x3: Yes Mood/Affect: Normal Dilation Both eyes: 0.5% Proparacaine @ 2:13 PM Dilation #2 Both eyes: 1.0% Mydriacyl, 2.5% Phenylephrine @ 2:15 PM Dilation #3 Both eyes: 1.0% Mydriacyl, 2.5% Phenylephrine @ 2:18 PM EXTERNAL: The ocular adnexae are unremarkable. SLE: Lids/Lashes: wnl OU Conjunctiva/Sclera: quiet OU Cornea: clear OU Anterior Chamber: deep and quiet OU Iris: normal OU; no NVI OU Lens: PCIOL OU Dilated fundus exam OD: vitreous: clear optic nerve: 0.1, no edema/pallor/NVD macula: +employment specialist, ERM vessels: wnl midperiphery: +PRP periphery: no RT/RD, +PRP Dilated fundus exam OS: vitreous: clear optic nerve: 0.1, regressed NVD, no edema/pallor macula: +employment specialist vessels: wnl midperiphery: +PRP; +mild traction superiorly [...] Nursing Notes * Vannesa Schneider TECH - 04/17/2024 2:06 PM EDT Carlton Lang is a 83 year old year old male who presents for Quiescent PDR OU. Last Office Visit: 01/10/2024 (in office), Visit date not found (telemedicine) Patient currently states feels like there is something in both eyes, feels like I have dirt in my eyes. Does not use any form eye drops Are you diabetic? Yes. Do you check your blood sugars daily? YES. Fasting BS this mornin mg/dl. Last Hemoglobin A1C: Lab Results Component Value Date/Time HGBA1C 9.0 (H) 11/09/2023 03:05 PM HGBA1C 8.6 (H) 08/12/2023 11:52 AM HGBA1C 8.2 (H) 04/30/2023 12:25 PM HGBA1C 8.7 (H) 08/28/2020 12:29 PM HGBA1C 8.4 (H) 06/04/2020 01:08 PM HGBA1C 7.6 (H) 03/04/2020 08:28 AM OCT image(s) of both eyes acquired and filed/scanned into chart. documented in this encounter Plan of Treatment Upcoming Encounters Date Type Department Care Team (Late st Contact Info) Description 05/11/2024 2:30 PM EDT Cardiac Studies Cardiac Studies, [address] [place] [address] 05/26/2024 2:30 PM EDT Office Visit Cardiology, [address] [place] [address] Adolfo Mello MD [address] [place] [address] 07/18/2024 1:15 PM EST Office Visit Ophthalmology, [facility] [address] [place] [address] Alberto Brooks DO [address] [place] [address] Health Maintenance Due Date Last Done Comments Depression Screening 1952 DTaP,Tdap,and Td Vaccines (1 - Tdap) 04/19/2008 04/18/2008 Diabetic Foot Exam 01/17/2010 01/17/2009, 0 10/18/2008 (Done elsewhere), 02/14/2008, Additional history exists COVID-19 Vaccine ( season) 2023 08/19/2021, 12/12/2020, 11/21/2020 Diabetic Eye [...] 5:08 PM 2007 4:46 PM Care Teams Hide And Skin Fleshing Machine Operator Relationship Specialty Start Date End Date Shantell Queen DO [facility] [address] [place] [address] PCP - General Family Medicine 08/13/14 documented as of this encounter
[2024-09-05 01:07] LABS: INR 1.1 (0.9-1.1); Prothrombin Time 11.8 Seconds (9.0-12.0)
--- NOTE | 2024-09-05 01:29 | History & Physical Report ---
Date of Service September 05, 2024 Assessment & Plan (1) CHF exacerbation: (2) GERD (gastroesophageal reflux disease): (3) Dyspnea on exertion: (4) Aortic stenosis: (5) HLD (hyperlipidemia): (6) Sleep apnea: (7) HTN (hypertension): (8) CAD (coronary artery disease): (9) H/O four vessel coronary artery bypass graft: (10) Diabetes mellitus with neuropathy: Plan 83 yo male PMHx CAD s/p quadruple CABG, T2DM on insulin, HTN, HLD, FERNANDO, GERD admitted with SOB x 3 days. #CHF exacerbation Continue diuresis with Lasix 20mg IV daily Echo ordered - last in 08/21 with normal EF and moderate Trop peaked at 180 Continue home cardiac medications #Transaminitis Unclear etiology No history of EtOH or other drug use Will check liver US Follow transaminases #T2DM Hold home meds glargine 25U BID (home dose per [facility] record) ISS #HTN continue losartan #GERD continue famotidine FENGI: heart healthy, T2DM Code status: full DVT prophylaxis: Lovenox Isolation: none Disposition: PCU History of Present Illness Primary Care Provider: Shantell Queen, DO 83 yo male PMHx CAD s/p quadruple CABG, T2DM on insulin, HTN, HLD, FERNANDO, GERD admitted with SOB x 3 days. Was seen at [facility] earlier today and told he was having a NSTEMI but did not want to be transferred to [facility] so he left AMA. He states that until recently he was in his usual state of health. He does not report any recent illness. He states that he does retain fluid in his abdomen and legs but attributes this to his "sugar" and denies a true history of CHF. His medication list would suggest otherwise. Currently he is complaining of conversational dyspnea. Denies chest pain, orthopnea, N/V/D. Does endorse that his abdomen is and legs are more swollen than usual. ED Course: EKG without signs of STEMI BP elevated since admission Received ASA 325, 20mg IV Lasix, 10mg Lopressor Trop mildly elevated - peaked at 180.4, now downtrending BMP elevated Allergies Allergy/AdvReac Type Severity Reaction Status Date / Time tramadol AdvReac Severe memory loss Unverified 02/19/23 13:00 lisinopril AdvReac Intermediate Cough Unverified 02/19/23 13:00 sertraline AdvReac Mild DIDN'T Verified 02/19/23 13:00 FEEL WELL ON [id number] Home Medications Medication Instructions Recorded Confirmed Type aspirin 81 mg tablet,delayed 81 mg PO QAM ##0 07/12/09 08/20/23 History release (Enteric Coated Aspirin) isosorbide mononitrate 60 mg 60 mg PO QAM 05/02/18 08/20/23 History tablet,extended release 24 hr metformin 1,000 mg tablet 500 mg PO BIDM 05/26/18 08/20/23 History telmisartan 80 mg tablet 80 mg PO QAM 12/26/18 08/20/23 History atorvastatin 80 mg tablet 80 mg PO DAILY #30 tabs 12/28/18 08/20/23 Rx empagliflozin 10 mg tablet 10 mg PO DAILY 10/30/22 08/20/23 History (Jardiance) famotidine 20 mg tablet 20 mg PO BID 10/30/22 08/20/23 History furosemide 20 mg tablet 20 mg PO 2XWK 08/20/23 08/20/23 History metoprolol tartrate 25 mg tablet 25 mg PO BID 08/20/23 08/20/23 History insulin glargine 100 unit/mL 35 unit (0.35 mL) subcut QAM #10 mL 08/21/23 08/20/23 Rx subcutaneous solution (Lantus U-100 Insulin) nirmatrelvir 300 mg (150 mg See Rx Instructions PO .COMPLEX 08/21/23 Rx x2)-ritonavir 100 mg tablet,dose #30 ea pack (Paxlovid) Past Med/Surg History Problem List CHF exacerbation Non-ST elevation WI (NSTEMI) (Acute) COVID-19 (Acute) History of coronary artery bypass graft (Acute) Abnormal ankle brachial index (GEOFF) (Acute) Aortic stenosis Angina of effort History of rib fracture GERD (gastroesophageal reflux disease) Chest pain (Acute) Dyspnea on exertion (Acute) Stable angina (Acute) HLD (hyperlipidemia) (Chronic) Sleep apnea (Chronic) DVT prophylaxis HTN (hypertension) (Chronic) CAD (coronary artery disease) (Chronic) 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) Diabetes mellitus with neuropathy (Chronic) Acute confusion (Acute) Acute hyperglycemia (Acute) Falls frequently (Acute) Rib fractures Diabetes H/O heart surgery Fall (Acute) Hemothorax on right (Acute) Multiple fractures of ribs of right side (Acute) Ribs, multiple fractures (Acute) Medical History Diabetic ulcer of left heel Family History Other Family history non-contributory Social History Smoking Status: Former smoker Second Hand Exposure: No; Do You Dip or Chew Tobacco: No; Hx Alcohol Use: No Hx Substance Use: No Preferred Language: Dominican Communication Ability: Unable Visual Impairment: Limited Hearing Ability: Hard of Hearing Electrical Lineworker Required: No Beliefs That Will Affect Care: None marital status: / Current Living Situation: Alone Feels Safe at Home: Yes Diet: diabetic caffeine: Yes Assistive Devices: None Review of Systems Review of Systems: reviewed, per HPI Physical Exam Physical Exam: Constitutional: well-appearing, no acute distress HEENT: NCAT, no conjunctival injection CV: regular rhythm, no murmur appreciated, extremities well-perfused, + b/l 2+ pitting edema Resp: +diminished breath sounds b/l, + mild inspiratory/expiratory wheeze b/l GI: soft, +nondistended, nontender, BS normoactive MSK: no gross deformities appreciated Skin: warm, dry, no rash appreciated Neuro: alert, oriented, no focal neurologic deficit appreciated Results & Data Results & Data Vital Signs (Past 12 Hours) Vital Signs Temp Pulse Pulse Resp BP BP Pulse Ox 09/05/24 01:00 67 18 187/88 H 98 09/05/24 00:12 67 163/128 H 09/04/24 23:45 67 178/112 H 09/04/24 23:35 64 18 96 09/04/24 23:35 64 18 196/77 H 96 09/04/24 23:35 96 09/04/24 23:04 75 09/04/24 23:02 36.6 C 70 26 H 204/101 H 99 O2 Del Method 09/05/24 01:00 Room Air 09/05/24 00:12 09/04/24 23:45 09/04/24 23:35 Room Air 09/04/24 23:35 Room Air 09/04/24 23:35 Room Air 09/04/24 23:04 09/04/24 23:02 Room Air Laboratory Results Laboratory Results WBC 10.78 K/ul (4.8-10.8) 09/04/24 23:05 RBC 4.64 M/uL (4.70-6.10) L 09/04/24 23:05 Hgb 13.7 g/dl (14.0-18.0) L 09/04/24 23:05 Hct 40.7 % (42.0-52.0) L 09/04/24 23:05 MCV 87.7 fL (80.0-100.0) 09/04/24 23:05 MCH 29.5 pg (25.0-34.0) 09/04/24 23:05 MCHC 33.7 g/dL (32.0-36.0) 09/04/24 23:05 RDW Std Deviation 46.2 fL (36.4-46.3) 09/04/24 23:05 RDW Coeff of German 14.4 % (11.5-14.5) 09/04/24 23:05 Plt Count 187 K/uL (130-400) 09/04/24 23:05 MPV 11.6 fL (9.4-12.4) 09/04/24 23:05 Immature Gran % (Auto) 0.5 % 09/04/24 23:05 Neut % (Auto) 72.7 % 09/04/24 23:05 Lymph % (Auto) 12.0 % 09/04/24 23:05 Lamar % (Auto) 13.5 % 09/04/24 23:05 Eos % (Auto) 0.8 % 09/04/24 23:05 Baso % (Auto) 0.5 % 09/04/24 23:05 Neut # (Auto) 7.84 K/uL (1.40-6.50) H 09/04/24 23:05 Lymph # (Auto) 1.29 K/uL (1.20-3.40) 09/04/24 23:05 Lamar # (Auto) 1.46 K/uL (0.11-0.59) H 09/04/24 23:05 Eos # (Auto) 0.09 K/uL (0.00-0.50) 09/04/24 23:05 Baso # (Auto) 0.05 K/uL (0.00-0.20) 09/04/24 23:05 Immature Gran # (Auto) 0.05 K/uL (0.01-0.20) 09/04/24 23:05 PT 11.8 Seconds (9.0-12.0) 09/04/24 23:05 INR 1.1 (0.9-1.1) 09/04/24 23:05 Sodium 140 mmol/L (136-145) 09/04/24 23:05 Potassium 3.7 mmol/L (3.5-5.1) 09/04/24 23:05 Chloride 104 mmol/L (98-107) 09/04/24 23:05 Carbon Dioxide 28 mmol/L (21-32) 09/04/24 23:05 Anion Gap 8 (3-11) 09/04/24 23:05 BUN 18 mg/dl (6-23) 09/04/24 23:05 Creatinine 1.05 mg/dl (0.6-1.4) 09/04/24 23:05 Est Cr Clr Drug Dosing 64.4 ml/min 09/04/24 23:05 eGFR 71.31 09/04/24 23:05 BUN/Creatinine Ratio 17.1 (10-20) 09/04/24 23:05 Glucose 195 mg/dl (70-99(Fasting)) H 09/04/24 23:05 Calcium 9.3 mg/dl (8.6-10.3) 09/04/24 23:05 Total Bilirubin 1.9 mg/dl (0.2-1.0) H 09/04/24 23:05 AST 17 U/L (13-39) 09/04/24 23:05 ALT 13 U/L (7-52) 09/04/24 23:05 Alkaline Phosphatase 110 U/L (34-104) H 09/04/24 23:05 Troponin I High Sens 156.8 pg/ml (0-20) H* 09/05/24 00:42 B-Natriuretic Peptide 612 pg/ml (0-100) H 09/04/24 23:05 Total Protein 7.5 gm/dl (6.0-8.3) 09/04/24 23:05 Albumin 4.4 gm/dl (3.4-5.0) 09/04/24 23:05 Globulin 3.1 gm/dl (2.5-4.0) 09/04/24 23:05 Albumin/Globulin Ratio 1.4 (0.9-2) 09/04/24 23:05 Lipase 5 U/L (11-82) L 09/04/24 23:05 Impressions Chest X-Ray 09/04/24 23:02 Exam(s): XR CXR 1 VIEW EXAM: XR Chest, 1 View CLINICAL HISTORY: Reason for exam: Chest pain, nonspecific. TECHNIQUE: Frontal view of the chest. COMPARISON: No relevant prior studies available. FINDINGS: Lungs: There is chronic right basilar pleural-parenchymal thickening. No segmental or lobar consolidation. Pleural space: See above. Heart: Unremarkable. No cardiomegaly. Mediastinum: Unremarkable. Normal mediastinal contour. Bones/joints: Median sternotomy wires are noted. No acute fracture. Other findings: No significant changes are noted. IMPRESSION: No acute findings in the chest. Electronically signed by: Osmin Parks MD 09/05/24 01:32 AM ECG Additional Comments: EKG with NSR at 70bpm, left axis deviation, NC=18, QRS=86, PEk=420, no acute i schemic changes Code Status & VTE Plan VTE Prophylaxis Plan VTE Prophylaxis will be ordered: Yes Supervising Physician Co-Signing Physician Notes Patient seen and examined, chart reviewed, case discussed with Dr. Neal and I agree with the assessment and plan as above. In brief, patient is an 83yo male with history of CAD presenting with dyspnea. Patient follows with [facility] - does not endorse a history of CHF, however, is on appropriate medications for CHF. On exam patient is resting comfortably, reports feeling improved Skin - no rash HEENT - MMM, Neck supple, no JVD Heart - +S1/S2, regular, 3/6 DUANE in right 2nd ICS with radiation across precordium Lungs - crackles in bilateral bases Abd - some distention, NT Ext - 2+ pitting edema Labs and images reviewed Troponin has peaked 180 -> 156.8 BNP is elevated at 612 Increased AP and Tbili Assessment/Plan - suspect CHF exacerbation, volume overload as patient's cause of dyspnea as well as elevated troponin and BNP. Diuresis as above with Lasix 20mg IV BID - caution with history of aortic stenosis Check 2D echo Check liver US to assess CBD. Repeat LFTs in AM Remainder as above Resident Activity Tracking Resident Involvement: Resident Care Provided Care Provided: Adult Hospital Medicine
--- NOTE | 2024-09-05 01:33 | XRay Report ---
Exam(s): XR CXR 1 VIEW EXAM: XR Chest, 1 View CLINICAL HISTORY: Reason for exam: Chest pain, nonspecific. TECHNIQUE: Frontal view of the chest. COMPARISON: No relevant prior studies available. FINDINGS: Lungs: There is chronic right basilar pleural-parenchymal thickening. No segmental or lobar consolidation. Pleural space: See above. Heart: Unremarkable. No cardiomegaly. Mediastinum: Unremarkable. Normal mediastinal contour. Bones/joints: Median sternotomy wires are noted. No acute fracture. Other findings: No significant changes are noted. IMPRESSION: No acute findings in the chest. Electronically signed by: Osmin Parks MD 09/05/24 01:32 AM
[2024-09-05] MEDS ORDERED: ONDANSETRON INJ 2 MG/ML 2 ML VIAL IV PRN (01:52)
[2024-09-05] MEDS ORDERED: DEXTROSE 50% 50 ML SYRINGE IV PRN (01:52)
[2024-09-05] MEDS ORDERED: GLUCOSE 10 TAB/TUBE PO PRN (01:52)
[2024-09-05] MEDS ORDERED: POLYETHYLENE (MIRALAX) 17 GM PACK PO PRN (01:52)
[2024-09-05] MEDS ORDERED: MAGNESIUM HYDROXIDE SUSP 30 ML UDC PO PRN (01:52)
[2024-09-05] MEDS ORDERED: GLUCAGON FOR INJ 1 MG VIAL SQ PRN (01:52)
[2024-09-05] MEDS ORDERED: CARBOHYDRATES FOR HYPOGLYCEMIA PO PRN (01:52)
[2024-09-05] MEDS ORDERED: ACETAMINOPHEN 325 MG TAB PO PRN (01:52)
[2024-09-05] MEDS ORDERED: GLUCOSE 40% GEL 15 GM TUBE PO PRN (01:52)
[2024-09-05] MEDS ORDERED: ALUMINUM/MAGNESIUM SUSP 30 ML UDC PO PRN (01:52)
--- NOTE | 2024-09-05 03:58 | Billing Data ---
Date of Service September 05, 2024 Coding Level of Care Code 17859 INT INP/OBS CARE
[2024-09-05 07:22] VITALS: RESP 18
--- NOTE | 2024-09-05 07:29 | Ultrasound Report ---
EXAM: US liver CLINICAL HISTORY: No surgery. TECHNIQUE: An examination of the right upper quadrant abdomen was performed in real-time and a duplex Ultrasound. COMPARISON: None. FINDINGS: The liver is normal in size. It measures 13.1 cm at the largest craniocaudal span. It demonstrates normal parenchymal echotexture. No focal or diffuse hepatic abnormality was noted. The intrahepatic biliary tree is normal with no evidence of dilatation. No gall bladder is identified. The CBD measures 0.4 cm. Pancreas is not observed. Bowel gas. The right kidney measures 11.5 x 5.9 x 5.5cm with normal echogenicity, no calculi, masses or hydronephrosis. Trace perinephric fluid seen. IMPRESSION: No acute abdominal pathology is identified. Electronically signed by Luciano Sanchez 09-05-2024 07:28 AM
[2024-09-05] MEDS: ENOXAPARIN INJ 40 MG/0.4 ML SYR SQ SCH (08:13)
[2024-09-05] MEDS: ISOSORBIDE MONO EXTENDED REL 60 MG TABCR PO SCH (08:13)
[2024-09-05] MEDS: ATORVASTATIN 40 MG TAB PO SCH (08:13)
[2024-09-05] MEDS: ASPIRIN 81 MG ECTAB PO SCH (08:14)
[2024-09-05] MEDS: METOPROLOL TARTRATE 25 MG TAB PO SCH (08:14)
[2024-09-05] MEDS: FAMOTIDINE 20 MG TAB PO SCH (08:14)
[2024-09-05] MEDS: LOSARTAN POTASSIUM 50 MG TAB PO SCH (08:14)
[2024-09-05] MEDS: FUROSEMIDE INJ 20 MG/2 ML VIAL IV SCH (08:15)
[2024-09-05] MEDS: EMPAGLIFLOZIN 10 MG TAB PO SCH (08:15)
[2024-09-05] MEDS: INSULIN ASPART PER UNIT CHARGE SC SCH (08:38)
[2024-09-05] MEDS: LANTUS PER UNIT CHARGE SQ SCH (08:39)
--- NOTE | 2024-09-05 08:59 | Electrocardiogram Report ---
Test Reason : Blood Pressure : */* mmHG Vent. Rate : 70 BPM Atrial Rate : 70 BPM P-R Int : 158 ms QRS Dur : 86 ms QT Int : 408 ms P-R-T Axes : 13 -38 105 degrees QTcB Int : 440 ms Normal sinus rhythm Left axis deviation Left ventricular hypertrophy with repolarization abnormality ( R in aVL ) Abnormal ECG When compared with ECG of 20-Aug-2023 19:06, No significant change was found Confirmed by Pj eMtz ([id number]) on 09/05/2024 8:59:18 AM Referred By: REFERRED SELF Confirmed By: Pj Metz
[2024-09-05] MEDS ORDERED: FUROSEMIDE 20 MG TAB PO SCH (09:00)
[2024-09-05 11:17] VITALS: BP 145/53; PULSE 65; TEMP 97.9; O2SAT 95
--- NOTE | 2024-09-05 13:41 | Communication Note ---
Date of Service: September 05, 2024 By CMS guidelines, a determination that the admission or continued stay is not medically necessary has been made by a member of the UR committee and a phy sician for this hospital stay, therefore a Code 44 will be completed and the Inpatient admission will be changed to outpatient.
--- NOTE | 2024-09-05 15:41 | Discharge Summary ---
Discharge Summary Date of Service September 05, 2024 Principal Dx & Hospital Course #1 = Principal Diagnosis (1) CHF exacerbation: 83-year-old with history of HFpEF and moderate aortic stenosis, CAD and prior CABG admitted with dyspnea treated for acute on chronic diastolic heart failure. He was diuresed with a few doses of IV furosemide, dyspnea resolved once he was euvolemic, repeat TTE was obtained showing no change from a year ago including normal LVEF, concentric LVH, moderate aortic stenosis, grade 2 diastolic dysfunction, normal CVP following diuretics. He had a mild high-sensitivity troponin elevation to peak of 180 which down trended, EKG unchanged showed LVH with repolarization abnormality, he was not having any chest pain. This is consistent with myocardial demand ischemia and I do not see any evidence of acute coronary syndrome I discussed his medication management with his daughter she lives quite a distance away but manages his medications with him, his friend and neighbor also assists. She reports that he had had some increased volume overload a few months ago Lasix was increased from 2 times a week to 3 times a week but he became volume depleted and lightheaded. Following that Lasix was decreased back to 2 times a week and spironolactone 12.5 mg daily was added. He denies any dietary indiscretion over the holidays and does not eat salt. He does weigh himself every day. We are going to implement a strategy of Lasix 20 mg as needed weight gain greater than 2 pounds in 1 to 2 days or greater than 4 pounds in a week. He will keep track of his weight and his daughter will have his friend/neighbor give him an extra dose of furosemide as needed otherwise we will continue his telmisartan, metoprolol, isosorbide, emplagliflozin, spironolactone at current doses can also consider increasing spironolactone to 25 mg daily, if the PRN lasix strategy is not effective he had mild bilirubin elevation to 1.6, he is status post cholecystectomy. Right upper quadrant ultrasound was unremarkable. He has no abdominal pain -elevation of bilirubin likely congestive related to heart failure He will follow up in primary care and with his wire stitcher Dr. Mello -recommend CMP on follow up (2) GERD (gastroesophageal reflux disease): (3) Dyspnea on exertion: (4) Aortic stenosis: Remains moderate, unchanged from TTE here a year ago (5) HLD (hyperlipidemia): (6) Sleep apnea: (7) HTN (hypertension): (8) CAD (coronary artery disease): Continue metoprolol, aspirin, atorvastatin (9) H/O four vessel coronary artery bypass graft: (10) Diabetes mellitus with neuropathy: Continue usual home meds Admission HPI Per Admitting Provider 83 yo male PMHx CAD s/p quadruple CABG, T2DM on insulin, HTN, HLD, FERNANDO, GERD admitted with SOB x 3 days. Was seen at [facility] earlier today and told he was having a NSTEMI but did not want to be transferred to [facility] so he left AMA. He states that until recently he was in his usual state of health. He does not report any recent illness. He states that he does retain fluid in his abdomen and legs but attributes this to his "sugar" and denies a true history of CHF. His medication list would suggest otherwise. Currently he is complaining of conversational dyspnea. Denies chest pain, orthopnea, N/V/D. Does endorse that his abdomen is and legs are more swollen than usual. ED Course: EKG without signs of STEMI BP elevated since admission Received ASA 325, 20mg IV Lasix, 10mg Lopressor Trop mildly elevated - peaked at 180.4, now downtrending BMP elevated Discharge Exam PHYSICAL EXAMINATION Last 24h vital signs reviewed, see documentation in flowsheet General: comfortable appearing, no distress HEENT: Normocephalic, atraumatic, pupils round and equal, sclerae anicteric, no conjunctival injection, moist mucus membranes Lungs: Normal respiratory effort. Clear to auscultation bilaterally. No RRW Heart: Regular rate and rhythm, systolic crescendo/decrescendo murmur. No JVD Abdomen: Soft, nontender, nondistended. Bowel sounds present. Extremities: Warm, dry, well-perfused. mild lower extremity edema. Neuro: Alert and oriented x self hospital basic situation, he is forgetful and makes some repetitive statements, face symmetric, moves 4 extremities well Psych: Normal affect and behavior Discharge Plan Discharge Items Patient Disposition: Home - Self-Care Reason For Visit: DYSPNEA Discharge Diagnosis: Acute on chronic HFpEF, moderate to severe aortic stenosis Activity: Resume your previous activity Non-emergency contact: Primary Care Provider and Management Consulting Call non-emergency contact if: you have any medication questions and your sy mptoms worsen Follow-up/Referrals: Shantell Queen DO [Primary Care Provider] - 09/11/24 10:45 am (Hospital follow up appt with Meghan Queen on 09/11/24 at 10:45 at [facility]) Adolfo Mello MD [Physician] - Diet: Carb Consistent or DM2 and Low Sodium (2gm) Fluids: 1800ml (7 cups) Addtl Attending Provider Instructions: You were treated for heart failure exacerbation - fluid overload that affects your breathing The CHF exacerbation caused increase strain on your heart muscle, we call this type 2 NSTEMI - this is different from heart attack from a blocked coronary Echo (heart ultrasound) was reassuring - no changes compared to a year ago -continue your usual furosemide (AKA lasix) 2x a week, and we added an "as neede d" dose: -weigh yourself every morning on a bathroom scale and keep a log if you gain 3 pounds or more in 1-2 days or 5 pounds or more in a week, that's water weight. Take an extra dose of furosemide and call your doctor if you're needing more than two extra doses in a week or your symptoms are getting worse (like shortness of breath or leg swelling) -avoid eating too much salt or drinking too much water, that will cause your heart failure to be worse Follow up with Dr. Queen and have your labs checked (CMP / chemistry panel with liver function tests), follow up with Dr. Mello in early November as scheduled - if you call his office and tell them you were in the hospital he may be able to get you in sooner It was a pleasure taking care of you in the hospital, Cheyanne Olivera MD Addtl Funeral Arranger Provider Instructions: Call your Primary Care doctor if any of the following symptoms or problems start or get worse: * Shortness of breath or difficulty breathing * Wake up at night short of breath * Chest pain * Cough * Swelling of your hands, feet, or legs * More fatigued or tired with your normal activity * Palpitations - sudden fast heart beats WEIGHT * Weigh yourself every morning after using the bathroom. * Use the same scale. * Wear the same amount of clothing. * Write your weight down on a chart. * Call your Primary Care doctor if you gain more than 2-3 pounds in 1-2 days. MEDICATIONS * Use this discharge instruction sheet for medication instructions. * Take your medications at the time your doctor ordered. * Do not skip a dose of your medicines. * If you miss a dose of medicine, take it as soon as possible * Read your medicine information when you get home. * Know all of the side effects of your medicine. If in doubt, ask your pharmacist * Call your Primary Care doctor's office if you have any side effects. * Be sure all of your doctors know what medicine and herbs you take (including cold, flu, and herbal medicine). Take the following with you to your follow-up doctor appointments: * Weight Chart * Medication List * List of questions Do not drink excessive alcohol, beer or wine. Pending Studies at Discharge: No Stand-Alone Forms: [facility] Cess[facility] Medications and DC Order Prescriptions: New furosemide 20 mg tablet 20 mg PO DAILY PRN (Reason: weight gain >2 pounds/1-2 days or >4 pounds/week) Qty: 30 0RF Continued Jardiance 10 mg tablet 10 mg PO DAILY famotidine 20 mg tablet 20 mg PO BID aspirin [Enteric Coated Aspirin] 81 mg Tablet,Delayed Release (Dr/Ec) 81 mg PO QAM Qty: 0 isosorbide mononitrate 60 mg Tablet Extended Release 24 Hr 60 mg PO QAM metformin 1,000 mg tablet 500 mg PO BIDM telmisartan 80 mg Tablet 80 mg PO QAM atorvastatin 80 mg tablet 80 mg PO DAILY Qty: 30 0RF metoprolol tartrate 25 mg tablet 25 mg PO BID furosemide 20 mg tablet 20 mg PO 2XWK insulin glargine [Lantus U-100 Insulin] 100 unit/mL Solution 35 unit SUBCUT QAM Qty: 10 0RF Rx Instructions: and 15 units qPM Discontinued Paxlovid 300 mg (150 mg x 2)-100 mg tablets,dose pack See Rx Instructions .ROUTE .COMPLEX Qty: 30 0RF Rx Instructions: take TWO 150 mg tablets of nirmatrelvir with ONE 100 mg tablet of ritonavir twice daily for 5 days Discharge Orders: Discharge Order (Routine); Ordered 09/05/24 Ordered By: Cheyanne Olivera Admission Data Admit Date/Time: 09/05/24 01:19 Attending Provider: Cheyanne Olivera Admit Provider: Semaj Neal Primary Care Provider: Shantell Queen Other Providers: Melissa Mann Other Interventions: Discharge Summary Assessment (RN) Last Done: 09/05/24 13:47 Hospital Stay Data Consultations 09/05/24 00:01 ED Decision to Admit Stat Diagnostic Imagining Performed 09/05/24 02:46 US liver Stat Pending Results Patient Have Any Pending Studies at Discharge: No Discharge Instructions Given to Patient (Per Discharging Provider) You were treated for heart failure exacerbation - fluid overload that affects your breathing The CHF exacerbation caused increase strain on your heart muscle, we call this type 2 NSTEMI - this is different from heart attack from a blocked coronary Echo (heart ultrasound) was reassuring - no changes compared to a year ago -continue your usual furosemide (AKA lasix) 2x a week, and we added an "as needed" dose: -weigh yourself every morning on a bathroom scale and keep a log if you gain 3 pounds or more in 1-2 days or 5 pounds or more in a week, that's water weight. Take an extra dose of furosemide and call your doctor if you're needing more than two extra doses in a week or your symptoms are getting worse (like shortness of breath or leg swelling) -avoid eating too much salt or drinking too much water, that will cause your heart failure to be worse Follow up with Dr. Queen and have your labs checked (CMP / chemistry panel with liver function tests), follow up with Dr. Mello in early November as scheduled - if you call his office and tell them you were in the hospital he may be able to get you in sooner It was a pleasure taking care of you in the hospital, Cheyanne Olivera MD Total Time Total Time Spent Total Time Spent (In Minutes): I personally spent: 55 minutes today on clinical care activities including: reviewing chart notes and vital signs reviewing labs reviewing studies examining and counseling the patient counseling the patient's family writing orders writing prescriptions, discharge instructions documentation Coding Level of Care Code 07291 INP/OBS DISCH >30 MIN Diagnoses CHF exacerbation I50.9 GERD (gastroesophageal reflux disease) K21.9 Dyspnea on exertion R06.09 Aortic stenosis I35.0 HLD (hyperlipidemia) E78.5 Sleep apnea G47.30 HTN (hypertension) I10 CAD (coronary artery disease) I25.10 H/O four vessel coronary artery bypass graft Z95.1 Diabetes mellitus with neuropathy E11.40
== END 2024-09-05 15:06 | disposition home or self-care (01) | DRG 291 ==
LOC: ED 22:53 → SUATTDRO 09-05 01:19 → EDINP 09-05 01:19 → INTOOBSV 09-05 01:19 → 4W 09-05 01:52

== ENCOUNTER 2025-07-24 16:40 | Inpatient (IN) ==
--- NOTE | 2025-07-24 17:20 | Emergency Department Note ---
Impression & Plan Cellulitis, Osteomyelitis, Leukocytosis, Anemia, Acute hyperglycemia ED Provider Note NAME: KIRA LITTLEJOHN Sr AGE: 84 SEX: M : 1940 ARRIVES VIA: Walk-In INFORMANT: [Patient][daughter] ED PROVIDER(S): [Dustin Montague MD] CHIEF COMPLAINT: Infection HISTORY OF PRESENT ILLNESS: The patient is an 84-year-old male who has had some issues with his right foot for about 3 weeks. Today, his daughter saw the foot and it looked red and warm and swollen. The patient went to his doctor's office and was referred to the ED for IV antibiotic therapy. Patient does have diabetes as well as neuropathy. He states that his feet are often dry and cracked. The patient has not had fever, no cough or cold or congestion. No chills. No abdominal pain. He has had infection in the other foot, the right foot has never been diagnosed with cellulitis. He is not currently on antibiotics. PMHx/PSHx/Social Hx: See Below PHYSICAL EXAM: GENERAL: Patient is in no acute distress. HEENT: No acute trauma, normocephalic atraumatic, mucous membranes moist, no nasal congestion. NECK: No stridor, no adenopathy, no meningismus, trachea is midline. LUNGS: Clear to auscultation bilaterally, no wheeze, no rhonchi, breath sounds equal. HEART: 3/6 systolic murmur, regular rate and rhythm. ABDOMEN: Soft, nontender, no peritonitis. EXTREMITIES: No cyanosis. The patient has some swelling of the right lower extremity compared to the left. There is erythema of the right toes, right midfoot and some warmth to the right distal isbell. There are open lesions about the right foot consistent with skin cracking although, there is no drainage. NEUROLOGIC: Oriented x 3, no acute motor or sensory deficits, no focal weakness. SKIN: No jaundice, no diaphoresis. DIFFERENTIAL DIAGNOSIS: Cellulitis, osteomyelitis, bacteremia, among others. EMERGENCY DEPARTMENT PROCEDURES: MEDICAL DECISION MAKING: There is a mild leukocytosis, this could be consistent with infection. There was a mild anemia however, this has been documented before. There was a normal platelet count. No coagulopathy. No renal failure. The patient was hyperglycemic though with an initial sugar of 322. There was no worrisome liver enzyme elevation. ECG showed a sinus rhythm, no ischemia or dysrhythmia. Cardiac enzyme testing x 1 was not consistent with acute cardiac injury. Urinalysis did not show findings of infection. Right foot CT shows cellulitis and potential early osteomyelitis. Right lower extremity ultrasound did not show findings of DVT. Chest x-ray did not show pneumonia or CHF. On exam, the patient had an obvious right lower extremity cellulitis with some right leg swelling. He was not febrile or toxic. Patient was given IV saline for hydration, he received 500 cc. He was given IV cefepime for antibiotic coverage, he received IV insulin for his high blood sugar. The patient is diabetic with neuropathy. He has cellulitis with a potential osteomyelitis. He is hyperglycemic with an elevated white blood cell count. Admission is warranted. I spoke with the patient and case management. The on-call hospitalist was consulted. Prior/Outside records/notes reviewed: Today's outpatient note describing his presentation, findings and the need for an ED referral. ECG per my interpretation: Indication was possible sepsis. The ECG shows a sinus rhythm with PACs. The rate is 67. There is LVH present. There is no acute ST elevation, no PVCs. The QTc is 445. Continuous Cardiac Monitoring per my interpretation: An order was placed for continuous cardiac monitoring. The monitor shows a rate of 69 with normal sinus rhythm. Imaging/x-ray results per my interpretation: Chest x-ray shows old right rib fractures. No pneumonia or CHF. Chronic Medical/Social conditions affecting care: Advanced age. History of neuropathy and diabetes. Care/Management discussed with: Case management, the on-call hospitalist. Level of care consideration(s): After review of the information above and other included data: --I believe the patient requires escalation of care to admission DISPOSITION: Admission Past Med/Surg History Problem List Type 2 diabetes mellitus Cellulitis of right foot Acute hyperglycemia (Acute) Anemia (Acute) Leukocytosis (Acute) Osteomyelitis (Acute) Cellulitis (Acute) CHF exacerbation (Acute) Non-ST elevation MS (NSTEMI) (Acute) COVID-19 (Acute) History of coronary artery bypass graft (Acute) Abnormal ankle brachial index (GEOFF) (Acute) Aortic stenosis Angina of effort History of rib fracture GERD (gastroesophageal reflux disease) Chest pain (Acute) Dyspnea on exertion (Acute) Stable angina (Acute) HLD (hyperlipidemia) (Chronic) Sleep apnea (Chronic) DVT prophylaxis HTN (hypertension) (Chronic) CAD (coronary artery disease) (Chronic) 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) Diabetes mellitus with neuropathy (Chronic) Acute confusion (Acute) Acute hyperglycemia (Acute) Falls frequently (Acute) Rib fractures Diabetes H/O heart surgery Fall (Acute) Hemothorax on right (Acute) Multiple fractures of ribs of right side (Acute) Ribs, multiple fractures (Acute) Medical History Diabetic ulcer of left heel Family History Other Family history non-contributory Social History Smoking Status: Never smoker Second Hand Exposure: No; Do You Dip or Chew Tobacco: No; Hx Alcohol Use: No Hx Substance Use: No Preferred Language: Libyan Communication Ability: Effective Visual Impairment: Limited Hearing Ability: Hard of Hearing [employer] Required: No Beliefs That Will Affect Care: None marital status: / Current Living Situation: Alone Feels Safe at Home: Yes Diet: diabetic caffeine: Yes Assistive Devices: None Allergies Allergies Allergy/AdvReac Type Severity Reaction Status Date / Time tramadol AdvReac Severe memory loss Unverified 09/11/24 14:37 lisinopril AdvReac Intermediate Cough Unverified 09/11/24 14:37 sertraline AdvReac Mild DIDN'T Verified 09/11/24 14:37 FEEL WELL ON [id number] Home Meds Home Medications Medication Instructions Recorded Confirmed aspirin 81 mg tablet,delayed 81 mg PO REPLACED BY [facility] ##0 07/12/09 07/24/25 release (Enteric Coated Aspirin) isosorbide mononitrate 60 mg 60 mg PO QAM 05/02/18 07/24/25 tablet,extended release 24 hr metformin 1,000 mg tablet 1,000 mg PO QAM 05/26/18 07/24/25 famotidine 20 mg tablet 20 mg PO BID 10/30/22 07/24/25 furosemide 20 mg tablet 20 mg PO [id number] 08/20/23 07/24/25 metoprolol tartrate 25 mg tablet 25 mg PO BID 08/20/23 07/24/25 atorvastatin 80 mg tablet 80 mg PO QDD 09/11/24 07/24/25 dapagliflozin propanediol 10 mg 5 mg PO QAM 09/11/24 07/24/25 tablet (Farxiga) insulin glargine 100 unit/mL 30 unit subcut BID 09/11/24 07/24/25 subcutaneous solution (Lantus U-100 Insulin) spironolactone 25 mg tablet 12.5 mg PO QAM 09/11/24 07/24/25 telmisartan 40 mg tablet 40 mg PO HS 09/11/24 07/24/25 Previous Rx's Medication Instructions Recorded furosemide 20 mg tablet 20 mg PO DAILY PRN weight gain >2 09/05/24 pounds/1-2 days or >4 pounds/week #30 tabs meclizine 12.5 mg tablet 12.5 mg PO TID PRN dizziness #20 05/27/25 tabs ondansetron 4 mg disintegrating 4 mg PO Q8H PRN nausea and 05/27/25 tablet vomiting #30 tabs Results & Data (ED) Vital Signs Vital Signs - 24 hr 07/24/25 16:55 07/24/25 17:00 07/24/25 17:24 Temperature 36.5 C Temperature Source Skin Pulse Rate 69 Pulse Rate [Right Finger] 65 89 Respiratory Rate 20 20 18 Blood Pressure 156/67 H Blood Pressure [Left Arm] 159/89 H 140/86 Blood Pressure Mean 96 Blood Pressure Mean [Left Arm] 112 104 Pulse Oximetry 98 98 96 Oxygen Delivery Method Room Air Room Air Sepsis Recent Fever Within 48 Hours No Sepsis New/Unexplained Change in Mental Status N/A Sepsis Action Taken by Nursing No Action Required 07/24/25 17:24 07/24/25 17:30 07/24/25 18:00 Temperature Temperature Source Pulse Rate 89 Pulse Rate [Right Finger] 74 68 Respiratory Rate 20 20 20 Blood Pressure Blood Pressure [Left Arm] 140/66 148/59 H Blood Pressure Mean Blood Pressure Mean [Left Arm] 90 88 Pulse Oximetry 96 97 98 Oxygen Delivery Method Room Air Room Air Room Air Sepsis Recent Fever Within 48 Hours Sepsis New/Unexplained Change in Mental Status Sepsis Action Taken by Nursing 07/24/25 18:30 07/24/25 19:15 07/24/25 20:30 Temperature Temperature Source Pulse Rate Pulse Rate [Right Finger] 69 67 67 Respiratory Rate 20 18 18 Blood Pressure Blood Pressure [Left Arm] 139/62 154/66 H 175/77 H Blood Pressure Mean Blood Pressure Mean [Left Arm] 87 95 109 Pulse Oximetry 98 98 96 Oxygen Delivery Method Room Air Room Air Room Air Sepsis Recent Fever Within 48 Hours Sepsis New/Unexplained Change in Mental Status Sepsis Action Taken by Nursing 07/24/25 20:34 Temperature Temperature Source Pulse Rate 68 Pulse Rate [Right Finger] Respiratory Rate Blood Pressure Blood Pressure [Left Arm] Blood Pressure Mean Blood Pressure Mean [Left Arm] Pulse Oximetry Oxygen Delivery Method Sepsis Recent Fever Within 48 Hours Sepsis New/Unexplained Change in Mental Status Sepsis Action Taken by Long Term Medications Current Medication List: was personally reviewed by me Laboratory Data Attestation: I reviewed the patient's lab results. 07/24/25 17:20 07/24/25 17:20 Lab Results 07/24/25 07/24/25 07/24/25 Range/Units 17:20 17:27 19:21 WBC 10.97 H (4.8-10.8) K/ul RBC 3.96 L (4.70-6.10) M/uL Hgb 11.6 L (14.0-18.0) g/dL Hct 34.8 L (42.0-52.0) % MCV 87.9 (80.0-100.0) fL MCH 29.3 (25.0-34.0) pg MCHC 33.3 (32.0-36.0) g/dL RDW Std Deviation 41.7 (36.4-46.3) fL RDW Coeff of German 13.0 (11.5-14.5) % Plt Count 231 (130-400) K/uL MPV 11.1 (9.4-12.4) fL Immature Gran % (Auto) 0.4 % Neut % (Auto) 77.2 % Lymph % (Auto) 10.6 % Gaines % (Auto) 10.0 % Eos % (Auto) 1.4 % Baso % (Auto) 0.4 % Neut # (Auto) 8.48 H (1.40-6.50) K/uL Lymph # (Auto) 1.16 L (1.20-3.40) K/uL Gaines # (Auto) 1.10 H (0.11-0.59) K/uL Eos # (Auto) 0.15 (0.00-0.50) K/uL Baso # (Auto) 0.04 (0.00-0.20) K/uL Immature Gran # (Auto) 0.04 (0.01-0.20) K/uL PT 10.9 (9.0-12.0) Seconds INR 1.0 (0.9-1.1) APTT 29 (21-31) Seconds PTT Ratio 1.1 Sodium 139 (136-145) mmol/L Potassium 4.1 (3.5-5.1) mmol/L Chloride 103 (98-107) mmol/L Carbon Dioxide 27 (21-32) mmol/L Anion Gap 9 (3-11) BUN 20 (6-23) mg/dl Creatinine 1.26 (0.6-1.4) mg/dl Est Cr Clr Drug Dosing 50.2 ml/min eGFR 56.94 BUN/Creatinine Ratio 15.9 (10-20) Glucose 322 H* (70-99(Fasting)) mg/dl POC Glucose 145 H (70-99) mg/dl Lactate 1.7 (0.4-2.0) mmol/L Uric Acid 6.1 (2.6-7.2) mg/dl Calcium 8.7 (8.6-10.3) mg/dl Magnesium 1.8 (1.7-2.4) mg/dl Total Bilirubin 0.6 (0.2-1.0) mg/dl Direct Bilirubin 0.1 (0-0.2) mg/dl AST 13 (13-39) U/L ALT 12 (7-52) U/L Alkaline Phosphatase 125 H (34-104) U/L Troponin I High Sens 10.1 (0-20) pg/ml Total Protein 7.1 (6.0-8.3) gm/dl Albumin 4.1 (3.4-5.0) gm/dl Procalcitonin 0.05 (0-0.5) ng/ml Urine Color Urine Appearance (Clear) Urine pH (4.5-7.5) Ur Specific [place] (1.000-1.030) Urine Protein (Negative) Urine Glucose (UA) (Negative) Urine Ketones (Negative) Urine Blood (Negative) Urine Nitrite (Negative) Urine Bilirubin (Negative) Urine Urobilinogen (Negative) Ur Leukocyte Esterase (Negative) Urine Comment 07/24/25 Range/Units 21:17 WBC (4.8-10.8) K/ul RBC (4.70-6.10) M/uL Hgb (14.0-18.0) g/dL Hct (42.0-52.0) % MCV (80.0-100.0) fL MCH (25.0-34.0) pg MCHC (32.0-36.0) g/dL RDW Std Deviation (36.4-46.3) fL RDW Coeff of German (11.5-14.5) % Plt Count (130-400) K/uL MPV (9.4-12.4) fL Immature Gran % (Auto) % Neut % (Auto) % Lymph % (Auto) % Gaines % (Auto) % Eos % (Auto) % Baso % (Auto) % Neut # (Auto) (1.40-6.50) K/uL Lymph # (Auto) (1.20-3.40) K/uL Gaines # (Auto) (0.11-0.59) K/uL Eos # (Auto) (0.00-0.50) K/uL Baso # (Auto) (0.00-0.20) K/uL Immature Gran # (Auto) (0.01-0.20) K/uL PT (9.0-12.0) Seconds INR (0.9-1.1) APTT (21-31) Seconds PTT Ratio Sodium (136-145) mmol/L Potassium (3.5-5.1) mmol/L Chloride (98-107) mmol/L Carbon Dioxide (21-32) mmol/L Anion Gap (3-11) BUN (6-23) mg/dl Creatinine (0.6-1.4) mg/dl Est Cr Clr Drug Dosing ml/min eGFR BUN/Creatinine Ratio (10-20) Glucose (70-99(Fasting)) mg/dl POC Glucose (70-99) mg/dl Lactate (0.4-2.0) mmol/L Uric Acid (2.6-7.2) mg/dl Calcium (8.6-10.3) mg/dl Magnesium (1.7-2.4) mg/dl Total Bilirubin (0.2-1.0) mg/dl Direct Bilirubin (0-0.2) mg/dl AST (13-39) U/L ALT (7-52) U/L Alkaline Phosphatase (34-104) U/L Troponin I High Sens (0-20) pg/ml Total Protein (6.0-8.3) gm/dl Albumin (3.4-5.0) gm/dl Procalcitonin (0-0.5) ng/ml Urine Color Yellow Urine Appearance Clear (Clear) Urine pH 5.5 (4.5-7.5) Ur Specific [place] 1.042 H (1.000-1.030) Urine Protein Negative (Negative) Urine Glucose (UA) 3+ H (Negative) Urine Ketones Negative (Negative) Urine Blood Negative (Negative) Urine Nitrite Negative (Negative) Urine Bilirubin Negative (Negative) Urine Urobilinogen Negative (Negative) Ur Leukocyte Esterase Negative (Negative) Urine Comment Administered Medications Discontinued Medications Sodium Chloride (Nss) 500 mls @ 999 mls/hr IV .Q31M JAS Stop: 07/24/25 17:45 Last Infusion: 07/24/25 18:46 Dose: Infused Documented By: [id number] Admin: 07/24/25 17:35 Dose: 999 mls/hr Documented By: [id number] Cefepime HCl (Maxipime 2000mg) 2,000 mg in 20 mls @ 5 mls/min IV NOW STA; Protocol Stop: 07/24/25 17:19 Last Admin: 07/24/25 17:35 Dose: 5 mls/min Documented By: [id number] Vancomycin HCl 2,000 mg/ (Sodium Chloride) 540 mls @ 200 mls/hr IV ONE ONE Stop: 07/24/25 23:41 Last Admin: 07/24/25 21:15 Dose: 200 mls/hr Documented By: [id number] Insulin Human Regular (Novolin-R Insulin Per Unit Charge) 6 units IV NOW STA Stop: 07/24/25 18:28 Last Admin: 07/24/25 18:43 Dose: 6 units Documented By: [id number] Co-signed By: RAMAN Ioversol (Optiray 320 100ml) 94 ml IV ONCE ONE Stop: 07/24/25 18:57 Last Admin: 07/24/25 18:57 Dose: 94 ml Documented By: [email or web address] Imaging Data Radiologist's Impression: Chest X-Ray 07/24/25 17:09 Clinical History: Sepsis Technique: 2 frontal views of the chest were obtained Findings: There are no confluent pulmonary infiltrates. The heart size is within normal limits. No pleural effusion or pneumothorax is seen. There is no definite pulmonary nodule. There are old healed right rib fractures. Sternal wires are present Impression: No active disease Electronically signed by Emil Crocker 07-24-2025 6:[address] 07/24/25 17:16 CT RIGHT FOOT WITH CONTRAST: HISTORY: Pain TECHNIQUE: CT of the right foot was obtained with intravenous contrast. Coronal and sagittal reformats were created. IV CONTRAST: 100 mL of OMNIPAQUE 300 COMPARISON: None FINDINGS: No acute fracture is identified. Generalized soft tissue swelling to the right foot with subcutaneous edema without a drainable/organized fluid collection identified. There is a more pronounced inflammatory changes surrounding the hallux. Subtle erosive changes are suggested along the plantar surface of the distal phalanx of the hallux (for example series 2, image 68). IMPRESSION: Generalized soft tissue swelling to the right foot with subcutaneous edema without a drainable/organized fluid collection identified. Subtle erosive changes are suggested along the plantar surface of the distal phalanx of the hallux abutting a more focal inflammatory changes of the soft tissues. Early osteomyelitis could be a consideration. Electronically signed by Duane Shabazz 07-24-2025 8:06 PM Venous Doppler Study 07/24/25 17:25 Lower extremity ultrasound Technique: Grayscale and color Doppler ultrasound images of the right lower extremity No comparison Findings: Venous structures are fully compressible with normal color flow and augmentation. Impression No DVT Electronically signed by Javid Crawford 07-24-2025 8:21 PM Discharge Plan Visit Data Chief Complaint: Infection Stated Complaint: RT FOOT, INFXN, REF BY , NEEDS IV ABX ED Provider: Dustin Montague Discharge Problem: Cellulitis, Osteomyelitis, Leukocytosis, Anemia, Acute hyperglycemia Patient Disposition: Admitted As Inpatient Condition: Fair Discharge Instructions Interventions: ED Discharge Assessment Last Done: 07/24/25 22:04 Discharge Problem: Cellulitis Qualifiers: Site of cellulitis: extremity Site of cellulitis of extremity: lower extremity Laterality: right Qualified Code(s): L03.115 - Cellulitis of right lower limb Osteomyelitis Qualifiers: Osteomyelitis type: unspecified type Osteomyelitis location: foot Laterality: r ight Qualified Code(s): M86.9 - Osteomyelitis, unspecified Leukocytosis Qualifiers: Leukocytosis type: unspecified Qualified Code(s): D72.829 - Elevated white blood cell count, unspecified Anemia Qualifiers: Anemia type: unspecified type Qualified Code(s): D64.9 - Anemia, unspecified
[2025-07-24] MEDS: CEFEPIME 2000MG 2,000 MG/20 ML SYR IV STA (17:35)
[2025-07-24] MEDS: SODIUM CHLORIDE 0.9% 500 ML IV SCH (17:35)
[2025-07-24 17:43] LABS: Hematocrit (blood only) 34.8 % (42.0-52.0); Hemoglobin 11.6 g/dL (14.0-18.0); Immature Granulocytes # (auto) 0.04 K/uL (0.01-0.20); Immature Granulocytes % (auto) 0.4 %; Mean Corpuscular Hemoglobin 29.3 pg (25.0-34.0); Mean Corpuscular Volume 87.9 fL (80.0-100.0); Platelet Count 231 K/uL (130-400); RDW Standard Deviation 41.7 fL (36.4-46.3); Red Blood Count 3.96 M/uL (4.70-6.10); White Blood Count 10.97 K/ul (4.8-10.8)
[2025-07-24 18:12] LABS: Alanine Aminotransferase 12.0 U/L (7-52); Albumin Level 4.1 gm/dl (3.4-5.0); Alkaline Phosphatase 125.0 U/L (34-104); Anion Gap 9.0 (3-11); Bilirubin,Total 0.6 mg/dl (0.2-1.0); Blood Urea Nitrogen 20.0 mg/dl (6-23); Calcium 8.7 mg/dl (8.6-10.3); Carbon Dioxide 27.0 mmol/L (21-32); Chloride 103.0 mmol/L (98-107); Creatinine Clr Calc Pharmacy 50.2 ml/min; Glucose 322.0 mg/dl (70-99(Fasting)); INR 1.0 (0.9-1.1); Magnesium 1.8 mg/dl (1.7-2.4); Partial Thromboplastin Time 29 Seconds (21-31); Potassium 4.1 mmol/L (3.5-5.1); Prothrombin Time 10.9 Seconds (9.0-12.0); Sodium 139.0 mmol/L (136-145); Total Protein 7.1 gm/dl (6.0-8.3)
--- NOTE | 2025-07-24 18:21 | XRay Report ---
Clinical History: Sepsis Technique: 2 frontal views of the chest were obtained Findings: There are no confluent pulmonary infiltrates. The heart size is within normal limits. No pleural effusion or pneumothorax is seen. There is no definite pulmonary nodule. There are old healed right rib fractures. Sternal wires are present Impression: No active disease Electronically signed by Emil Crocker 07-24-2025 6:21 PM
[2025-07-24] MEDS: NovoLIN-R INSULIN PER UNIT CHARGE IV STA (18:43)
[2025-07-24] MEDS: OPTIRAY 320 100ml IV ONE (18:57)
--- NOTE | 2025-07-24 20:06 | CT Scan Report ---
CT RIGHT FOOT WITH CONTRAST: HISTORY: Pain TECHNIQUE: CT of the right foot was obtained with intravenous contrast. Coronal and sagittal reformats were created. IV CONTRAST: 100 mL of OMNIPAQUE 300 COMPARISON: None FINDINGS: No acute fracture is identified. Generalized soft tissue swelling to the right foot with subcutaneous edema without a drainable/organized fluid collection identified. There is a more pronounced inflammatory changes surrounding the hallux. Subtle erosive changes are suggested along the plantar surface of the distal phalanx of the hallux (for example series 2, image 68). IMPRESSION: Generalized soft tissue swelling to the right foot with subcutaneous edema without a drainable/organized fluid collection identified. Subtle erosive changes are suggested along the plantar surface of the distal phalanx of the hallux abutting a more focal inflammatory changes of the soft tissues. Early osteomyelitis could be a consideration. Electronically signed by Duane Shabazz 07-24-2025 8:06 PM
--- NOTE | 2025-07-24 20:22 | Ultrasound Report ---
Lower extremity ultrasound Technique: Grayscale and color Doppler ultrasound images of the right lower extremity No comparison Findings: Venous structures are fully compressible with normal color flow and augmentation. Impression No DVT Electronically signed by Javid Crawford 07-24-2025 8:21 PM
--- NOTE | 2025-07-24 20:39 | History & Physical Report ---
Date of Service July 24, 2025 Assessment & Plan (1) Cellulitis of right foot: (2) Type 2 diabetes mellitus: Plan 84-year-old male PMHx T2DM on insulin, CAD s/p quadruple CABG, HTN, HLD, FERNANDO, GERD, history of transaminitis, history of CHF and aortic stenosis presenting for right foot wound. Evaluation does have mild leukocytosis of 10.97 but a normal lactate and procalcitonin. Glucose was initially elevated at 322, but the patient received insulin IV and repeat is now within normal limits. R foot CT does show soft tissue swelling distal phalanx of the phalanx could be early OM, but venous Dopplers are negative for DVT. Admission for cellulitis, ? osteomyelitis of RLE. #R foot cellulitis/? Osteomyelitis Ongoing wound to R foot started ~ 3 weeks ago, worsened the week of arrival; history of diabetes, with neuropathy. GEOFF in the past, however cannot find this in his current chart. He is with pulses at time of admission, no further infectious symptoms. - CBC mild leukocytosis 10.97; lactate 1.7; procalcitonin 0.05; uric acid 6.1 - CBC am - Blood cultures, wound culture pending - MRSA pending - CT subcutaneous edema but no fluid collection, with subtle erosive changes suggestive along the plantar surface of the distal phalanx of the hallux could be early osteomyelitis - Venous Doppler negative DVT - Wound care prn - Acetaminophen prn fever/pain - Cefepime + vancomycin IV - GEOFF pending - MRI pending - Consider podiatry consult while inpatient - should follow with podiatry outpatient regardless #T2DM H/o DMT2; at home regimen includes Farxiga, insulin glargine 35 units twice daily, and metformin. - Initial glucose on arrival was 322, patient received 6 units of regular insulin and repeat was 145; Most recent A1C 07/2023 at 8.6% - pending repeat - Hold home regimen - SSI with target BSG range 110-140mg/dL, CF 20, carb ratio 5 - Lantus 20U BID - BSG ACHS - Adjust regimen as needed #CAD- S/p triple CABG; EKG sinus with PSVC's, LAD, incomplete RBBB, LVH @ 67 bpm; Atorvastatin, aspirin - continue #HTN- Isosorbide mononitrate, metoprolol, spironolactone, telmisartan - continue #GERD- Famotidine - continue #CHF- CXR no active disease; Furosemide 4x/wk, also Furosemide 2 times a week or if weight gain (2 lbs in 1-2 days, 4 lbs in 1 wk) - continue routine dosing, hold prn at time of admission Call patient's daughterDeneen, with updates please @ [phone]. Dispo: Admit, med/sx VTE Prophylaxis: SCDs This document was dictated utilizing Sun[employer]. Please excuse any grammatical errors that may be secondary to use of this software. Admission and Anticipated Discharge Date Admission Date: 07/24/2025 History of Present Illness Chief Complaint: R foot pain/infection Primary Care Provider: Shantell Queen DO 84-year-old male PMHx T2DM on insulin, CAD s/p quadruple CABG, HTN, HLD, FERNANDO, GERD, history of transaminitis, history of CHF and aortic stenosis presenting for right foot wound. Pt reports that he noticed discomfort in his R foot ~ 3 weeks ago, but felt that it was resolving. He has neuropathy at baseline, so his sensation is not always veryy reliable. Additionally, he was unable to see his feet well because his "belly was in the way." He tried diabetic lotion to his feet to help heal the cracks and felt that this worked some. ~ 1 week ago he informed his daughter that his foot was again becoming swollen and painful. The day of arrival she was able to see the foot and noticed that it was very edematous, erythematous, and warm so she brought him to the hospital. He has some numbness/tingling in his feet at baseline but feels that it has worsened. He notes that the R foot feels "tight" and he is having a hard time bending his toes. The lateral aspect of his foot is most painful. No recent trauma that he is aware of. He does wear socks at all times but not shoes. No additional infectious symptoms to include F/C. Denies CP, SOB, palpitations, abdominal pain, N/V/D/C, URI symptoms, LUTS, weakness, syncope, or falls. He had a prior diabetic wound on his L heel in the past, had to be on antibiotics and follow with podiatry for such. No history of gout. ED evaluation with CBC with leukocytosis 10.97, H&H 11.6/34.8; PT/INR WNL; CMP glucose initially 322, repeat 145, alkaline phosphatase 125; lactate 1.7; procalcitonin 0.05; troponin 10.1; magnesium 1.8, calcium 8.7; CXR no active disease; R foot CT generally soft tissue swelling R foot with subcutaneous edema no fluid collection, subtle erosive changes suggested along plantar surface distal phalanx of the hallux, could be early osteomyelitis; venous Doppler negative for DVT; EKG sinus rhythm with PSVC's, LAD, incomplete RBBB, LVH at 67 bpm.; Provided with 500 mL NSS, insulin human regular 6 units IV, cefepime 2 g IV in ED. Please see Dr. Alberts's attestation for adjustments/additions to treatment plan. Allergies Allergy/AdvReac Type Severity Reaction Status Date / Time tramadol AdvReac Severe memory loss Unverified 09/11/24 14:37 lisinopril AdvReac Intermediate Cough Unverified 09/11/24 14:37 sertraline AdvReac Mild DIDN'T Verified 09/11/24 14:37 FEEL WELL ON [id number] Home Medications Medication Instructions Recorded Confirmed Type aspirin 81 mg tablet,delayed 81 mg PO QA ##0 07/12/09 07/24/25 History release (Enteric Coated Aspirin) isosorbide mononitrate 60 mg 60 mg PO QAM 05/02/18 07/24/25 History tablet,extended release 24 hr metformin 1,000 mg tablet 1,000 mg PO QAM 05/26/18 07/24/25 History famotidine 20 mg tablet 20 mg PO BID 10/30/22 07/24/25 History furosemide 20 mg tablet 20 mg PO 4XWK 08/20/23 07/24/25 History metoprolol tartrate 25 mg tablet 25 mg PO BID 08/20/23 07/24/25 History furosemide 20 mg tablet 20 mg PO DAILY PRN weight gain >2 09/05/24 07/24/25 Rx pounds/1-2 days or >4 pounds/week #30 tabs atorvastatin 80 mg tablet 80 mg PO QDD 09/11/24 07/24/25 History dapagliflozin propanediol 10 mg 5 mg PO QAM 09/11/24 07/24/25 History tablet (Farxiga) insulin glargine 100 unit/mL 30 unit subcut BID 09/11/24 07/24/25 History subcutaneous solution (Lantus U-100 Insulin) spironolactone 25 mg tablet 12.5 mg PO QAM 09/11/24 07/24/25 History telmisartan 40 mg tablet 40 mg PO HS 09/11/24 07/24/25 History meclizine 12.5 mg tablet 12.5 mg PO TID PRN dizziness #20 05/27/25 07/24/25 Rx tabs ondansetron 4 mg disintegrating 4 mg PO Q8H PRN nausea and 05/27/25 07/24/25 Rx tablet vomiting #30 tabs Past Med/Surg History Problem List Type 2 diabetes mellitus Cellulitis of right foot Acute hyperglycemia (Acute) Anemia (Acute) Leukocytosis (Acute) Osteomyelitis (Acute) Cellulitis (Acute) CHF exacerbation (Acute) Non-ST elevation ND (NSTEMI) (Acute) COVID-19 (Acute) History of coronary artery bypass graft (Acute) Abnormal ankle brachial index (GEOFF) (Acute) Aortic stenosis Angina of effort History of rib fracture GERD (gastroesophageal reflux disease) Chest pain (Acute) Dyspnea on exertion (Acute) Stable angina (Acute) HLD (hyperlipidemia) (Chronic) Sleep apnea (Chronic) DVT prophylaxis HTN (hypertension) (Chronic) CAD (coronary artery disease) (Chronic) 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) Diabetes mellitus with neuropathy (Chronic) Acute confusion (Acute) Acute hyperglycemia (Acute) Falls frequently (Acute) Rib fractures Diabetes H/O heart surgery Fall (Acute) Hemothorax on right (Acute) Multiple fractures of ribs of right side (Acute) Ribs, multiple fractures (Acute) Medical History Diabetic ulcer of left heel Family History Other Family history non-contributory Social History Smoking Status: Former smoker Smoking End Date: 50 YEARS AGO; Second Hand Exposure: No; Do You Dip or Chew Tobacco: No; Hx Alcohol Use: No Hx Substance Use: No Preferred Language: Indonesian Communication Ability: Effective Visual Impairment: Limited Hearing Ability: Hard of Hearing Drawing In Machine Tender Required: No Beliefs That Will Affect Care: None marital status: / Current Living Situation: Alone Feels Safe at Home: Yes Safety Concerns: Feels Safe At This Time Diet: diabetic caffeine: Yes Assistive Devices: None and Walker Review of Systems 2 Review of Systems: All systems reviewed & are unremarkable except as noted in Subjective Physical Exam 2 Physical Exam: General: No acute distress Skin: Warm and dry; RLE with edema/erythema, cracked skin, different stages of wound healing, L lateral heel small crack (see images) Head: Normocephalic, atraumatic Eyes: PERRL, conjunctivae clear, sclera non-icteric ENT: External ear and ear canal without swelling; nose atraumatic; good dentition, tongue normal appearance, pharynx normal Neck: Supple, no LAD Cardio: RRR, no M/G/R, S1 and S2 normal Resp: No respiratory distress, Lungs CTA in all lobes bilaterally, no wheezes, rales, or rhonchi Abdomen: Soft, symmetric, nontender; No masses or hepatosplenomegaly; Bowel sounds normoactive MSK: No deformities; pulses palpable and equal; no edema. Neuro: Awake, alert; Sensation intact bilaterally; CN grossly intact Psych: Appropriate mood and affect; good judgement and insight. Daughter present in room at time of visit. Results & Data Results & Data Vital Signs (Past 12 Hours) Vital Signs Temp Pulse Pulse Resp BP BP Pulse Ox 07/24/25 20:34 68 07/24/25 19:15 67 18 154/66 H 98 07/24/25 18:30 69 20 139/62 98 07/24/25 18:00 68 20 148/59 H 98 07/24/25 17:30 74 20 140/66 97 07/24/25 17:24 89 20 96 07/24/25 17:24 89 18 140/86 96 07/24/25 17:00 65 20 159/89 H 98 07/24/25 16:55 36.5 C 69 20 156/67 H 98 O2 Del Method 07/24/25 20:34 07/24/25 19:15 Room Air 07/24/25 18:30 Room Air 07/24/25 18:00 Room Air 07/24/25 17:30 Room Air 07/24/25 17:24 Room Air 07/24/25 17:24 Room Air 07/24/25 17:00 Room Air 07/24/25 16:55 Laboratory Results 07/24/25 17:20 Aerobic Blood Culture - Pending Blood Anaerobic Blood Culture - Pending 07/24/25 17:20 Aerobic Blood Culture - Pending Blood Anaerobic Blood Culture - Pending 07/24/25 07/24/25 07/24/25 19:21 17:27 17:20 WBC 10.97 H RBC 3.96 L Hgb 11.6 L Hct 34.8 L MCV 87.9 MCH 29.3 MCHC 33.3 RDW Std Deviation 41.7 RDW Coeff of German 13.0 Plt Count 231 MPV 11.1 Immature Gran % (Auto) 0.4 Neut % (Auto) 77.2 Lymph % (Auto) 10.6 Hudspeth % (Auto) 10.0 Eos % (Auto) 1.4 Baso % (Auto) 0.4 Neut # (Auto) 8.48 H Lymph # (Auto) 1.16 L Hudspeth # (Auto) 1.10 H Eos # (Auto) 0.15 Baso # (Auto) 0.04 Immature Gran # (Auto) 0.04 PT 10.9 INR 1.0 APTT 29 PTT Ratio 1.1 Sodium 139 Potassium 4.1 Chloride 103 Carbon Dioxide 27 Anion Gap 9 BUN 20 Creatinine 1.26 Est Cr Clr Drug Dosing 50.2 eGFR 56.94 BUN/Creatinine Ratio 15.9 Glucose 322 H* POC Glucose 145 H Lactate 1.7 Calcium 8.7 Magnesium 1.8 Total Bilirubin 0.6 Direct Bilirubin 0.1 AST 13 ALT 12 Alkaline Phosphatase 125 H Troponin I High Sens 10.1 Total Protein 7.1 Albumin 4.1 Procalcitonin 0.05 Diagnostic Findings Chest X-Ray 07/24/25 17:09 Clinical History: Sepsis Technique: 2 frontal views of the chest were obtained Findings: There are no confluent pulmonary infiltrates. The heart size is within normal limits. No pleural effusion or pneumothorax is seen. There is no definite pulmonary nodule. There are old healed right rib fractures. Sternal wires are present Impression: No active disease Electronically signed by Emil Crocker 07-24-2025 6:[address] 07/24/25 17:16 CT RIGHT FOOT WITH CONTRAST: HISTORY: Pain TECHNIQUE: CT of the right foot was obtained with intravenous contrast. Coronal and sagittal reformats were created. IV CONTRAST: 100 mL of OMNIPAQUE 300 COMPARISON: None FINDINGS: No acute fracture is identified. Generalized soft tissue swelling to the right foot with subcutaneous edema without a drainable/organized fluid collection identified. There is a more pronounced inflammatory changes surrounding the hallux. Subtle erosive changes are suggested along the plantar surface of the distal phalanx of the hallux (for example series 2, image 68). IMPRESSION: Generalized soft tissue swelling to the right foot with subcutaneous edema without a drainable/organized fluid collection identified. Subtle erosive changes are suggested along the plantar surface of the distal phalanx of the hallux abutting a more focal inflammatory changes of the soft tissues. Early osteomyelitis could be a consideration. Electronically signed by Duane Shabazz 07-24-2025 8:06 PM Venous Doppler Study 07/24/25 17:25 Lower extremity ultrasound Technique: Grayscale and color Doppler ultrasound images of the right lower extremity No comparison Findings: Venous structures are fully compressible with normal color flow and augmentation. Impression No DVT Electronically signed by Javid Crawford 07-24-2025 8:21 PM Medications Administered 500 mL NSS Human regular insulin 6 units IV Cefepime 2 g IV ECG Additional Comments: Sinus rhythm with PSVC's, LAD, incomplete RBBB, LVH 67 bpm, OK 164, QRS 94, QT/QTc 422/445, PRT*/-43/81 Code Status & VTE Plan Code Status Full Supervising Physician Co-Signing Physician Notes Attending addendum: I have physically seen this patient, have supervised the REX's activities, and agree with the H&P unless as otherwise noted. Assessment and Plan: The patient is an 84-year-old male with past medical history including diabetes mellitus type 2 insulin requiring, CAD status post CABG x 4, hypertension, hyperlipidemia, FERNANDO, GERD, history of transaminitis, CHF, and aortic stenosis. He presents to the emergency department due to concerns regarding a right foot wound. CT scan of right foot showed generalized soft tissue swelling of the right foot with subcutaneous edema without drainable/organized fluid collection identified. Subtle erosive changes along the plantar surface of the distal phalanx could be inflammatory versus early osteomyelitis. From the ED patient received normal saline 500 mL bolus, cefepime 2 g IV, regular insulin 6 units IV for glucose 322, and [facility] then [facility]. Right foot cellulitis/underlying erosive arthritis versus osteomyelitis- Initial mild leukocytosis of 10.97 follow serially Follow-up blood cultures and wound cultures MRSA pending CT as noted above Lower extremity venous Doppler negative for DVT Consult wound care Acetaminophen 650 mg by mouth every 6 hours as needed for mild pain or fever Cefepime IV and vancomycin IV Order ABIs MRI ordered and pending Consult podiatry Diabetes mellitus type 2- Hold metformin Initial glucose 322, improved 1 6:45 units regular insulin IV from the ED Placed on Lantus 28 SQ twice daily and on Accu-Cheks with NovoLog SSI as noted CAD/hypertension/CHF/status post CABG- Continue isosorbide mononitrate, metoprolol, spironolactone, telmisartan, and furosemide. GERD- Continue famotidine PG Care Time/CCT Total # of Minutes Spent Total Time Spent with Patient: Total time spent is greater than 50% in coordination of care (as documented) at patient's floor/unit and/or counseling patient: Coding Level of Care Code 41022 INT INP/OBS CARE MIN Diagnoses Cellulitis of right foot L03.115 Type 2 diabetes mellitus E11.9
[2025-07-24] MEDS ORDERED: VANCOMYCIN CONSULT ACTIVE PRN (20:41)
[2025-07-24] MEDS ORDERED: VANCOMYCIN HCL 1,500 MG in SODIUM CHLORIDE 0.9% 500 ML IV SCH (20:45)
[2025-07-24 21:06] LABS: Uric Acid 6.1 mg/dl (2.6-7.2)
[2025-07-24] MEDS: VANCOMYCIN HCL 2,000 MG in SODIUM CHLORIDE 0.9% 500 ML IV ONE (21:15)
[2025-07-24 21:28] LABS: Appearance Urine Clear (Clear); Glucose Urine UA 3+ (Negative)
[2025-07-24] MEDS ORDERED: ONDANSETRON INJ 2 MG/ML 2 ML VIAL IV PRN (22:42)
[2025-07-24] MEDS ORDERED: POLYETHYLENE (MIRALAX) 17 GM PACK PO PRN (22:42)
[2025-07-24] MEDS ORDERED: MELATONIN 3 MG TAB PO PRN (22:42)
[2025-07-24] MEDS ORDERED: GLUCOSE 10 TAB/TUBE PO PRN (22:43)
[2025-07-24] MEDS ORDERED: ACETAMINOPHEN 500 MG TAB PO PRN (22:43)
[2025-07-24] MEDS ORDERED: DEXTROSE 50% 50 ML SYRINGE IV PRN (22:43)
[2025-07-24] MEDS ORDERED: GLUCOSE 40% GEL 15 GM TUBE PO PRN (22:43)
[2025-07-24] MEDS ORDERED: GLUCAGON FOR INJ 1 MG VIAL SQ PRN (22:43)
--- NOTE | 2025-07-25 02:39 | Magnetic Resonance Report ---
EXAM: MR foot RT w/o con CLINICAL HISTORY: Cellulitis. TECHNIQUE: MRI of the right foot was performed without intravenous contrast administration. Sequences obtained include: Sagittal T1-weighted, Sagittal T2-weighted, Coronal T1-weighted, Coronal T2-weighted, Axial T1-weighted, and Axial T2-weighted. COMPARISON: CT 07/24/2025. FINDINGS: Bone: Cystic changes of the medial cuneiform bone. Mild bone marrow edema of the metatarsal heads and opposing subchondral parts of the proximal phalanges, extending from the 2nd-5th bones. There is no evidence of erosive/destructive bony changes. There are also edema of the phalanxes of the toes, most prominent on the proximal phalanxes. Joints : Osteoarthritic changes of the first metatarsophalangeal and interphalangeal joints manifested by joint space narrowing, marginal articular bone spurring and subchondral degenerative marrow changes. The rest of the metatarsophalangeal and interphalangeal joints are displaying variable osteoarthritic changes and minimal synovial effusion. Tendons: Tenosynovitis of the flexor hallucis longus and flexor digitorum communis tendons at the sole of the foot. Soft Tissue: Soft tissue feathery edema involving the intrinsic and extrinsic muscles of the foot. No evidence of collection. Subcutaneous soft tissue edema mainly involving the dorsal aspect of the foot. The visualized neurovascular structures do not reveal any obvious abnormality. Transverse and longitudinal arches of the foot are well maintained. IMPRESSION: 1. Edema of the 2-5 metatarsal heads with edema of the phalanxes of the toes. 2. Diffuse soft tissue edema with edema of the intertarsal muscles. 3. No gross features of osteomyelitis. 4. Metatarsophalangeal and interphalangeal arthropathy. 5. The findings collectively might denote early changes of Charcot foot (neuroarthropathy). Clinical correlation recommended. Electronically signed by Diego Malone 07-25-2025 02:39 AM
--- NOTE | 2025-07-25 02:57 | Magnetic Resonance Report ---
EXAM: MR ankle RT wo con CLINICAL HISTORY: Cellulitis, streaking. TECHNIQUE: Multiplanar multi-sequential MRI of the right ankle joint was performed without IV contrast administration. COMPARISON: None. FINDINGS: Joints: A focal cystic area measuring 12 x 11 mm is seen in the bony of the calcaneal bone, likely representing an intraosseous ganglion cyst. Os trigonum accessory bone is noted, showing mild bone marrow edema, with surrounding fluid. Please correlate clinically to rule out posterior ankle impingement syndrome. A small focus of bone marrow edema is noted in the distal fibula. Normal appearance of the tibiotalar, subtalar, and other ankle joints. Plantar calcaneal spur noted. Compartmental tendons: An abnormal fluid signal is seen within the flexor hallucis longus muscle and surrounding its tendon sheath. Also, edema of the included intertarsal muscles noted. The tibialis posterior and flexor digitorum longus are unremarkable. The tibialis anterior, extensor digitorum, and extensor hallucis longus are unremarkable. The peroneus longus and brevis are unremarkable. The Achilles tendon is intact in its signal characteristics, and the pre-Achilles fat is clear. Sinus tarsi and plantar fascia: The sinus tarsi are unremarkable. The plantar fascia is unremarkable. Ligaments: The deltoid ligament is intact. The calcaneofibular ligament is intact. Intact anterior and posterior talofibular ligament. Thickening of the insertion site of the plantar fascia noted, denoting chronic fasciitis. Soft Tissues: Diffuse soft tissue edema is seen around the ankle joint. IMPRESSION: 1. Changes of posterior ankle impingement syndrome, with os trigonum showing bone marrow edema. 2. Tenosynovitis of the flexor hallucis tendon. 3. Edema of the flexor hallucis muscle with included intertarsal muscles. 4. Focal bone marrow edema seen in the distal fibula, please correlate clinically and with point of tenderness. 5. Calcaneal intraosseous ganglion cyst. 6. Diffuse subcutaneous edema around the ankle joint. 7. Findings suggestive of chronic plantar fasciitis. 8. If clinically indicated, then a contrast-enhanced study is advised for better assessment for osteomyelitis and any collections. Electronically signed by Diego Malone 07-25-2025 02:56 AM
--- NOTE | 2025-07-25 03:31 | Ultrasound Report ---
EXAM: US ankle/brachial index ltd CLINICAL HISTORY: RLE cellulitis, ? OM, DM. TECHNIQUE: A real-time ankle/brachial index measurement with segmental pressure (PVR) with image documentation was performed. COMPARISON: None. FINDINGS: Segmental Pressures Systolic Pressures(mmHG): Rest Right - Left Right Brachial BP 180 Left Brachial BP 180 Right ankle/DP/PT BP: 1.18/1.08 Left ankle/DP/PT BP: Not available. Right GEOFF: 1.18 Left GEOFF: NA Right TBI: NA Left TBI: 0.56 The resting ankle-brachial index of the right lower extremity is within normal limits. The resting toe-brachial index TBI of the left lower extremity is reduced. IMPRESSION: 1. This exam reveals normal perfusion of the right lower extremity. 2. The resting toe-brachial index TBI of the left lower extremity is reduced suggesting reduced perfusion. Electronically signed by Diego Malone 07-25-2025 03:31 AM
[2025-07-25 06:48] LABS: Hematocrit (blood only) 31.7 % (42.0-52.0); Hemoglobin 10.8 g/dL (14.0-18.0); Mean Corpuscular Hemoglobin 29.7 pg (25.0-34.0); Mean Corpuscular Volume 87.1 fL (80.0-100.0); Platelet Count 196 K/uL (130-400); RDW Standard Deviation 41.5 fL (36.4-46.3); Red Blood Count 3.64 M/uL (4.70-6.10); White Blood Count 8.08 K/ul (4.8-10.8)
[2025-07-25 07:15] LABS: Creatinine Clr Calc Pharmacy 66.7 ml/min
[2025-07-25 07:28] LABS: Hemoglobin A1C 10.9 % (4.5-5.6)
[2025-07-25] MEDS: SPIRONOLACTONE 12.5 MG TAB PO SCH (08:28)
[2025-07-25] MEDS: METOPROLOL TARTRATE 25 MG TAB PO SCH (08:28)
[2025-07-25] MEDS: ASPIRIN 81 MG ECTAB PO SCH (08:28)
[2025-07-25] MEDS: ISOSORBIDE MONO EXTENDED REL 60 MG TABCR PO SCH (08:28)
[2025-07-25] MEDS: FUROSEMIDE 20 MG TAB PO SCH (08:29)
[2025-07-25] MEDS: INSULIN ASPART PER UNIT CHARGE SC SCH (08:36)
[2025-07-25] MEDS: FAMOTIDINE 20 MG TAB PO SCH (08:36)
[2025-07-25] MEDS: LANTUS PER UNIT CHARGE SQ SCH ×3 (08:37→21:33)
[2025-07-25] MEDS ORDERED: VANCOMYCIN HCL 1,250 MG in SODIUM CHLORIDE 0.9% 250 ML IV SCH (10:00)
--- NOTE | 2025-07-25 10:33 | Hospitalist Progress Note ---
Date of Service July 25, 2025 Assessment & Plan (1) Cellulitis of right foot: (2) Type 2 diabetes mellitus: Plan 84-year-old male PMHx T2DM on insulin, CAD s/p quadruple CABG, HTN, HLD, FERNANDO, GERD, history of transaminitis, history of CHF and aortic stenosis presenting for right foot wound on 07/24/2025. #R foot cellulitis Ongoing wound to R foot started ~ 3 weeks ago, worsened the week of arrival; history of diabetes, with neuropathy. on admission, procal neg, lactate 1.7 & uric acid 6.1 CBC w/ resolution of leukocytosis after starting antibiotics. BMP w/ stable renal function Right food cellulitis - generalized soft tissue swelling to R foot w/ subcutaneous edema w/o drainable/organized fluid collection identified. Doppler US - neg for DVT; GEOFF w/ normal perfusion of RLE & reduced perfusion of LLE. R ankle/foot MRI --> neg for osteomyelitis. revealing tenosynovitis of flexor hallucis tendon & chronic plantar fasciitis. BC & Wound culture pending, hx of MSSA of left foot in past. Continue IV Cefepime & Vancomycin pending culture results will adjust as necessary. Wound nurse consulted will require podiatry referral on discharge. #T2DM H/o DMT2; at home regimen includes Farxiga, insulin glargine 35 units twice daily, and metformin (hold home regimen) A1c 10.9% SSI with target BSG range 110-140mg/dL, CF 20, carb ratio 5 - BSG ACHS Lantus 20U BID Adjust regimen as needed #CAD- S/p triple CABG; EKG sinus with PSVC's, LAD, incomplete RBBB, LVH @ 67 bpm; Atorvastatin, aspirin - continue #HTN- Isosorbide mononitrate, metoprolol, spironolactone, telmisartan - continue #GERD- Famotidine - continue #Chronic HFpEF- CXR no active disease; Furosemide 4x/wk, also Furosemide 2 times a week or if weight gain (2 lbs in 1-2 days, 4 lbs in 1 wk) - continue routine dosing, hold prn at time of admission Dispo: Admit, med/sx VTE Prophylaxis: SCDs; Lovenox Admission and Anticipated Discharge Date Admission Date: July 24, 2025 Supervising Physician Co-Signing Physician Notes The patient was not seen by me. The chart was reviewed. Case discussed with REMA Pearce. Agree with assessment and plan Subjective Carlton was seen & examined this morning. He reports he is feeling well aside from his foot. Reports he is unsure if improvement, does have baseline neuropathy. He reports he is unsure how long wounds have been present on his foot as he can not see the bottom of it. Physical Exam Physical Exam: General: NAD, VS: BP 153/67; P62; R17; T36.7C Resp: normal respiratory effort Extremities: Moves all extremities, no edema Neuro: A&O x3 Skin: Right foot with mild erythema. scattered small wounds present without drainage or erythema surrounding wound. No tenderness to palpation. Results & Data Results & Data Vital Signs (Past 12 Hours) Vital Signs Temp Pulse Resp BP Pulse Ox O2 Del Method 07/25/25 07:19 36.7 C 62 17 153/67 H 98 Room Air PG Care Time/CCT Total # of Minutes Spent Total Time Spent with Patient: Total time spent is greater than 50% in coordination of care (as documented) at patient's floor/unit and/or counseling patient: Coding Level of Care Code 79941 SUB INP/OBS CARE 2/35MIN Diagnoses Cellulitis of right foot L03.115 Type 2 diabetes mellitus E11.9
[2025-07-25] MEDS: VANCOMYCIN HCL 1,500 MG in SODIUM CHLORIDE 0.9% 500 ML IV SCH (10:40)
--- NOTE | 2025-07-25 14:35 | Pharmacy Report ---
Pharmacy PK ABX Note - Date of Service July 25, 2025 - Assessment and Plan Assessment 84 year old M receiving vancomycin and cefepime for treatment of ongoing/worseing wound/cellulitis of right foot. Patient with history of T2DM with neuropathy. * Mild leukocytosis on admit which has since resolved, FARZANA on admit also appears to be resolved, afebrile, procal negative * Pertinent microbiologic data includes: Blood cultures x 2 from 07/24 are pending, MRSA nasal swab is negative Day # 2 of antimicrobial therapy. Plan Vancomycin * Loading dose: 2000 mg IV x 1 * Maintenance dose: 1500 mg IV every 24 hours * Regimen is predicted to achieve target AUC/SALVADOR of 400-600 mg/L.hr * Random level will be ordered in the next few days if the vancomycin is continued Cefepime 2gm iv q 8 hours. Pharmacy will continue to follow and will adjust dose/frequency as necessary. Thank you. Pharmacy has transitioned to AUC monitoring for vancomycin. AUC/SALVADOR is the preferred PK/PD target and is associated with decreased risk of nephrotoxicity compared to traditional trough targets.
[2025-07-25] MEDS: CARBOHYDRATES FOR HYPOGLYCEMIA PO PRN (15:18)
[2025-07-25] MEDS: CEFEPIME 2000MG 2,000 MG/20 ML SYR IV SCH (15:27)
[2025-07-25] MEDS: ATORVASTATIN 40 MG TAB PO SCH (17:26)
--- NOTE | 2025-07-25 18:47 | Electrocardiogram Report ---
Test Reason : Blood Pressure : */* mmHG Vent. Rate : 67 BPM Atrial Rate : 67 BPM P-R Int : 164 ms QRS Dur : 94 ms QT Int : 422 ms P-R-T Axes : * -43 81 degrees QTcB Int : 445 ms Sinus rhythm with Premature supraventricular complexes Left axis deviation Incomplete right bundle branch block Minimal voltage criteria for LVH, may be normal variant Abnormal ECG When compared with ECG of 27-May-2025 20:32, Premature supraventricular complexes are now Present Confirmed by Alberto Diana ([id number]) on 07/25/2025 6:47:22 PM Referred By: REFERRED SELF Confirmed By: Alberto Diana
[2025-07-25] MEDS: ENOXAPARIN INJ 40 MG/0.4 ML SYR SQ SCH (21:32)
[2025-07-25] MEDS: LOSARTAN POTASSIUM 50 MG TAB PO SCH (21:33)
[2025-07-25 23:29] VITALS: RESP 16
[2025-07-26 06:49] LABS: Hematocrit (blood only) 32.6 % (42.0-52.0); Hemoglobin 11.0 g/dL (14.0-18.0); Mean Corpuscular Hemoglobin 29.3 pg (25.0-34.0); Mean Corpuscular Volume 86.7 fL (80.0-100.0); Platelet Count 218 K/uL (130-400); RDW Standard Deviation 41.5 fL (36.4-46.3); Red Blood Count 3.76 M/uL (4.70-6.10); White Blood Count 8.79 K/ul (4.8-10.8)
[2025-07-26 07:12] LABS: Anion Gap 8.0 (3-11); Blood Urea Nitrogen 19.0 mg/dl (6-23); Calcium 8.3 mg/dl (8.6-10.3); Carbon Dioxide 23.0 mmol/L (21-32); Chloride 109.0 mmol/L (98-107); Creatinine Clr Calc Pharmacy 61.7 ml/min; Glucose 136.0 mg/dl (70-99(Fasting)); Potassium 3.7 mmol/L (3.5-5.1); Sodium 140.0 mmol/L (136-145)
[2025-07-26 07:55] VITALS: BP 172/72; PULSE 60
[2025-07-26 07:59] VITALS: TEMP 98.1; O2SAT 96
--- NOTE | 2025-07-26 09:35 | Discharge Summary ---
Discharge Summary Date of Service July 26, 2025 Principal Dx & Hospital Course #1 = Principal Diagnosis (1) Cellulitis of right foot: (2) Type 2 diabetes mellitus: Plan 84-year-old male PMHx T2DM on insulin, CAD s/p quadruple CABG, HTN, HLD, FERNANDO, GERD, history of transaminitis, history of CHF and aortic stenosis presenting for right foot wound on 07/24/2025. #R foot cellulitis Ongoing wound to R foot started ~ 3 weeks ago, worsened the week of arrival; history of diabetes, with neuropathy. on admission, procal neg, lactate 1.7 & uric acid 6.1 CBC w/ resolution of leukocytosis after starting antibiotics. BMP w/ stable renal function Right food cellulitis - generalized soft tissue swelling to R foot w/ subcutaneous edema w/o drainable/organized fluid collection identified. Doppler US - neg for DVT; GEOFF w/ normal perfusion of RLE & reduced perfusion of LLE. R ankle/foot MRI --> neg for osteomyelitis. revealing tenosynovitis of flexor hallucis tendon & chronic plantar fasciitis. BC neg at 24 hours, wound culture never collected, hx of MSSA of left foot in past. s/p IV Cefepime & Vancomycin, dc home on doxycycline BID. Wound nurse consulted --> rec cleaning wounds w/ saline & painting w/ betadine daily. Podiatry referral on dc. #T2DM H/o DMT2; at home regimen includes Farxiga, insulin glargine 35 units twice daily, and metformin - resume A1c 10.9% #CAD- S/p triple CABG; EKG sinus with PSVC's, LAD, incomplete RBBB, LVH @ 67 bpm; Atorvastatin, aspirin - continue #HTN- Isosorbide mononitrate, metoprolol, spironolactone, telmisartan - continue #GERD- Famotidine - continue #Chronic HFpEF- CXR no active disease; Furosemide 4x/wk, also Furosemide 2 times a week or if weight gain (2 lbs in 1-2 days, 4 lbs in 1 wk) - continue routine dosing, hold prn at time of admission Discharged home 07/26 Notes For Next Care Provider sent home on doxy bid for additional 5 days for cellulitis. podiatry referral sent. Admission HPI Per Admitting Provider 84-year-old male PMHx T2DM on insulin, CAD s/p quadruple CABG, HTN, HLD, FERNANDO, GERD, history of transaminitis, history of CHF and aortic stenosis presenting for right foot wound. Pt reports that he noticed discomfort in his R foot ~ 3 weeks ago, but felt that it was resolving. He has neuropathy at baseline, so his sensation is not always veryy reliable. Additionally, he was unable to see his feet well because his "belly was in the way." He tried diabetic lotion to his feet to help heal the cracks and felt that this worked some. ~ 1 week ago he informed his daughter that his foot was again becoming swollen and painful. The day of arrival she was able to see the foot and noticed that it was very edematous, erythematous, and warm so she brought him to the hospital. He has some numbness/tingling in his feet at baseline but feels that it has worsened. He notes that the R foot feels "tight" and he is having a hard time bending his toes. The lateral aspect of his foot is most painful. No recent trauma that he is aware of. He does wear socks at all times but not shoes. No additional infectious symptoms to include F/C. Denies CP, SOB, palpitations, abdominal pain, N/V/D/C, URI symptoms, LUTS, weakness, syncope, or falls. He had a prior diabetic wound on his L heel in the past, had to be on antibiotics and follow with podiatry for such. No history of gout. ED evaluation with CBC with leukocytosis 10.97, H&H 11.6/34.8; PT/INR WNL; CMP glucose initially 322, repeat 145, alkaline phosphatase 125; lactate 1.7; procalcitonin 0.05; troponin 10.1; magnesium 1.8, calcium 8.7; CXR no active disease; R foot CT generally soft tissue swelling R foot with subcutaneous edema no fluid collection, subtle erosive changes suggested along plantar surface distal phalanx of the hallux, could be early osteomyelitis; venous Doppler negative for DVT; EKG sinus rhythm with PSVC's, LAD, incomplete RBBB, LVH at 67 bpm.; Provided with 500 mL NSS, insulin human regular 6 units IV, cefepime 2 g IV in ED. Please see Dr. Alberts's attestation for adjustments/additions to treatment plan. Discharge Exam General: NAD, VS: BP 172/72; P60; R16; T36.7C Resp: normal respiratory effort Extremities: Moves all extremities, no edema Neuro: A&O x3, Skin: right foot w/ mild erythema, most pronounced on lateral surface of foot. not warm or tender to touch. scattered wounds present w/ black surface, no drainage or erythema surrounding wounds. improved from previous day. Discharge Plan Discharge Items Patient Disposition: Home - Self-Care Reason For Visit: CELLULITIS, ? OM Discharge Diagnosis: right foot cellulitis Condition on Discharge: Fair Activity: Resume your previous activity Non-emergency contact: Primary Care Provider Call non-emergency contact if: you have any medication questions, your symptoms worsen and you have a fever Follow-up/Referrals: Shantell Queen DO [Primary Care Provider] - Skip Nuno DPM [Physician] - Diet: Carb Consistent or DM2 Addtl Attending Provider Instructions: Mr. Lang, You were recently hospitalized secondary to redness of your right foot. This is secondary to cellulitis. You have blood cultures pending at the time of discharge, they are negative at 24 hours but take 5 days to get final results. If they turn positive you will be notified, you can also check in with your PCP or the [facility] portal. However, given your symptoms I do not expect they will be positive. Medications: Your medication list has been reviewed and reconciled upon discharge to ensure accuracy and continuity of care. An updated list of all your medications is included with your hospital discharge paperwork. Please review this list closely, and make note of any changes. Please take Doxycycline twice daily for 5 days. Your first dose will be this evening, 07/26. You may take with food to avoid GI upset. Take your medications as instructed; do not skip a dose of your medicines. Make sure all of your doctors know every medicine you are taking (including [id number] medicines, vitamins, and supplements). Call your primary care provider before taking any new medicines (including over- the-counter medicines, vitamins, and supplements), because some of these may interact with your current medications, or may make your symptoms worse. Tell your primary care provider if you cannot afford your medications. Activity: You can do normal everyday activities as your body allows. Take rest breaks if you feel tired. Do not overexert. Stop activity if you have pain, shortness of breath or feel dizzy. Follow-up appointments: Make an appointment with your primary care physician within one week of discharge. A copy of this summary will be sent to them. Every time you see your primary care physician, or any other doctor, bring your medication list, and a list of questions. Please follow up with a boat worker in the outpatient setting. CONTACT YOUR PRIMARY CARE PROVIDER if you experience any of the following: Shortness of breath or difficulty breathing Fevers or chills Feeling tired with normal activity or experiencing dizziness or fainting Difficulty following your treatment plan, or difficulty taking medications CALL 911 OR GO TO THE EMERGENCY DEPARTMENT if you experience any of the fo llowing: Severe abdominal pain or nausea/vomiting Severe chest pain, or chest pain that radiates (moves) to your jaw or arm Sudden, severe shortness of breath or difficulty breathing Thank you for allowing us to participate in your care. Pending Studies at Discharge: Yes Studies:: final results of blood cultures Stand-Alone Forms: My [facility], Smoking Cessation Medications and DC Order Prescriptions: New doxycycline hyclate 100 mg tablet 100 mg PO BID Qty: 10 0RF Continued famotidine 20 mg tablet 20 mg PO BID aspirin [Enteric Coated Aspirin] 81 mg Tablet,Delayed Release (Dr/Ec) 81 mg PO QAM Qty: 0 isosorbide mononitrate 60 mg Tablet Extended Release 24 Hr 60 mg PO QAM metformin 1,000 mg tablet 1,000 mg PO QAM metoprolol tartrate 25 mg tablet 25 mg PO BID furosemide 20 mg tablet 20 mg PO [id number] Rx Instructions: Sun/Wednesday/Wed/Wednesday furosemide 20 mg tablet 20 mg PO DAILY PRN (Reason: weight gain >2 pounds/1-2 days or >4 pounds/week) Qty: 30 0RF spironolactone 25 mg Tablet 12.5 mg PO QAM telmisartan 40 mg Tablet 40 mg PO HS dapagliflozin propanediol [Farxiga] 10 mg Tablet 5 mg PO QAM atorvastatin 80 mg tablet 80 mg PO QDD insulin glargine [Lantus U-100 Insulin] 100 unit/mL solution 30 unit SUBCUT BID Rx Instructions: 30 U am and 15 units qPM meclizine 12.5 mg tablet 12.5 mg PO TID PRN (Reason: dizziness) Qty: 20 0RF ondansetron 4 mg tablet,disintegrating 4 mg PO Q8H PRN (Reason: nausea and vomiting) Qty: 30 0RF Discharge Orders: Discharge Order (Routine); Ordered 07/26/25 Ordered By: Rosemary Coulter Admission Data Admit Date/Time: 07/24/25 21:22 Attending Provider: Javid Gordon Admit Provider: Michael Alberts Primary Care Provider: Shantell Queen Other Providers: Michael Alberts; Terry,Home Care Other Interventions: Discharge Summary Assessment (RN) Last Done: 07/26/25 09:57 Hospital Stay Data Consultations 07/24/25 20:26 ED Decision to Admit Stat Diagnostic Imagining Performed 07/24/25 17:16 CT foot RT w con Stat 07/24/25 17:25 US venous doppler LE RT Stat 07/24/25 21:46 MRI Ankle [MR ankle RT wo con] Urgent MRI Foot [MR foot RT w/o con] Urgent 07/25/25 US ankle/brachial index ltd Routine Pending Results Patient Have Any Pending Studies at Discharge: Yes Discharge Instructions Given to Patient (Per Discharging Provider) Mr. Lang, You were recently hospitalized secondary to redness of your right foot. This is secondary to cellulitis. You have blood cultures pending at the time of discharge, they are negative at 24 hours but take 5 days to get final results. If they turn positive you will be notified, you can also check in with your PCP or the [facility] portal. However, given your symptoms I do not expect they will be positive. Medications: Your medication list has been reviewed and reconciled upon discharge to ensure accuracy and continuity of care. An updated list of all your medications is included with your hospital discharge paperwork. Please review this list closely, and make note of any changes. Please take Doxycycline twice daily for 5 days. Your first dose will be this evening, 07/26. You may take with food to avoid GI upset. Take your medications as instructed; do not skip a dose of your medicines. Make sure all of your doctors know every medicine you are taking (including whel-vqh-nxqzuih medicines, vitamins, and supplements). Call your primary care provider before taking any new medicines (including over- the-counter medicines, vitamins, and supplements), because some of these may interact with your current medications, or may make your symptoms worse. Tell your primary care provider if you cannot afford your medications. Activity: You can do normal everyday activities as your body allows. Take rest breaks if you feel tired. Do not overexert. Stop activity if you have pain, shortness of breath or feel dizzy. Follow-up appointments: Make an appointment with your primary care physician within one week of discharge. A copy of this summary will be sent to them. Every time you see your primary care physician, or any other doctor, bring your medication list, and a list of questions. Please follow up with a boat worker in the outpatient setting. CONTACT YOUR PRIMARY CARE PROVIDER if you experience any of the following: Shortness of breath or difficulty breathing Fevers or chills Feeling tired with normal activity or experiencing dizziness or fainting Difficulty following your treatment plan, or difficulty taking medications CALL 911 OR GO TO THE EMERGENCY DEPARTMENT if you experience any of the following: Severe abdominal pain or nausea/vomiting Severe chest pain, or chest pain that radiates (moves) to your jaw or arm Sudden, severe shortness of breath or difficulty breathing Thank you for allowing us to participate in your care. Supervising Physician Co-Signing Physician Notes chart reviewed and case d/w K LASHA Coulter, as above Total Time Total Time Spent Total Time Spent (In Minutes): 50 Total Time Includes: Examination of the Patient, Discharge Planning and Medication Reconciliation Coding Level of Care Code 70995 INP/OBS DISCH >30 MIN Diagnoses Cellulitis of right foot L03.115 Type 2 diabetes mellitus E11.9
[2025-07-27] MEDS ORDERED: VANCOMYCIN LEVEL ONE (09:30)
== END 2025-07-26 12:00 | disposition home health service (06) | DRG 638 ==
LOC: ED 16:40 → 3E 21:22 → SUATTDRO 21:22 → 3E 22:04